=== PATIENT | male | born 2000 | race Caucasian/White ===

== ENCOUNTER 2022-07-01 21:09 | Emergency (ER) | payer SELFPAY ==
[2022-07-01 21:11] VITALS: BP 141/119; PULSE 65; RESP 18; TEMP 36.3; O2SAT 96; BMI 20.9
--- NOTE | 2022-07-01 22:18 | EKG12_ITS ---
Test Reason : FALL Blood Pressure : / mmHG Vent. Rate : 064 BPM Atrial Rate : 064 BPM P-R Int : 140 ms QRS Dur : 102 ms QT Int : 396 ms P-R-T Axes : 046 074 061 degrees QTc Int : 408 ms Normal sinus rhythm Normal ECG Confirmed by WINDY SCHMIDT, TYLER ([id number]), editor dictionary GIANNA CORTES ([id number]) on 07/02/2022 8:41:03 AM Referred By: Confirmed By:TYLER TEMPLE MD
--- NOTE | 2022-07-01 22:19 | EX.ED.DYSGE1 ---
HPI History of Present Illness Chief Complaint: Syncope Informant: patient Narrative Narrative: Patient states he was prescribed prednisone and azithromycin for a case of bronchitis about 5 days ago. He states every time he takes the medicine he feels a little lightheaded and dizzy. He took it last night before getting in the shower. When he got out of the shower and went into his room and bent over he got dizzy fell and hit his head. There is no loss of consciousness. No numbness tingling. He states he is not really having a headache. He is not as dizzy today. But he just feels mildly anxious and just different than normal. He has been eating and drinking. No nausea vomiting. No numbness tingling weakness or neurologic symptoms. His breathing issues/bronchitis is improving. It seems like taking the meds makes his symptoms worse and the symptoms get better after that. He states he has 1 dose left. PFSH PFS Home Medications Zithromax 07/01/22 [History Last Taken Unknown] prednisone 07/01/22 [History Last Taken Unknown] Allergy/AdvReac Type Severity Reaction Status Date / Time amoxicillin [Amoxicillin] Allergy Rash Verified 07/01/22 21:10 Penicillins Allergy Rash Verified 07/01/22 21:10 Social History Smoking Status: Light Smoker (<10/day) [facility] ED Constitutional Constitutional ED: Denies fever(s), subjective or sweats Eyes Eyes: Denies blurry vision, change in vision or diplopia ENT ENT ED: Reports rhinorrhea; Denies sore throat Cardiovascular Cardiovascular: Denies chest pain, palpitations or racing heartbeat Respiratory/Chest Respiratory/Chest: Reports cough; Denies dyspnea or sputum Gastrointestinal Gastrointestinal: Denies abdominal pain, diarrhea, nausea or vomiting Genitourinary Genitourinary ED: Denies dysuria, hematuria or urinary frequency Musculoskeletal Musculoskeletal: Denies myalgias Integumentary Denies Abrasions or rash Neurologic Neurologic: Reports other Details: See history of present illness ; Denies headache(s), paresthesias or weakness Psychiatric Psychiatric: Reports anxiety Endocrine Endocrinology: Reports other Details: No history of diabetes ; Denies polydipsia or polyuria Hematologic/Lymphatic Hematologic/Lymphatic: Denies easy bleeding or easy bruising Allergic/Immunologic Allergic/Immunologic ED: Denies urticaria EXAM Physical Exam Const Vital Signs: 07/01/22 21:11 Temperature 97.4 F L Temperature Source Temporal Pulse Rate 65 Respiratory Rate 18 Blood Pressure 141/119 H Blood Pressure Mean 126 Pulse Ox 96 Oxygen Delivery Method Room Air Positive well nourished and well developed Constitutional Narrative: Patient sitting quietly in the bed. General Appearance ED: well developed and NAD HEENT Reports moist mucous membranes HEENT Narrative: I find no trauma on his scalp. No abrasions contusions swelling or tender areas. Eyes PERRL and EOMs intact bilaterally Eyes Narrative: No vertigo or nystagmus with head motion. Neck no lymphadenopathy Chest Wall inspection of chest normal Resp normal respiratory effort and clear to auscultation bilaterally Auscultation: Negative for rhonchi or wheezes Cardio regular rate, regular rhythm and no murmurs GI normal to inspection, nondistended, normoactive bowel sounds, non-tender and non-distended Palpation: soft Back/Spine no CVA tenderness Extremity normal to inspection Neuro oriented x3 and no sensory deficits noted Neuro Narrative: Normal gait balance and coordination. Normal speech. Sensorium / Orientation: alert; Negative for orientation impaired, lethargic or stuporous Motor Exam: strength 5/5 throughout Psych mental status grossly normal MDM MDM MDM Narrative Medical decision making narrative: Patient's EKG shows no acute process and has a normal QTC. Glucose was mildly elevated at 143 but this is not diabetes and is not likely the primary cause of his symptoms. This will need to be rechecked when he is off prednisone. Patient has normal neurologic exam. He is not dizzy right now. His symptoms are certainly able to be caused by the azithromycin and prednisone. These are known side effects. I think these would symptoms will resolve as he is off the medications. Patient's initial blood pressure was also elevated but had a very close diastolic systolic differential. This will be repeated. It still needs to be followed up but can be followed up with primary physician along with recheck of blood sugar. Lab Data Labs: Laboratory Results - last 24 hr 07/01/22 22:29 POC Glucose 143 H EKG Initial EKG: Comments: EKG done for lightheadedness and syncope on medications. EKG read by me shows a normal sinus rhythm with a rate of 64. No ectopy. No acute ST elevation or depression. DE interval, QRS duration and QTc are all normal. Discharge Plan Triage Chief Complaint: Syncope Other Complaint: Dizziness Head Injury ED Provider: Osito Oliver Dx/Rx/DC Orders Clinical Impression: Syncope, Borderline hyperglycemia, Medication side effect Prescriptions: No Action Zithromax prednisone Primary Care Provider: Care Physician,No Primary Referrals: Cathy Cee MD [Med Staff - Booster Operator] - 3-5 Days if not improving Care Physician,No Primary [Primary Care Provider] - Disposition Disposition: Home, Self Care
[2022-07-01 22:51] LABS: Bedside Glucose 143 mg/dL (74-106)
[2022-07-01 23:02] VITALS: BP 94/60
== END 2022-07-01 23:06 | disposition home or self-care (01) ==
PROVIDERS: Emergency Provider Emergency Medicine; Visit Provider Emergency Medicine
DX: S09.90XA Unspecified injury of head, initial encounter (principal); R55 Syncope and collapse; F17.200 Nicotine dependence, unspecified, uncomplicated; R73.9 Hyperglycemia, unspecified; J40 Bronchitis, not specified as acute or chronic; Z79.52 Long term (current) use of systemic steroids; X58.XXXA Exposure to other specified factors, initial encounter
CPT/HCPCS: 82962; 93005; 99282

== ENCOUNTER 2023-06-03 16:33 | Emergency (ER) | payer OTHER, SELFPAY ==
[2023-06-03 16:33] VITALS: BP 135/73; PULSE 94; RESP 18; TEMP 36.1; O2SAT 97; BMI 22.7
--- NOTE | 2023-06-03 17:16 | EDS_ITS ---
<Statement entered by Delfina Do MD - 06/03/23 20:09> I have personally performed a face to face assessment of the patient and have reviewed the EFREN Note. Patient presents secondary to dental pain. He states that he noted increasing dental pain when his wisdom teeth started coming in. He has not seen a dentist in some time but does now have insurance that will cover dental visits. Patient sitting upright in bed no acute distress. He tolerates secretions well and speaks with a strong voice. No facial edema or erythema noted. Intraoral examination reveals dental decay to the gumline on both right and left mandibular surfaces as well as maxillary surfaces. Mild gum irritation and edema noted. No evidence of trismus. No submental fullness. Posterior pharynx is unremarkable. Patient will be treated with antibiotics. He is given a dental referral list but I also encouraged him to check with his insurance company to see who in the area is covered. Return instructions given. HPI History of Present Illness Chief Complaint: Dental Narrative Narrative: 23-year-old male has poor dentition. He states over the last month his wisdom teeth started coming in at an angle and are pushing and breaking all of his other teeth. He is having increased pain in the left lower molars. No fever chills or difficulty swallowing or breathing. [facility] Medical History (Updated 06/03/23 @ 17:12 by MERVAT Hernandez) No acute medical problems Home Medications Zithromax 07/01/22 [History Last Taken Unknown] prednisone 07/01/22 [History Last Taken Unknown] clindamycin HCl 150 mg capsule 450 mg (3 x 150 mg) PO TID 7 days #63 caps 06/03/23 [Rx Last Taken Unknown] Allergy/AdvReac Type Severity Reaction Status Date / Time amoxicillin [Amoxicillin] Allergy Rash Verified 06/03/23 16:40 Penicillins Allergy Rash Verified 06/03/23 16:40 Social History Smoking Status: Light Smoker (<10/day) ROS ROS ED ROS Narrative Constitutional: Negative for fever, chills, malaise. ENT: Negative for sore throat. Respiratory: Negative for shortness of breath. GI: Negative for nausea, vomiting. Neuro: Negative for headache. EXAM Physical Exam Narrative Exam Narrative: CONST: Patient sitting in no acute distress. EYES: Normal inspection. ENT: Severe tooth decay and multiple teeth are rotted down to the gumline. [place] teeth have erupted at any level and are pushing on his other molars, tender over left lower molars. No periapical abscess, sublingual space is soft, no trismus or tongue elevation, most mucous membranes and normal posterior o ropharynx NECK: Normal inspection. Trachea midline, no masses or tenderness, no meningismus. RESP: No respiratory distress, CTAB. CVS: Regular rate and rhythm, no murmur, no gallop. SKIN: Color normal, no rash, warm, dry, intact. EXTREMITIES: Normal appearance, no pedal edema. NEURO: Oriented x4. PSYCH: Normal affect. Const Vital Signs: 06/03/23 16:33 Temperature 97 F L Temperature Source Temporal Pulse Rate 94 Respiratory Rate 18 Blood Pressure 135/73 H Blood Pressure Mean 93 Pulse Ox 97 Oxygen Delivery Method Room Air MDM MDM MDM Narrative Medical decision making narrative: Patient has very poor dentition with multiple missing/eroded teeth and is having increased pain in the left lower molars. He appears well and nontoxic. Vital signs stable. Has diffuse decay and left lower molar tenderness but no evidence of periapical abscess or Maria C's angina. Airway patent. He is penicillin allergic so I prescribed clindamycin with first dose given here. I provided a dental referral sheet and he was discharged in stable condition. Discharge Plan Triage Chief Complaint: Dental ED Midlevel Provider: Luisana Uriarte ED Provider: Delfina Do Dx/Rx/DC Orders Clinical Impression: Dental caries Instructions: Dental Abscess, Understanding Tooth Decay Prescriptions: New clindamycin HCl 150 mg capsule 450 mg PO TID 7 Days Qty: 63 0RF No Action Zithromax Hold Instructions: Pt has been DC'd prednisone Hold Instructions: Pt has been DC'd Primary Care Provider: Care Physician,No Primary Referrals: Care Physician,No Primary [Primary Care Provider] - Activity Restrictions/Additional Instructions: Follow-up with a dentist and take Tylenol or ibuprofen as needed for pain Disposition Disposition: Home, Self Care
[2023-06-03] MEDS: Clindamycin HCl 150 MG Capsule 450 MG PO (17:40)
[2023-06-03 17:44] VITALS: BP 118/70; PULSE 67; RESP 18; O2SAT 97
== END 2023-06-03 17:45 | disposition home or self-care (01) ==
PROVIDERS: Emergency Provider Emergency Medicine; Visit Provider Emergency Medicine
DX: K02.9 Dental caries, unspecified (principal); F17.200 Nicotine dependence, unspecified, uncomplicated
CPT/HCPCS: 99282

== ENCOUNTER 2023-12-08 21:13 | Emergency (ER) | payer OTHER, SELFPAY ==
[2023-12-08 21:13] VITALS: BP 120/89; PULSE 109; RESP 19; TEMP 36.8; O2SAT 97; BMI 20.6
[2023-12-08 21:17] VITALS: BP 120/87; PULSE 101; RESP 18; TEMP 36.7; O2SAT 97
--- NOTE | 2023-12-08 21:26 | EX.ED.DYSGE1 ---
HPI History of Present Illness Chief Complaint: General Illness Detail of Chief Complaint: Upper respiratory symptoms with productive cough and wheezing Informant: patient Onset/Context/Timing Onset: Days (3 days ago) Context: Sudden Onset Timing: Continuous and Waxes and wanes Quality: Upper respiratory symptoms with productive cough and wheezing Location: Upper respiratory Current Severity: Mild Maximum Severity: Moderate Worsened by: Exertion, coughing and smoking Relieved by: Nothing Associated Symptoms Associated Symptoms: No complaint of subjective or documented fever. Narrative Narrative: Patient is a 23-year-old male with history of asthma. He is a smoker. 6 months ago he smoking 1 pack/day. He is now down to 3 cigarettes a day. He denies fever, chills night sweats. He does report global headache. Denies double vision, blurred vision loss of vision or photophobia. Eyes ayala ears decreased hearing. He denies sore throat. He does have a cough which is productive of colored sputum, green. He also reports wheezing. He denies pain in his chest. He denies nausea, vomiting or diarrhea. Denies abdominal pain. He denies joint swelling. Does complain of aches in his arms and legs. He does endorse a rash. He denies leg pain, swelling discoloration. Prior similar symptoms: Yes Recent Illness/Hospitalization: No PFSH PFS Medical History No acute medical problems Home Medications Zithromax 07/01/22 [History Last Taken Unknown] prednisone 07/01/22 [History Last Taken Unknown] clindamycin HCl 150 mg capsule 450 mg (3 x 150 mg) PO TID 7 days #63 caps 06/03/23 [Rx Last Taken Unknown] prednisone 20 mg tablet 40 mg (2 x 20 mg) PO DAILY #8 TABLETS 12/08/23 [Rx Last Taken Unknown] Allergy/AdvReac Type Severity Reaction Status Date / Time amoxicillin [Amoxicillin] Allergy Rash Verified 12/08/23 21:14 Penicillins Allergy Rash Verified 12/08/23 21:14 Social History (Updated 12/08/23 @ 21:[address] Lm Ireland MD) household members: none Smoking Status: Current every day smoker tobacco type: cigarettes substance use type: does not use ROS ROS ED Constitutional Constitutional ED: Denies chills, fever(s), subjective or sweats Eyes Eyes: Denies blurry vision, change in vision or diplopia ENT ENT ED: Reports rhinorrhea; Denies ear pain or sore throat Cardiovascular Cardiovascular: Denies chest pain, orthopnea, palpitations or paroxysmal nocturnal dyspnea Respiratory/Chest Respiratory/Chest: Reports cough, dyspnea, sputum and other Details: Positive wheezing. ; Denies dyspnea on exertion, orthopnea or paroxysmal nocturnal dyspnea Gastrointestinal Gastrointestinal: Denies diarrhea or vomiting Genitourinary Genitourinary ED: Denies dysuria, hematuria or urinary frequency Musculoskeletal Musculoskeletal: Denies arthralgias, back pain or myalgias Integumentary Denies rash Neurologic Neurologic: Reports headache(s); Denies paresthesias or weakness Hematologic/Lymphatic Hematologic/Lymphatic: Reports systems reviewed and no addt'l complaints, except as documented EXAM Physical Exam Const Vital Signs: 12/08/23 21:13 12/08/23 21:17 Temperature 98.2 F 98.1 F Temperature Source Temporal Oral Pulse Rate 109 H 101 H Respiratory Rate 19 H 18 Blood Pressure 120/89 H 120/87 H Blood Pressure Mean 99 98 Pulse Ox 97 97 Oxygen Delivery Method Room Air Room Air Positive well nourished and well developed Constitutional Narrative: Patient is tachycardic. He is not febrile or hypoxic. General Appearance ED: well developed and NAD; Negative for pallor HEENT Reports dry mucous membranes HEENT Narrative: Head is atraumatic no cephalic. Ears normal. Nares patent with clear drainage. Posterior pharynx is normal. Mouth ED: Yes dry mucous membranes Mouth: dry mucous membranes Eyes PERRL and EOMs intact bilaterally General Eye ED: Negative for pale conjunctiva or scleral icterus Neck no lymphadenopathy and no JVD Resp normal respiratory effort and No clear to auscultation bilaterally Auscultation: wheezes expiratory wheezes ([place] throughout greater on the left side.) Cardio regular rhythm, S1 normal heart sound, S2 normal heart sound and no murmurs Rate: tachycardic GI normal to inspection, nondistended, normoactive bowel sounds, non-tender, non-distended and no masses; Negative for hepatosplenomegaly Auscultation: hypoactive bowel sounds Back/Spine no CVA tenderness Extremity normal to inspection General Extremety ED: Negative for edema, tenderness or other findings General Extremity: Negative for edema or other findings Neuro oriented x3 and CN's II-XII intact bilaterally Sensorium / Orientation: alert Psych mental status grossly normal Skin no wounds and skin turgor normal Skin Narrative: Fine maculopapular rash torso. General Skin Exam: elasticity normal; Negative for jaundice or pallor MDM MDM MDM Narrative Medical decision making narrative: Suspect this is a upper respiratory infection due to viral disease. Since he does have colored sputum is tachycardic and wheezing will obtain chest x-ray to assess for pneumonia. Patient will receive 4 puffs from metered-dose inhaler and dose of prednisone. History & Record Review Additional record(s) reviewed:: Prior ED visit ( Review of prior records indicates that he was seen May 2023 for dental caries. In June 2022 seen for hyperglycemia. And in 2013 he was seen for a fractured middle phalanx.) and Prior labs Radiography Chest X-Ray - ED: 2 View and Read by ED Physician (Independent reviewed interpreted by me at 2156 as negative. Cardiac silhouette size normal. There is slight hyperaeration. There is no infiltrate or effusion. [place] is normal. Osseous trucks unremarkable) Treatment and Re-Evaluation :: Patient feels better after 6 puffs with albuterol metered-dose inhaler. He was prescribed prednisone and the inhaler was dispensed to him. Discharge Plan Triage Chief Complaint: General Illness ED Provider: Lm Ireland Dx/Rx/DC Orders Clinical Impression: Sinus tachycardia, Acute purulent bronchitis, Acute bronchospasm, Tobacco use Prescriptions: New prednisone 20 mg tablet 40 mg PO DAILY Qty: 8 0RF No Action Zithromax Hold Instructions: Pt has been DC'd prednisone Hold Instructions: Pt has been DC'd clindamycin HCl 150 mg capsule 450 mg PO TID 7 Days Qty: 63 0RF Primary Care Provider: Care Physician,No Primary Referrals: Care Physician,No Primary [Primary Care Provider] - Doctor,Your [Non-Staff] - 1 Week if not improving Activity Restrictions/Additional Instructions: 1. Is your best interest to quit smoking 2. 2 puffs of inhaler every 2-4 hours while awake for the next 3 days then every 4-6 hours as needed for wheezing 3. Take prednisone until gone. Disposition Disposition: Home, Self Care
[2023-12-08] MEDS: predniSONE 20 MG Tablet 60 MG PO (21:30)
[2023-12-08] MEDS: Albuterol Sulfate 8 gm Inhaler (60 puffs) 6 PUFF INHALATION (21:40)
--- NOTE | 2023-12-08 21:44 | RAD_ITS ---
INDICATION: Productive cough, wheezing EXAMINATION/TECHNIQUE: X-RAY - XR Chest 2 Views COMPARISON: None. FINDINGS: LINES/DEVICES: None. LUNGS: No consolidation, edema or effusion. No pneumothorax. MEDIASTINUM AND CARDIOVASCULAR STRUCTURES: Cardiac silhouette not enlarged. Central airways and mediastinal contour are unremarkable. BONES AND SOFT TISSUES: Unremarkable. RAD/Chest PA and Lateral IMPRESSION: No radiographic evidence of acute cardiopulmonary disease. Electronically Signed: Cl Álvarez MD at 21:58 EDT ,
[2023-12-08 22:08] VITALS: BP 114/96; PULSE 105; RESP 16; TEMP 36.9; O2SAT 97
== END 2023-12-08 22:09 | disposition home or self-care (01) ==
PROVIDERS: Emergency Provider Emergency Medicine; Visit Provider Emergency Medicine
DX: J20.9 Acute bronchitis, unspecified (principal); R00.0 Tachycardia, unspecified; F17.210 Nicotine dependence, cigarettes, uncomplicated
CPT/HCPCS: 71046; 99282

== ENCOUNTER 2025-05-03 18:51 | Emergency (ER) | payer OTHER, SELFPAY ==
[2025-05-03] VITALS (37 sets, daily range): BP systolic 77–123; BP diastolic 40–93; PULSE 32–79; RESP 5–30; TEMP 36.6; O2SAT 89–100; BMI 21.8
--- NOTE | 2025-05-03 19:13 | ED.RN ---
185: PT. REPORTED I SMOKED SOMETHING IN AN TORRIE TRAY. I DON'T KNOW WHAT IT WAS.
--- NOTE | 2025-05-03 19:20 | EX.ED.DYSGE1 ---
HPI History of Present Illness Chief Complaint: Unresponsive Narrative Narrative: 25-year-old male who denies significant past medical history presents with decreased mental status/unresponsiveness. Per EMS he was found in a parking lot. He states that he was walking home from a friend's house. He admits to smoking marijuana. He states that as he was walking home the last thing he remembers was waking up and police officers were around him. He presents to the emergency department with decreased mental status, stating he is fatigued and does not feel well. [facility] Medical History No acute medical problems Medical History no medical history Home Medications ?Medication ?Instructions ?Recorded ?Last Taken ?Type Zithromax 07/01/22 Unknown History Held on 06/03/23. Instructions: Pt has been DC'd prednisone 07/01/22 Unknown History Held on 06/03/23. Instructions: Pt has been DC'd clindamycin HCl 150 mg capsule 450 mg (3 x 150 mg) PO TID 7 days 06/03/23 Unknown Rx #63 caps prednisone 20 mg tablet 40 mg (2 x 20 mg) PO DAILY #8 12/08/23 Unknown Rx TABLETS Allergy/AdvReac Type Severity Reaction Status Date / Time amoxicillin (Amoxicillin) Allergy Rash Verified 12/08/23 21:14 Penicillins Allergy Rash Verified 12/08/23 21:14 Social History household members: none Smoking Status: Current every day smoker tobacco type: cigarettes substance use type: does not use ROS ROS ED ROS Narrative Review of systems is positive for nausea. Reported syncopal episode/unresponsive episode. He was awake, alert, and talking initially for EMS and on his arrival to the ED. EXAM Physical Exam Narrative Exam Narrative: Afebrile. Vital signs noted. Cardiovascular examination reveals bradycardia. Lungs are clear to auscultation bilaterally. Abdomen is soft and nontender without guarding or rebound. Intermittent drowsiness. Moves all extremities. Const Vital Signs: 05/03/25 18:54 05/03/25 18:56 05/03/25 18:58 Temperature 98 F Temperature Source Oral Pulse Rate 45 L 54 L Respiratory Rate 17 12 Respiratory Pattern Normal Blood Pressure 82/51 L Blood Pressure Mean 61 Pulse Ox 93 97 Oxygen Delivery Method Room Air 05/03/25 18:58 05/03/25 19:00 05/03/25 19:07 Temperature Temperature Source Pulse Rate 53 L 45 L 47 L Respiratory Rate 16 12 11 L Respiratory Pattern Blood Pressure 80/40 L 77/40 L 87/58 L Blood Pressure Mean 52 52 67 Pulse Ox 93 94 96 Oxygen Delivery Method Room Air Room Air Room Air 05/03/25 19:10 05/03/25 19:15 05/03/25 19:30 Temperature Temperature Source Pulse Rate 78 79 51 L Respiratory Rate 20 H 23 H 26 H Respiratory Pattern Blood Pressure 100/74 91/79 104/68 Blood Pressure Mean 83 84 80 Pulse Ox 100 100 100 Oxygen Delivery Method Room Air Room Air 05/03/25 19:49 05/03/25 19:50 05/03/25 20:00 Temperature Temperature Source Pulse Rate 46 L 42 L 36 L Respiratory Rate 16 18 Respiratory Pattern Blood Pressure 99/67 Blood Pressure Mean 76 Pulse Ox 100 100 100 Oxygen Delivery Method Room Air 05/03/25 20:15 05/03/25 20:20 05/03/25 20:22 Temperature Temperature Source Pulse Rate 33 L 36 L 35 L Respiratory Rate 18 19 H Respiratory Pattern Blood Pressure 99/66 99/66 Blood Pressure Mean 76 77 Pulse Ox 99 96 98 Oxygen Delivery Method Room Air 05/03/25 20:26 05/03/25 20:28 05/03/25 20:30 Temperature Temperature Source Pulse Rate 38 L 32 L 39 L Respiratory Rate 18 5 L 25 H Respiratory Pattern Blood Pressure 98/69 98/69 103/76 Blood Pressure Mean 78 78 85 Pulse Ox 96 92 97 Oxygen Delivery Method Room Air Room Air 05/03/25 20:33 05/03/25 20:41 05/03/25 20:45 Temperature Temperature Source Pulse Rate 61 38 L 42 L Respiratory Rate 21 H 30 H 22 H Respiratory Pattern Blood Pressure 103/76 112/84 H Blood Pressure Mean 85 94 Pulse Ox 100 98 95 Oxygen Delivery Method Room Air Room Air Room Air 05/03/25 21:00 05/03/25 21:15 05/03/25 21:30 Temperature Temperature Source Pulse Rate 39 L Respiratory Rate 25 H Respiratory Pattern Blood Pressure 100/73 93/66 91/60 Blood Pressure Mean 83 76 70 Pulse Ox 93 92 Oxygen Delivery Method Room Air 05/03/25 21:31 05/03/25 21:43 05/03/25 21:45 Temperature Temperature Source Pulse Rate 38 L 37 L Respiratory Rate 14 16 Respiratory Pattern Blood Pressure 91/60 89/69 L Blood Pressure Mean 70 76 Pulse Ox 89 96 95 Oxygen Delivery Method Room Air 05/03/25 22:02 05/03/25 22:15 05/03/25 22:17 Temperature Temperature Source Pulse Rate 53 L 35 L 36 L Respiratory Rate 18 10 L Respiratory Pattern Blood Pressure 85/50 L 85/50 L Blood Pressure Mean 63 61 Pulse Ox 94 Oxygen Delivery Method Room Air 05/03/25 22:29 05/03/25 22:30 05/03/25 22:45 Temperature Temperature Source Pulse Rate 46 L 33 L Respiratory Rate 15 14 Respiratory Pattern Blood Pressure 116/87 H 123/93 H 116/81 H Blood Pressure Mean 95 105 92 Pulse Ox 100 100 Oxygen Delivery Method Room Air Room Air 05/03/25 23:06 Temperature Temperature Source Pulse Rate 35 L Respiratory Rate 10 L Respiratory Pattern Blood Pressure 105/67 Blood Pressure Mean 79 Pulse Ox 94 Oxygen Delivery Method Room Air MDM MDM MDM Narrative Medical decision making narrative: Patient placed on a monitor and storage bin tender. Differential diagnosis includes but not limited to unresponsive episode secondary to drug overdose, especially opiates. While he was in the emergency department and was seen in the hallway on the cot awake, alert, and fidgeting with his head, RNs report decreased responsiveness, drop in pulse ox as well as blood pressure. He was administered 2 mg of Narcan. Upon my initial examination formally, he is now awake, alert, and mildly agitated. He had told the RN that he was nauseated. When I asked him in order to offer him Zofran, he declined. He states he is cold and wants a warm blanket. He was told that he needs to be observed until he is more awake and clinically sober. Patient has had intermittent episodes of bradycardia, and decreased responsiveness. He has been given a total of 4 mg of naloxone. At times he is easily awakened, and when he is sleeping he is bradycardic in the 30s and 40s. However when he awakens, his heart rate will go up into the 50s or 60s. Additionally, he was found to be elevating 2 small bags of powder. I think he may have more of a coingestion. At this point in time, we will draw a CBC and BMP as well as a alcohol level and urine for drugs of abuse. Patient will be signed out to the oncoming physician Dr. Jerad Cueva to contribute to new observation and when he is more awake and clinically sober as long as his heart rate is not extremely bradycardic, I feel he can be discharged. An EKG had been obtained and interpreted by myself independently as bradycardia 39 bpm with supraventricular complexes, but no acute ST changes. Currently, patient is in stable condition. History & Record Review Discussion w/independent historian: Patient Additional record(s) reviewed:: Prior ED visit (Previous tachycardia) Discharge Plan Triage Chief Complaint: Unresponsive ED Provider: Jovany Crouch Dx/Rx/DC Orders Clinical Impression: Decreased responsiveness, Bradycardia Prescriptions: No Action Zithromax prednisone clindamycin HCl 150 mg capsule 450 mg PO TID 7 Days Qty: 63 0RF prednisone 20 mg tablet 40 mg PO DAILY Qty: 8 0RF Primary Care Provider: Care Physician,No Primary Referrals: Care Physician,No Primary [Primary Care Provider, Medical] Print Language: Luxembourgish
--- NOTE | 2025-05-03 19:52 | EKG12_ITS ---
Test Reason : ALOK Blood Pressure : */* mmHG Vent. Rate : 39 BPM Atrial Rate : 39 BPM P-R Int : 134 ms QRS Dur : 98 ms QT Int : 464 ms P-R-T Axes : 53 84 63 degrees QTcB Int : 373 ms Critical Test Result: Low HR Marked sinus bradycardia with Premature supraventricular complexes Abnormal ECG Confirmed by Bartolome Caldera ([id number]), pictures editor GIANNA CORTES ([id number]) on 05/05/2025 5:58:58 AM Referred By: Confirmed By: Bartolome Caldera
--- NOTE | 2025-05-03 21:45 | CM.ED ---
Social work Reason for referral: no PCP Referral source: case find SW identified patient's lack of PCP and possible need for resources; patient lives in [place]. SW entered patient's room, introducing self and role at [facility]. Patient was struggling to stay awake, but stated ability to accept resources of [facility] Provider Directory and Kylah Curran information. Paperwork was placed on patient's chair. Patient denied further needs at this time. Jaclyn Mckeon, ADOLESCENT COUNSELOR, SYSTEM SALES CONSULTANT
--- NOTE | 2025-05-03 22:34 | ED.RN ---
2216: THIS NURSE NOTIFIED BY NURSES, Peter MEDELLIN AND Dinora BARNHART THAT POLICE HAVE BEEN NOTIFIED AFTER PT. FOUND WITH 2 SMALL PLASTICS BAGS. ONE HAD A WHITE POWDERY SUBSTANCE AND ONE HAD A PALE GREEN POWDERY SUBSTANCE ACCORDING TO THE NURSES. SECURITY AT BEDSIDE. I WAS INFORMED SUBSTANCES HAVE BEEN REMOVED FROM THE PT. BEDSIDE.
[2025-05-03 23:27] LABS: Hematocrit 33.9 % (40-54); Hemoglobin 11.5 g/dL (13.0-16.5); Immature Granulocytes Count 0.010 X10^3/uL (0.0-0.0); Mean Corp Hgb Conc 33.9 g/dL (32-36); Mean Corpuscular Volume 86.5 fL (80-94); Mean Platelet Vol. 11.8 fl (6.2-12.0); NRBC Flagged by Analyzer 0 % (0-5); Platelet Count 292 K/mm3 (150-450); RBC Distribution Width CV 13.2 % (11.6-14.6); RBC Distribution Width SD 42.0 fl (35.1-43.9); Red Blood Count 3.92 M/mm3 (4.6-6.2); White Blood Count 9.7 K/mm3 (4.4-11.0)
[2025-05-03] MEDS: 0.9% Normal Saline (1000mL) 1,000 ML 999 ML IV (23:43)
[2025-05-03 23:54] LABS: Alcohol, Blood (Medical)-Serum < 10.1 mg/dL (<=10.0)
[2025-05-03 23:55] LABS: Anion Gap 10 (5-15); BUN 12 mg/dL (4-19); BUN/Creat Ratio 18.1 RATIO (10-20); Calcium,Total 8.8 mg/dL (7.6-11.0); Carbon Dioxide 18.8 mmol/L (21.0-32.0); Chloride 108 mmol/L (98-108); Estimated Creatinine Clearance 154.57 ml/min (50-250); Glucose 131 mg/dL (70-99); Potassium 5.0 mmol/L (3.3-5.1)
[2025-05-04] VITALS: BP 114/75; PULSE 35; RESP 15; O2SAT 100
--- NOTE | 2025-05-04 00:09 | ED.RN ---
Pt called this RN to room asking for a warm blanket. Pt still lethargic, falling asleep while this RN at bedside. This RN placed surveillance system monitor leads and blood pressure cuff back on pt. Vencie Olvera RN entered room as well. This RN noticed rolled up money in pt's right hand, asked pt to hand it over. After some coaxing pt handed over a rolled up dollar bill. This RN then observed something else in pt's left hand, asked him to hand it over, pt initially declined. After this RN stated I would notify security, pt handed over two plastic bags. One was filled with a white powder, the other fill with green powder that was opened and spilling out. Venice Olvera witnessed these events as well. Pt stated he went to the bathroom, forgot he had the bags in his pants until they fell out onto the bathroom floor. This RN took the bags to security, and explained the situation. Security called police.
[2025-05-04 00:15] VITALS: BP 112/83; PULSE 33; RESP 18; O2SAT 100
[2025-05-04 00:30] VITALS: BP 113/78; PULSE 31; RESP 15; O2SAT 100
[2025-05-04 00:45] VITALS: BP 113/87
--- NOTE | 2025-05-04 01:01 | ED.RN ---
PT. REQUESTING TO LEAVE WITH BROTHER. PT. REMOVING MONITORING EQUIPMENT AND DRINKING A CUP OF WATER IN THE BED. PROVIDER Jose ACUNA NOTIFIED.
--- NOTE | 2025-05-04 01:07 | ED.RN ---
PROVIDER Joes ACUNA NOTIFIED OF PT. ELOPEMENT PRIOR TO D/C INSTRUCTIONS
--- NOTE | 2025-05-04 01:15 | EDS_ITS ---
HPI History of Present Illness Chief Complaint: Unresponsive [facility] Medical History No acute medical problems Medical History no medical history Home Medications ?Medication ?Instructions ?Recorded ?Last Taken ?Type Zithromax 07/01/22 Unknown History Held on 06/03/23. Instructions: Pt has been DC'd prednisone 07/01/22 Unknown History Held on 06/03/23. Instructions: Pt has been DC'd clindamycin HCl 150 mg capsule 450 mg (3 x 150 mg) PO TID 7 days 06/03/23 Unknown Rx #63 caps prednisone 20 mg tablet 40 mg (2 x 20 mg) PO DAILY # 8 12/08/23 Unknown Rx TABLETS Allergy/AdvReac Type Severity Reaction Status Date / Time amoxicillin (Amoxicillin) Allergy Rash Verified 12/08/23 21:14 Penicillins Allergy Rash Verified 12/08/23 21:14 Social History household members: none Smoking Status: Current every day smoker tobacco type: cigarettes substance use type: does not use EXAM Physical Exam Const Vital Signs: 05/03/25 18:54 05/03/25 18:56 05/03/25 18:58 Temperature 98 F Temperature Source Oral Pulse Rate 45 L 54 L Respiratory Rate 17 12 Respiratory Pattern Normal Blood Pressure 82/51 L Blood Pressure Mean 61 Pulse Ox 93 97 Oxygen Delivery Method Room Air 05/03/25 18:58 05/03/25 19:00 05/03/25 19:07 Temperature Temperature Source Pulse Rate 53 L 45 L 47 L Respiratory Rate 16 12 11 L Respiratory Pattern Blood Pressure 80/40 L 77/40 L 87/58 L Blood Pressure Mean 52 52 67 Pulse Ox 93 94 96 Oxygen Delivery Method Room Air Room Air Room Air 05/03/25 19:10 05/03/25 19:15 05/03/25 19:30 Temperature Temperature Source Pulse Rate 78 79 51 L Respiratory Rate 20 H 23 H 26 H Respiratory Pattern Blood Pressure 100/74 91/79 104/68 Blood Pressure Mean 83 84 80 Pulse Ox 100 100 100 Oxygen Delivery Method Room Air Room Air 05/03/25 19:49 05/03/25 19:50 05/03/25 20:00 Temperature Temperature Source Pulse Rate 46 L 42 L 36 L Respiratory Rate 16 18 Respiratory Pattern Blood Pressure 99/67 Blood Pressure Mean 76 Pulse Ox 100 100 100 Oxygen Delivery Method Room Air 05/03/25 20:15 05/03/25 20:20 05/03/25 20:22 Temperature Temperature Source Pulse Rate 33 L 36 L 35 L Respiratory Rate 18 19 H Respiratory Pattern Blood Pressure 99/66 99/66 Blood Pressure Mean 76 77 Pulse Ox 99 96 98 Oxygen Delivery Method Room Air 05/03/25 20:26 05/03/25 20:28 05/03/25 20:30 Temperature Temperature Source Pulse Rate 38 L 32 L 39 L Respiratory Rate 18 5 L 25 H Respiratory Pattern Blood Pressure 98/69 98/69 103/76 Blood Pressure Mean 78 78 85 Pulse Ox 96 92 97 Oxygen Delivery Method Room Air Room Air 05/03/25 20:33 05/03/25 20:41 05/03/25 20:45 Temperature Temperature Source Pulse Rate 61 38 L 42 L Respiratory Rate 21 H 30 H 22 H Respiratory Pattern Blood Pressure 103/76 112/84 H Blood Pressure Mean 85 94 Pulse Ox 100 98 95 Oxygen Delivery Method Room Air Room Air Room Air 05/03/25 21:00 05/03/25 21:15 05/03/25 21:30 Temperature Temperature Source Pulse Rate 39 L Respiratory Rate 25 H Respiratory Pattern Blood Pressure 100/73 93/66 91/60 Blood Pressure Mean 83 76 70 Pulse Ox 93 92 Oxygen Delivery Method Room Air 05/03/25 21:31 05/03/25 21:43 05/03/25 21:45 Temperature Temperature Source Pulse Rate 38 L 37 L Respiratory Rate 14 16 Respiratory Pattern Blood Pressure 91/60 89/69 L Blood Pressure Mean 70 76 Pulse Ox 89 96 95 Oxygen Delivery Method Room Air 05/03/25 22:02 05/03/25 22:15 05/03/25 22:17 Temperature Temperature Source Pulse Rate 53 L 35 L 36 L Respiratory Rate 18 10 L Respiratory Pattern Blood Pressure 85/50 L 85/50 L Blood Pressure Mean 63 61 Pulse Ox 94 Oxygen Delivery Method Room Air 05/03/25 22:29 05/03/25 22:30 05/03/25 22:45 Temperature Temperature Source Pulse Rate 46 L 33 L Respiratory Rate 15 14 Respiratory Pattern Blood Pressure 116/87 H 123/93 H 116/81 H Blood Pressure Mean 95 105 92 Pulse Ox 100 100 Oxygen Delivery Method Room Air Room Air 05/03/25 23:00 05/03/25 23:06 05/03/25 23:15 Temperature Temperature Source Pulse Rate 33 L 35 L 47 L Respiratory Rate 18 10 L 21 H Respiratory Pattern Blood Pressure 105/76 105/67 123/91 H Blood Pressure Mean 86 79 102 Pulse Ox 93 94 Oxygen Delivery Method Room Air 05/03/25 23:30 05/03/25 23:45 05/04/25 00:00 Temperature Temperature Source Pulse Rate 37 L Respiratory Rate 18 Respiratory Pattern Blood Pressure 115/88 H 121/88 H 114/75 Blood Pressure Mean 97 97 88 Pulse Ox 100 Oxygen Delivery Method Room Air 05/04/25 00:00 05/04/25 00:15 05/04/25 00:30 Temperature Temperature Source Pulse Rate 35 L 33 L 31 L Respiratory Rate 15 18 15 Respiratory Pattern Blood Pressure 114/75 112/83 H 113/78 Blood Pressure Mean 88 93 90 Pulse Ox 100 100 100 Oxygen Delivery Method Room Air Room Air Room Air 05/04/25 00:45 Temperature Temperature Source Pulse Rate Respiratory Rate Respiratory Pattern Blood Pressure 113/87 H Blood Pressure Mean 96 Pulse Ox Oxygen Delivery Method MDM MDM Lab Data Labs: Laboratory Results - last 24 hr 05/03/25 05/03/25 19:05 23:27 WBC 9.7 RBC 3.92 L Hgb 11.5 L Hct 33.9 L MCV 86.5 MCH 29.3 MCHC 33.9 RDW Std Deviation 42.0 RDW Coeff of Sandeep 13.2 Plt Count 292 MPV 11.8 Immature Gran % (Auto) 0.100 Neut % (Auto) 26.3 L Lymph % (Auto) 46.2 H Irwin % (Auto) 8.4 Eos % (Auto) 18.0 H Baso % (Auto) 1.0 Absolute Neuts (auto) 2.6 Absolute Lymphs (auto) 4.48 Nucleated RBC % 0 Sodium 137 Potassium 5.0 Chloride 108 Carbon Dioxide 18.8 L Anion Gap 10 BUN 12 Creatinine 0.64 L Estim Creat Clear Calc 154.57 Est GFR (MDRD) Non-Af 136 BUN/Creatinine Ratio 18.1 Glucose 131 H Calcium 8.8 Ethyl Alcohol < 10.1 Discharge Plan Triage Chief Complaint: Unresponsive ED Provider: Jovany Crouch Dx/Rx/DC Orders Clinical Impression: Decreased responsiveness, Bradycardia Prescriptions: No Action Zithromax prednisone clindamycin HCl 150 mg capsule 450 mg PO TID 7 Days Qty: 63 0RF prednisone 20 mg tablet 40 mg PO DAILY Qty: 8 0RF Primary Care Provider: Care Physician,No Primary Referrals: Care Physician,No Primary [Primary Care Provider, Medical] Print Language: Maori Disposition Disposition: Home, Self Care Discharge Date/Time: 05/04/25 01:08
== END 2025-05-04 01:08 | disposition home or self-care (01) ==
PROVIDERS: Emergency Provider Emergency Medicine; Visit Provider Emergency Medicine
DX: R41.82 Altered mental status, unspecified (principal); R00.1 Bradycardia, unspecified; F17.210 Nicotine dependence, cigarettes, uncomplicated
CPT/HCPCS: 80048; 82077; 85025; 93005; 96361; 96374; 96376; 99285; A4216

== ENCOUNTER 2025-06-18 14:31 | Observation (INO) | payer OTHER, SELFPAY ==
[2025-06-18 14:32] VITALS: BP 133/91; PULSE 78; RESP 16; TEMP 36.4; O2SAT 99
[2025-06-18 14:52] VITALS: BMI 20.9
--- NOTE | 2025-06-18 15:05 | EX.ED.SAOD ---
HPI History of Present Illness Chief Complaint: Substance Abuse Informant: patient Narrative Narrative: 25-year-old male presenting to the emergency room with a chief complaint of opiate withdrawal. Patient states that for the past 6 years he has been a daily user of fentanyl. He snorts it. He does not use any IV drugs. He states for about 2 months last year he was clean after self detoxing with some brief days of Suboxone he got at another hospital. He did not do an inpatient stay. He states that he last used this morning around 0700 hrs. He states that he is having nausea and some vomiting as well as shakes. He notes chills. No diarrhea. He he notes that he will occasionally use methamphetamines but not typically. He is currently staying with family in [place]. [facility] Medical History No acute medical problems Home Medications ?Medication ?Instructions ?Recorded ?Last Taken ?Type NK 06/18/25 Unknown History Allergy/AdvReac Type Severity Reaction Status Date / Time amoxicillin (Amoxicillin) Allergy Rash Verified 06/18/25 14:34 Penicillins Allergy Rash Verified 06/18/25 14:34 Social History (Updated 06/18/25 @ 15:[address] Ryan Barakat DO) household members: none Smoking Status: Current every day smoker tobacco type: cigarettes substance use type: opiates and methamphetamine ROS ROS ED Constitutional Constitutional ED: Reports chills and sweats; Denies fever(s) or weight loss Eyes Eyes: Denies change in vision or diplopia ENT ENT ED: Reports rhinorrhea; Denies ear pain or sore throat Cardiovascular Cardiovascular: Denies chest pain, orthopnea, palpitations or racing heartbeat Respiratory/Chest Respiratory/Chest: Denies cough, dyspnea or orthopnea Gastrointestinal Gastrointestinal: Reports nausea and vomiting; Denies abdominal pain or diarrhea Genitourinary Genitourinary ED: Denies dysuria, hematuria or urinary frequency Musculoskeletal Musculoskeletal: Denies arthralgias or myalgias Integumentary Denies abscess or rash Neurologic Neurologic: Denies headache(s) or weakness Psychiatric Psychiatric: Denies anxiety, depression, suicidal ideation or suicidal thoughts Endocrine Endocrinology: Denies polydipsia, polyphagia or polyuria Allergic/Immunologic Allergic/Immunologic ED: Denies mouth swelling, tongue swelling or urticaria EXAM Physical Exam Const Vital Signs: 06/18/25 14:32 Temperature 97.6 F L Temperature Source Temporal Pulse Rate 78 Respiratory Rate 16 Blood Pressure 133/91 H Blood Pressure Mean 105 Pulse Ox 99 Oxygen Delivery Method Room Air Positive well nourished and well developed General Appearance ED: well developed and NAD HEENT Reports normocephalic, head/scalp atraumatic and moist mucous membranes Eyes PERRL and EOMs intact bilaterally Neck no lymphadenopathy, supple and no JVD Resp normal respiratory effort and clear to auscultation bilaterally Cardio regular rate, regular rhythm and no murmurs GI normal to inspection, nondistended, normoactive bowel sounds and non-tender Palpation: soft Back/Spine no CVA tenderness and normal ROM Extremity normal to inspection General Extremety ED: Negative for edema General Extremity: Negative for edema Neuro oriented x3 and CN's II-XII intact bilaterally Sensorium / Orientation: alert Motor Exam: strength 5/5 throughout Psych mental status grossly normal Psych Narrative: Patient is very fidgety Mood & Affect: Negative for depressed or tearful Skin no rashes or lesions noted and no wounds Skin Narrative: Patient has piloerection of his skin MDM MDM MDM Narrative Medical decision making narrative: Differential diagnosis includes but not limited to opiate withdrawal substance use disorder HIV alcohol use disorder liver dysfunction kidney dysfunction electrolyte abnormalities bone marrow suppression ED addiction labs will be obtained. Patient declines an HIV test. These labs are reviewed. Patient has been accepted to the medical floor. History & Record Review Discussion w/independent historian: Patient Additional record(s) reviewed:: Prior ED visit Lab Data Attestation: I reviewed the patient's lab results. Labs: Laboratory Results - last 24 hr 06/18/25 14:43 WBC 8.2 RBC 5.29 Hgb 15.7 Hct 46.0 MCV 87.0 MCH 29.7 MCHC 34.1 RDW Std Deviation 40.3 RDW Coeff of Sandeep 12.7 Plt Count 324 MPV 11.3 Immature Gran % (Auto) 0.100 Neut % (Auto) 74.1 H Lymph % (Auto) 18.0 L Hitchcock % (Auto) 4.6 Eos % (Auto) 2.1 Baso % (Auto) 1.1 H Absolute Neuts (auto) 6.1 Absolute Lymphs (auto) 1.48 Nucleated RBC % 0 Sodium 138 Potassium 3.6 Chloride 101 Carbon Dioxide 23.4 Anion Gap 13 BUN 10 Creatinine 0.64 L Estim Creat Clear Calc 148.44 Est GFR (MDRD) Non-Af 135 BUN/Creatinine Ratio 15.1 Glucose 120 H Calcium 9.7 Total Bilirubin 0.60 AST 17 ALT 12 Alkaline Phosphatase 65 Total Protein 7.9 Albumin 4.9 Globulin 3.0 Albumin/Globulin Ratio 1.6 Urine Opiates Screen PRESUMPTIVE POSITIVE U Buprenorphine Qual NEGATIVE Ur Oxycodone Screen NEGATIVE Urine Methadone Screen NEGATIVE Urine Fentanyl Screen PRESUMPTIVE POSITIVE Ur Barbiturates Screen NEGATIVE Ur Phencyclidine Scrn NEGATIVE Ur Amphetamines Screen NEGATIVE U Benzodiazepines Scrn PRESUMPTIVE POSITIVE Urine Cocaine Screen NEGATIVE U Cannabinoids Screen PRESUMPTIVE POSITIVE Ethyl Alcohol < 10.1 Management Discussion w/another healthcare provider: Hospitalist (Dr. Fontanez) Discharge Plan Dx/Rx/DC Orders Clinical Impression: Opiate withdrawal, Substance use disorder Disposition Disposition: Acute Care [facility]
[2025-06-18 15:15] LABS: Hematocrit 46.0 % (40-54); Hemoglobin 15.7 g/dL (13.0-16.5); Immature Granulocytes Count 0.010 X10^3/uL (0.0-0.0); Mean Corp Hgb Conc 34.1 g/dL (32-36); Mean Corpuscular Volume 87.0 fL (80-94); Mean Platelet Vol. 11.3 fl (6.2-12.0); NRBC Flagged by Analyzer 0 % (0-5); Platelet Count 324 K/mm3 (150-450); RBC Distribution Width CV 12.7 % (11.6-14.6); RBC Distribution Width SD 40.3 fl (35.1-43.9); Red Blood Count 5.29 M/mm3 (4.6-6.2); White Blood Count 8.2 K/mm3 (4.4-11.0)
--- NOTE | 2025-06-18 15:29 | CM.ED ---
Social Work Date of referral: 06/18/25 Reason for referral: Primary Care Physician (PCP) not on file. Referred by: Social Work Identification Patient provided consent to social work visit. Patient confirmed he does not have a PCP. Distribution Technician provided patient a folder with resources for PCP as well as addiction/recovery which patient accepted and expressed appreciation for. Delfina Crow, HOST COORDINATOR, VIDEOGRAPHER
[2025-06-18 15:31] LABS: Alcohol, Blood (Medical)-Serum < 10.1 mg/dL (<=10.0)
[2025-06-18 15:34] LABS: AST(SGOT) 17 U/L (<=37); Alanine Aminotransfer ALT/SGPT 12 U/L (<=46); Albumin, Serum 4.9 g/dL (3.5-5.0); Alkaline Phosphatase 65 U/L (40-129); Anion Gap 13 (5-15); BUN 10 mg/dL (4-19); BUN/Creat Ratio 15.1 RATIO (10-20); Calcium,Total 9.7 mg/dL (7.6-11.0); Carbon Dioxide 23.4 mmol/L (21.0-32.0); Chloride 101 mmol/L (98-108); Estimated Creatinine Clearance 148.44 ml/min (50-250); Globulin 3.0 g/dL (2.2-4.2); Glucose 120 mg/dL (70-99); Potassium 3.6 mmol/L (3.3-5.1)
[2025-06-18 15:39] LABS: Barbiturate Urine NEGATIVE (< 200 ng/mL); Benzodiazepine Urine PRESUMPTIVE POSITIVE (< 200 ng/mL); PCP Urine NEGATIVE (< 25 ng/mL); THC Urine PRESUMPTIVE POSITIVE (< 50 ng/mL)
--- OUTSIDE RECORDS SUMMARY | 2025-06-18 15:46 | XMS RPT_ITS | CCD ---
Author Organization [facility] Inform ion Partnership [facility] Care Team Providers Care Senior Qa Tester Name Role Phone ESTHELA BAILEY Attending Unavailable ESTHELA TAM Primary Care Unavailable Unavailable Primary Care Provider UnavailARABELLA Bob Attending Unavailable Don LICEA Attending Unavailable AN SANTANA Attending Unavailable ALFONSO VINCENT Attending Unavailable Care Physician, No Primary Primary Care Annia n Unavailable Miko SCHMIDT, Jovany Attending Physician Jovany Crouch MD Emergency Department Physician Jovany Crouch Attending Unavailable Care Physician, No Primary Primary Care Unava ilable Allergies Allergy Classification Reported Allergen(s) Allergy Type Date of Onset Reaction(s) Facility (14 sources) Amoxicillin; Translations: [AMOXICILLIN] Drug Allergy 3 [facility] Repository (10 sources) Contrast media; Translations: [RED DYE] Propensity to adverse reactions to drug (disorder) 5 [facility] Repository (8 sources) AMOXICILLIN-POT CLAVULANATE; Translations: [AMOXICILLIN-POT CLAVULANATE] Propensity to adverse reactions to drug (disorder) 5 [facility] Repository (3 sources) Penicillins Allergy to substance 3 [facility] (8 sources) Penicillins Propensity to adverse reactions 2 [facility] (1 source) Penicillins Drug allergy (disorder) 4 [facility] Repository Medications Current Medications Medication Drug Class(es) Dates Sig (Normalized) Sig (Original) Azithromycin (3 sources) Macrolide Antimicrobial Start: 07-01-2022 Start: 07-01-2022 Zithromax Acti ve July 01, 2022 1:00am dexamethasone 1 mg oral tablet (8 sources) Corticosteroid Start: 04-04-2024 End: 04-08-2024 take 1 tablet by mouth once daily dexAMETHasone (Decadron) 1 MG tablet Take 1 tablet (1 mg) by mouth daily for 4 days. 4 tablet 04/04/2024 Active ondansetron 4 mg disintegrating oral tablet (10 sources) Serotonin-3 Receptor Antagonist Start: 05-06-2024 End: 05-14-2024 take 1 tablet by mouth every eight hours as needed for nausea and vomiting ondansetron ODT (Zofran-ODT) 4 MG disintegrating tablet Take 1 tablet (4 mg) by mouth every 8 hours as needed for nausea or vomiting for up to 7 days. 20 tablet 05/07/2024 05/14/2024 Active Start: 05-06-2024 End: 05-06-2024 take 8 mg by mouth once 8 mg, Oral, Once, On Cary04/12 at 1350, For 1 dose microencapsulated potassium chloride 20 meq extended release oral tablet (8 sources) Start: 05-06-2024 End: 05-12-2024 take 1 tablet by mouth once daily potassium chloride CR (Klor-Con M20) 20 MEQ ER tablet Take 1 tablet (20 mEq) by mouth daily for 5 days. Do not crush or chew. 5 tablet 05/07/2024 05/12/2024 Active predniSONE 20 mg oral tablet (5 sources) Start: 12-08-2023 take 2 tablets by mouth once daily Start: 12-08-2023 take 40 mg by mouth once daily Prednisone Active 40 MG PO DAILY 8 December 08, 2023 12:00am Start: 07-01-2022 Start: 07-01-2022 prednisone Act morenita July 01, 2022 1:00am Completed/Discontinued Medications Medication Drug Class(es) Dates Sig (Normalized) Sig (Original) buprenorphine 2 mg / naloxone 0.5 mg sublingual film (12 sources) Partial Opioid Agonist, Opioid Antagonist Start: 05-08-2024 End: 05-08-2024 8 Film, SubLINGual, Once, On 05/08/24 at 1630, For 1 dose Start: 05-07-2024 End: 05-07-2024 1 Film, SubLINGual, Once, On 05/07/24 at 1440, For 1 dose Start: 05-06-2024 End: 05-06-2024 4 Film, SubLINGual, Once, On [place] 05/06/24 at 1540, For 1 dose clindamycin 150 mg oral capsule (7 sources) Lincosamide Antibacterial Start: 04-04-2024 End: 04-04-2024 take 300 mg by mouth once 300 mg, Oral, Once, On 04/04/24 at 2005, For 1 dose, Suspected Indication (Select all that apply): Head and Neck Infection Start: 04-04-2024 End: 04-11-2024 clindamycin (Cleocin) 300 MG capsule Take 1 capsule (300 mg) by mouth in the morning and 1 capsule (300 mg) at noon and 1 capsule (300 mg) in the evening and 1 capsule (300 mg) before bedtime. Do all this for 7 days. 28 capsule 04/04/2024 04/11/2024 Active Start: 06-03-2023 take 3 capsules by m outh three times daily Start: 06-03-2023 take 450 mg by mouth three times daily Clindamycin Hcl Active 450 MG PO THREE TIMES A DAY 63 June 03, 2023 12:00am cloNIDine hydrochloride 0.1 mg oral tablet (2 sources) Central alpha-2 Adrenergic Agonist Start: 05-06-2024 End: 05-06-2024 take 0.2 mg by mouth once 0.2 mg, Oral, Once, On [place] 05/06/24 at 1620, For 1 dose hydrOXYzine pamoate 25 mg oral capsule (2 sources) Antihistamine Start: 05-06-2024 End: 05-06-2024 take 25 mg by mouth once 25 mg, Oral, Once, On [place] 05/06/24 at 1620, For 1 dose ibuprofen 600 mg oral tablet (2 sources) Nonsteroidal Anti-inflammatory Drug Start: 04-04-2024 End: 04-04-2024 take 600 mg by mouth once 600 mg, Oral, Once, On 04/04/24 at 2005, For 1 dose naloxone opiate overdose kit 1 kit (2 sources) Start: 05-06-2024 End: 05-06-2024 1 kit, Nasal, Once, On [place] 05/06/24 at 1500, For 1 dose Problems Problem Classification Problem Date Documented Da te Episodic/Chronic Acute bronchitis (3 sources) Acute bronchitis, unspecified; Translations: [Acute purulent bronchitis] Onset: 11-13-2022 04-29-2024 Episodic Asthma (1 source) Mild intermittent asthma with (acute) exacerbation; Translations: [Mild intermittent asthma with exacerbation] Onset: 06-23-2022 Chronic Cardiac dysrhythmias (3 sources) Sinus tachycardia; Translations: [Tachycardia, unspecified] 12-08-2023 Episodic Complications of surgical procedures or medical care (3 sources) Drug therapy finding; Translations: [Unspecified adverse effect of drug or medicament, initial encounter] 07-09-2022 Episodic Diabetes mellitus without complication (3 sources) Hyperglycemia; Translations: [Hyperglycemia, unspecified] 07-09-2022 Episodic Disorders of teeth and jaw (3 sources) Dental caries; Translations: [Dental caries, unspecified] 06-03-2023 Episodic Fluid and electrolyte disorders (2 sources) Hypokalemia; Translations: [Hypokalemia] 05-06-2024 Episodic Fracture of upper limb (3 sources) Closed fracture finger middle phalanx; Translations: [Displaced fracture of middle phalanx of unspecified finger, initial encounter for closed fracture] 09-04-2013 Episodic Other aftercare (4 sources) Long-term current use of drug therapy; Translations: [Encounter for therapeutic drug level monitoring] 05-07-2024 Episodic Other aftercare (2 sources) Encounter for therapeutic drug level monitoring; Translations: [Encounter for therapeutic drug level monitoring] Onset: 05-08-2024 Episodic Other aftercare (2 sources) Other fci (current) drug therapy; Translations: [Other intermediate designer (current) drug therapy] Onset: 05-08-2024 Episodic Other nervous system disorders (1 source) Disturbance of consciousness; Translations: [Other symptoms and signs involving cognitive functions and awareness] 05-03-2025 Episodic Other skin disorders (2 sources) Facial swelling ; Translations: [Localized swelling, mass and lump, head] 04-04-2024 Episodic Other skin disorders (2 sources) Localized swelling, mass and lump, head; Translations: [Localized swelling, mass and lump, head] Onset: 04-04-2024 Episodic Other upper respiratory disease (2 sources) Acute bronchospasm; Translations: [Acute bronchospasm] 12-08-2023 Episodic Residual codes; unclassified (2 sources) Tobacco use and exposure - finding; Translations: [Tobacco use] 12-08-2023 Episodic Residual codes; unclassified (1 source) Altered mental status, unspecified; Translations: [Altered mental status, unspecified] Onset: 05-09-2025 Episodic Substance-related disorders (8 sources) Opioid dependence; Translations: [Opioid dependence, uncomplicated] Onset: 05-06-2024 05-06-2024 Chronic Syncope (3 sources) Syncope; Translations: [Syncope and collapse] 07-09-2022 Episodic Results Test Name Value Interpretation Reference Range Facility Electrocardiogram reportOrde red By: Bartolome Caldera on 05-04-2025 EKG study [facility] Cardiovascular Services [address] [place] [address] 12 Lead EKG 05/03/251954 MR#: [id number] Acct: [id number] Name: GALEN HOGUE Rep #:[id number] : 2000 25 From: Bartolome haile MD Attending Dr: Status: DEP E R Ordering Dr: Jovany Crouch MD Date: Location: ED Sex: M C Admitted: Test Reason : ALOK Blood Pressure : */* mmHG Vent. Rate : 39 BPM Atrial Rate : 39 BPM P-R Int : 134 ms QRS Dur : 98 ms QT Int : 464 ms P-R-T Axes : 53 84 63 degrees QTcB Int : 373 ms Critical Test Result: Low HR Marked sinus bradycardia with Premature supraventricular complexes Abnormal ECG Confirmed by Bartolome Caldera ([id number]), fan mail editor GIANNA CORTES ([id number]) on :58:58 AM Referred By: UG Confirmed By: Bartolome Caldera 05/05/25 0559 Date _ Bartolome Caldera MD CC: Dr. Jovany Crouch MD; No Primary Care Physician ~ Signed [facility] Other Phone: 12 Lead EKGon 05-03-2025 12 Lead EKG [facility] Cardiovascular Services [address] [place] [address] 12 Lead EKG 05/03/251954 MR#: [id number] Acct: [id number] Name: GALEN HOGUE Rep #: [id number] : 2000 25 From: Bartolome Caldera MD Attending Dr: Status: DEP ER Ordering Dr: Jovany Crouch MD Date: 05/03/25 Location: ED Sex: M C Admitted: Test Reason : ALOK Blood Pressure : */* mmHG Vent. Rate : 39 BPM Atrial Rate : 39 BPM P-R Int : 134 ms QRS Dur : 98 ms QT Int : 464 ms P-R-T Axes : 53 84 63 degrees QTcB Int : 373 ms Critical Test Result: Low HR Marked sinus bradycardia with Premature supraventricular complexes Abnormal ECG Confirmed by Bartolome Caldera ([id number]), fan mail editor GIANNA CORTES ([id number]) on 05/05/2025 5:58:58 AM Referred By: UG Confirmed By: Bartolome Caldera 05/05/25 0559 Date Bartolome Caldear MD CC: Dr. Jovany Crouch MD; No Primary Care Physician Signed Normal [facility] Absolute lymphocyte countOrd ered By: Jovany Crouch on 05-03-2025 Lymphocytes Auto (Unsp spec) [#/Vol] 4.48 10*3/uL 0.83-4.51 [facility] Absolute neutrophil countOrd ered By: Jovany Crouch on 05-03-2025 Neutrophils (Bld) [#/Vol] 2.6 10*3/uL 2.0-7.7 [facility] Alcohol, Blood (Medical)-Ser umon 05-03-2025 SERUM ETOH < 10.1 Normal <=10.0 [facility] Comment on above: Result Comment: This test is for medical purposes only. The legal definition of intoxication varies according to local law. Performed By: #### L 501.9100, L500.2500 #### [facility] [address] [place], [address] Anion gap in Serum or Plasma Ordered By: Jovany Crouch on 05-03-2025 Anion gap [Moles/Vol] 10 mmol/L 5-15 [facility] Automated lymphocyte count a s percentage of total leukocytesOrdered By: Jovany Crouch on 05-03-2025 Lymphocytes/100 WBC Auto (Unsp spec) 46.2 % High 19- [facility] BUN/creatinine ratioOrdered By: Jovany Crouch on 05-03-2025 Urea nitrogen/Creatinine [Mass ratio] 18.1 mg/mg 05-30 [facility] Basic Metabolic Profile (BMP )on 05-03-2025 BUN/CRE 18.1 RATIO Normal 05-30 [facility] Comment on above: Performed By: #### L 501.9100, L500.2500 #### [facility] [address] [place], [address] Calcium [Mass/Vol] 8.8 mg/dL Normal 7.6-11.0 [facility] Comment on above: Performed By: #### L 501.9100, L500.2500 #### [facility] [address] [place], [address] Chloride [Moles/Vol] 108 mmol/L Normal 98-108 [facility] Comment on above: Performed By: #### L 501.9100, L500.2500 #### [facility] [address] [place], [address] CO2 [Moles/Vol] 18.8 mmol/L Low 21.0-32.0 [facility] Comment on above: Performed By: #### L 501.9100, L500.2500 #### [facility] [address] [place], [address] Creatinine [Mass/Vol] 0.64 mg/dL Low 0.70-1.20 [facility] Comment on above: Performed By: #### L 501.9100, L500.2500 #### [facility] [address] [place], [address] ECRCL 154.57 ml/min Normal 50-250 [facility] Comment on above: Performed By: #### L 501.9100, L500.2500 #### [facility] [address] [place], [address] GAP 10 Normal 5-15 [facility] Comment on above: Performed By: #### L 501.9100, L500.2500 #### [facility] [address] [place], [address] GFR/1.73 sq M.predicted among non-blacks MDRD (S/P/Bld) [Vol rate/Area] 136 mL/min/{1.73_m2} Normal >60 [facility] Comment on above: Result Comment: mL/m in/1.73m2 CKD-EPI Creatinine Equation (2020) Performed By: #### L 501.9100, L500.2500 #### [facility] [address] [place], [address] Glucose [Mass/Vol] 131 mg/dL High 70-99 [facility] Comment on above: Performed By: #### L 501.9100, L500.2500 #### [facility] [address] [place], [address] Potassium [Moles/Vol] 5.0 mmol/L Normal 3.3-5.1 [facility] Comment on above: Result Comment: Hemo lysis present, Results??could be affected. ?? Performed By: #### L 501.9100, L500.2500 #### [facility] [address] [place], [address] Sodium [Moles/Vol] 137 mmol/L Normal 133-145 [facility] Comment on above: Performed By: #### L 501.9100, L500.2500 #### [facility] [address] [place], [address] Urea nitrogen [Mass/Vol] 12 mg/dL Normal 4-19 [facility] Comment on above: Performed By: #### L 501.9100, L500.2500 #### [facility] [address] [place], [address] Basophil percentageOrdered B y: Jovany Crouch on 05-03-2025 Basophils/100 WBC (Bld) 1.0 % 0-1 [facility] CBC W/Diff, Automatedon 04-12 Absolute Lymph 4.48 X10 3/uL Normal 0.83-4.51 [facility] Comment on above: Performed By: #### L 100.0100 #### [facility] [address] [place], [address] Absolute Neut 2.6 X10 3/uL Normal 2.0-7.7 [facility] Comment on above: Performed By: #### L 100.0100 #### [facility] [address] [place], [address] Basophils/100 WBC (Bld) 1.0 % Normal 0-1 [facility] Comment on above: Performed By: #### L 100.0100 #### [facility] [address] [place], [address] Eosinophils/100 WBC (Bld) 18.0 % High 0-5 [facility] Comment on above: Performed By: #### L 100.0100 #### [facility] [address] [place], [address] Erythrocyte distribution width (RBC) [Ratio] 13.2 % Normal 11.6-14.6 [facility] Comment on above: Performed By: #### L 100.0100 #### [facility] [address] [place], [address] Hematocrit (Bld) [Volume fraction] 33.9 % Low 40-54 [facility] Comment on above: Performed By: #### L 100.0100 #### [facility] [address] [place], [address] Hemoglobin (Bld) [Mass/Vol] 11.5 g/dL Low 13.0-16.5 [facility] Comment on above: Performed By: #### L 100.0100 #### [facility] [address] [place], [address] IG% 0.100 Normal 0.0-0.9 [facility] Comment on above: Result Comment: IG% - Immature Granulocytes (promyelocytes, myelocytes and metamyelocytes) > 1% indicates that a LEFT SHIFT is Present. Performed By: #### L 100.0100 #### [facility] [address] [place], [address] Lymphocytes/100 WBC (Bld) 46.2 % High 19-41 [facility] Comment on above: Performed By: #### L 100.0100 #### [facility] [address] [place], [address] MCH (RBC) [Entitic mass] 29.3 pg Normal 27.0-32.0 [facility] Comment on above: Performed By: #### L 100.0100 #### [facility] [address] [place], [address] MCHC (RBC) [Mass/Vol] 33.9 g/dL Normal 32-36 [facility] Comment on above: Performed By: #### L 100.0100 #### [facility] [address] [place], [address] MCV (RBC) [Entitic vol] 86.5 fL Normal 80-94 [facility] Comment on above: Performed By: #### L 100.0100 #### [facility] [address] [place], [address] Monocytes/100 WBC (Bld) 8.4 % Normal 0-10 [facility] Comment on above: Performed By: #### L 100.0100 #### [facility] [address] [place], [address] Neutrophils/100 WBC (Bld) 26.3 % Low 47-70 [facility] Comment on above: Performed By: #### L 100.0100 #### [facility] [address] [place], [address] Nucleated RBC (Bld) [#/Vol] 0 10*3/uL Normal 0-5 [facility] Comment on above: Performed By: #### L 100.0100 #### [facility] [address] [place], [address] Platelet mean volume (Bld) [Entitic vol] 11.8 fL Normal 6.2-12.0 [facility] Comment on above: Performed By: #### L 100.0100 #### [facility] [address] [place], [address] Platelets (Bld) [#/Vol] 292 10*3/uL Normal 150-450 [facility] Comment on above: Performed By: #### L 100.0100 #### [facility] [address] [place], [address] RBC (Bld) [#/Vol] 3.92 10*6/uL Low 4.6-6.[address] [facility] Comment on above: Performed By: #### L 100.0100 #### [facility] [address] [place], [address] RDW SD 42.0 fl Normal 35.1-43.9 [facility] Comment on above: Performed By: #### L 100.0100 #### [facility] [address] [place], [address] WBC (Bld) [#/Vol] 9.7 10*3/uL Normal 4.4-11.0 [facility] Comment on above: Performed By: #### L 100.0100 #### [facility] [address] [place], [address] Carbon dioxide, total [Moles /volume] in Central venous bloodOrdered By: Jovany Crouch on 05-03-2025 CO2 [Moles/Vol] 18.8 mmol/L Low 21.0-32.0 [facility] Chloride assayOrdered By: Nicho Crouch on 05-03-2025 Chloride [Moles/Vol] 108 mmol/L 98-108 [facility] Emergency Department Summary on 05-03-2025 Emergency Department Summary [facility] Medical Records Department [address] [place] [address] Emergency Department Summary 05/03/25 MR#: [id number] Acct: [id number] Name: GALEN HOGUE Rep #: [id number] : 2000 25 From: Jovany Crouch MD PCP: Care Physician,No Primary Status:DEP ER Location: ED ADDENDUM by Dr. Jerad Cueva DO on 05/04/25 at 0123 Patient was turned over to me by Dr. Crouch @ 2330 Brief history: 25-year-old male history as below. Patient denied fevers or back pain or chest pain to me. He did endorse using fentanyl prior to arrival. Denies suicidal ideation or homicidal ideation. Denies any other drug use such as alcohol. Physical exam: on my exam patient was resting comfortably. But easily arousable. No focal deficits. Respiratory rate is greater than 10. Abdomen soft nontender lungs are clear. Heart was slow but at a regular rate and rhythm with no murmurs gobs or rubs. No obvious track alvarez. Labs and images reviewed (if obtained): EKG with sinus bradycardia rate of 39, normal [place] interval, no sign of high degree block, normal axis, no STEMI CBC with no leukocytosis, mild anemia, no thrombocytopenia Urine tox screen ordered BMP without significant electrolyte abnormalities, no acute kidney injury Serum alcohol negative MDM/plan: Patient last received approximately 6 to 7 PM on 05/03/2025. Patient has been stable throughout his post Narcan observation with no sign of rebound overdose. The patient denied any suicidal ideations or homicidal ideations. No auditory v or isual hallucinations. He appeared clinically sober. Despite bradycardia he was hemodynamically stable otherwise. Plan was to observe the patient in the ED until he was able to ambulate, perform ADLs and his heart rate improved. Prior to completion of observation. Patient eloped from the ED with his brother. IV was removed prior to elopement. Dispo: Eloped from the emergency 05/04/25 0123 Cosigner Signature (if applicable): cc: No Primary Care Physician * Signed HPI History of Present Illness Chief Complaint: Unresponsive Narrative Narrative: 25-year-old male who denies significant past medical history presents with decreased mental status/unresponsivene ss. Per EMS he was found in a parking lot. He states that he was walking home from a friend's house. He admits to smoking marijuana. He states that as he was walking home the last thing he remembers was waking up and police officers were around him. He presents to the emergency department with decreased mental status, stating he is fatigued and does not feel well. [facility] Medical History No acute medical problems Medical History no medical history Home Medications ???Medication ???Instructions ???Recorded ???Last Taken ???Type Zithromax 07/01/22 Unknown History Held on 06/03/23. Instructions: Pt has been DC'd prednisone 07/01/22 Unknown History Held on 06/03/23. Instructions: Pt has been DC'd clindamycin HCl 150 mg capsule 450 mg (3 x 150 mg) PO TID 7 days 06/03/23 Unknown Rx #63 caps prednisone 20 mg tablet 40 mg (2 x 20 mg) PO DAILY #8 11/10 05/04 Unknown Rx TABLETS Allergy/AdvReac Type Severity Reaction Status Date / Time amoxicillin (Amoxicillin) Allergy Rash Verified 12/08/23 21:14 Penicillins Allergy Rash Verified 12/08/23 21:14 Social History household members: none Smoking Status: Current every day smoker tobacco type: cigarettes substance use type: does not use ROS ROS ED ROS Narrative Review of systems is positive for nausea. Reported syncopal episode/unresponsive episode. He was awake, alert, and talking initially for EMS and on his arrival to the ED. EXAM Physical Exam Narrative Exam Narrative: Afebrile. Vital signs noted. Cardiovascular examination reveals bradycardia. Lungs are clear to auscultation bilaterally. Abdomen is soft and nontender without guarding or rebound. Intermittent drowsiness. Moves all extremities. Const Vital Signs: 05/03/25 18:54 05/03/25 18:56 05/03/25 18:58 Temperature 98 F Temperature Source Oral Pulse Rate 45 L 54 L Respiratory Rate 17 12 Respiratory Pattern Normal Blood Pressure 82/51 L Blood Pressure Mean 61 Pulse Ox 93 97 Oxygen Delivery Method Room Air 05/03/25 18:58 05/03/25 19:00 05/03/25 19:07 Temperature Temperature Source Pulse Rate 53 L 45 L 47 L Respiratory Rate 16 12 11 L Respiratory Pattern Blood Pressure 80/40 L 77/40 L 87/58 L Blood Pressure Mean 52 52 67 Pulse Ox 93 94 96 Oxygen Delivery Method Room Air Room Air Room Air 05/03/25 19:10 05/03/25 19:15 05/03/25 19:30 Temperature Temperature S (more content not included)... Normal [facility] Eosinophil percentageOrdered By: Jovany Crouch on 05-03-2025 Eosinophils/100 WBC (Bld) 18.0 % High 0-5 [facility] Erythrocyte distribution wid th ratioOrdered By: Jovany Crouch on 05-03-2025 Erythrocyte distribution width (RBC) [Ratio] 13.2 % 11.6-14.6 [facility] Erythrocyte distribution wid th standard deviationOrdered By: Jovany Crouch on 05-03-2025 Erythrocyte distribution width (RBC) [Ratio] 42.0 fl 35.1-43.9 [facility] Glomerular filtration rate ( GFR) estimation/1.73 sq m using serum, plasma, or whole bOrdered By: Jovany Crouch on 05-03-2025 GFR/1.73 sq M.predicted among non-blacks MDRD (S/P/Bld) [Vol rate/Area] 136 mL/min/{1.73_m2} >60 [facility] Comment on above: mL/min/1.73m2 CKD-EP I Creatinine Equation (2020) Hematocrit Auto (Bld) [Volum e fraction]Ordered By: Jovany Crouch on 05-03-2025 Hematocrit (Bld) [Volume fraction] 33.9 % Low 40-54 [facility] Hemoglobin measurementOrdere d By: Jovany Crouch on 05-03-2025 Hemoglobin (Bld) [Mass/Vol] 11.5 g/dL Low 13.0-16.5 [facility] Immature granulocytes/100 WB C Auto (Bld)Ordered By: Jovany Crouch on 05-03-2025 Immature granulocytes/100 WBC (Bld) 0.100 % 0.0-0.9 [facility] Comment on above: IG% - Immature Granu locytes (promyelocytes, myelocytes and metamyelocytes) > 1% indicates that a LEFT SHIFT is Present. MCV (mean corpuscular volume ) determinationOrdered By: Jovany Crouch on 05-03-2025 MCV (RBC) [Entitic vol] 86.5 fL 80-94 [facility] Mean corpuscular hemoglobin (MCH) determinationOrdered By: Jovany Crouch on 05-03-2025 MCH (RBC) [Entitic mass] 29.3 pg 27.0-32.0 [facility] Mean corpuscular hemoglobin concentration (MCHC) determinationOrdered By: Jovany Crouch on 05-03-2025 MCHC (RBC) [Mass/Vol] 33.9 g/dL 32-36 [facility] Mean platelet volume determi nationOrdered By: Jovany Crouch on 05-03-2025 Platelet mean volume (Bld) [Entitic vol] 11.8 fL 6.2-12.0 [facility] Monocyte percentageOrdered B y: Jovany Crouch on 05-03-2025 Monocytes/100 WBC (Bld) 8.4 % 0-10 [facility] Neutrophil percentageOrdered By: Jovany Crouch on 05-03-2025 Neutrophils/100 WBC (Bld) 26.3 % Low 47-70 [facility] Nucleated red blood cell per centageOrdered By: Jovany Crouch on 05-03-2025 Nucleated RBC/100 WBC (Bld) [Ratio] 0 % 0-5 [facility] Platelet countOrdered By: Nicho Crouch on 05-03-2025 Platelets (Bld) [#/Vol] 292 10*3/uL 150-450 [facility] Potassium measurement (mass/ volume)Ordered By: Jovany Crouch on 05-03-2025 Potassium (Unsp spec) [Mass/Vol] 5.0 mmol/L 3.3-5.1 [facility] Comment on above: Hemolysis present, R esults could be affected. RBC Auto (Bld) [#/Vol]Ordere d By: Jovany Crouch on 05-03-2025 RBC (Bld) [#/Vol] 3.92 10*6/uL Low 4.6-6.[address] [facility] Serum creatinine measurement (mass/volume)Ordered By: Jovany Crouch on 05-03-2025 Creatinine [Mass/Vol] 0.64 mg/dL Low 0.70-1.20 [facility] Serum glucose measurement (m ass/volume)Ordered By: Jovany Crouch on 05-03-2025 Glucose [Mass/Vol] 131 mg/dL High 70-99 [facility] Serum or plasma calcium julian urement (mass/volume)Ordered By: Jovany Crouch on 05-03-2025 Calcium [Mass/Vol] 8.8 mg/dL 7.6-11.0 [facility] Serum or plasma ethanol julian urement (mass/volume)Ordered By: Jovany Crouch on 05-03-2025 Ethanol [Mass/Vol] mg/dL <10.1 [facility] Comment on above: This test is for med ical purposes only. The legal definition of intoxication varies according to local law. Serum or plasma urea nitroge n measurement (mass/volume)Ordered By: Jovany Crouch on 05-03-2025 Urea nitrogen [Mass/Vol] 12 mg/dL 4-19 [facility] Sodium levelOrdered By: Jovany Crouch on 05-03-2025 Sodium [Moles/Vol] 137 mmol/L 133-145 [facility] Urine Drug Screen (VISTA)on 05-03-2025 AMPHETAMINES Normal <1000 ng/mL [facility] Comment on above: Result Comment: KIZZY ENT DISCHARGED Performed By: #### L 505.5000 #### [facility] [address] [place], [address] BARBITIURATES Normal < 200 ng/mL [facility] Comment on above: Result Comment: KIZZY ENT DISCHARGED Performed By: #### L 505.5000 #### [facility] [address] [place] [address] BENZODIAZIPINE Normal < 200 ng/mL [facility] Comment on above: Result Comment: KIZZY ENT DISCHARGED Performed By: #### L 505.5000 #### [facility] [address] [place] [address] BUP Ur Drug Scr Normal < 200 ng/mL [facility] Comment on above: Result Comment: KIZZY ENT DISCHARGED Performed By: #### L 505.5000 #### [facility] [address] [place] [address] COCAINE Normal < 300 ng/mL [facility] Comment on above: Result Comment: KIZZY ENT DISCHARGED Performed By: #### L 505.5000 #### [facility] [address] [place] [address] Fentanyl Normal <5 ng/mL [facility] Comment on above: Result Comment: KIZZY ENT DISCHARGED Performed By: #### L 505.5000 #### [facility] [address] [place] [address] METHADONE Normal < 300 ng/mL [facility] Comment on above: Result Comment: KIZZY ENT DISCHARGED Performed By: #### L 505.5000 #### [facility] [address] [place] [address] OPIATES Normal < 300 ng/mL [facility] Comment on above: Result Comment: KIZZY ENT DISCHARGED Performed By: #### L 505.5000 #### [facility] [address] [place] [address] OXYCODONE Normal < 100 ng/mL [facility] Comment on above: Result Comment: KIZZY ENT DISCHARGED Performed By: #### L 505.5000 #### [facility] [address] [place] [address] PCP Normal < 25 ng/mL [facility] Comment on above: Result Comment: KIZZY ENT DISCHARGED Performed By: #### L 505.5000 #### [facility] [address] [place], [address] THC Normal < 50 ng/mL [facility] Comment on above: Result Comment: KIZZY ENT DISCHARGED Performed By: #### L 505.5000 #### [facility] [address] [place], [address] White blood cell (WBC) count Ordered By: Jovany Crouch on 05-03-2025 WBC (Bld) [#/Vol] 9.7 10*3/uL 4.4-11.0 [facility] ED Provider Noteon ED Provider Note EMERGENCY DEPARTMENT ENCOUNTER Pt Name: Galen Hogue Birthdate 2000 Date of evaluation: 05/08/2024 ED Provider: Philip Licea MD CHIEF COMPLAINT Chief Complaint Patient presents with Drug / Alcohol Assessment Patient states he is in the MAT program and has an apt with [employer] on the . Here for his dose of suboxone. Last use on fentanyl was . States he was using daily for 5 years. HISTORY OF PRESENT ILLNESS (Location/Symptom, Timing/Onset, Context/Setting, Quality, Duration, Modifying Factors, Severity) Note limiting factors. I wore appropriate PPE for the entirety of this encounter. HPI Galen Hogue is a 24 y.o. male who presents to the emergency department with chief complaint of requesting his daily dose of Suboxone. He states that he used to use fentanyl daily and last used 2 days ago. He states that his last Suboxone dose was yesterday. Nursing Notes were reviewed. Limitations to history: None Outside historians: None REVIEW OF SYSTEMS Review of Systems Pertinent positives and negatives as per HPI. PAST MEDICAL HISTORY Past Medical History: Diagnosis Date Asthma RSV (acute bronchiolitis due to respiratory syncytial virus) SURGICAL HISTORY No past surgical history on file. CURRENT MEDICATIONS Previous Medications DEXAMETHASONE (DECADRON) 1 MG TABLET Take 1 tablet (1 mg) by mouth daily for 4 days. ONDANSETRON ODT (ZOFRAN-ODT) 4 MG DISINTEGRATING TABLET Take 1 tablet (4 mg) by mouth every 8 hours as needed for nausea or vomiting for up to 7 days. POTASSIUM CHLORIDE CR (KLOR-CON M20) 20 MEQ ER TABLET Take 1 tablet (20 mEq) by mouth daily for 5 days. Do not crush or chew. ALLERGIES Amoxicillin, Augmentin [amoxicillin-pot clavulanate], Penicillins, and Red dye FAMILY HISTORY No family history on file. SOCIAL HISTORY Social History Socioeconomic History Marital status: Single Tobacco Use Smoking status: Every Day Current packs/day: 0.50 Types: Cigarettes Smokeless tobacco: Never Vaping Use Vaping status: Former Substances: Nicotine Substance and Sexual Activity Alcohol use: Yes Comment: occ/rare Drug use: Yes Types: Marijuana, Fentanyl SCREENINGS PHYSICAL EXAM ED Triage Vitals Temp Heart Rate Resp BP 05/08/24 1531 05/08/24 1531 05/08/24 1531 05/08/24 1531 36.6 ?C (97.8 ?F) 100 16 (!) 141/94 SpO2 Temp Source Heart Rate Source Patient Position 05/08/24 1531 05/08/24 1531 05/08/24 1534 05/08/24 1534 100 % Tympanic Radial Sitting BP Location FiO2 (%) -- -- Physical Exam Vitals and nursing note reviewed. Constitutional: General: He is not in acute distress (Patient very well-appearing, resting comfortably.). Appearance: He is well-developed. HENT: Head: Normocephalic and atraumatic. Eyes: Conjunctiva/sclera: Conjunctivae normal. Cardiovascular: Rate and Rhythm: Normal rate and regular rhythm. Heart sounds: No murmur heard. Pulmonary: Effort: Pulmonary effort is normal. No respiratory distress. Breath sounds: Normal breath sounds. Abdominal: Palpations: Abdomen is soft. Tenderness: There is no abdominal tenderness. Musculoskeletal: General: No swelling. Cervical back: Neck supple. Skin: General: Skin is warm and dry. Capillary Refill: Capillary refill takes less than 2 seconds. Neurological: Mental Status: He is alert. Psychiatric: Mood and Affect: Mood normal. DIAGNOSTIC RESULTS Procedures/EKG: Interpretation per the Radiologist below, if available at the time of this note: No orders to display ED BEDSIDE ULTRASOUND: Performed by ED Physician - none LABS: Labs Reviewed - No data to display All other labs were within normal range or not returned as of this dictation. EMERGENCY DEPARTMENT COURSE and DIFFERENTIAL DIAGNOSIS/MDM: Vitals: Vitals: 05/08/24 1531 05/08/24 1534 BP: (!) 141/94 Pulse: 100 100 Resp: 16 Temp: 36.6 ?C (97.8 ?F) TempSrc: Tympanic SpO2: 100% Weight: 56.7 kg (125 lb) Height: 1.676 m (5' 6) The patient presented with a chief complaint of requesting his Suboxone dose. Differential diagnoses including but not limited to: Presentation concerning for opiate use disorder I reviewed external PDMP demonstrating no controlled substance prescriptions Patient given 16 mg of Suboxone. He states that he does not have an appointment with a maintenance therapy provider until the 14th of next month. Social determinants of health affecting encounter: Drug abuse The patient will be discharged The patient is in agreement with this plan. Diagnoses as of 05/08/24 1701 Encounter for monitoring Suboxone maintenance therapy Medications buprenorphine-naloxon e (Suboxone) 2-0.5 MG per sublingual film 8 Film (8 Film SubLINGual Given 05/08/24 1650) REVAL: CRITICAL CARE TIME None CONSULTS: None PROCEDURES: Unless otherwise noted below, none Procedures FINAL IMPRESSION 1. Encounter (more content not included)... Normal [facility] ED Nursing Noteon 05-07-2024 ED Nursing Note Tere GIL is available STATE-WIDE. Narcan/Naloxone is available WITHOUT prescription at most [place] [facility], including [facility], [employer], [facility], [employer], and others. It has a cost, but there is a free program through [facility] (and 47 other [facility]). A full list of pharmacies is available at the [place] [employer] website, but calling your local pharmacy is likely to be successful. You can buy it for $50-100 (insurance may cover it) and have it ready for another person. What is Tere GIL? Tere LORI is a community-based drug overdose prevention and education project. Participants receive training on: Recognizing the signs and symptoms of overdose Distinguishing between different types of overdose Performing rescue breathing Calling emergency medical services Administering intranasal Naloxone Tere LORI is named in memory of Sheri Lozano, who struggled with addiction for years before dying of a witnessed opioid overdose on May 13, 2009. Tere GIL is an initiative of the [facility] Opiate Task Force and is funded in part by the [facility] Alcohol, Drug Addiction and Mental Health (ADM) Services [facility] Alcohol, Drug Addiction & Mental Health Services [place] [id number] www[facility] WALK-IN HOURS: Tuesdays (every hour) from 3pm - 6pm THIS IS A FREE SERVICE TO ALL PARTICIPANTS Deaths Avoided With Naloxone A community-based drug overdose prevention and education project Emergency first aid for a suspected opioid overdose: If a person is exhibiting symptoms of an opioid overdose, these following life-saving measures should be taken immediately: Check to see if they can respond Give them a light shake, yell their name. Any response? If you don't get a response, try a STERNUM RUB (rub your knuckles in the middle of their chest where the ribs meet for 10 seconds). Call You do not need to mention drugs when you call - provide basic information: Give the address and location. Say I have a person who has stopped breathing and is unresponsive. Perform Rescue Breathing Make sure nothing is in their mouth. Tilt head back, lift chin & pinch nose. Start by giving two breaths making sure the chest rises. If the chest does not rise, tilt the head back more and make sure you are plugging their nose. Give Naloxone Assemble the nasal spray Naloxone. [place] half (1 ml) up one nostril, half up the other. Continue rescue breathing, one breath every 5 seconds, while waiting for the Naloxone to take effect. Give a second dose of Naloxone if there is no response in 2-5 minutes. After Naloxone Continue to monitor their respirations and perform rescue breathing if respirations are below 10 breaths a minute. Stay with them until help arrives. The Naloxone may wear off and the victim could start to overdose again. What is Naloxone? Naloxone (also known as Narcan) is a medication that can reverse an overdose that is caused by an opioid drug. When administered during an overdose, Naloxone blocks the effects of opioids on the brain and restores breathing within two to eight minutes. Naloxone has been used safely by emergency medical corps officer for more than 40 years and has only one function: to reverse the effects of opioids on the brain and respiratory system in order to prevent . Naloxone has no potential for abuse. If Naloxone is given to a person who is not experiencing an opioid overdose, it is harmless. If naloxone is administered to a person who is dependent on opioids, it will produce withdrawal symptoms. Withdrawal, although uncomfortable, is not life- threatening. Naloxone does not reverse overdoses that are caused by non-opioid drugs, such as cocaine, benzodiazepines (e.g. Xanax, Klonopin and Valium), methamphetamines, or alcohol. What are some common opioids? Opioids include both heroin and prescription pain medications. Some common opioid pain medications include: hydrocodone (Lorcet and Vicodin), oxycodone (Percocet), long acting opioids (Oxycontin, MS Contin, Methadone), and patches (Fentanyl). Other brand name opioid pain medications include Opana ER, Avinza and Temitope. How do I know if someone is overdosing? A person who is experiencing an overdose may have the following symptoms: breathing is slow and shallow (less than 10 breaths per minute) or has stopped; vomiting; face is pale and clammy; blue or grayish lips and fingernails; slow, erratic, or no pulse; choking or loud snoring noises; will not respond to shaking or sternum rub; skin may turn lopez, blue, or ashen. An overdose is a medical emergency! Call immediately and begin first aid. What are the risk factors for an opioid overdose? Mixing Drugs Many overdoses occur when people mix heroin or prescription opioids with (more content not included)... [facility] ED Provider Noteon ED Provider Note EMERGENCY DEPARTMENT ENCOUNTER Pt Name: Galen Hogue Birthdate 2000 Date of evaluation: 05/07/2024 ED Provider: An Santana DO CHIEF COMPLAINT Chief Complaint Patient presents with Addiction Problem Pt is here for addiction care partner. HISTORY OF PRESENT ILLNESS (Location/Symptom, Timing/Onset, Context/Setting, Quality, Duration, Modifying Factors, Severity) Note limiting factors. I wore appropriate PPE for the entirety of this encounter. HPI 24-year-old male presents emergency department today seeking Suboxone treatment and addiction care partner for his fentanyl abuse issue. States that they last used fentanyl yesterday and was dosed with Suboxone at [place] a few hours later and was told to come here for continued follow-up. Nursing Notes were reviewed. Limitations to history: None Outside historians: None REVIEW OF SYSTEMS Review of Systems Gastrointestinal: Abdominal cramping Psychiatric/Behaviora l: The patient is nervous/anxious. Pertinent positives and negatives as per HPI. PAST MEDICAL HISTORY Past Medical History: Diagnosis Date Asthma RSV (acute bronchiolitis due to respiratory syncytial virus) SURGICAL HISTORY No past surgical history on file. CURRENT MEDICATIONS Previous Medications DEXAMETHASONE (DECADRON) 1 MG TABLET Take 1 tablet (1 mg) by mouth daily for 4 days. ONDANSETRON ODT (ZOFRAN-ODT) 4 MG DISINTEGRATING TABLET Take 1 tablet (4 mg) by mouth every 8 hours as needed for nausea or vomiting for up to 7 days. POTASSIUM CHLORIDE CR (KLOR-CON M20) 20 MEQ ER TABLET Take 1 tablet (20 mEq) by mouth daily for 5 days. Do not crush or chew. ALLERGIES Amoxicillin, Augmentin [amoxicillin-pot clavulanate], Penicillins, and Red dye FAMILY HISTORY No family history on file. SOCIAL HISTORY Social History Socioeconomic History Marital status: Single Tobacco Use Smoking status: Every Day Current packs/day: 0.50 Types: Cigarettes Smokeless tobacco: Never Vaping Use Vaping status: Former Substances: Nicotine Substance and Sexual Activity Alcohol use: Yes Comment: occ/rare Drug use: Yes Types: Marijuana, Fentanyl SCREENINGS Clinical Opiate Withdrawal Scale Resting Pulse Rate: Measured After Patient is Sitting or Lying for One Minute: Pulse rate 81-100 GI Upset: Over Last Half Hour: Nausea or loose stool Sweating: Over Past Half Hour Not Accounted for by Room Temperature or Patient Activity: Subjective report of chills or flushing Tremor: Observation of Outstretched Hands: Slight tremor observable Restlessness: Observation During Assessment: Able to sit still Yawning: Observation During Assessment: No yawning Pupil Size: Pupils pinned or normal size for room light Anxiety and Irritability: Patient reports increasing irritability or anxiousness Bone or Joint Aches: If Patient was Having Pain Previously, Only the Additional Component Attributed to Opiate Withdrawal is Scored: Mild diffuse discomfort Gooseflesh Skin: Skin is smooth Runny Nose or Tearing: Not Accounted for by Cold Symptoms or Allergies: Nasal stuffiness or unusually moist eyes Clinical Opiate Withdrawal Scale Total Score: 9 PHYSICAL EXAM ED Triage Vitals Temp Heart Rate Resp BP 05/07/24 1249 05/07/24 1249 05/07/24 1249 05/07/24 1249 37.7 ?C (99.9 ?F) 76 20 125/73 SpO2 Temp Source Heart Rate Source Patient Position 05/07/24 1249 05/07/24 1249 05/07/24 1249 05/07/24 1334 100 % Temporal Monitor Sitting BP Location FiO2 (%) -- -- Physical Exam Vitals and nursing note reviewed. Constitutional: General: He is not in acute distress. Appearance: He is well-developed. HENT: Head: Normocephalic and atraumatic. Eyes: Conjunctiva/sclera: Conjunctivae normal. Cardiovascular: Rate and Rhythm: Normal rate and regular rhythm. Heart sounds: No murmur heard. Pulmonary: Effort: Pulmonary effort is normal. No respiratory distress. Breath sounds: Normal breath sounds. Musculoskeletal: General: No swelling. Cervical back: Neck supple. Skin: General: Skin is warm and dry. Neurological: Mental Status: He is alert. Psychiatric: Mood and Affect: Mood normal. DIAGNOSTIC RESULTS Procedures/EKG: RADIOLOGY (Per Emergency Physician): Interpretation per the Radiologist below, if available at the time of this note: No orders to display ED BEDSIDE ULTRASOUND: Performed by ED Physician - none LABS: Labs Reviewed - No data to display All other labs were within normal range or not returned as of this dictation. EMERGENCY DEPARTMENT COURSE and DIFFERENTIAL DIAGNOSIS/MDM: Vitals: Vitals: 05/07/24 1249 05/07/24 1252 05/07/24 1334 BP: 125/73 116/81 Pulse: 76 103 103 Resp: 20 20 Temp: 37.7 ?C (99.9 ?F) 37.7 ?C (99.8 ?F) TempSrc: Temporal Temporal SpO2: 100% 96% ED Course as of 05/07/24 1447 FriMay 07, 2024 1315 24-year-old male presents emergency department today seeking (more content not included)... Normal [facility] COMPREHENSIVE METABOLIC PANE Jl 05-06-2024 Albumin [Mass/Vol] 4.9 g/dL Normal 3.5-5.0 [facility] Comment on above: Performed By: #### L AB17, LAB46 ####Registered Radiation Therapist: DEBORAH PINEDA ([id number])[facility] [place] (SWRLAB)[address] [place] [address] [place] ALP [Catalytic activity/Vol] 64 U/L Normal 38-[address] [facility] Comment on above: Performed By: #### Monica AB17, LAB46 ####Registered Radiation Therapist: DEBORAH PINEDA ([id number])[facility] [place] [address] (SWRL[address] [place] [address] [place] ALT [Catalytic activity/Vol] 11 U/L Normal 0-[address] [facility] Comment on above: Performed By: #### Monica JON17, LAB46 ####Registered Radiation Therapist: DEBORAH PINEDA ([id number])[facility] [address] (SWRL[address] [place] [address] [place] Anion gap [Moles/Vol] 11 mmol/L Normal 3-13 [facility] Comment on above: Performed By: #### Monica HERCULES, LAB46 ####Registered Radiation Therapist: DEBORAH PINEDA ([id number])[facility] [address] (SWRL[address] [place] [address] [place] AST [Catalytic activity/Vol] 19 U/L Normal 15-46 [facility] Comment on above: Performed By: #### Monica HERCULES, LAB46 ####Registered Radiation Therapist: DEBORAH PINEDA ([id number])[facility] [address] (SW[address] [place] [address] [place] Bilirubin [Mass/Vol] 1.0 mg/dL Normal 0.2-1.3 [facility] Comment on above: Performed By: #### L AB17, LAB46 ####Registered Radiation Therapist: DEBORAH PINEDA ([id number])[facility] [address] (SWRL[address] [place] [address] [place] Calcium [Mass/Vol] 10.2 mg/dL Normal 8.4-10.[address] [facility] Comment on above: Performed By: #### L AB17, LAB46 ####Registered Radiation Therapist: DEBORAH PINEDA ([id number])[facility] [address] (SWRL[address] [place] [address] [place] Chloride [Moles/Vol] 99 mmol/L Normal 98-107 [facility] Comment on above: Performed By: #### L AB17, LAB46 ####Registered Radiation Therapist: DEBORAH PINEDA ([id number])[facility] [place] (SWRL[address] [place] [address] [place] CO2 [Moles/Vol] 26 mmol/L Normal 22-30 [facility] Comment on above: Performed By: #### Monica AB17, LAB46 ####Registered Radiation Therapist: DEBORAH PINEDA ([id number])[facility] [place] (SWRLAB)[address] [place] [address] [place] Creatinine [Mass/Vol] 0.69 mg/dL Normal 0.66-1.25 [facility] Comment on above: Performed By: #### Monica JON17, LAB46 ####Registered Radiation Therapist: DEBORAH PINEDA ([id number])[facility] [place] (SWRLAB)[address] [place] [address] [place] GLOMERULAR FILTRATION RATE ML/MIN/1.73 SQ M.PREDICTED >90.0 Normal >60.[address] [facility] Comment on above: Result Comment: Calc ulation based on the Chronic Kidney Disease Epidemiology Collaboration (CKD-EPI) equation refit without adjustment for race Performed By: #### L AB17, LAB46 ####Registered Radiation Therapist: DEBORAH PINEDA ([id number])[facility] [address] (SWRLAB)[address] [place] [address] [place] Glucose [Mass/Vol] 120 mg/dL High 70-[address] [facility] Comment on above: Performed By: #### L AB17, LAB46 ####Registered Radiation Therapist: DEBORAH PINEDA ([id number])[facility] [place] (SWRL[address] [place] [address] [place] Potassium [Moles/Vol] 3.1 mmol/L Low 3.5-5.1 [facility] Comment on above: Performed By: #### L AB17, LAB46 ####Registered Radiation Therapist: DEBORAH PINEDA ([id number])[facility] MORELANDTMAN (SWRLAB)[address] Protein [Mass/Vol] 7.8 g/dL Normal 6.3-8.[address] [facility] Comment on above: Performed By: #### L [id number], [id number] ####Registered Radiation Therapist: DEBORAH PINEDA ([id number])[facility] CHESTER RITTMAN (SWRLAB)[address] Sodium [Moles/Vol] 137 mmol/L Normal 135-[address] [facility] Comment on above: Performed By: #### L [id number], [id number] ####Registered Radiation Therapist: DEBORAH PINEDA ([id number])[facility] CHESTER RITTMAN (SWRLAB)[address] [place] [address] Urea nitrogen [Mass/Vol] 12 mg/dL Normal 9-[address] [facility] Comment on above: Performed By: #### L [id number], LAB46 ####Registered Radiation Therapist: DEBORAH PINEDA ([id number])[facility] MORELANDTMAN (SWRLAB)[address] [place] [address] Comprehensive metabolic 1998 panelon 05-06-2024 Albumin [Mass/Vol] 4.9 g/dL 3.5 - 5.0 g/dL [facility] ALP [Catalytic activity/Vol] 64 U/L 38 - 126 U/L [facility] ALT [Catalytic activity/Vol] 11 U/L 0 - 49 U/L [facility] Anion gap [Moles/Vol] 11 mmol/L 3 - 13 mmol/L [facility] AST [Catalytic activity/Vol] 19 U/L 15 - 46 U/L [facility] Bilirubin [Mass/Vol] 1.0 mg/dL 0.2 - 1 .3 mg/dL [facility] Calcium [Mass/Vol] 10.2 mg/dL 8.4 - 10. 4 mg/dL [facility] Chloride [Moles/Vol] 99 mmol/L 98 - 10 7 mmol/L [facility] CO2 [Moles/Vol] 26 mmol/L 22 - 30 mmol/L [facility] Creatinine [Mass/Vol] 0.69 mg/dL 0.66 - 1.25 mg/dL [facility] GFR/1.73 sq M.predicted (S/P/Bld) [Vol rate/Area] - PINF [facility] Comment on above: Calculation based on the Chronic Kidney Disease Epidemiology Collaboration (CKD-EPI) equation refit without adjustment for race Glucose [Mass/Vol] 120 mg/dL High 70 - 100 mg/dL [facility] Interpretation and review of laboratory results Abnormal [facility] Potassium [Moles/Vol] 3.1 mmol/L Low 3.5 - 5.1 mmol/L [facility] Protein [Mass/Vol] 7.8 g/dL 6.3 - 8.2 g/dL [facility] Sodium [Moles/Vol] 137 mmol/L 135 - 145 mmol/L [facility] Urea nitrogen [Mass/Vol] 12 mg/dL 9 - 20 mg/d L [facility] ED Nursing Noteon 05-06-2024 ED Nursing Note IV removed from [facility] Senait Merritt RN 05/06/242119 Normal [facility] ED Nursing Note Patient rang call light, states he got a hold of his mother for transport home. Physician informed. Sylvia Vincent RN 05/06/242106 Normal [facility] ED Nursing Note [facility] [phone] [facility] [place] [address] For questions about Naloxone, call , option 2 What is Naloxone? Naloxone (also known as Narcan or Kloxxado) is a medication that can reverse an overdose caused by an opioid drug (some examples: heroin, fentanyl, types of pain medications). Naloxone has safely been used by medical corps officer for more than 40 years. Naloxone?s purpose: to temporarily reverse the effects of opioids, restore breathing, and prevent overdose . Naloxone has no risk for abuse or dependency. If you are unsure of the cause of the overdose, give the Naloxone anyway. It will not cause harm. Note: non-opioid drugs (some examples: cocaine, methamphetamines, or medications not received directly through your pharmacist) may contain opioids (example: fentanyl). In the event of any overdose one should administer naloxone not knowing the purity of the drug. What are some common opioids? Opioids include both heroin and prescription pain medications. Some common opioid pain medications include: hydrocodone (Lorcet and Vicodin), oxycodone (Percocet), long acting opioids (Oxycontin, MS Contin, Methadone), and patches (Fentanyl). Other brand name opioid pain medications include Opana ER, Avinza and Temitope. How do I know if someone is overdosing? A person who is experiencing an overdose may have the following symptoms: breathing is slow and shallow (less than 10 breaths per minute) or has stopped; vomiting; face is pale and clammy; blue or grayish lips and fingernails; slow, erratic, or no pulse; choking or loud snoring noises; will not respond to shaking or sternum rub; skin may turn lopez, blue, or ashen. An overdose is a medical emergency! Call --1 immediately and begin first aid. What are the risk factors for an opioid overdose? Mixing Drugs Many overdoses occur when people mix heroin or prescription opioids with alcohol, benzodiazepines, or antidepressants. Alcohol and benzodiazepines (such as Xanax, Klonopin and Valium) are particularly dangerous because, like opioids, these substances impact an individual's ability to breathe. Lowered Tolerance Tolerance is your body's ability to process a drug. Tolerance changes over time so that you may need more of a drug to feel its effects. However, tolerance can decrease rapidly when someone has taken a break from using a substance whether intentionally (in treatment) or unintentionally (in prison or the hospital). Taking opioids after a period of not using can increase the risk of a fatal overdose. Health Problems Your physical health impacts your body's ability to manage opioids. Since opioids can impair your ability to breathe, if you have asthma or other breathing problems you are at higher risk for an overdose. Individuals with liver or kidney disease or dysfunction, heart disease or HIV/AIDS are also at an increased risk of an overdose. Previous Overdose A person who has experienced a nonfatal overdose in the past, has an increased risk of a fatal overdose in the future. What is Project LORI Project LORI (Deaths Avoided with Naloxone) is an overdose education and Naloxone distribution program. Participants learn how to: Recognize the signs and symptoms of an opioid overdose. Make an emergency call. Perform rescue breathing. Administer Naloxone (Narcan?/Kloxxado?) to someone experiencing an opioid overdose. If a person is exhibiting symptoms of an opioid overdose, these following life-saving measures should be taken immediately: Check to see if they can respond Give them a light shake, yell their name. Any response? If you don't get a response, try a STERNUM RUB (rub your knuckles in the middle of their chest where the ribs meet for 10 seconds). Call You do not need to mention drugs when you call - provide basic information: Give the address and location. Say I have a person who has stopped breathing and is unresponsive. Perform Rescue Breathing Make sure nothing is in their mouth. Tilt head back, lift chin & pinch nose. Start by giving two breaths making sure the chest rises. If the chest does not rise, tilt the head back more and make sure you are plugging their nose. Give Naloxone Assemble the nasal spray Naloxone. [place] half (1 ml) up one nostril, half up the other. Continue rescue breathing, one breath every 5 seconds, while waiting for the Naloxone to take effect. Give a second dose of Naloxone if there is no response in 2-5 minutes. After Naloxone Continue to monitor their respirations and perform rescue breathing if respirations are below 10 breaths a minute. Stay with them until help arrives. The Naloxone may wear off and the victim could start to overdose again. Naloxone Dispensing through [facility] (Mail order or in-person) Mail Order: Click the link a (more content not included)... Normal [facility] ED Nursing Note Pt ambulatory to aundrea agrawal 2 with c/o withdrawal symptoms from fentayl. Pt reports that he snorts fentanyl daily with last use a couple of hours ago. Pt states but I dont think it was the real stuff though. Pt c/o feeling hot and cold as well as feeling of heart racing. Pt reports history of abuse for [address] [facility] ED Nursing Note Pt calling extension service specialist in charge light to states feeling of increased symptoms. Pt is pale and mildly diaphoretic with slight tremors noted. Pt states feel like my heart is racing more and I just feel worse. Monitoring maintained. Physician aware and awaiting further orders. Rachael Glass RN 05/06/[address] [facility] ED Nursing Note Pt resting in cot with lights dimmed and watching tv. Pt reports continued chills and sweats and just dont feel great. Rachael Glass RN 05/06/[address] [facility] ED Nursing Note Pt reports feeling o f worsening symptoms. Physician aware Rachael Glass RN 05/06/[address] [facility] ED Provider Noteon ED Provider Note [facility] ED EMERGENCY DEPARTMENT ENCOUNTER Pt Name: Galen Hogue Birthdate 2000 Date of evaluation: 05/06/2024 Provider: Alfonso Vincent MD CHIEF COMPLAINT Chief Complaint Patient presents with Withdrawal HISTORY OF PRESENT ILLNESS (Location/Symptom, Timing/Onset,Context/ Setting, Quality, Duration, Modifying Factors, Severity) Note limiting factors. Galen Hogue is a 24 y.o. male who presents to the emergency department with concerns for withdrawal from fentanyl. Been using for about 5 years. Used a few hours ago. Use daily. Also use with his brother. He is here wanting medication assisted treatment. He reports abdominal cramping feels jittery achy. No chest pain short of breath fevers chills some nausea. They snorted do not inject HPI Historian is the patient Nurse's notes for past medical history, surgical history, social history were reviewed. Medications and allergies reviewed. PAST MEDICAL HISTORY Past Medical History: Diagnosis Date Asthma RSV (acute bronchiolitis due to respiratory syncytial virus) SURGICALHISTORY History reviewed. No pertinent surgical history. CURRENT MEDICATIONS Discharge Medication List as of 05/06/2024 9:15 PM CONTINUE these medications which have NOT CHANGED Details dexAMETHasone (Decadron) 1 MG tablet Take 1 tablet (1 mg) by mouth daily for 4 days., Starting 04/04/2024, Until [place] 04/08/2024, Normal Amoxicillin, Augmentin [amoxicillin-pot clavulanate], Penicillins, and Red dye FAMILY HISTORY No family history on file. SOCIAL HISTORY Social History Socioeconomic History Marital status: Single Tobacco Use Smoking status: Every Day Current packs/day: 0.50 Types: Cigarettes Smokeless tobacco: Never Vaping Use Vaping status: Former Substances: Nicotine Substance and Sexual Activity Alcohol use: Yes Comment: occ/rare Drug use: Yes Types: Marijuana, Fentanyl SCREENINGS PHYSICAL EXAM (up to 7 for level 4, 8 or more for level 5) @EDTRIAGEVSS@ Appropriate PPE including n 95, gown, gloves, goggles where worn when appropriate with this patient. Physical Exam Vital signs reviewed general: Alert and oriented ?3 appears anxious head: Atraumatic eyes: Equal round reactive to light and accommodating, pupils are equal, round and reactive to light and accommodation oropharynx: Clear and well hydrated neck: Supple heart: Regular rate and rhythm, no murmurs lungs: Clear to auscultation bilaterally abdomen: Soft nontender, positive bowel sounds, no peritoneal findings. Extremities: Moving all fours, no tenderness. Normal capillary refill. Skin: No rash or lesions -to the exposed skin neurologically: Alert and oriented ?3, no focal deficit DIAGNOSTIC RESULTS RADIOLOGY: Interpretation per the Radiologist below, if availableat the time of this note: No orders to display ED BEDSIDE ULTRASOUND: Performed by ED Physician - none LABS: Labs Reviewed COMPREHENSIVE METABOLIC PANEL - Abnormal Result Value SODIUM 137 POTASSIUM 3.1 (*) CHLORIDE 99 CARBON DIOXIDE 26 ANION GAP 11 UREA NITROGEN 12 CREATININE 0.69 GLUCOSE 120 (*) CALCIUM 10.2 AST (SGOT) 19 ALT 11 ALKALINE PHOSPHATASE 64 ALBUMIN 4.9 BILIRUBIN, TOTAL 1.0 TOTAL PROTEIN 7.8 eGFR >90.0 ETHANOL - Normal ETHANOL IN SER/PLAS <0.010 Narrative: NOTE: This result is for medical treatment only. Analysis performed using non-forensic procedures. UNCONFIRMED DRUG SCREEN AMPHETAMINES Positive BARBITURATES Negative BENZODIAZEPINES Negative COCAINE Negative METHADONE Negative OPIATES Positive OXYCODONE/OXYMORPHONE Negative PCP Negative Narrative: The expected value for the drugs listed above is Negative. The following drugs or drug groups have been screened for by Immunoassay at the following thresholds: Amphetamine class(1000 ng/mL) Barbiturates(200 ng/mL Benzodiazepines(200 ng/mL) Cocaine(300 ng/mL) Methadone(300 ng/mL) Opiates(300 ng/mL) Oxycodone(100 ng/mL) PCP(25 ng/mL) POSITIVE results are NOT confirmed by a more specific alternative method unless requested. If confirmation is needed, request confirmation under separate order. NOTE: These results are for medical treatment only. Analysis performed using non-forensic procedures. All other labs were within normal range or not returned as of thisdictation. EMERGENCYDEPARTMENT COURSE and DIFFERENTIAL DIAGNOSIS/MDM: Vitals: Vitals: 05/06/24 1649 05/06/24 1726 05/06/24 1838 05/06/24 2035 BP: 116/79 114/71 BP Location: Right arm Right arm Patient Position: Lying Lying Pulse: 85 69 65 69 Resp: 16 16 Temp: TempSrc: SpO2: 100% 100% Weight: Height: Medical Decision Making Problems Addressed: Hypokalemia: complicated acute illness or injury Opioid use disorder, moderate, dependence (HCC): complicated acute illness or injury Amount and/or Complexity of Data Reviewed Labs: ordered. Risk Pres (more content not included)... Normal [facility] ETHANOLon 05-06-2024 ETHANOL IN SER/PLAS <0.010 Normal 0.000-0.010 [facility] Comment on above: Result Comment: RADHA Parra COMMENTS: NOTE: This result is for medical treatment only. Analysis performed using non-forensic procedures. Performed By: #### L AB17, LAB46 ####Registered Radiation Therapist: DEBORAH PINEDA ([id number])[facility] ([facility])[address] [place] [address] Ethanol (Bld) [Mass/Vol]on 0 05-06-2024 Ethanol [Mass/Vol] g/dL 0.000 - 0 .010 g/dL [facility] Interpretation and review of laboratory results Normal [facility] Laboratory - Drug toxicology Ordered By: April Li on 05-06-2024 Amphetamines Ql (U) Positive Negative [facility] Barbiturates screen method Nom (U) Negative Negative [facility] Benzodiazepines screen method Nom (U) Negative Negative [facility] Cocaine Ql (U) Negative Negative [facility] Methadone Ql (U) Negative Negative [facility] Opiates Screen Ql (U) Positive Negative [facility] No Panel InformationOrdered By: April Li on 05-06-2024 OXYCODONE/OXYMORPHONE Negative Negative [facility] PCP Negative Negative [facility] The expected value for the drugs listed above is Negative. The following drugs or drug groups have been screened for by Immunoassay at the following thresholds: Amphetamine class(1000 ng/mL) Barbiturates(200 ng/mL Benzodiazepines(200 ng/mL) Cocaine(300 ng/mL) Methadone(300 ng/mL) Opiates(300 ng/mL) Oxycodone(100 ng/mL) PCP(25 ng/mL) POSITIVE results are NOT confirmed by a more specific alternative method unless requested. If confirmation is needed, request confirmation under separate order. NOTE: These results are for medical treatment only. Analysis performed using non-forensic procedures. [facility] No Panel Informationon 05-06 [facility] Nursing Noteon 05-06-2024 Nursing Note Patient presents to the [facility] ED for opioid withdrawal and seeking help to get clean from drugs. Stated he uses on average 1 gram of fentanyl via snorting with last use being a couple of hours ago. Patient thinks that when he last used fentanyl a couple of hours ago it was not the real stuff. Uses meth occasionally. Smokes 1/2-1 ppd of tobacco. No treatment history. Has never been on MAT before. Has never overdosed. Initial COWS 9. Was given Zofran ODT and Suboxone 8 mg. COWS 3. Given an additional Suboxone 8 mg. Started to feel worse. COWS 9. Given Clonidine 0.2 mg and Hydroxyzine 25 mg. Main withdrawal symptoms include hot/cold feeling, pain in back and legs, vomiting, and runny nose. Denies having a history of any chronic physical health problems. No daily meds. Denies having a history of any chronic mental health problems. No daily meds. Denies SI or HI. Dropped out of high school in the 10th or 11th grade. States he uses to maintain at this point and is tired of it. Wants to get off of fentanyl. Has been using for 5 years. Supports include family. Withdrawal is a trigger for him to use. Not . No children. Mom is able to transport patient to appointments. Resides with family. Not employed. No financial or legal concerns. No health insurance at the moment. Thought he had [employer] Medicaid at one point. Plan is to induct patient with Suboxone today and have him follow up with the [facility] tomorrow (05/07/24) for Day 2 MAT since he has never been on Suboxone before. Patient provided with a list of treatment resources as well as Project Lori information and Narcan to Go. Normal [facility] UNCONFIRMED DRUG SCREENon Amphetamines Ql (U) Positive Normal Negative [facility] Comment on above: Performed By: #### L [id number] ####Registered Radiation Therapist: DEBORAH PINEDA ([id number])[facility] ([facility])[address] [place] [address] BARBITURATES Negative Normal Negative [facility] Comment on above: Performed By: #### L [id number] ####Registered Radiation Therapist: DEBORAH PINEDA ([id number])[facility] ([facility])[address] [place] [address] Benzodiazepines Ql (U) Negative Normal Negative [facility] Comment on above: Performed By: #### L [id number] ####Registered Radiation Therapist: DBEORAH PINEDA ([id number])[facility] ([facility])[address] [place] [address] Cocaine Ql (U) Negative Normal Negative [facility] Comment on above: Performed By: #### L [id number] ####Registered Radiation Therapist: DEBORAH PINEDA ([id number])[facility] ([facility])[address] [place] [address] Methadone Ql (U) Negative Normal Negative [facility] Comment on above: Performed By: #### L [id number] ####Registered Radiation Therapist: DEBORAH PINEDA ([id number])[facility] ([facility])[address] [place] [address] Opiates Ql (U) Positive Normal Negative [facility] Comment on above: Performed By: #### L [id number] ####Registered Radiation Therapist: DEBORAH PINEDA ([id number])[facility] ([facility])[address] [place] [address] OXYCODONE/OXYMORPHONE Negative Normal Negative [facility] Comment on above: Performed By: #### L [id number] ####Registered Radiation Therapist: DEBORAH PINEDA ([id number])[facility] ([facility])[address] [place] [address] PCP Negative Normal Negative [facility] Comment on above: Result Comment: ORDE R COMMENTS: The expected value for the drugs listed above is Negative. The following drugs or drug groups have been screened for by Immunoassay at the following thresholds: Amphetamine class(1000 ng/mL) Barbiturates(200 ng/mL Benzodiazepines(200 ng/mL) Cocaine(300 ng/mL) Methadone(300 ng/mL) Opiates(300 ng/mL) Oxycodone(100 ng/mL) PCP(25 ng/mL) POSITIVE results are NOT confirmed by a more specific alternative method unless requested. If confirmation is needed, request confirmation under separate order. NOTE: These results are for medical treatment only. Analysis performed using non-forensic procedures. Performed By: #### L [id number] ####Registered Radiation Therapist: DEBORAH PINEDA ([id number])[facility])[address] [place] [address] ED Nursing Noteon 04-04-2024 ED Nursing Note Reviewed discharge instructions and patient verbalized understanding. No further questions. Patient ambulated out of ED with strong steady gait. Respirations even and non labored. No acute distress. A&O x4. Maggy Pierre RN 04/04/242018 Normal [facility] ED Nursing Note Patient ambulatory t o ED2 without difficulty. mother at bedside. Patient states that he has swelling in the Upper jaw, possibly from wisdom teeth growing in sideways. Swelling visible on exam, today has been the first time with swelling present. No pain at this present time. IBU taken this morning. He is not chewing on that side. He is drinking milkshake upon arrival. Ice pack applied. Patient appears to be in no acute distress. Skin is warm, dry, and pink. A&O x3. Respirations even and non labored. Bed in locked and low position. Call light within reach. Patient has no further needs. Normal [facility] ED Provider Noteon ED Provider Note EMERGENCY DEPARTMENT ENCOUNTER Pt Name: Galen Hogue Birthdate 2000 Date of evaluation: 04/04/2024 CHIEF COMPLAINT Chief Complaint Patient presents with Oral Swelling HISTORY OF PRESENT ILLNESS HPI Galen Hogue is a 23 y.o. male who presents to the emergency department with right-sided facial swelling thinks it is from wisdom tooth. Denies any tooth pain per se. Tender to palpation on the external face. No fever. REVIEW OF SYSTEMS Review of Systems There is no problem list on file for this patient. CURRENT MEDICATIONS Discharge Medication List as of 04/04/2024 8:07 PM ALLERGIES Amoxicillin, Penicillins, and Red dye SOCIAL HISTORY Social History Tobacco Use Smoking status: Every Day Current packs/day: 0.50 Types: Cigarettes Smokeless tobacco: Never Vaping Use Vaping status: Former Substances: Nicotine Substance Use Topics Alcohol use: Yes Comment: occ/rare Drug use: Yes Types: Marijuana Social Determinants of Health Tobacco Use: High Risk (04/04/2024) Patient History Smoking Tobacco Use: Every Day Smokeless Tobacco Use: Never Passive Exposure: Not on file Alcohol Use: Not At Risk (04/04/2024) AUDIT-C Frequency of Alcohol Consumption: Monthly or less Average Number of Drinks: 3 or 4 Frequency of Binge Drinking: Less than monthly Financial Resource Strain: Not on file Food Insecurity: Not on file Transportation Needs: Not on file Physical Activity: Not on file Stress: Not on file Social Connections: Not on file Intimate Partner Violence: Not on file Depression: Not on file Housing Stability: Not on file Utilities: Not on file Health Literacy: Not on file PHYSICAL EXAM Vitals: 04/04/24 1949 04/04/241950 BP: 122/73 BP Location: Right arm Patient Position: Sitting Pulse: 96 Resp: 16 Temp: 36.7 ?C (98 ?F) TempSrc: Oral SpO2: 100% Weight: 65.8 kg (145 lb) Height: 1.676 m (5' 6) Physical Exam Vitals and nursing note reviewed. Constitutional: Appearance: He is not toxic-appearing. HENT: Head: No raccoon eyes. Jaw: Trismus present. Mouth/Throat: Lips: Rock. Dentition: Gingival swelling and dental caries present. No dental tenderness. Tongue: No lesions. Tongue deviates from midline. Palate: No mass and lesions. Pharynx: Oropharynx is clear. Uvula midline. Comments: No definite drainable abscess Eyes: Extraocular Movements: Extraocular movements intact. Conjunctiva/sclera: Conjunctivae normal. Pupils: Pupils are equal, round, and reactive to light. Neurological: Mental Status: He is alert. SCREENINGS Medical decision making DIAGNOSTIC RESULTS Procedures/EKG: Physician EKG interpretation can be found in [facility] if done RADIOLOGY : Interpretation per the Radiologist below, if available at the time of this note: No orders to display LABS: Labs Reviewed - No data to display Medications ordered: Medications clindamycin (Cleocin) capsule 300 mg (300 mg Oral Given 04/04/242015) ibuprofen tablet 600 mg (600 mg Oral Given 04/04/242015) Diagnoses as of 04/04/242030 Swelling of right side of face * No order type specified * Our workup consisted of ordering/reviewing: No orders of the defined types were placed in this encounter. MDM: 23 y.o. presented with facial swelling. The differential diagnosis considered: Likely underlying dental abscess. Facial cellulitis is possibility angioedema is possibility. Diagnostic tests considered but not performed: CT maxillofacial as it will not change ED disposition at time of discharge patient with stable dental complaint: No Hemodynamic instability, no Suspected Bacteremia. The patient was given a list of dentists available in the area. The patient was instructed to follow-up with one these dentists as soon as possible to get definitive dental care. The patient was also counseled about the importance of good oral hygiene, and the risks associated with poor dental care including an increased chance of deep space infections including Chapo's angina ,mediastinitis, intracranial infection, airway compromise. Prescription medications considered but not prescribed: oxycodone po. Will trial alternative to opiates. Not severe paom REVAL: CRITICAL CARE TIME PROCEDURES: Procedures FINAL IMPRESSION 1. Swelling of right side of face DISPOSITION/PLAN DISPOSITION Discharge 04/04/2024 08:04:05 PM PATIENT REFERRED TO: [facility] [address] [address] In 3 days I prescribed: Discharge Medication List as of 04/04/2024 8:07 PM START taking these medications Details clindamycin (Cleocin) 300 MG capsule Take 1 capsule (300 mg) by mouth in the morning and 1 capsule (300 mg) at noon and 1 capsule (300 mg) in the evening and 1 capsule (300 mg) before bedtime. Do all this for 7 days., Starting 04/04/2024, Until 04/11/2024, Normal dexAMETHasone (Decadron) (more content not included)... [facility] HEALTHon 06-23-2022 [facility] HNO ID: [id number] Author: RT Mel(Fidel) Service: Radiology Author Type: Technologist Type: [facility] Filed: 06/23/2022 1:10 AM Note Text: Radiology Service Progress Note PATIENT NAME: Galen Hogue DATE OF SERVICE: June 23, 2022 TIME: 1:10 AM PATIENT IDENTITY VERIFICATION COMPLETED USING TWO (2) IDENTIFIERS: Name and Date of confirmed by patient verbally and Name and Date of confirmed by identification band. FALL SCREENING: Has the patient had 2 falls in the last year or 1 fall with injury or currently using an Ambulatory Assistive Device (Walker, Cane, Wheelchair, Crutches, etc.)? Emergency Room Patient: Screened in ED PATIENT GENDER DATA: Male PATIENT RELEVANT IMPLANT DATA REVIEWED: Not Applicable RADIOLOGY DEPARTMENT: General X-ray: Exam(s) Completed: Chest X-Ray PERIPHERAL IV DATA: Not applicable SIGNED BY: RT Mel(R) June 23, 2022 1:10 AM [facility] HNO ID: [id number] Author: LUIS Leal) Service: Radiology Author Type: Technologist Type: [facility] Filed: 06/23/2022 12:44 AM Note Text: Attempted to get patient for chest xray. Patient was not in waiting room at this time. Will try again. [facility] ED NOTEon 06-23-2022 ED NOTE HNO ID: [id number] Author: Celena Whalen RN Service: ? Author Type: Registered Nurse Type: ED Notes Filed: 06/23/2022 12:44 AM Note Text: Pt presents to ED c/o chest congestion that has been going on for 2 weeks. Pt reports he is having coughing attacks like he does with asthma attacks. He reports he was seen at [facility] [facility] 2 weeks ago and they prescribed him an antibiotic, steroids, and an inhaler which he did not corn picker the pharmacy so was using his grandmothers left over medication. [facility] ED PROV NOTEon 06-23-2022 ED PROV NOTE HNO ID: [id number] Author: Esthela Bailey MD Service: ? Author Type: Physician Type: ED Provider Notes Filed: 06/23/2022 2:58 AM Note Text: ED Provider Note Patient Name: Galen Hogue : 2000 SERVICE DATE: 06/23/22 History Patient presents with: Cough Patient is a 22-year-old male coming in with cough. Patient has had symptoms over 2 weeks. He is a smoker and does have a history of asthma. He went to see a doctor a couple weeks ago and they gave a prescription for antibiotic steroid inhaler but when he went to the pharmacy it was not there. Patient denies any fevers but states he has shortness of breath. Feels like his asthma. Patient has had URI symptoms. Took a COVID test yesterday that was negative. PAST MEDICAL HISTORY Diagnosis Date PMH - PAST MEDICAL HISTORY OF double aortic arch PMH - PAST MEDICAL HISTORY OF asthma PAST SURGICAL HISTORY Procedure Laterality Date CIRCUMCISION,CLAMP FAMILY HISTORY Problem Relation Age of Onset other (RSV [Other]) Other Asthma Other Social History Tobacco Use Smoking status: Every Day Packs/day: 0.50 Types: Cigarettes Passive exposure: Yes Smokeless tobacco: Never Substance and Sexual Activity Alcohol use: Yes Comment: occasionally Drug use: Yes Types: Marijuana Comment: daily, at night Sexual activity: Yes ALLERGIES Allergen Reactions Amoxicillin Augmentin [Amoxicil* Rash, Vomiting Red Dye Rash Review of Systems Constitutional: Negative for fever. Respiratory: Positive for cough. Cardiovascular: Negative for chest pain. Gastrointestinal: Negative for abdominal pain and vomiting. All other systems reviewed and are negative. Physical Exam Vitals [06/23/22 0032] BP Pulse Temp Temp src Resp SpO2 Weight Height 134/85 (!) 105 36.8 ?C (98.3 ?F) Oral 20 99 % 59.9 kg (132 lb) -- Physical Exam Vitals reviewed. Constitutional: General: He is not in acute distress. Appearance: He is not ill-appearing. HENT: Head: Normocephalic and atraumatic. Right Ear: Tympanic membrane normal. Left Ear: Tympanic membrane normal. Mouth/Throat: Mouth: Mucous membranes are moist. Cardiovascular: Rate and Rhythm: Normal rate and regular rhythm. Pulmonary: Comments: Wheezing inspiratory and expiratory no increased work of breathing Abdominal: General: There is no distension. Palpations: Abdomen is soft. Tenderness: There is no abdominal tenderness. Musculoskeletal: General: No swelling or tenderness. Cervical back: Neck supple. Skin: General: Skin is warm. Neurological: General: No focal deficit present. Mental Status: He is alert. Sensory: No sensory deficit. Motor: No weakness. Psychiatric: Mood and Affect: Mood normal. Diagnostic Testing ED Labs Ordered and Reviewed - No data to display XR CHEST 2V FRONTAL/LAT Final Result IMPRESSION: No acute cardiopulmonary findings. Mineral Mixer: ANNA Transcribe Date/Time: Jun 23 2022 1:14A Dictated by : JOHN GROVES MD This examination was interpreted and the report reviewed and electronically signed by: JOHN GROVES MD on Jun 23 2022 1:16AM EST Procedures ED Course / Clinical Impression Clinical Impressions as of 06/23/22 0258 Bronchitis with bronchospasm Mild intermittent asthma with exacerbation MDM / Disposition / Plan Patient had a chest x-ray that showed no acute cardiopulmonary findings. He was given a DuoNeb treatment feeling much better on repeat lung exam lungs were clear with an occasional expiratory wheeze. He is feeling well at this point will be prescribed Zithromax as well as prednisone he is also good to be prescribed an inhaler. He is advised to follow with primary care return with any worsening symptoms or concerns. Most likely this is bronchitis he did not want COVID flu RSV testing at this time The patient was DISCHARGED: Counseled patient and family regarding radiology results AND need for follow-up. Discharged home with verbal and written instructions. They were instructed to return as needed for persistent or worsening symptoms or any new concerns. Condition at time of disposition: stable SIGNATURE: MD Esthela Gates MD 06/23/[address] [facility] XR CHEST 2V FRONTAL/LATon XR CHEST 2V FRONTAL/LAT * * *Final Repor t* * * DATE OF EXAM: Jun 23 2022 1:11AM MDX [id number] - XR CHEST 2V FRONTAL/LAT / PROCEDURE REASON: Cough, new onset * * * * Physician Interpretation * * * * EXAMINATION: XR CHEST 2V FRONTAL/LAT Exam Date/Time: 06/23/2022 1:11 AM CLINICAL HISTORY: Cough, new onset Comparison: None available. RESULT: The cardiomediastinal silhouette is not enlarged. No discernible focal consolidation, pleural effusion, or pneumothorax. IMPRESSION: No acute cardiopulmonary findings. Mineral Mixer: ANNA Transcribe Date/Time: Jun 23 2022 1:14A Dictated by : JOHN GROVES MD This examination was interpreted and the report reviewed and electronically signed by: JOHN GROVES MD on Jun 23 2022 1:16AM EST [id number] N [facility] 12-07-2018 CN Office Visit (UCWSTR ) GALEN HOGUE ([id number]) 2 M Date Time Provider Department 12/07/18 1:00 PM PIETRO CHILDS ([facility]) [facility] During your visit today, we recorded the following information about you: Temperature Pulse Respiration Blood pressure 98.1 degrees 62/minute 16/minute 104/64 Weight 68.5 kg Pietro Childs APRN.CNP 12/07/2018 1:35 PM Signed Subjective HPI HPI Galen Whitfieldjonatan is a 18 year old male who presents today for CC of tooth, ear pain. This started 2 days ago. Has tried otc medications. Symptoms are worsened by chewing. Risk factors recent broken tooth. .Patient presents with: Dental Problem: broken tooth right top, right ear pain x 1 day PAST MEDICAL HISTORY Diagnosis Date - PMH - PAST MEDICAL HISTORY OF double aortic arch - PMH - PAST MEDICAL HISTORY OF asthma PAST SURGICAL HISTORY Procedure Laterality Date - CIRCUMCISION,CLAMP ALLERGIES Amoxicillin; Augmentin [Amoxicillin-Pot Clavulanate]; Red Dye MEDICATIONS No prescriptions on file. FAMILY HISTORY Problem Relation Age of Onset - other (RSV [Other]) Unknown - Asthma Unknown Social History Tobacco Use - Smoking status: Passive Smoke Exposure - Never Smoker - Smokeless tobacco: Never Used - Tobacco comment: mom smokes Substance Use Topics - Alcohol use: No - Drug use: No Review of Systems Constitutional: Negative for fever. HENT: Positive for ear pain. Negative for congestion, ear discharge, nosebleeds and sore throat. Respiratory: Negative for cough, shortness of breath and wheezing. Musculoskeletal: Negative for neck pain. Objective Blood pressure 104/64, pulse 62, temperature 36.7 ?C (98.1 ?F), temperature source Tympanic, resp. rate 16, weight 68.5 kg (151 lb). Physical Exam Constitutional: He is oriented to person, place, and time and well-developed, well-nourished, and in no distress. Non-toxic appearance. He does not have a sickly appearance. No distress. HENT: Head: Normocephalic and atraumatic. Right Ear: Hearing, tympanic membrane, external ear and ear canal normal. Left Ear: Hearing, tympanic membrane, external ear and ear canal normal. Nose: Nose normal. Mouth/Throat: Uvula is midline, oropharynx is clear and moist and mucous membranes are normal. Eyes: Pupils are equal, round, and reactive to light. Conjunctivae and lids are normal. Right eye exhibits no discharge. Left eye exhibits no discharge. No scleral icterus. Neck: Trachea normal and normal range of motion. Neck supple. Cardiovascular: Normal rate, regular rhythm and normal heart sounds. Pulmonary/Chest: Effort normal and breath sounds normal. Lymphadenopathy: He has no cervical adenopathy. Neurological: He is alert and oriented to person, place, and time. Skin: No rash noted. He is not diaphoretic. ASSESSMENT/PLAN: 1. Tooth infection - ICD9: 522.4, ICD10: K04.7 Take medication as ordered See dentist kirsty Follow up if signs of infection worsen Prescription instructions reviewed with patient as applicable. Patient advised if symptoms do not improve or if symptoms worsen sooner, to contact the office for further evaluation by their primary care physician. Potential red flag symptoms discussed with the patient. Reviewed appropriate action plan to take if red flag symptoms occur. Patient agreeable to treatment plan. Pietro Childs APRN.[facility]US Childs APRN.CNP 12/07/2018 1:29 PM Signed ASSESSMENT/PLAN: 1. Tooth infection - ICD9: 522.4, ICD10: K04.7 Take medication as ordered See dentist kirsty Follow up if signs of infection worsen Referring Provider: SELF [[id number]] Allergies As of Date: 12/07/2018 Noted Allergy Reaction AMOXICILLIN 08/01/2003 AUGMENTIN (AMOXICILLIN-POT CLAVUL*04/29/2005 2 - Rash 11 - Vomiting RED DYE 04/29/2005 2 - Rash Date Reviewed: 12/07/2018 Reviewed by: Esthela Valdes Ma - Fully Assessed Reason for Visit: Dental Problem [31] Cmt: broken tooth right top, right ear pain x 1 day Primary Visit Diagnosis:Tooth infection [K04.7] Order(s):clindamycin (CLEOCIN) 300 mg capsuleTake 1 capsule by mouth three times daily for 10 days.Disp: 30 capsuleRfl: 0 Prescriptions as of 12/07/2018 Sig: CLINDAMYCIN HCL 300 MG CAPSULE Take 1 capsule by mouth three* Problem List As Of Date 12/07/2018 Noted Resolved 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 Tooth infection - ICD9: 522.4, ICD10: K04.7 Take medication as ordered See dentist kirsty Follow up if signs of infection worsen Prescriptions ordered this encounter Disp Refills Start End CLINDAMYCIN HCL 300 MG CAPSULE 30 c* 0 12/07/2018 12/17/2018 Route: ORAL Sig: Take 1 capsule by mouth three times daily for 10 days. Letter Text Encounter Status:Closed by PIETRO CHILDS CNP on 12/07/18 [facility] PROGRESSon 12-07-2018 Protein mass conc HNO ID: [id number] Author: Pietro Ellis) Service: ? Author Type: Nurse Practitioner Type: Progress Notes Filed: 12/07/2018 1:35 PM Note Text: Subjective HPI HPI Galen Hogue is a 18 year old male who presents today for CC of tooth, ear pain. This started 2 days ago. Has tried otc medications. Symptoms are worsened by chewing. Risk factors recent broken tooth. .Patient presents with: Dental Problem: broken tooth right top, right ear pain x 1 day PAST MEDICAL HISTORY Diagnosis Date - PMH - PAST MEDICAL HISTORY OF double aortic arch - PMH - PAST MEDICAL HISTORY OF asthma PAST SURGICAL HISTORY Procedure Laterality Date - CIRCUMCISION,CLAMP ALLERGIES Amoxicillin; Augmentin [Amoxicillin-Pot Clavulanate]; Red Dye MEDICATIONS No prescriptions on file. FAMILY HISTORY Problem Relation Age of Onset - other (RSV [Other]) Unknown - Asthma Unknown Social History Tobacco Use - Smoking status: Passive Smoke Exposure - Never Smoker - Smokeless tobacco: Never Used - Tobacco comment: mom smokes Substance Use Topics - Alcohol use: No - Drug use: No Review of Systems Constitutional: Negative for fever. HENT: Positive for ear pain. Negative for congestion, ear discharge, nosebleeds and sore throat. Respiratory: Negative for cough, shortness of breath and wheezing. Musculoskeletal: Negative for neck pain. Objective Blood pressure 104/64, pulse 62, temperature 36.7 ?C (98.1 ?F), temperature source Tympanic, resp. rate 16, weight 68.5 kg (151 lb). Physical Exam Constitutional: He is oriented to person, place, and time and well-developed, well-nourished, and in no distress. Non-toxic appearance. He does not have a sickly appearance. No distress. HENT: Head: Normocephalic and atraumatic. Right Ear: Hearing, tympanic membrane, external ear and ear canal normal. Left Ear: Hearing, tympanic membrane, external ear and ear canal normal. Nose: Nose normal. Mouth/Throat: Uvula is midline, oropharynx is clear and moist and mucous membranes are normal. Eyes: Pupils are equal, round, and reactive to light. Conjunctivae and lids are normal. Right eye exhibits no discharge. Left eye exhibits no discharge. No scleral icterus. Neck: Trachea normal and normal range of motion. Neck supple. Cardiovascular: Normal rate, regular rhythm and normal heart sounds. Pulmonary/Chest: Effort normal and breath sounds normal. Lymphadenopathy: He has no cervical adenopathy. Neurological: He is alert and oriented to person, place, and time. Skin: No rash noted. He is not diaphoretic. ASSESSMENT/PLAN: 1. Tooth infection - ICD9: 522.4, ICD10: K04.7 Take medication as ordered See dentist kirsty Follow up if signs of infection worsen Prescription instructions reviewed with patient as applicable. Patient advised if symptoms do not improve or if symptoms worsen sooner, to contact the office for further evaluation by their primary care physician. Potential red flag symptoms discussed with the patient. Reviewed appropriate action plan to take if red flag symptoms occur. Patient agreeable to treatment plan. Pietro Childs APRN.CNP Normal [facility] CNOVon 08-20-2018 CNOV Office Visit (UCWSTR ) WENDYGALEN BOO ([id number]) 2 M Date Time Provider Department 08/20/18 6:15 PM PIETRO CHILDS ([facility]) WSTR During your visit today, we recorded the following information about you: Temperature Pulse Respiration Weight 98.1 degrees 69/minute 18/minute 70.8 kg Pietro Childs APRN.CNP 08/20/2018 6:35 PM Signed Subjective HPI Galenreena Hogue is a 18 year old male who presents today for CC of vomiting. This started today. Has tried nothing for relief. Symptoms are worsened by nothing. Risk factors multiple sick exposures at home with similar symptoms. After initial episodes has eaten multiple times and felt ok. Needs school note today .Patient presents with: school note PAST MEDICAL HISTORY Diagnosis Date - PMH - PAST MEDICAL HISTORY OF double aortic arch - PMH - PAST MEDICAL HISTORY OF asthma PAST SURGICAL HISTORY Procedure Laterality Date - CIRCUMCISION,CLAMP ALLERGIES Amoxicillin; Augmentin [Amoxicillin-Pot Clavulanate]; Red Dye MEDICATIONS No prescriptions on file. FAMILY HISTORY Problem Relation Age of Onset - other (RSV [Other]) Unknown - Asthma Unknown Social History Substance Use Topics - Smoking status: Passive Smoke Exposure - Never Smoker - Smokeless tobacco: Never Used Comment: mom smokes - Alcohol use No Review of Systems Constitutional: Negative for fever. Respiratory: Negative for cough, shortness of breath and wheezing. Cardiovascular: Negative for chest pain. Gastrointestinal: Positive for vomiting. Negative for abdominal pain, diarrhea and nausea. Objective Pulse 69, temperature 36.7 ?C (98.1 ?F), temperature source Left Tympanic, resp. rate 18, weight 70.8 kg (156 lb), SpO2 99 %. Physical Exam Constitutional: He is oriented to person, place, and time and well-developed, well-nourished, and in no distress. Non-toxic appearance. He does not have a sickly appearance. No distress. HENT: Head: Normocephalic and atraumatic. Cardiovascular: Normal rate, regular rhythm, S1 normal, S2 normal and normal heart sounds. Pulmonary/Chest: Effort normal and breath sounds normal. Abdominal: Soft. Normal appearance and bowel sounds are normal. There is no hepatosplenomegaly, splenomegaly or hepatomegaly. There is no tenderness. Neurological: He is alert and oriented to person, place, and time. Gait normal. Skin: He is not diaphoretic. ASSESSMENT/PLAN: 1. Viral gastroenteritis - ICD9: 008.8, ICD10: A08.4 -Discussed gentle rehydration -BRAT Diet (Bananas, Rice, Apple Sauce, [place]) -If no better in 7-10 days follow up back in clinic or with primary care provider -Follow up in the ER with signs of dehydration, increasing abdominal pain, high fever, or blood in vomit or stool. Prescription instructions reviewed with patient as applicable. Parent advised if symptoms do not improve or if symptoms worsen sooner, to contact the office for further evaluation by their primary care physician. Potential red flag symptoms discussed with the patient. Reviewed appropriate action plan to take if red flag symptoms occur. Parent agreeable to treatment plan. Pietro Childs APRN.VENUS Childs APRN.VENUS 08/20/2018 6:19 PM Signed GASTROENTERITIS Your exam shows you have gastroenteritis, a common illness. Symptoms can include nausea, vomiting, stomach cramps, diarrhea, and a slight fever. Viral gastroenteritis, usually the most common form clears up in 2-3 days with bed rest and a clear liquid diet. If you are not vomiting, you can start on small sips of water every 20-30 minutes; gradually increase this to 1-2 cups every hour as tolerated. You can then try sodas, Gatorade, broth, and jello if your cramps and nausea are better. Try crackers and dry toast as your symptoms improve. Stay away from milk and dairy products, alcohol, and drugs that upset your stomach for the next week. Call your doctor or the emergency department if you have: persistent vomiting, bloody stools, dehydration, fainting, high fever, increased pain or pain in the abdomen on the right side. Viral gastroenteritis is hard to tell from food poisoning. If other members of your family also become ill, check with your doctor or the health department. -Discussed gentle rehydration -BRAT Diet (Bananas, Rice, Apple Sauce, [place]) -If no better in 7-10 days follow up back in clinic or with primary care provider -Follow up in the ER with signs of dehydration, increasing abdominal pain, high fever, or blood in vomit or stool. 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 Symptoms can include nausea, vomiting, stomach cramps, diarrhea, and a slight fever. Viral gastroenteritis, usually the most common form clears up in 2-3 days with bed rest and a clear liquid diet. If you are not vomiting, you can start on small sips of water every 20-30 minutes; gradually increase this to 1-2 cups every hour as tolerated. You can then try sodas, Gatorade, broth, and jello if your cramps and nausea are better. Try crackers and dry toast as your symptoms improve. Stay away from milk and dairy products, alcohol, and drugs that upset your stomach for the next week. Call your doctor or the emergency department if you have: persistent vomiting, bloody stools, dehydration, fainting, high fever, increased pain or pain in the abdomen on the right side. Viral gastroenteritis is hard to tell from food poisoning. If other members of your family also become ill, check with your doctor or the health department. -Discussed gentle rehydration -BRAT Diet (Bananas, Rice, Apple Sauce, [place]) -If no better in 7-10 days follow up back in clinic or with primary care provider -Follow up in the ER with signs of dehydration, increasing abdominal pain, high fever, or blood in vomit or stool. Letter Text [place] [facility] Pietro Childs CNP [address], [place] [address] 08/20/2018 Galen Hogue F# [id number] [address] [facility] [id number] TO WHOM IT MAY CONCERN: This is to confirm that Galen Hogue had an appointment and was seen at the [facility] in the Department of Urgent Care by Pietro Childs CNP on 08/20/2018. Sincerely yours, Pietro Childs CNP Encounter Status:Closed by PIETRO CHILDS CNP on 08/20/18 Normal [facility] PROGRESSon 08-20-2018 Protein mass conc HNO ID: [id number] Author: Pietro Ellis) Service: (none) Author Type: Nurse Practitioner Type: Progress Notes Filed: 08/20/2018 6:35 PM Note Text: Subjective HPI Galen Hogue is a 18 year old male who presents today for CC of vomiting. This started today. Has tried nothing for relief. Symptoms are worsened by nothing. Risk factors multiple sick exposures at home with similar symptoms. After initial episodes has eaten multiple times and felt ok. Needs school note today .Patient presents with: school note PAST MEDICAL HISTORY Diagnosis Date - PMH - PAST MEDICAL HISTORY OF double aortic arch - PMH - PAST MEDICAL HISTORY OF asthma PAST SURGICAL HISTORY Procedure Laterality Date - CIRCUMCISION,CLAMP ALLERGIES Amoxicillin; Augmentin [Amoxicillin-Pot Clavulanate]; Red Dye MEDICATIONS No prescriptions on file. FAMILY HISTORY Problem Relation Age of Onset - other (RSV [Other]) Unknown - Asthma Unknown Social History Substance Use Topics - Smoking status: Passive Smoke Exposure - Never Smoker - Smokeless tobacco: Never Used Comment: mom smokes - Alcohol use No Review of Systems Constitutional: Negative for fever. Respiratory: Negative for cough, shortness of breath and wheezing. Cardiovascular: Negative for chest pain. Gastrointestinal: Positive for vomiting. Negative for abdominal pain, diarrhea and nausea. Objective Pulse 69, temperature 36.7 ?C (98.1 ?F), temperature source Left Tympanic, resp. rate 18, weight 70.8 kg (156 lb), SpO2 99 %. Physical Exam Constitutional: He is oriented to person, place, and time and well-developed, well-nourished, and in no distress. Non-toxic appearance. He does not have a sickly appearance. No distress. HENT: Head: Normocephalic and atraumatic. Cardiovascular: Normal rate, regular rhythm, S1 normal, S2 normal and normal heart sounds. Pulmonary/Chest: Effort normal and breath sounds normal. Abdominal: Soft. Normal appearance and bowel sounds are normal. There is no hepatosplenomegaly, splenomegaly or hepatomegaly. There is no tenderness. Neurological: He is alert and oriented to person, place, and time. Gait normal. Skin: He is not diaphoretic. ASSESSMENT/PLAN: 1. Viral gastroenteritis - ICD9: 008.8, ICD10: A08.4 -Discussed gentle rehydration -BRAT Diet (Bananas, Rice, Apple Sauce, [place]) -If no better in 7-10 days follow up back in clinic or with primary care provider -Follow up in the ER with signs of dehydration, increasing abdominal pain, high fever, or blood in vomit or stool. Prescription instructions reviewed with patient as applicable. Parent advised if symptoms do not improve or if symptoms worsen sooner, to contact the office for further evaluation by their primary care physician. Potential red flag symptoms discussed with the patient. Reviewed appropriate action plan to take if red flag symptoms occur. Parent agreeable to treatment plan. Pietro Childs APRN.PHYSICAL PLANT MANAGER Normal [facility] Vital Signs Date Time Vital Sign Value Performing Clinician Facility 05-04-2025 00:45-0400 Diastolic blood pressure 87 mm[Hg] No Primary Care Physician [facility] 05-04-2025 00:45-0400 Systolic blood pressure 113 mm[Hg] No Primary Care Physician [facility] 05-04-2025 00:30-0400 Heart rate 31 /min No Primary Care Physician [facility] 05-04-2025 00:30-0400 Respiratory rate 15 /min No Primary Care Physician [facility] 05-04-2025 00:30-0400 SaO2% (BldA) [Mass fraction] 100 % No Primary Care Physician [facility] 05-03-2025 18:54-0400 Body height 167.64 cm No Primary Care Physician [facility] 05-03-2025 18:54-0400 Body mass index (BMI) [Ratio] 21.8 kg/m2 No Primary Care Physician [facility] 05-03-2025 18:54-0400 Body temperature 98 [degF] No Primary Care Physician [facility] 05-03-2025 18:54-0400 Body weight 61.4 kg No Primary Care Physician [facility] 05-08-2024 17:08-0400 Diastolic blood pressure 91 mm[Hg] KEVIN Licea MD Work Phone: [facility] 05-08-2024 17:08-0400 Heart rate 91 /min KEVIN Licea MD Work Phone: [facility] 05-08-2024 17:08-0400 Respiratory rate 16 /min KEVIN Licea MD Work Phone: [facility] 05-08-2024 17:08-0400 SaO2% (BldA) [Mass fraction] 100 % KEVIN Licea MD Work Phone: [facility] 05-08-2024 17:08-0400 Systolic blood pressure 121 mm[Hg] KEVIN Licea MD Work Phone: [facility] 05-08-2024 15:31-0400 Body height 167.6 cm KEVIN Licea MD Work Phone: [facility] 05-08-2024 15:31-0400 Body mass index (BMI) [Ratio] 20.18 kg/m2 KEVIN Licea MD Work Phone: [facility] 05-08-2024 15:31-0400 Body temperature 97.81 [degF] KEVIN Licea MD Work Phone: [facility] 05-08-2024 15:31-0400 Body weight 56.7 kg KEVIN Licea MD Work Phone: [facility] 05-07-2024 13:34-0400 Heart rate 103 /min Bartolome Anderson MD Work Phone: [facility] 05-07-2024 12:52-0400 Body temperature 99.81 [degF] Bartolome Anderson MD Work Phone: [facility] 05-07-2024 12:52-0400 Diastolic blood pressure 81 mm[Hg] Bartolome Anderson MD Work Phone: [facility] 05-07-2024 12:52-0400 Respiratory rate 20 /min Bartolome Anderson MD Work Phone: [facility] 05-07-2024 12:52-0400 SaO2% (BldA) [Mass fraction] 96 % Bartolome Anderson MD Work Phone: [facility] 05-07-2024 12:52-0400 Systolic blood pressure 116 mm[Hg] Bartolome Anderson MD Work Phone: [facility] 05-06-2024 20:35-0400 Diastolic blood pressure 71 mm[Hg] Alfonso Vincent MD Work Phone: [facility] 05-06-2024 20:35-0400 Heart rate 69 /min Alfonso Vincent MD Work Phone: [facility] 05-06-2024 20:35-0400 Respiratory rate 16 /min Alfonso Vincent MD Work Phone: [facility] 05-06-2024 20:35-0400 SaO2% (BldA) [Mass fraction] 100 % Alfonso Vincent MD Work Phone: [facility] 05-06-2024 20:35-0400 Systolic blood pressure 114 mm[Hg] Alfonso Vincent MD Work Phone: [facility] 05-06-2024 13:37-0400 Body height 167.6 cm Alfonso Vincent MD Work Phone: [facility] 05-06-2024 13:37-0400 Body mass index (BMI) [Ratio] 20.98 kg/m2 Alfonso Vincent MD Work Phone: [facility] 05-06-2024 13:37-0400 Body temperature 98.4 [degF] Alfonso Vincent MD Work Phone: [facility] 05-06-2024 13:37-0400 Body weight 58.97 kg Alfonso Vincent MD Work Phone: [facility] 04-04-2024 19:51-0400 Body temperature 98.01 [degF] Arabella Kennedy MD Work Phone: [facility] 04-04-2024 19:49-0400 Body height 167.6 cm Arabella Kennedy MD Work Phone: [facility] 04-04-2024 19:49-0400 Body mass index (BMI) [Ratio] 23.4 kg/m2 Arabella Kennedy MD Work Phone: [facility] 04-04-2024 19:49-0400 Body weight 65.77 kg Arabella Kennedy MD Work Phone: [facility] 04-04-2024 19:49-0400 Diastolic blood pressure 73 mm[Hg] Arabella Kennedy MD Work Phone: [facility] 04-04-2024 19:49-0400 Heart rate 96 /min Arabella Kennedy MD Work Phone: [facility] 04-04-2024 19:49-0400 Respiratory rate 16 /min Arabella Kennedy MD Work Phone: [facility] 04-04-2024 19:49-0400 SaO2% (BldA) [Mass fraction] 100 % Arabella Kennedy MD Work Phone: [facility] 04-04-2024 19:49-0400 Systolic blood pressure 122 mm[Hg] Arabella Kennedy MD Work Phone: [facility] 12-08-2023 22:08-0400 Body temperature 98.5 [degF] [facility] 12-08-2023 22:08-0400 Diastolic blood pressure 96 mm[Hg] [facility] 12-08-2023 22:08-0400 Heart rate 105 /min [facility] 12-08-2023 22:08-0400 Respiratory rate 16 /min [facility] 12-08-2023 22:08-0400 SaO2% (BldA) [Mass fraction] 97 % [facility] 12-08-2023 22:08-0400 Systolic blood pressure 114 mm[Hg] [facility] 12-08-2023 21:13-0400 Body height 167.64 cm [facility] 12-08-2023 21:13-0400 Body mass index (BMI) [Ratio] 20.6 kg/m2 [facility] 12-08-2023 21:13-0400 Body weight 58.01 kg [facility] 06-03-2023 17:44-0400 Diastolic blood pressure 70 mm[Hg] [facility] 06-03-2023 17:44-0400 Heart rate 67 /min [facility] 06-03-2023 17:44-0400 Respiratory rate 18 /min [facility] 06-03-2023 17:44-0400 SaO2% (BldA) [Mass fraction] 97 % [facility] 06-03-2023 17:44-0400 Systolic blood pressure 118 mm[Hg] [facility] 06-03-2023 16:33-0400 Body height 167.64 cm [facility] 06-03-2023 16:33-0400 Body mass index (BMI) [Ratio] 22.7 kg/m2 [facility] 06-03-2023 16:33-0400 Body temperature 97 [degF] [facility] 06-03-2023 16:33-0400 Body weight 63.95 kg [facility] Encounters Encounter Date Encounter Type Care Provider Facility Start: 05-03-2025 End: 05-04-2025 Emergency department patient visit Dr. Jovany Crouch MD -Emergency Department Work Phone: Start: 05-08-2024 End: 05-08-2024 Emergency department patient visit Don Licea MD Work Phone: [facility] Comment on above: Encounter for monito ring Suboxone maintenance therapy (Primary Dx) Start: 05-07-2024 End: 05-07-2024 Emergency department patient visit Bartolome Anderson MD Work Phone: [facility] ED Comment on above: Encounter for monito ring Suboxone maintenance therapy (Primary Dx); Fentanyl use disorder, mild (CMS/HCC) (HCC) Start: 05-06-2024 End: 05-06-2024 Emergency department patient visit Alfonso Vincent MD Work Phone: [facility] ED Comment on above: Opioid use disorder, moderate, dependence (HCC) (Primary Dx); Hypokalemia Start: 04-04-2024 End: 04-04-2024 Emergency department patient visit Arabella Kennedy MD Work Phone: [facility] ED Comment on above: Swelling of right si de of face (Primary Dx) Start: 12-08-2023 End: 12-08-2023 Emergency department patient visit [facility]Emergency Department Work Phone: Start: 06-03-2023 End: 06-03-2023 Emergency department patient visit [facility] Work Phone: Start: 06-23-2022 End: 06-23-2022 Emergency department patient visit ESTHELA Peterson BAILEY Facility:[facility] Start: 12-07-2018 End: 12-09-2018 Patient encounter procedure [facility] Start: 08-20-2018 End: 08-21-2018 Patient encounter procedure [facility] Procedures Date Procedure Procedure Detail Performing Clinician Start: 05-03-2025 Estimated creatinine clearance No Primary Care Physician Start: 05-06-2024 UNCONFIRMED DRUG SCREEN Alfonso Vincent MD Work Phone: Start: 05-06-2024 Comprehensive metabo lic panel Alfonso Vincent MD Work Phone: Start: 05-06-2024 Drug test def 1-7 classes Alfonso Vincent MD Work Phone: Start: 12-08-2023 Plain chest X-ray Plan of Treatment Date Care Activity Detail Author Start: 2061 RSV Immunization aged 60 or older (1 - 1-dose 60+ series) RSV Immunization aged 60 or older (1 - 1-dose 60+ series) [facility] Start: 2051 Zoster Vaccines (1 of 2) Zoster Vaccines (1 of 2) [facility] Start: 05-04-2025 [facility] Start: 05-23-2024 DTaP/Tdap/Td Vaccines (6 - Td or Tdap) DTaP/Tdap/Td Vaccines (6 - Td or Tdap) [facility] Start: 04-11-2024 COVID-19 Vaccine ( season) COVID-19 Vaccine ( season) [facility] Start: 04-11-2024 Influenza vaccination Influenza Vaccine (#1) [facility] Start: 12-08-2023 End: 12-08-2023 [facility] Start: 06-03-2023 [facility] Start: 04-11-2023 COVID-19 Vaccine ( season) COVID-19 Vaccine ( season) [facility] Start: 2020 Hepatitis A Vaccines (1 of 2 - Risk 2-dose series) Hepatitis A Vaccines (1 of 2 - Risk 2-dose series) [facility] Start: 2019 Hepatitis C screening Hepatitis C Screening [facility] Start: 2016 HPV Vaccines (1 - Male 3-dose series) HPV Vaccines (1 - Male 3-dose series) [facility] Start: 2013 Depression Screening Depression Screening [facility] Start: 2007 Pneumococcal Vaccine: Pediatrics (0 to 5 Years) and At-Risk Patients (6 to 64 Years) (1 of 2 - PCV) Pneumococcal Vaccine: Pediatrics (0 to 5 Years) and At-Risk Patients (6 to 64 Years) (1 of 2 - PCV) [facility] Start: 2001 HIV screening HIV Screening [facility] Start: 2001 Lipid panel Lipid Panel [facility] Patient Education Dental Abscess Understanding Tooth Decay [facility] Work Phone: Patient referral [facility] Work Phone: Immunizations Immunization Date Immunization Notes Care Provider Maegan jason 05-24-2004 influenza virus vacc ine, unspecified formulation Arabella Kennedy MD Work Phone: [facility] Payers Date Payer Category Payer Self-pay 2025 Unknown [id number] 2013 Medicaid [id number] Medicaid [id number] Unknown [id number] Unknown [id number] Social History Date Type Detail Facility Start: 06-03-2023 End: 12-08-2023 Tobacco smoking status CTIS Unknown if ever smoked [facility] Start: 2000 Sex Assigned At Male W [facility] Start: 04-04-2024 End: 05-03-2025 Tobacco smoking status CTIS Smokes tobacco daily [facility] History of tobacco use Cigarette Smoker S [facility] Start: 04-04-2024 Tobacco use and exposure Smokeless tobacco non-user [facility] Start: 04-04-2024 End: 05-06-2024 Alcoholic beverage intake Current drinker of alcohol (finding) [facility] Start: 06-09-2022 End: 05-06-2024 History of Social function [facility] Start: 06-09-2022 End: 05-06-2024 Tobacco use panel [facility] Start: 06-09-2022 Alcohol [facility] Start: 2001 Sex assigned at Not on file S [facility] How often to you hav e a drink containing alcohol? Never [facility] How many standard drinks containing alcohol do you have on a typical day? Patient does not drink [facility] Mental Status Date Assessment Result Facility 05-03-2025 Cognitive function Voice/Name [facility] Work Phone: 12-08-2023 Cognitive function Level Of Cons ciousness Awake;Alert;Appropriate;Follow s Commands [facility] Work Phone: Clinical Notes 12-08-2023 to 05-04-2025 Note Date & Type Note Facility 05-04-2025 Discharge summary [facility] 05-03-2025 Discharge summary Note Date/Time May 04, 2025 1:08am [facility] Medical Records Department [facility] [place] [address] Emergency Department Summary 05/03/25 MR#: [id number] Acct: [id number] Name: GALEN HOGUE Rep #:[id number] : 2000 25 From: Jovany Crouch MD PCP: Care Physician,No Primary Status :DEP ER Location: ED ADDENDUM by Dr. Jerad Cueva DO on 05/04/25 at 0123 Patient was turned over to [place] by Dr. Crouch @ 2330 Brief history: 25-year-old male history as below. Patient denied fevers or back pain or chest pain to me. He did endorse using fentanyl prior to arrival. Denies suicidal ideation or homicidal ideation. Denies any other drug use such as alcohol. Physical exam: on my exam patient was resting comfortably. But easily arousable. No focal deficits. Respiratory rate is greater than 10. Abdomen soft nontender lungs are clear. Heart was slow but at a regular rate and rhythm with no murmurs gobsor rubs. No obvious track alvarez. Labs and images reviewed (if obtained): EKG with sinus bradycardia rate of 39, normal [place] interval, no sign of high degree block, normal axis, no STEMI CBC with no leukocytosis, mild anemia, no thrombocytopenia Urine tox screen ordered BMP without significant electrolyte abnormalities, no acute kidney injury Serum alcohol negative MDM/plan: Patient last received approximately 6 to 7 PM on 05/03/2025. Patient has been stable throughout his post Narcan observation with no sign of rebound overdose. The patient denied any suicidal ideations or homicidal ideations. No auditory vor isual hallucinations. He appeared clinically sober. Despite bradycardia hewas hemodynamically stable otherwise. Plan was to observe the patient in the EDuntil he was able to ambulate, perform ADLs and his heart rate improved. Prior to completion of observation. Patient eloped from the ED with his brother. IV was removed prior to elopement. Dispo: Eloped from the emergency 05/04/25 0123<Electronically signed by Jerad Cueva DO> Cosigner Signature (if applicable): cc: No Primary Care Physician ~* Signed HPI History of Present Illness Chief Complaint: Unresponsive Narrative Narrative: 25-year-old male who denies significant past medical history presents with decreased mental status/unresponsiveness. Per EMS he was found in a parking lot. He states that he was walking home from a friend's house. He admits to smoking marijuana. He states that as he was walking home the last thing he remembers was waking up and police officers were around him. He presents to theemergency department with decreased mental status, stating he is fatigued and does not feel well. [facility] Medical History No acute medical problems Medical History no medical history Home Medications ?Medication ?Instructions ?Recorded ?Last Taken ?Type Zithromax 07/01/22 Unknown History Held on 06/03/23. Instructions: Pt has been DC'd prednisone 07/01/22 Unknown History Held on 06/03/23. Instructions: Pt has been DC'd clindamycin HCl 150 mg capsule 450 mg (3 x 150 mg) PO TID 7 days 06/03/23 Unknown Rx #63 caps prednisone 20 mg tablet 40 mg (2 x 20 mg) PO DAILY # 8 12/08/23 Unknown Rx TABLETS Allergy/AdvReac Type Severity Reaction Status Date / Time amoxicillin (Amoxicillin) Allergy Rash Verified 12/08/23 21:14 Penicillins Allergy Rash Verified 12/08/23 21:14 Social History household members: none Smoking Status: Current every day smoker tobacco type: cigarettes substance use type: does not use ROS ROS ED ROS Narrative Review of systems is positive for nausea. Reported syncopal episode/unresponsive episode. He was awake, alert, and talking initially for EMS and on his arrival to the ED. EXAM Physical Exam Narrative Exam Narrative: Afebrile. Vital signs noted. Cardiovascular examination reveals bradycardia. Lungs are clear to auscultation bilaterally. Abdomen is soft and nontender without guarding or rebound. Intermittent drowsiness. Moves all extremities. Const Vital Signs: 05/03/25 18:54 05/03/25 18:56 05/03/25 18:58 Temperature 98 F Temperature Source Oral Pulse Rate 45 L 54 L Respiratory Rate 17 12 Respiratory Pattern Normal Blood Pressure 82/51 L Blood Pressure Mean 61 Pulse Ox 93 97 Oxygen Delivery Method Room Air 05/03/25 18:58 05/03/25 19:00 05/03/25 19:07 Temperature Temperature Source Pulse Rate 53 L 45 L 47 L Respiratory Rate 16 12 11 L Respiratory Pattern Blood Pressure 80/40 L 77/40 L 87/58 L Blood Pressure Mean 52 52 67 Pulse Ox 93 94 96 Oxygen Delivery Method Room Air Room Air Room Air 05/03/25 19:10 05/03/25 19:15 05/03/25 19:30 Temperature Temperature Source Pulse Rate 78 79 51 L Respiratory Rate 20 H 23 H 26 H Respiratory Pattern Blood Pressure 100/74 91/79 104/68 Blood Pressure Mean 83 84 80 Pulse Ox 100 100 100 Oxygen Delivery Method Room Air Room Air 05/03/25 19:49 05/03/25 19:50 05/03/25 20:00 Temperature Temperature Source Pulse Rate 46 L 42 L 36 L Respiratory Rate 16 18 Respiratory Pattern Blood Pressure 99/67 Blood Pressure Mean 76 Pulse Ox 100 100 100 Oxygen Delivery Method Room Air 05/03/25 20:15 05/03/25 20:20 05/03/25 20:22 Temperature Temperature Source Pulse Rate 33 L 36 L 35 L Respiratory Rate 18 19 H Respiratory Pattern Blood Pressure 99/66 99/66 Blood Pressure Mean 76 77 Pulse Ox 99 96 98 Oxygen Delivery Method Room Air 05/03/25 20:26 05/03/25 20:28 05/03/25 20:30 Temperature Temperature Source Pulse Rate 38 L 32 L 39 L Respiratory Rate 18 5 L 25 H Respiratory Pattern Blood Pressure 98/69 98/69 103/76 Blood Pressure Mean 78 78 85 Pulse Ox 96 92 97 Oxygen Delivery Method Room Air Room Air 05/03/25 20:33 05/03/25 20:41 05/03/25 20:45 Temperature Temperature Source Pulse Rate 61 38 L 42 L Respiratory Rate 21 H 30 H 22 H Respiratory Pattern Blood Pressure 103/76 112/84 H Blood Pressure Mean 85 94 Pulse Ox 100 98 95 Oxygen Delivery Method Room Air Room Air Room Air 05/03/25 21:00 05/03/25 21:15 05/03/25 21:30 Temperature Temperature Source Pulse Rate 39 L Respiratory Rate 25 H Respiratory Pattern Blood Pressure 100/73 93/66 91/60 Blood Pressure Mean 83 76 70 Pulse Ox 93 92 Oxygen Delivery Method Room Air 05/03/25 21:31 05/03/25 21:43 05/03/25 21:45 Temperature Temperature Source Pulse Rate 38 L 37 L Respiratory Rate 14 16 Respiratory Pattern Blood Pressure 91/60 89/69 L Blood Pressure Mean 70 76 Pulse Ox 89 96 95 Oxygen Delivery Method Room Air 05/03/25 22:02 05/03/25 22:15 05/03/25 22:17 Temperature Temperature Source Pulse Rate 53 L 35 L 36 L Respiratory Rate 18 10 L Respiratory Pattern Blood Pressure 85/50 L 85/50 L Blood Pressure Mean 63 61 Pulse Ox 94 Oxygen Delivery Method Room Air 05/03/25 22:29 05/03/25 22:30 05/03/25 22:45 Temperature Temperature Source Pulse Rate 46 L 33 L Respiratory Rate 15 14 Respiratory Pattern Blood Pressure 116/87 H 123/93 H 116/81 H Blood Pressure Mean 95 105 92 Pulse Ox 100 100 Oxygen Delivery Method Room Air Room Air 05/03/25 23:06 Temperature Temperature Source Pulse Rate 35 L Respiratory Rate 10 L Respiratory Pattern Blood Pressure 105/67 Blood Pressure Mean 79 Pulse Ox 94 Oxygen Delivery Method Room Air MDM MDM MDM Narrative Medical decision making narrative: 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 Differential diagnosis includes but not limited to unresponsive episode secondary to drug overdose, especially opiates. While he was in the emergency department and was seen in the hallway on the cot awake, alert, and fidgeting with his head, RNs report decreased responsiveness, drop in pulse ox as well as blood pressure. He was administered 2 mg of Narcan. Upon my initial examination formally, he is now awake, alert, and mildly agitated. He had told the RN that he was nauseated. When I asked him in order tooffer him Zofran, he declined. He states he is cold and wants a warm blanket. He was told that he needs to be observed until he is more awake and clinically sober. Patient has had intermittent episodes of bradycardia, and decreased responsiveness. He has been given a total of 4 mg of naloxone. At times he is easily awakened, and when he is sleeping he is bradycardic in the 30s and 40s. However when he awakens, his heart rate will go up into the 50s or 60s. Additionally, he was found to be elevating 2 small bags of powder. I think he may have more of a coingestion. At this point in time, we will draw a CBC and BMP as well as a alcohol level and urine for drugs of abuse. Patient will be signed out to the oncoming physician Dr. Jerad Cueva to contribute to new observation and when he is more awake and clinically sober as long as his heart rate is not extremely bradycardic, I feel he can be discharged. An EKG had beenobtained and interpreted by myself independently as bradycardia 39 bpm with supraventricular complexes, but no acute ST changes. Currently, patient is in stable condition. History & Record Review Discussion w/independent historian: Patient Additional record(s) reviewed:: Prior ED visit (Previous tachycardia) Discharge Plan Triage Chief Complaint: Unresponsive ED Provider: Jovany Crouch Dx/Rx/DC Orders Clinical Impression: Decreased responsiveness, Bradycardia Prescriptions: No Action Zithromax prednisone clindamycin HCl 150 mg capsule 450 mg PO TID 7 Days Qty: 63 0RF prednisone 20 mg tablet 40 mg PO DAILY Qty: 8 0RF Primary Care Provider: Care Physician,No Primary Referrals: Care Physician,No Primary [Primary Care Provider, Medical] Print Language: Sierra Leonean What to do if you have Problems For any increased pain, shortness of breath, bleeding, nausea or vomiting, chestpain, or any unexpected problems, contact your Primary Care Provider. Call [facility] ([phone]) or report to the closest Emergency Room. Call 911 if necessary. 05/03/254 <Electronically signed by Jovany Crouch MD> Cosigner Signature (if applicable): CC: No Primary Care Physician ~ Signed [facility] Work Phone: [phone]) 596-982809-28-2024 Hospital Discharge instructions* Discharge Instructions* Don Licea MD - 05/08/2024 5:00 PM EDT Please present to [facility] tomorrow for your next Suboxone dose. documented in this [facility]09-28-2024 Emergency department Note* Don Licea MD - 05/08/2024 3:14 PM EDT EMERGENCY DEPARTMENT ENCOUNTER Pt Name: Galen Hogue Birthdate 2000 Date of evaluation: 05/08/2024 ED Provider: Philip Licea MD CHIEF COMPLAINT Chief Complaint Patient presents with Drug / Alcohol Assessment Patient states he is in the MAT program and has an apt with [facility] on the . Here forhis dose of suboxone. Last use on fentanyl was . States he was using daily for 5 years. HISTORY OF PRESENT ILLNESS (Location/Symptom, Timing/Onset, Context/Setting, Quality, Duration, Modifying Factors, Severity) Note limiting factors. I wore appropriate PPE for the entirety of this encounter. HPI Galen Hogue is a 24 y.o. male who presents to the emergency department with chief complaint of requesting his daily dose of Suboxone. He states that he used to use fentanyl daily and last used 2 days ago. He states that his last Suboxone dose was yesterday. Nursing Notes were reviewed. Limitations to history: None Outside historians: None REVIEW OF SYSTEMS Review of Systems Pertinent positives and negatives as per HPI. PAST MEDICAL HISTORY Past Medical History: Diagnosis Date Asthma RSV (acute bronchiolitis due to respiratory syncytial virus) SURGICAL HISTORY No past surgical history on file. CURRENT MEDICATIONS Previous Medications DEXAMETHASONE (DECADRON) 1 MG TABLET Take 1 tablet (1 mg) by mouth daily for 4 days. ONDANSETRON ODT (ZOFRAN-ODT) 4 MG DISINTEGRATING TABLET Take 1 tablet (4 mg) by mouth every 8 hoursas needed for nausea or vomiting for up to 7 days. POTASSIUM CHLORIDE CR (KLOR-CON M20) 20 MEQ ER TABLET Take 1 tablet (20 mEq) by mouth daily for 5 days. Do not crush or chew. ALLERGIES Amoxicillin, Augmentin [amoxicillin-pot clavulanate], Penicillins, and Red dye FAMILY HISTORY No family history on file. SOCIAL HISTORY Social History Socioeconomic History Marital status: Single Tobacco Use Smoking status: Every Day Current packs/day: 0.50 Types: Cigarettes Smokeless tobacco: Never Vaping Use Vaping status: Former Substances: Nicotine Substance and Sexual Activity Alcohol use: Yes Comment: occ/rare Drug use: Yes Types: Marijuana, Fentanyl SCREENINGS PHYSICAL EXAM ED Triage Vitals Temp Heart Rate Resp BP 05/08/24 1531 05/08/24 1531 05/08/24 1531 05/08/24 1531 36.6 C (97.8 F) 100 16 (!) 141/94 SpO2 Temp Source Heart Rate Source Patient Position 05/08/24 1531 05/08/24 1531 05/08/24 1534 05/08/24 1534 100 % Tympanic Radial Sitting BP Location FiO2 (%) -- -- Physical Exam Vitals and nursing note reviewed. Constitutional: General: He is not in acute distress (Patient very well-appearing, resting comfortably.). Appearance: He is well-developed. HENT: Head: Normocephalic and atraumatic. Eyes: Conjunctiva/sclera: Conjunctivae normal. Cardiovascular: Rate and Rhythm: Normal rate and regular rhythm. Heart sounds: No murmur heard. Pulmonary: Effort: Pulmonary effort is normal. No respiratory distress. Breath sounds: Normal breath sounds. Abdominal: Palpations: Abdomen is soft. Tenderness: There is no abdominal tenderness. Musculoskeletal: General: No swelling. Cervical back: Neck supple. Skin: General: Skin is warm and dry. Capillary Refill: Capillary refill takes less than 2 seconds. Neurological: Mental Status: He is alert. Psychiatric: Mood and Affect: Mood normal. DIAGNOSTIC RESULTS Procedures/EKG: Interpretation per the Radiologist below, if available at the time of this note: No orders to display ED BEDSIDE ULTRASOUND: Performed by ED Physician - none LABS: Labs Reviewed - No data to display All other labs were within normal range or not returned as of this dictation. EMERGENCY DEPARTMENT COURSE and DIFFERENTIAL DIAGNOSIS/MDM: Vitals: Vitals: 05/08/24 1531 05/08/24 1534 BP: (!) 141/94 Pulse: 100 100 Resp: 16 Temp: 36.6 C (97.8 F) TempSrc: Tympanic SpO2: 100% Weight: 56.7 kg (125 lb) Height: 1.676 m (5' 6) The patient presented with a chief complaint of requesting his Suboxone dose. Differential diagnoses including but not limited to: Presentation concerning for opiate use disorder I reviewed external PDMP demonstrating no controlled substance prescriptions Patient given 16 mg of Suboxone. He states that he does not have an appointment with a maintenance therapy provider until the 14th of next month. Social determinants of health affecting encounter: Drug abuse The patient will be discharged The patient is in agreement with this plan. Diagnoses as of 05/08/24 1701 Encounter for monitoring Suboxone maintenance therapy Medications buprenorphine-naloxone (Suboxone) 2-0.5 MG per sublingual film 8 Film (8 Film SubLINGual Given 05/08/24 9380) REVAL: CRITICAL CARE TIME None CONSULTS: None PROCEDURES: Unless otherwise noted below, none Procedures FINAL IMPRESSION 1. Encounter for monitoring Suboxone maintenance therapy DISPOSITION Discharge 05/08/2024 04:59:21 PM [place] [facility]: [address], [place] [id number] Schedule an appointment as soon as possible for a visit in 1 week DISCHARGE MEDICATIONS: New Prescriptions No medications on file (Comment: Please note this report has been produced using speech recognition software and may contain errors related to that system including errors in grammar, punctuation, and spelling, as well as words and phrases that may be inappropriate. If there are any questions or concerns please feel freeto contact the dictating provider for clarification.) Philip Licea MD (electronically signed) Emergency Medicine Provider Don Licea MD 05/08/24 1701 documented in this [facility]09-28-2024 Physician Emergency department Note* Don Licea MD - 05/08/2024 3:14 PM EDT EMERGENCY DEPARTMENT ENCOUNTER Pt Name: Galen Hogeu Birthdate 2000 Date of evaluation: 05/08/2024 ED Provider: Philip Licea MD CHIEF COMPLAINT Chief Complaint Patient presents with Drug / Alcohol Assessment Patient states he is in the MAT program and has an apt with [facility] on the . Here forhis dose of suboxone. Last use on fentanyl was . States he was using daily for 5 years. HISTORY OF PRESENT ILLNESS (Location/Symptom, Timing/Onset, Context/Setting, Quality, Duration, Modifying Factors, Severity) Note limiting factors. I wore appropriate PPE for the entirety of this encounter. HPI Galen Hogue is a 24 y.o. male who presents to the emergency department with chief complaint of requesting his daily dose of Suboxone. He states that he used to use fentanyl daily and last used 2 days ago. He states that his last Suboxone dose was yesterday. Nursing Notes were reviewed. Limitations to history: None Outside historians: None REVIEW OF SYSTEMS Review of Systems Pertinent positives and negatives as per HPI. PAST MEDICAL HISTORY Past Medical History: Diagnosis Date Asthma RSV (acute bronchiolitis due to respiratory syncytial virus) SURGICAL HISTORY No past surgical history on file. CURRENT MEDICATIONS Previous Medications DEXAMETHASONE (DECADRON) 1 MG TABLET Take 1 tablet (1 mg) by mouth daily for 4 days. ONDANSETRON ODT (ZOFRAN-ODT) 4 MG DISINTEGRATING TABLET Take 1 tablet (4 mg) by mouth every 8 hoursas needed for nausea or vomiting for up to 7 days. POTASSIUM CHLORIDE CR (KLOR-CON M20) 20 MEQ ER TABLET Take 1 tablet (20 mEq) by mouth daily for 5 days. Do not crush or chew. ALLERGIES Amoxicillin, Augmentin [amoxicillin-pot clavulanate], Penicillins, and Red dye FAMILY HISTORY No family history on file. SOCIAL HISTORY Social History Socioeconomic History Marital status: Single Tobacco Use Smoking status: Every Day Current packs/day: 0.50 Types: Cigarettes Smokeless tobacco: Never Vaping Use Vaping status: Former Substances: Nicotine Substance and Sexual Activity Alcohol use: Yes Comment: occ/rare Drug use: Yes Types: Marijuana, Fentanyl SCREENINGS PHYSICAL EXAM ED Triage Vitals Temp Heart Rate Resp BP 05/08/24 1531 05/08/24 1531 05/08/24 1531 05/08/24 1531 36.6 C (97.8 F) 100 16 (!) 141/94 SpO2 Temp Source Heart Rate Source Patient Position 05/08/24 1531 05/08/24 1531 05/08/24 1534 05/08/24 1534 100 % Tympanic Radial Sitting BP Location FiO2 (%) -- -- Physical Exam Vitals and nursing note reviewed. Constitutional: General: He is not in acute distress (Patient very well-appearing, resting comfortably.). Appearance: He is well-developed. HENT: Head: Normocephalic and atraumatic. Eyes: Conjunctiva/sclera: Conjunctivae normal. Cardiovascular: Rate and Rhythm: Normal rate and regular rhythm. Heart sounds: No murmur heard. Pulmonary: Effort: Pulmonary effort is normal. No respiratory distress. Breath sounds: Normal breath sounds. Abdominal: Palpations: Abdomen is soft. Tenderness: There is no abdominal tenderness. Musculoskeletal: General: No swelling. Cervical back: Neck supple. Skin: General: Skin is warm and dry. Capillary Refill: Capillary refill takes less than 2 seconds. Neurological: Mental Status: He is alert. Psychiatric: Mood and Affect: Mood normal. DIAGNOSTIC RESULTS Procedures/EKG: Interpretation per the Radiologist below, if available at the time of this note: No orders to display ED BEDSIDE ULTRASOUND: Performed by ED Physician - none LABS: Labs Reviewed - No data to display All other labs were within normal range or not returned as of this dictation. EMERGENCY DEPARTMENT COURSE and DIFFERENTIAL DIAGNOSIS/MDM: Vitals: Vitals: 05/08/24 1531 05/08/24 1534 BP: (!) 141/94 Pulse: 100 100 Resp: 16 Temp: 36.6 C (97.8 F) TempSrc: Tympanic SpO2: 100% Weight: 56.7 kg (125 lb) Height: 1.676 m (5' 6) The patient presented with a chief complaint of requesting his Suboxone dose. Differential diagnoses including but not limited to: Presentation concerning for opiate use disorder I reviewed external PDMP demonstrating no controlled substance prescriptions Patient given 16 mg of Suboxone. He states that he does not have an appointment with a maintenance therapy provider until the 14th of next month. Social determinants of health affecting encounter: Drug abuse The patient will be discharged The patient is in agreement with this plan. Diagnoses as of 05/08/24 1701 Encounter for monitoring Suboxone maintenance therapy Medications buprenorphine-naloxone (Suboxone) 2-0.5 MG per sublingual film 8 Film (8 Film SubLINGual Given 05/08/24 1650) REVAL: CRITICAL CARE TIME None CONSULTS: None PROCEDURES: Unless otherwise noted below, none Procedures FINAL IMPRESSION 1. Encounter for monitoring Suboxone maintenance therapy DISPOSITION Discharge 05/08/2024 04:59:21 PM [place]IENT [place] [facility] [place]: [address], [place] [address] Schedule an appointment as soon as possible for a visit in 1 week DISCHARGE MEDICATIONS: New Prescriptions No medications on file (Comment: Please note this report has been produced using speech recognition software and may contain errors related to that system including errors in grammar, punctuation, and spelling, as well as words and phrases that may be inappropriate. If there are any questions or concerns please feel freeto contact the dictating provider for clarification.) Philip Licea MD (electronically signed) Emergency Medicine Provider Don Licea MD 05/08/24 1701 [id number] Emergency department Note* Bartolome Mensah RN - 05/07/2024 3:29 PM EDT Project LORI is available STATE-WIDE. Narcan/Naloxone is available WITHOUT prescription at most [place] [facility], including [facility], [employer], [employer], [employer], and others. It has a cost, but there is a free program through [facility] (and 47 other [facility]). A full list of pharmacies is available at the [place] [employer] website, but calling your local pharmacy is likely to be successful. You can buy it for $50-100 (insurance may cover it) and have it ready for another person. What is Project LORI? Project LORI is a community-based drug overdose prevention and education project. Participants receive training on: Recognizing the signs and symptoms of overdose Distinguishing between different types of overdose Performing rescue breathing Calling emergency medical services Administering intranasal Naloxone Tere LORI is named in memory of Sheri Lozano, who struggled with addiction for years before dying of a witnessed opioid overdose on May 13, 2009. Tere GIL is an initiative of the [facility] Opiate Task Force and is funded in part by the [facility] Alcohol, Drug Addiction and Mental Health (ADM) Services Board [facility] Alcohol, Drug Addiction & Mental Health Services [place] [phone] [email or web address] WALK-IN HOURS: Tuesdays (every hour) from 3pm - 6pm THIS IS A FREE SERVICE TO ALL PARTICIPANTS Deaths Avoided With Naloxone A community-based drug overdose prevention and education project Emergency first aid for a suspected opioid overdose: If a person is exhibiting symptoms of an opioid overdose, these following life- saving measures should be taken immediately: Check to see if they can respond Give them a light shake, yell their name. Any response? If you don't get a response, try a STERNUM RUB (rub your knuckles in the middle of their chest where the ribs meet for 10 seconds). Call You do not need to mention drugs when you call - provide basic information: Give the address and location. Say I have a person who has stopped breathing and is unresponsive. Perform Rescue Breathing Make sure nothing is in their mouth. Tilt head back, lift chin & pinch nose. Start by giving two breaths making sure the chest rises. If the chest does not rise, tilt the head back more and make sure you are plugging their nose. Give Naloxone Assemble the nasal spray Naloxone. [place] half (1 ml) up one nostril, half up the other. Continue rescue breathing, one breath every 5 seconds, while waiting for the Naloxone to take effect. Give a second dose of Naloxone if there is no response in 2-5 minutes. After Naloxone Continue to monitor their respirations and perform rescue breathing if respirations are below 10 breaths a minute. Stay with them until help arrives. The Naloxone may wear off and the victim could start to overdoseagain. What is Naloxone? Naloxone (also known as Narcan) is a medication that can reverse an overdose that is caused by an opioid drug. When administered during an overdose, Naloxone blocks the effects of opioids on the brain and restores breathing within two to eight minutes. Naloxone has been used safely by emergency medical corps officer for more than 40 years and has only one function: to reverse the effects of opioids on the brain and respiratory system in order to prevent . Naloxone has no potential for abuse. If Naloxone is given to a person who is not experiencing an opioid overdose, it is harmless. If naloxone is administered to a person who is dependent on opioids, it will produce withdrawal symptoms. Withdrawal, although uncomfortable, is not life- threatening. Naloxone does not reverse overdoses that are caused by non-opioid drugs, such as cocaine, benzodiazepines (e.g. Xanax, Klonopin and Valium), methamphetamines, or alcohol. What are some common opioids? Opioids include both heroin and prescription pain medications. Some common opioid pain medications include: hydrocodone (Lorcet and Vicodin), oxycodone (Percocet), long acting opioids (Oxycontin, MS Contin, Methadone), and patches (Fentanyl). Other brand name opioid pain medications include Opana ER, Avinza and Temitope. How do I know if someone is overdosing? A person who is experiencing an overdose may have the following symptoms: breathing is slow and shallow (less than 10 breaths per minute) or has stopped; vomiting; face is pale and clammy; blue or grayish lips and fingernails; slow, erratic, or no pulse; choking or loud snoring noises; will not respond to shaking or sternum rub; skin may turn lopez, blue, or ashen. An overdose is a medical emergency! Call immediately and begin first aid. What are the risk factors for an opioid overdose? Mixing Drugs Many overdoses occur when people mix heroin or prescription opioids with alcohol, benzodiazepines, or antidepressants. Alcohol and benzodiazepines (such as Xanax, Klonopin and Valium) are particularly dangerous because, like opioids, these substances impact an individual's ability to breathe. Lowered Tolerance Tolerance is your body's ability to process a drug. Tolerance changes over time so that you may need more of a drug to feel its effects. However, tolerance can decrease rapidly when someone has takena break from using a substance whether intentionally (in treatment) or unintentionally (in prison or the hospital). Taking opioids after a period of not using can increase the risk of a fatal overdose. Health Problems Your physical health impacts your body's ability to manage opioids. Since opioids can impair your ability to breathe, if you have asthma or other breathing problems you are at higher risk for an overdose. Individuals with liver or kidney disease or dysfunction, heart disease or HIV/AIDS are also atan increased risk of an overdose. Previous Overdose A person who has experienced a nonfatal overdose in the past, has an increased risk of a fatal overdose in the future. Bartolome Mensah RN 05/07/24 1529 [id number] Emergency department Note* Bartolome Mensah RN - 05/07/2024 3:29 PM EDT The following are the next steps in your Substance use Treatment Plan: As per discussion, you have agreed to seek MAT services with [place] provider for outpatient addiction services & have agreed to calling today to schedule appointments. PLAN: Patient will go to [facility] provider to seek financial assistance from [employer] in [facility]. Below are additional resources that you may find beneficial in your treatment: 12-Step: Heroin Anonymous: Abdifatah Gil.: [phone], Fede Agrawal.: [phone] Narcotics Anonymous: 888-GET_HOPE (136-096-4564) [employer]Hongdianzhibo Alcohol Anonymous: akronaa.org [place] Anon: 542.955.3538: 12-step program for families & friends of people with addiction. CRISIS: Homeless Hotline: 229.449.8271 [facility] ([facility]) 03/03 line-03/03 OFFICE: [phone] [facility]: [address], [place] [address] [phone] (24 Hours) Domestic Violence help line anytime: 911.183.9022 Crisis Hotline: 03/03- 648.740.2496 ADM Addiction Helpline: 542.681.6769 (available 8:30 AM to 4:00 PM ) 2-1-1 2-1-1 helps people across [facility] find local resources when they don't know where to turn forhel. We are available 24 hours a day, 7 days a week. For help, simply dial --1 to speak to one of our trained professionals. Methadone Treatment: [place], [place] [phone] [place], [place] [phone] [facility] [place], [place] [phone] [place], [place] [phone] [facility] - [phone] ext. [phone] or [phone] [facility] - [place], [place] [phone] [facility] ([place]) [phone] DETOX TREATMENT: [facility], [place], [place] [phone] /ADM Crisis Center: anytime @ [phone] for alcohol & drug addiction help. [facility]: [phone] [place], [place]: [phone], [place], [place]: [phone] [facility] [place] [phone] Adolescent detox [place], [place] [phone] [facility] [place]: [phone] [facility], [place], [place] [phone] ext. [phone] [facility], Critical access hospital & detox & Sober living [phone] [place], [place] (pt. must be medically cleared prior to admission in ED) [facility], [place], [place] [phone] OUTPATIENT TREATMENT: [facility] @ [facility] [place] [phone]. 1st Step MAT Program @ [facility] ED: [phone] 1st Step MAT Program @ [facility] ED: [phone] Intensive Outpatient Programs- [place], [place] [phone] [place], [place] [phone] [facility] [phone] [facility] Addiction Treatment: [place], [place] [phone] or [phone]. [facility]: [phone] [facility], [place]: [phone], [place]: [phone] [place], [place]: [phone] [facility], [place]: [phone], [place]: [phone] [facility] [place]. [place]: [phone] [facility] [place], [place] BH & Sober living [phone] [place], [place] [phone] Behavioral Health Services: [facility]: [phone], [phone], [place]- [phone] [facility] Behavioral Health, [place]: [phone], [place]: [phone] [facility] Behavioral Health, [place], [place] [phone] [facility], [place], [place] [phone] [facility] [place], [place] [phone], inpt, services, dual dx. Tx. with detox. [facility] SERVICES: [place], [place] [phone] [facility], [place], [place] [phone] [facility] [phone] PSYCHIATRIC SERVICES: [facility] (180): [place], [place] [phone] [facility]or[facility] & [place]: [phone] RESIDENTIAL TREATMENT FACILITIES: [facility] House: inpt. Or outpt. - [phone] [facility], [place], [place] [phone] [facility], [place], [place] [phone] Community Assessment & Treatment Services (CATS) @ [facility] [phone] [facility] tx., [place], [place] [phone] (admission coordinated by ADM K[facility] [place] ext [phone]) [facility] Tx., [place], [place]: [phone]; Men's services inpt. & women services -Outpt. [place], [place] [phone] [facility], [place], [place] [phone] [facility]'s [place], [place] [phone] [facility], [place], [place] [phone] [facility], [place], [place] [phone] [facility] - [place], [place] [phone] [facility], [place], [place] [phone] [place], [place] [phone] [facility], Critical access hospital & detox & Sober living [phone] OTHER SERVICES: [employer] [employer] Service: [phone] [facility]: [phone] ext. [phone] Medicaid Health Coverage: [facility] JFS: [phone] Bartolome Mensah RN 05/07/24 1529 [facility] [id number] NoteThe following are the next steps in your Substance use Treatment Plan: As per discussion, you have agreed to seek MAT services with [facility] provider for outpatient addiction services & have agreed to calling today to schedule appointments. PLAN: Patient will go to [facility] MAT provider to seek financial assistance from [employer] in [facility]. Below are additional resources that you may find beneficial in your treatment: 12-Step: Heroin Anonymous: Abdifatah Calderón: [phone], Fede Walker: [phone] Narcotics Anonymous: 888-GET_HOPE (404-793-1574) [employer]Hongdianzhibo Alcohol Anonymous: vChatterronaa.org [place] Anon: [phone]: 12-step program for families & friends of people with addiction. CRISIS: Homeless Hotline: 632.911.9815 [facility] ([facility]) 03/03 line-03/03 OFFICE: [phone] [facility]: [address] [place] [address] [phone] (24 Hours) Domestic Violence help line anytime: [phone] Crisis Hotline: 03/03- 579.934.8567 ADM Addiction Helpline: 332.648.9657 (available 8:30 AM to 4:00 PM ) 2-1-1 2-1-1 helps people across [facility] find local resources when they don't know where to turn for help. We are available 24 hours a day, 7 days a week. For help, simply dial 09-11- to speak to one of our trained professionals. Methadone Treatment: [facility] - [place], [place] [phone] [place], [place] [phone] [facility] [place], [place] [phone] [place] [phone] [facility] - [phone] ext. [phone] or 224 [facility] - [place], [place] [phone] [facility]. Services ([place]) [phone] DETOX TREATMENT: [facility], [place], [place] [phone] /ADM Crisis Center: anytime @ [phone] for alcohol & drug addiction help. [facility] [place]: [phone] Day, [place], [place]: [phone], [place], [place]: [phone] [place], [place] [phone] Adolescent [place] [phone] [facility] [place]: [phone] [facility], [place], [place] [phone] ext. [phone] [facility], [place], [place] BH & detox & Sober living [phone] [facility], [place], [place] (pt. must be medically cleared prior to admission in ED) Tila MCCLELLAND [place], [place] [phone] OUTPATIENT TREATMENT: [facility] @ [place], [place] [phone]. 1st Step MAT Program @ [facility] ED: [phone] 1st Step MAT Program @ [facility] ED: [phone] Intensive Outpatient Programs- [place], [place] [phone] [place], [place] [phone] [facility] [place], [place] [phone] [facility] Addiction Treatment: [place], [place] [phone] or [phone]. [facility]: [phone] [facility] [place]: [phone], [place]: [phone] [facility] [place]: [phone] [facility] Behavioral Health, [place]: [phone], [place]: [phone] [facility] [place]. [place]: [phone] [facility] [place], [place] BH & Sober living [phone] [facility], [place], [place] [phone] Behavioral Health Services: [facility]: Mgmtx-[phone], [place]/Sbmicf-[phone], Sondra- [phone] [facility], [place]: [phone], [place]: [phone] [facility] Behavioral Health, [place], [place] [phone] [facility], [place], [place] [phone] [facility] Behavior Health, [place], [place] [phone], inrosalie services, dual dx. Tx. with detox. [facility] SERVICES: [place], [place] [phone] [facility], [place], [place] [phone] [facility] [phone] PSYCHIATRIC SERVICES: [facility] (180): [place], [place] [phone] [facility] Ester MCCLENDON & [place]ina: [phone] RESIDENTIAL TREATMENT FACILITIES: [facility] House: inpt. Or outpt. - [phone] [facility], [place], [place] [phone] [place], [place] [phone] Community Assessment & Treatment Services (CATS) @ [facility] [phone] [facility] tx., [place], [place] [phone] (admission coordinated by ADM Kvng [place] ext [phone]) [facility] Tx., [place], [place]: [phone]; Men's services inpt. & women services - Outpt. [facility], [place], [place] [phone] [facility] Health, [place], [place] [phone] [facility], [place], [place] [phone] [facility], [place], [place] [phone] [facility], [place], [place] [phone] [facility] [place], [place] [phone] [place], [place] [phone] [place], [place] [phone] [facility] & detox & So (more content not included)...[facility] [phone] Emergency department Note* Bartolome Mensah RN - 05/07/2024 3:29 PM EDT Tere LORI is available STATE-WIDE. Narcan/Naloxone is available WITHOUT prescription at most [place] [facility], including [place], [employer], [employer], [employer], and others. It has a cost, but there is a free program through [facility] (and 47 other [facility]). A full list of pharmacies is available at the [place] [employer] website, but calling your local pharmacy is likely to be successful. You can buy it for $50-100 (insurance may cover it) and have it ready for another person. What is Tere LORI? Tere GIL is a community-based drug overdose prevention and education project. Participants receive training on: Recognizing the signs and symptoms of overdose Distinguishing between different types of overdose Performing rescue breathing Calling emergency medical services Administering intranasal Naloxone Tere LORI is named in memory of Sheri Lozano, who struggled with addiction for years before dying of a witnessed opioid overdose on May 13, 2009. Tere LORI is an initiative of the [facility] Opiate Task Force and is funded in part by the [facility] Alcohol, Drug Addiction and Mental Health (ADM) Services [facility] Alcohol, Drug Addiction & Mental Health Services [facility] Public Health [address] [place] [phone] [email or web address] WALK-IN HOURS: Tuesdays (every hour) from 3pm - 6pm THIS IS A FREE SERVICE TO ALL PARTICIPANTS Deaths Avoided With Naloxone A community-based drug overdose prevention and education project Emergency first aid for a suspected opioid overdose: If a person is exhibiting symptoms of an opioid overdose, these following life- saving measures should be taken immediately: Check to see if they can respond Give them a light shake, yell their name. Any response? If you don't get a response, try a STERNUM RUB (rub your knuckles in the middle of their chest where the ribs meet for 10 seconds). Call You do not need to mention drugs when you call - provide basic information: Give the address and location. Say I have a person who has stopped breathing and is unresponsive. Perform Rescue Breathing Make sure nothing is in their mouth. Tilt head back, lift chin & pinch nose. Start by giving two breaths making sure the chest rises. If the chest does not rise, tilt the head back more and make sure you are plugging their nose. Give Naloxone Assemble the nasal spray Naloxone. [place] half (1 ml) up one nostril, half up the other. Continue rescue breathing, one breath every 5 seconds, while waiting for the Naloxone to take effect. Give a second dose of Naloxone if there is no response in 2-5 minutes. After Naloxone Continue to monitor their respirations and perform rescue breathing if respirations are below 10 breaths a minute. Stay with them until help arrives. The Naloxone may wear off and the victim could start to overdoseagain. What is Naloxone? Naloxone (also known as Narcan) is a medication that can reverse an overdose that is caused by an opioid drug. When administered during an overdose, Naloxone blocks the effects of opioids on the brain and restores breathing within two to eight minutes. Naloxone has been used safely by emergency medical corps officer for more than 40 years and has only one function: to reverse the effects of opioids on the brain and respiratory system in order to prevent . Naloxone has no potential for abuse. If Naloxone is given to a person who is not experiencing an opioid overdose, it is harmless. If naloxone is administered to a person who is dependent on opioids, it will produce withdrawal symptoms. Withdrawal, although uncomfortable, is not life- threatening. Naloxone does not reverse overdoses that are caused by non-opioid drugs, such as cocaine, benzodiazepines (e.g. Xanax, Klonopin and Valium), methamphetamines, or alcohol. What are some common opioids? Opioids include both heroin and prescription pain medications. Some common opioid pain medications include: hydrocodone (Lorcet and Vicodin), oxycodone (Percocet), long acting opioids (Oxycontin, MS Contin, Methadone), and patches (Fentanyl). Other brand name opioid pain medications include Opana ER, Avinza and Temitope. How do I know if someone is overdosing? A person who is experiencing an overdose may have the following symptoms: breathing is slow and shallow (less than 10 breaths per minute) or has stopped; vomiting; face is pale and clammy; blue or grayish lips and fingernails; slow, erratic, or no pulse; choking or loud snoring noises; will not respond to shaking or sternum rub; skin may turn lopez, blue, or ashen. An overdose is a medical emergency! Call immediately and begin first aid. What are the risk factors for an opioid overdose? Mixing Drugs Many overdoses occur when people mix heroin or prescription opioids with alcohol, benzodiazepines, or antidepressants. Alcohol and benzodiazepines (such as Xanax, Klonopin and Valium) are particularly dangerous because, like opioids, these substances impact an individual's ability to breathe. Lowered Tolerance Tolerance is your body's ability to process a drug. Tolerance changes over time so that you may need more of a drug to feel its effects. However, tolerance can decrease rapidly when someone has takena break from using a substance whether intentionally (in treatment) or unintentionally (in prison or the hospital). Taking opioids after a period of not using can increase the risk of a fatal overdose. Health Problems Your physical health impacts your body's ability to manage opioids. Since opioids can impair your ability to breathe, if you have asthma or other breathing problems you are at higher risk for an overdose. Individuals with liver or kidney disease or dysfunction, heart disease or HIV/AIDS are also atan increased risk of an overdose. Previous Overdose A person who has experienced a nonfatal overdose in the past, has an increased risk of a fatal overdose in the future. Bartolome Mensah RN 05/07/24 1529 * Bartolome Mensah RN - 05/07/2024 3:29 PM EDT The following are the next steps in your Substance use Treatment Plan: As per discussion, you have agreed to seek MAT services with [facility] provider for outpatient addiction services & have agreed to calling today to schedule appointments. PLAN: Patient will go to [facility] MAT provider to seek financial assistance from [employer] in [facility]. Below are additional resources that you may find beneficial in your treatment: 12-Step: Heroin Anonymous: Gardiner S.: [phone], Fede Agrawal.: [phone] Narcotics Anonymous: 888-GET_HOPE (765-168-4956) [employer] Alcohol Anonymous: akronaa.org [facility] Anon: [phone]: 12-step program for families & friends of people with addiction. CRISIS: Homeless Hotline: 936.847.6032 [facility] ([facility]) 03/03 line-03/03 OFFICE: [phone] [facility]: [address] [facility], [place] [address] [phone] (24 Hours) Domestic Violence help line anytime: 199.533.8137 Crisis Hotline: 03/03- 771.427.9671 ADM Addiction Helpline: 326.237.6807 (available 8:30 AM to 4:00 PM ) 2-1-1 2-1-1 helps people across [facility] find local resources when they don't know where to turn forhel. We are available 24 hours a day, 7 days a week. For help, simply dial 09-11- to speak to one of our trained professionals. Methadone Treatment: [facility] [place], [place] [phone] [place], [place] [phone] [facility] [place] [phone] [place] [phone] [facility] - [phone] ext. [phone] or 224 [facility] [place], [place] [phone] [facility] Services ([place]) [phone] DETOX TREATMENT: [facility] Services, [place], [place] [phone] /ADM Crisis Center: anytime @ [phone] for alcohol & drug addiction help. [facility] [place]: [phone] [facility]: [phone], [place], [place]: [phone] [facility] [phone] Adolescent detox [place], [place] [phone] [facility] [place] [place]: [phone] [facility], [place], [place] [phone] ext. [phone] [facility] & detox & Sober living [phone] [facility], [place], [place] (pt. must be medically cleared prior to admission in ED) [facility] Tierra, [place], [place] [phone] OUTPATIENT TREATMENT: [facility] Addiction Health @ [place], [place] [phone]. 1st Step MAT Program @ [facility] ED: [phone] 1st Step MAT Program @ [facility] ED: [phone] Intensive Outpatient Programs- [place], [place] [phone] [place] [phone] [facility] [place], [place] [phone] [facility] Addiction Treatment: [place], [place] [phone] or [phone]. [facility]: [phone] [facility], [place]: [phone], [place]: [phone] [facility], [place]: [phone] [facility] Behavioral Health, [place]: [phone], [place]: [phone] [place]. [place]: [phone] [facility], [place] BH & Sober living [phone] [facility], [place], [place] [phone] Behavioral Health Services: [facility]: Dvhep-[phone], [place]/Mwdhit-[phone], [place]- [phone] [facility] Behavioral Health, [place]: [phone], [place]: [phone] [facility] Behavioral Health, [place], [place] [phone] [facility], [place], [place] [phone] [place] [phone], inpt, services, dual dx. Tx. with detox. [facility]: [place], [place] [phone] [facility], [place], [place] [phone] [facility] [phone] PSYCHIATRIC SERVICES: [facility] (180): [place], [place] [phone] [facility] MAT [place] & [place]: [phone] RESIDENTIAL TREATMENT FACILITIES: [facility] House: inpt. Or outpt. - [phone] [facility], [place], [place] [phone] [place], [place] [phone] Community Assessment & Treatment Services (CATS) @ [facility] [phone] [facility] tx., [place] [phone] (admission coordinated by ADM Kvng [place] ext [phone]) [facility] [place], [place]: [phone]; Men's services inpt. & women services -Outpt. [facility], [place], [place] [phone] [facility], [place], [place] [phone] [place] [phone] [facility], [place], [place] [phone] [facility], [place] [phone] [facility] - [place], [place] [phone] [facility] Services, [place], [place] [phone] [place], [place] [phone] [facility], Critical access hospital & detox & Sober living [phone] OTHER SERVICES: [employer] Service: [phone] [facility]: [phone] ext. [phone] Medicaid Health Coverage: [place]. JFS: [phone] Bartolome Mensah RN 05/07/24 1529 * An Santana DO - 05/07/2024 12:45 PM EDT EMERGENCY DEPARTMENT ENCOUNTER Pt Name: Galen Hogue Birthdate 2000 Date of evaluation: 05/07/2024 ED Provider: An Santana DO CHIEF COMPLAINT Chief Complaint Patient presents with Addiction Problem Pt is here for addiction care partner. HISTORY OF PRESENT ILLNESS (Location/Symptom, Timing/Onset, Context/Setting, Quality, Duration, Modifying Factors, Severity) Note limiting factors. I wore appropriate PPE for the entirety of this encounter. HPI 24-year-old male presents emergency department today seeking Suboxone treatment and addiction care partner for his fentanyl abuse issue. States that they last used fentanyl yesterday and was dosed with Suboxone at [facility] a few hours later and was told to come here for continued follow-up. Nursing Notes were reviewed. Limitations to history: None Outside historians: None REVIEW OF SYSTEMS Review of Systems Gastrointestinal: Abdominal cramping Psychiatric/Behavioral: The patient is nervous/anxious. Pertinent positives and negatives as per HPI. PAST MEDICAL HISTORY Past Medical History: Diagnosis Date Asthma RSV (acute bronchiolitis due to respiratory syncytial virus) SURGICAL HISTORY No past surgical history on file. CURRENT MEDICATIONS Previous Medications DEXAMETHASONE (DECADRON) 1 MG TABLET Take 1 tablet (1 mg) by mouth daily for 4 days. ONDANSETRON ODT (ZOFRAN-ODT) 4 MG DISINTEGRATING TABLET Take 1 tablet (4 mg) by mouth every 8 hoursas needed for nausea or vomiting for up to 7 days. POTASSIUM CHLORIDE CR (KLOR-CON M20) 20 MEQ ER TABLET Take 1 tablet (20 mEq) by mouth daily for 5 days. Do not crush or chew. ALLERGIES Amoxicillin, Augmentin [amoxicillin-pot clavulanate], Penicillins, and Red dye FAMILY HISTORY No family history on file. SOCIAL HISTORY Social History Socioeconomic History Marital status: Single Tobacco Use Smoking status: Every Day Current packs/day: 0.50 Types: Cigarettes Smokeless tobacco: Never Vaping Use Vaping status: Former Substances: Nicotine Substance and Sexual Activity Alcohol use: Yes Comment: occ/rare Drug use: Yes Types: Marijuana, Fentanyl SCREENINGS Clinical Opiate Withdrawal Scale Resting Pulse Rate: Measured After Patient is Sitting or Lying for One Minute: Pulse rate 81-100 GI Upset: Over Last Half Hour: Nausea or loose stool Sweating: Over Past Half Hour Not Accounted for by Room Temperature or Patient Activity: Subjectivereport of chills or flushing Tremor: Observation of Outstretched Hands: Slight tremor observable Restlessness: Observation During Assessment: Able to sit still Yawning: Observation During Assessment: No yawning Pupil Size: Pupils pinned or normal size for room light Anxiety and Irritability: Patient reports increasing irritability or anxiousness Bone or Joint Aches: If Patient was Having Pain Previously, Only the Additional Component Attributed to Opiate Withdrawal is Scored: Mild diffuse discomfort Gooseflesh Skin: Skin is smooth Runny Nose or Tearing: Not Accounted for by Cold Symptoms or Allergies: Nasal stuffiness or unusually moist eyes Clinical Opiate Withdrawal Scale Total Score: 9 PHYSICAL EXAM ED Triage Vitals Temp Heart Rate Resp BP 05/07/24 1249 05/07/24 1249 05/07/24 1249 05/07/24 1249 37.7 C (99.9 F) 76 20 125/73 SpO2 Temp Source Heart Rate Source Patient Position 05/07/24 1249 05/07/24 1249 05/07/24 1249 05/07/24 1334 100 % Temporal Monitor Sitting BP Location FiO2 (%) -- -- Physical Exam Vitals and nursing note reviewed. Constitutional: General: He is not in acute distress. Appearance: He is well-developed. HENT: Head: Normocephalic and atraumatic. Eyes: Conjunctiva/sclera: Conjunctivae normal. Cardiovascular: Rate and Rhythm: Normal rate and regular rhythm. Heart sounds: No murmur heard. Pulmonary: Effort: Pulmonary effort is normal. No respiratory distress. Breath sounds: Normal breath sounds. Musculoskeletal: General: No swelling. Cervical back: Neck supple. Skin: General: Skin is warm and dry. Neurological: Mental Status: He is alert. Psychiatric: Mood and Affect: Mood normal. DIAGNOSTIC RESULTS Procedures/EKG: RADIOLOGY (Per Emergency Physician): Interpretation per the Radiologist below, if available at the time of this note: No orders to display ED BEDSIDE ULTRASOUND: Performed by ED Physician - none LABS: Labs Reviewed - No data to display All other labs were within normal range or not returned as of this dictation. EMERGENCY DEPARTMENT COURSE and DIFFERENTIAL DIAGNOSIS/MDM: Vitals: Vitals: 05/07/24 1249 05/07/24 1252 05/07/24 1334 BP: 125/73 116/81 Pulse: 76 103 103 Resp: 20 20 Temp: 37.7 C (99.9 F) 37.7 C (99.8 F) TempSrc: Temporal Temporal SpO2: 100% 96% ED Course as of 05/07/24 1447 FriMay 07, 2024 1315 24-year-old male presents emergency department today seeking Suboxone treatment and addiction care partner for his fentanyl abuse issue. States that they last used fentanyl yesterday and wasdosed with Suboxone at [facility] a few hours later and was told to come here for continued follow-up. [BM] 1315 On exam mildly tachycardic at 103, lungs clear to auscultation. Vital signs otherwise stable. Will give dose of Suboxone here have evaluated by addiction care partner. [BM] 1344 With COWS score of 14 will start with 16 mg Suboxone. [BM] ED Course User Index [BM] An Santana, Diagnoses as of 05/07/24 1447 Encounter for monitoring Suboxone maintenance therapy Fentanyl use disorder, mild (CMS/HCC) (HCC) Required another 8 mg of Suboxone here in the ED prompted to return to the ED tomorrow after obtaining repeat dosing until able to set up outpatient follow- up. Given referral to addiction medicine. Medications buprenorphine-naloxone (Suboxone) 8-2 MG per sublingual film 1 Film (has no administration in time range) buprenorphine-naloxone (Suboxone) 8-2 MG per sublingual film 2 Film (2 Film SubLINGual Given 05/07/24 1359) REVAL: CRITICAL CARE TIME FINAL IMPRESSION 1. Encounter for monitoring Suboxone maintenance therapy 2. Fentanyl use disorder, mild (CMS/HCC) (HCC) DISPOSITION Discharge 05/07/2024 02:39:17 PM PATIENT REFERRED TO: [facility] ED [address] [facility] [address] As needed, If symptoms worsen [facility] [address] [facility] [address] DISCHARGE MEDICATIONS: New Prescriptions No medications on file (Comment: Please note this report has been produced using speech recognition software and may contain errors related to that system including errors in grammar, punctuation, and spelling, as well as words and phrases that may be inappropriate. If there are any questions or concerns please feel freeto contact the dictating provider for clarification.) An Santana DO (electronically signed) Emergency Medicine Provider An Santana DO 05/07/24 1447 documented in this [facility]09-27-2024 Hospital Discharge instructions* Discharge Instructions* An Santana DO - 05/07/2024 2:40 PM EDT Please return to the ED during business hours for repeat dose of Suboxone tomorrow until you are able to get set up with outpatient treatment. documented in this [facility]09-27-2024 Physician Emergency department Note* An Santana DO - 05/07/2024 12:45 PM EDT EMERGENCY DEPARTMENT ENCOUNTER Pt Name: Galen Hogue Birthdate 2000 Date of evaluation: 05/07/2024 ED Provider: An Santana DO CHIEF COMPLAINT Chief Complaint Patient presents with Addiction Problem Pt is here for addiction care partner. HISTORY OF PRESENT ILLNESS (Location/Symptom, Timing/Onset, Context/Setting, Quality, Duration, Modifying Factors, Severity) Note limiting factors. I wore appropriate PPE for the entirety of this encounter. HPI 24-year-old male presents emergency department today seeking Suboxone treatment and addiction care partner for his fentanyl abuse issue. States that they last used fentanyl yesterday and was dosed with Suboxone at [facility] a few hours later and was told to come here for continued follow-up. Nursing Notes were reviewed. Limitations to history: None Outside historians: None REVIEW OF SYSTEMS Review of Systems Gastrointestinal: Abdominal cramping Psychiatric/Behavioral: The patient is nervous/anxious. Pertinent positives and negatives as per HPI. PAST MEDICAL HISTORY Past Medical History: Diagnosis Date Asthma RSV (acute bronchiolitis due to respiratory syncytial virus) SURGICAL HISTORY No past surgical history on file. CURRENT MEDICATIONS Previous Medications DEXAMETHASONE (DECADRON) 1 MG TABLET Take 1 tablet (1 mg) by mouth daily for 4 days. ONDANSETRON ODT (ZOFRAN-ODT) 4 MG DISINTEGRATING TABLET Take 1 tablet (4 mg) by mouth every 8 hoursas needed for nausea or vomiting for up to 7 days. POTASSIUM CHLORIDE CR (KLOR-CON M20) 20 MEQ ER TABLET Take 1 tablet (20 mEq) by mouth daily for 5 days. Do not crush or chew. ALLERGIES Amoxicillin, Augmentin [amoxicillin-pot clavulanate], Penicillins, and Red dye FAMILY HISTORY No family history on file. SOCIAL HISTORY Social History Socioeconomic History Marital status: Single Tobacco Use Smoking status: Every Day Current packs/day: 0.50 Types: Cigarettes Smokeless tobacco: Never Vaping Use Vaping status: Former Substances: Nicotine Substance and Sexual Activity Alcohol use: Yes Comment: occ/rare Drug use: Yes Types: Marijuana, Fentanyl SCREENINGS Clinical Opiate Withdrawal Scale Resting Pulse Rate: Measured After Patient is Sitting or Lying for One Minute: Pulse rate 81-100 GI Upset: Over Last Half Hour: Nausea or loose stool Sweating: Over Past Half Hour Not Accounted for by Room Temperature or Patient Activity: Subjectivereport of chills or flushing Tremor: Observation of Outstretched Hands: Slight tremor observable Restlessness: Observation During Assessment: Able to sit still Yawning: Observation During Assessment: No yawning Pupil Size: Pupils pinned or normal size for room light Anxiety and Irritability: Patient reports increasing irritability or anxiousness Bone or Joint Aches: If Patient was Having Pain Previously, Only the Additional Component Attributed to Opiate Withdrawal is Scored: Mild diffuse discomfort Gooseflesh Skin: Skin is smooth Runny Nose or Tearing: Not Accounted for by Cold Symptoms or Allergies: Nasal stuffiness or unusually moist eyes Clinical Opiate Withdrawal Scale Total Score: 9 PHYSICAL EXAM ED Triage Vitals Temp Heart Rate Resp BP 05/07/24 1249 05/07/24 1249 05/07/24 1249 05/07/24 1249 37.7 C (99.9 F) 76 20 125/73 SpO2 Temp Source Heart Rate Source Patient Position 05/07/24 1249 05/07/24 1249 05/07/24 1249 05/07/24 1334 100 % Temporal Monitor Sitting BP Location FiO2 (%) -- -- Physical Exam Vitals and nursing note reviewed. Constitutional: General: He is not in acute distress. Appearance: He is well-developed. HENT: Head: Normocephalic and atraumatic. Eyes: Conjunctiva/sclera: Conjunctivae normal. Cardiovascular: Rate and Rhythm: Normal rate and regular rhythm. Heart sounds: No murmur heard. Pulmonary: Effort: Pulmonary effort is normal. No respiratory distress. Breath sounds: Normal breath sounds. Musculoskeletal: General: No swelling. Cervical back: Neck supple. Skin: General: Skin is warm and dry. Neurological: Mental Status: He is alert. Psychiatric: Mood and Affect: Mood normal. DIAGNOSTIC RESULTS Procedures/EKG: RADIOLOGY (Per Emergency Physician): Interpretation per the Radiologist below, if available at the time of this note: No orders to display ED BEDSIDE ULTRASOUND: Performed by ED Physician - none LABS: Labs Reviewed - No data to display All other labs were within normal range or not returned as of this dictation. EMERGENCY DEPARTMENT COURSE and DIFFERENTIAL DIAGNOSIS/MDM: Vitals: Vitals: 05/07/24 1249 05/07/24 1252 05/07/24 1334 BP: 125/73 116/81 Pulse: 76 103 103 Resp: 20 20 Temp: 37.7 C (99.9 F) 37.7 C (99.8 F) TempSrc: Temporal Temporal SpO2: 100% 96% ED Course as of 05/07/24 1447 FriMay 07, 2024 1315 24-year-old male presents emergency department today seeking Suboxone treatment and addiction care partner for his fentanyl abuse issue. States that they last used fentanyl yesterday and wasdosed with Suboxone at [facility] a few hours later and was told to come here for continued follow-up. [BM] 1315 On exam mildly tachycardic at 103, lungs clear to auscultation. Vital signs otherwise stable. Will give dose of Suboxone here have evaluated by addiction care partner. [BM] 1344 With COWS score of 14 will start with 16 mg Suboxone. [BM] ED Course User Index [BM] An Santana DO Diagnoses as of 05/07/24 1447 Encounter for monitoring Suboxone maintenance therapy Fentanyl use disorder, mild (CMS/HCC) (HCC) Required another 8 mg of Suboxone here in the ED prompted to return to the ED tomorrow after obtaining repeat dosing until able to set up outpatient follow- up. Given referral to addiction medicine. Medications buprenorphine-naloxone (Suboxone) 8-2 MG per sublingual film 1 Film (has no administration in time range) buprenorphine-naloxone (Suboxone) 8-2 MG per sublingual film 2 Film (2 Film SubLINGual Given 05/07/24 1359) REVAL: CRITICAL CARE TIME FINAL IMPRESSION 1. Encounter for monitoring Suboxone maintenance therapy 2. Fentanyl use disorder, mild (CMS/HCC) (HCC) DISPOSITION Discharge 05/07/2024 02:39:17 PM PATIENT [facility]FERRED TO: [facility] [address] [facility] [address] [facility] [address] As needed, If symptoms worsen [facility] [address] [facility] [address] DISCHARGE MEDICATIONS: New Prescriptions No medications on file (Comment: Please note this report has been produced using speech recognition software and may contain errors related to that system including errors in grammar, punctuation, and spelling, as well as words and phrases that may be inappropriate. If there are any questions or concerns please feel freeto contact the dictating provider for clarification.) An Santana DO (electronically signed) Emergency Medicine Provider An Santana DO 05/07/24 1447 [id number] Note* Senait Merritt RN - 05/06/2024 9:20 PM EDT IV removed from right AC eSnait Merritt RN 05/06/242119 [id number] Emergency department Note* Senait Merritt RN - 05/06/2024 9:20 PM EDT IV removed from right AC Senait Merritt RN 05/06/242119 * Sylvia Vincent RN - 05/06/2024 9:06 PM EDT Patient rang call light, states he got a hold of his mother for transport home. Physician informed. Sylvia Vincent RN 05/06/242106 * Rajeev Reeder RN - 05/06/2024 2:31 PM EDT The following are the next steps in your Substance use Treatment Plan: As per discussion, you have agreed to begin services with the following provider(s) for outpatient addition services & have agreed to the following scheduled appointments PLAN: Patient will return to [facility] Emergency Department on 05/07/24 after 11:00 AM for your 2nd of MAT. The Addiction Radio Artist will meet with you again at that time. Below are additional resources that you may find beneficial in your treatment: 12-Step: Heroin Anonymous : Abdifatah Calderón: [phone], Fede Walker: [phone] Narcotics Anonymous: 888-GET_JOPLIN (554-617-5708) LaunchHeare.org Alcohol Anonymous: akronaa.org Cocaine Anonymous: [email or web address] [email or web address]/meetings/[email or web address], [facility]: [phone]: 12-step program for families & friends of people with addiction. CRISIS: Homeless Hotline: 754.323.5667 Domestic Violence help line anytime: 562.759.8488 Crisis Hotline: 03/03- 317.245.4694 [facility] Addiction Helpline: 198.669.2592 (available 8:30 AM to 4:00 PM ) 2-1-1 2-1-1 helps people across [facility] find local resources when they don't know where to turn forhelp. We are available 24 hours a day, 7 days a week. For help, simply dial 09-11- to speak to one of our trained professionals. METHADONE TREATMENT: [place], [place] [phone] [place], [place] [phone] [facility], [place] [phone] [facility], [place] [phone] [facility]- [phone] ext. [phone] [facility] ([place])- [phone] DETOX TREATMENT: [facility]: anytime @ [phone] for alcohol & drug addiction help. [facility], [place] [phone] [facility] coordination: [phone] (Medicare not accepted) [facility] [place]: [phone] ([place] Medicaid not accepted) [facility] [place]: [phone] ([place] Medicaid not accepted) [place], [place]: [phone] (Will Coordinate Transportation) [facility] [place]: [phone] [place], [place]: [phone], [facility] [place]: [phone] [place] [phone] [facility] [place] [facility] [place]: [phone] (Will Coordinate Transportation) [place], [place] [phone] ext. [phone] [place], [place] (pt. must be medically cleared prior to admission in ED) [place], [place] [phone] [facility] [place]: [phone] ([place] Medicaid not accepted) Pradejah MCCLELLAND [facility], [place], [place] [phone] (Will Coordinate Transportation) [phone] OUTPATIENT TREATMENT: [facility] Addiction Medicine @ [place], [place] [phone] [facility]: Inpatient or Outpatient- [phone] 1st Step MAT Program @ [facility] ED: [phone] 1st Step MAT Program @ [facility] ED: [phone] 1st Step MAT Program @ [facility] ED: [phone], INTENSIVE OUTPATIENT PROGRAMS @ [facility] [place], [place] [phone] [place], [place] [phone] [facility] [place], [place] [phone] [place], [place] [phone] [facility]: [phone] [facility], [place], [place] [phone] [facility], [place]: [phone], [place]: [phone] [place], [place]: [phone] [facility], [place]: [phone], [place]: [phone] [facility], [place]: [phone]; [place]: [phone] [facility] [place] (Emphasis on minorities): [email or web address].[employer], [facility], [place], [place] [phone] [facility]: [facility] [place]: [phone] [facility] [place], [place] [phone] [facility], [place] [phone] [facility] [phone] PSYCHIATRIC SERVICES: [employer] (180): [place] [phone] [place] [facility] [place]: [phone] RESIDENTIAL TREATMENT FACILITIES: [facility], [place], [place] [phone] (admission coordinated by -nAa [place] ext [phone]) [facility] [place], [place]: [phone]; Men's services inpt. & women services -Outpt. [place], [place] [phone] [facility], [place], [place] [phone] [place] [facility], [place], [place] [phone] [facility], [place], [place] [phone] [facility], [place], [place] [phone] [facility], [place], [place] [phone] [facility] [place], [place], [place] [phone] [facility], [facility], [place], [place]-PHP, [facility], Residential [phone] [employer] [facility] [employer] Operator service: [phone] [facility]: [phone] ext. [phone] Medicaid Health Coverage: [place]. JFS: [phone] Rajeev Reeder RN 05/06/24 1433 * Rajeev Reeder RN - 05/06/2024 2:11 PM EDT [facility] [phone] [address] [place] [address] For questions about Naloxone, call , option 2 What is Naloxone? Naloxone (also known as Narcan or Kloxxado) is a medication that can reverse an overdose caused by an opioid drug (some examples: heroin, fentanyl, types of pain medications). Naloxone has safely been used by medical corps officer for more than 40 years. Naloxone s purpose: to temporarily reverse the effects of opioids, restore breathing, and prevent overdose . Naloxone has no risk for abuse or dependency. If you are unsure of the cause of the overdose, give the Naloxone anyway. It will not cause harm. Note: non-opioid drugs (some examples: cocaine, methamphetamines, or medications not received directly through your pharmacist) may contain opioids (example: fentanyl). In the event of any overdose one should administer naloxone not knowing the purity of the drug. What are some common opioids? Opioids include both heroin and prescription pain medications. Some common opioid pain medications include: hydrocodone (Lorcet and Vicodin), oxycodone (Percocet), long acting opioids (Oxycontin, MS Contin, Methadone), and patches (Fentanyl). Other brand name opioid pain medications include Opana ER, Avinza and Temitope. How do I know if someone is overdosing? A person who is experiencing an overdose may have the following symptoms: breathing is slow and shallow (less than 10 breaths per minute) or has stopped; vomiting; face is pale and clammy; blue or grayish lips and fingernails; slow, erratic, or no pulse; choking or loud snoring noises; will not respond to shaking or sternum rub; skin may turn lopez, blue, or ashen. An overdose is a medical emergency! Call immediately and begin first aid. What are the risk factors for an opioid overdose? Mixing Drugs Many overdoses occur when people mix heroin or prescription opioids with alcohol, benzodiazepines, or antidepressants. Alcohol and benzodiazepines (such as Xanax, Klonopin and Valium) are particularly dangerous because, like opioids, these substances impact an individual's ability to breathe. Lowered Tolerance Tolerance is your body's ability to process a drug. Tolerance changes over time so that you may need more of a drug to feel its effects. However, tolerance can decrease rapidly when someone has takena break from using a substance whether intentionally (in treatment) or unintentionally (in prison or the hospital). Taking opioids after a period of not using can increase the risk of a fatal overdose. Health Problems Your physical health impacts your body's ability to manage opioids. Since opioids can impair your ability to breathe, if you have asthma or other breathing problems you are at higher risk for an overdose. Individuals with liver or kidney disease or dysfunction, heart disease or HIV/AIDS are also atan increased risk of an overdose. Previous Overdose A person who has experienced a nonfatal overdose in the past, has an increased risk of a fatal overdose in the future. What is Project LORI Project LORI (Deaths Avoided with Naloxone) is an overdose education and Naloxone distribution program. Participants learn how to: Recognize the signs and symptoms of an opioid overdose. Make an emergency call. Perform rescue breathing. Administer Naloxone (Narcan /Kloxxado ) to someone experiencing an opioid overdose. If a person is exhibiting symptoms of an opioid overdose, these following life- saving measures should be taken immediately: Check to see if they can respond Give them a light shake, yell their name. Any response? If you don't get a response, try a STERNUM RUB (rub your knuckles in the middle of their chest where the ribs meet for 10 seconds). Call You do not need to mention drugs when you call - provide basic information: Give the address and location. Say I have a person who has stopped breathing and is unresponsive. Perform Rescue Breathing Make sure nothing is in their mouth. Tilt head back, lift chin & pinch nose. Start by giving two breaths making sure the chest rises. If the chest does not rise, tilt the head back more and make sure you are plugging their nose. Give Naloxone Assemble the nasal spray Naloxone. Kaibeto half (1 ml) up one nostril, half up the other. Continue rescue breathing, one breath every 5 seconds, while waiting for the Naloxone to take effect. Give a second dose of Naloxone if there is no response in 2-5 minutes. After Naloxone Continue to monitor their respirations and perform rescue breathing if respirations are below 10 breaths a minute. Stay with them until help arrives. The Naloxone may wear off and the victim could start to overdoseagain. Naloxone Dispensing through [facility] (Mail order or in-person) Mail Order: Click the link at the top of the page, complete documents, and choose option for mail delivery or pick-up in [facility] lobby In-person: Call [phone], option 2 to schedule an appointment (session typically lasts 15-30 minutes). Agency and group trainings available at your location. Call [phone], option 2 to schedule an appointment. A Naloxone kit can be a life-saving addition to your Agency First Aid policy. Refills: Mail order or in-person. Additional Naloxone Dispensing locations [facility] Call to schedule an appointment [address] [place] [address] [facility] Naloxone dispensed (at office location) by appointment only [address] [facility], [address] [place] [phone] [facility] Opiate Response Team Naloxone dispensed by appointment only [facility] Opiate Response Team (ORT) will dispense, per request, at a community location [phone] [facility] ([facility]) Naloxone dispensed by appointment only [address] [place] [address] A [facility] Day Naloxone dispensed by appointment only [address] [place] [address] [facility] Naloxone dispensed at location, appointments are preferred [address] [facility], [place] [address] Additional Dispensing Resources According to the [facility] Board of Pharmacy, pharmacies are permitted to dispense Narcan without a prescription including many in [facility]. Please check with your particular pharmacy for more information. [facility] [phone] [address] [place] [address] For questions about Naloxone, call , option 2 What is Naloxone? Naloxone (also known as Narcan or Kloxxado) is a medication that can reverse an overdose caused by an opioid drug (some examples: heroin, fentanyl, types of pain medications). Naloxone has safely been used by medical corps officer for more than 40 years. Naloxone s purpose: to temporarily reverse the effects of opioids, restore breathing, and prevent overdose . Naloxone has no risk for abuse or dependency. If you are unsure of the cause of the overdose, give the Naloxone anyway. It will not cause harm. Note: non-opioid drugs (some examples: cocaine, methamphetamines, or medications not received directly through your pharmacist) may contain opioids (example: fentanyl). In the event of any overdose one should administer naloxone not knowing the purity of the drug. What are some common opioids? Opioids include both heroin and prescription pain medications. Some common opioid pain medications include: hydrocodone (Lorcet and Vicodin), oxycodone (Percocet), long acting opioids (Oxycontin, MS Contin, Methadone), and patches (Fentanyl). Other brand name opioid pain medications include Opana ER, Avinza and Temitope. How do I know if someone is overdosing? A person who is experiencing an overdose may have the following symptoms: breathing is slow and shallow (less than 10 breaths per minute) or has stopped; vomiting; face is pale and clammy; blue or grayish lips and fingernails; slow, erratic, or no pulse; choking or loud snoring noises; will not respond to shaking or sternum rub; skin may turn lopez, blue, or ashen. An overdose is a medical emergency! Call 04-11- immediately and begin first aid. What are the risk factors for an opioid overdose? Mixing Drugs Many overdoses occur when people mix heroin or prescription opioids with alcohol, benzodiazepines, or antidepressants. Alcohol and benzodiazepines (such as Xanax, Klonopin and Valium) are particularly dangerous because, like opioids, these substances impact an individual's ability to breathe. Lowered Tolerance Tolerance is your body's ability to process a drug. Tolerance changes over time so that you may need more of a drug to feel its effects. However, tolerance can decrease rapidly when someone has takena break from using a substance whether intentionally (in treatment) or unintentionally (in prison or the hospital). Taking opioids after a period of not using can increase the risk of a fatal overdose. Health Problems Your physical health impacts your body's ability to manage opioids. Since opioids can impair your ability to breathe, if you have asthma or other breathing problems you are at higher risk for an overdose. Individuals with liver or kidney disease or dysfunction, heart disease or HIV/AIDS are also atan increased risk of an overdose. Previous Overdose A person who has experienced a nonfatal overdose in the past, has an increased risk of a fatal overdose in the future. What is Project LORI Project LORI (Deaths Avoided with Naloxone) is an overdose education and Naloxone distribution program. Participants learn how to: Recognize the signs and symptoms of an opioid overdose. Make an emergency call. Perform rescue breathing. Administer Naloxone (Narcan /Kloxxado ) to someone experiencing an opioid overdose. If a person is exhibiting symptoms of an opioid overdose, these following life- saving measures should be taken immediately: Check to see if they can respond Give them a light shake, yell their name. Any response? If you don't get a response, try a STERNUM RUB (rub your knuckles in the middle of their chest where the ribs meet for 10 seconds). Call You do not need to mention drugs when you call - provide basic information: Give the address and location. Say I have a person who has stopped breathing and is unresponsive. Perform Rescue Breathing Make sure nothing is in their mouth. Tilt head back, lift chin & pinch nose. Start by giving two breaths making sure the chest rises. If the chest does not rise, tilt the head back more and make sure you are plugging their nose. Give Naloxone Assemble the nasal spray Naloxone. Kaibeto half (1 ml) up one nostril, half up the other. Continue rescue breathing, one breath every 5 seconds, while waiting for the Naloxone to take effect. Give a second dose of Naloxone if there is no response in 2-5 minutes. After Naloxone Continue to monitor their respirations and perform rescue breathing if respirations are below 10 breaths a minute. Stay with them until help arrives. The Naloxone may wear off and the victim could start to overdoseagain. Naloxone Dispensing through [facility] (Mail order or in-person) Mail Order: Click the link at the top of the page, complete documents, and choose option for mail delivery or pick-up in [facility] nPicker In-person: Call [phone], option 2 to schedule an appointment (session typically lasts 15-30 minutes). Agency and group trainings available at your location. Call [phone], option 2 to schedule an appointment. A Naloxone kit can be a life-saving addition to your Agency First Aid policy. Refills: Mail order or in-person. Additional Naloxone Dispensing locations [facility] Call to schedule an appointment [address] [place] [address] [facility] Naloxone dispensed (at office location) by appointment only [address] [facility], [address] [place] [phone] [facility] Naloxone dispensed by appointment only [facility] (ORT) will dispense, per request, at a community location [phone] [facility] Services (C.A.T.S) Naloxone dispensed by appointment only [address] [place] [address] A New Day Naloxone dispensed by appointment only [address] [place], [place] [phone] [facility] Naloxone dispensed at location, appointments are preferred [address] [place] [address] Additional Dispensing Resources According to the [place] [facility] Board of Pharmacy, pharmacies are permitted to dispense Narcan without a prescription including many in [facility]. Please check with your particular pharmacy for more information. Rajeev Reeder RN 05/06/24 1411 * Alfonso Vincent MD - 05/06/2024 1:26 PM EDT [facility] ED EMERGENCY DEPARTMENT ENCOUNTER Pt Name: Galen Hogue Birthdate 2000 Date of evaluation: 05/06/2024 Provider: Alfonso Vincent MD CHIEF COMPLAINT Chief Complaint Patient presents with Withdrawal HISTORY OF PRESENT ILLNESS (Location/Symptom, Timing/Onset,Context/Setting, Quality, Duration, Modifying Factors, Severity) Note limiting factors. Galen Hogue is a 24 y.o. male who presents to the emergency department with concerns for withdrawal from fentanyl. Been using for about 5 years. Used a few hours ago. Use daily. Also use with hisbrother. He is here wanting medication assisted treatment. He reports abdominal cramping feels jittery achy. No chest pain short of breath fevers chills some nausea. They snorted do not inject HPI Historian is the patient Nurse's notes for past medical history, surgical history, social history were reviewed. Medicationsand allergies reviewed. PAST MEDICAL HISTORY Past Medical History: Diagnosis Date Asthma RSV (acute bronchiolitis due to respiratory syncytial virus) SURGICALHISTORY History reviewed. No pertinent surgical history. CURRENT MEDICATIONS Discharge Medication List as of 05/06/2024 9:15 PM CONTINUE these medications which have NOT CHANGED Details dexAMETHasone (Decadron) 1 MG tablet Take 1 tablet (1 mg) by mouth daily for 4 days., Starting 04/04/2024, Until [place] 04/08/2024, Normal Amoxicillin, Augmentin [amoxicillin-pot clavulanate], Penicillins, and Red dye FAMILY HISTORY No family history on file. SOCIAL HISTORY Social History Socioeconomic History Marital status: Single Tobacco Use Smoking status: Every Day Current packs/day: 0.50 Types: Cigarettes Smokeless tobacco: Never Vaping Use Vaping status: Former Substances: Nicotine Substance and Sexual Activity Alcohol use: Yes Comment: occ/rare Drug use: Yes Types: Marijuana, Fentanyl SCREENINGS PHYSICAL EXAM (up to 7 for level 4, 8 or more for level 5) @EDTRIAGEVSS@ Appropriate PPE including n 95, gown, gloves, goggles where worn when appropriate with this patient. Physical Exam Vital signs reviewed general: Alert and oriented 3 appears anxious head: Atraumatic eyes: Equal round reactive to light and accommodating, pupils are equal, round and reactive to light and accommodation oropharynx: Clear and well hydrated neck: Supple heart: Regular rate and rhythm, no murmurs lungs: Clear to auscultation bilaterally abdomen: Soft nontender, positive bowel sounds, no peritoneal findings. Extremities: Moving all fours, no tenderness. Normal capillary refill. Skin: No rash or lesions -to the exposed skin neurologically: Alert and oriented 3, no focal deficit DIAGNOSTIC RESULTS RADIOLOGY: Interpretation per the Radiologist below, if availableat the time of this note: No orders to display ED BEDSIDE ULTRASOUND: Performed by ED Physician - none LABS: Labs Reviewed COMPREHENSIVE METABOLIC PANEL - Abnormal Result Value SODIUM 137 POTASSIUM 3.1 (*) CHLORIDE 99 CARBON DIOXIDE 26 ANION GAP 11 UREA NITROGEN 12 CREATININE 0.69 GLUCOSE 120 (*) CALCIUM 10.2 AST (SGOT) 19 ALT 11 ALKALINE PHOSPHATASE 64 ALBUMIN 4.9 BILIRUBIN, TOTAL 1.0 TOTAL PROTEIN 7.8 eGFR >90.0 ETHANOL - Normal ETHANOL IN SER/PLAS <0.010 Narrative: NOTE: This result is for medical treatment only. Analysis performed using non- forensic procedures. UNCONFIRMED DRUG SCREEN AMPHETAMINES Positive BARBITURATES Negative BENZODIAZEPINES Negative COCAINE Negative METHADONE Negative OPIATES Positive OXYCODONE/OXYMORPHONE Negative PCP Negative Narrative: The expected value for the drugs listed above is Negative. The following drugs or drug groups have been screened for by Immunoassay at the following thresholds: Amphetamine class(1000 ng/mL) Barbiturates(200 ng/mL Benzodiazepines(200 ng/mL) Cocaine(300 ng/mL) Methadone(300 ng/mL) Opiates(300 ng/mL) Oxycodone(100 ng/mL) PCP(25 ng/mL) POSITIVE results are NOT confirmed by a more specific alternative method unless requested. If confirmation is needed, request confirmation under separate order. NOTE: These results are for medical treatment only. Analysis performed using non-forensic procedures. All other labs were within normal range or not returned as of thisdictation. EMERGENCYDEPARTMENT COURSE and DIFFERENTIAL DIAGNOSIS/MDM: Vitals: Vitals: 05/06/24 1649 05/06/24 1726 05/06/24 1838 05/06/24 2035 BP: 116/79 114/71 BP Location: Right arm Right arm Patient Position: Lying Lying Pulse: 85 69 65 69 Resp: 16 16 Temp: TempSrc: SpO2: 100% 100% Weight: Height: Medical Decision Making Problems Addressed: Hypokalemia: complicated acute illness or injury Opioid use disorder, moderate, dependence (HCC): complicated acute illness or injury Amount and/or Complexity of Data Reviewed Labs: ordered. Risk Prescription drug management. EMERGENCY DEPARTMENT COURSE and DIFFERENTIAL DIAGNOSIS/MDM: Vitals: Vitals: 05/06/24 1649 05/06/24 1726 05/06/24 1838 05/06/24 2035 BP: 116/79 114/71 BP Location: Right arm Right arm Patient Position: Lying Lying Pulse: 85 69 65 69 Resp: 16 16 Temp: TempSrc: SpO2: 100% 100% Weight: Height: The patient presented with a chief complaint of opioid use. The differential diagnosis associated with this patient's presentation includes withdraw opioid use disorder depression. Our workup consisted of ordering/reviewing blood work for MAT screening. Patient given Zofran. Will connect to the ACCJohn who is at [facility]. Patient will be discussed with and I believe appropriate with his cow score is being 8-9 of treatment with Suboxone. I had extensive discussion with Rajeev who talked with them patient will be seen tomorrow at [facility] between and . Patient required total of 8 mg of Suboxone x 3 doses. Patient was feeling better and shortly after 9:00 was able to be discharged. Patient did require clonidine and Atarax. COWS score is now below 4. Patient is feeling better. Patient was given Narcan to go. Keep appointment follow-up with addiction care partner tomorrow between to see the ACC at [facility]. Patient did give permission discussed with the mom and sheknows they need to be seen tomorrow between and . Sodium 137 potassium 3.1. Negative alcohol. Drugs and positive for opioids and amphetamines. Patient received 8 mg still at symptoms. Patient received an additional 8 mg and I believe was actually starting to have withdrawal symptoms and therefore was given supportive measures and the third 8 mg dose. Patient is finally improved and stable appropriate to be discharged. Critical care time: I personally saw the patient and independently provided less than 20 minutes ofnon-concurrent critical care out of the total shared critical care time provided. Independent of any separately billable procedures. Diagnoses as of 05/06/242124 Opioid use disorder, moderate, dependence (HCC) Hypokalemia Diagnostics considered but not indicated based on history, physical, testing: None External records reviewed: Patient records reviewed no visits to family medicine in 2023 had ED visit for swelling to the face. Radiologic diagnostics interpreted by me: film images such as CT, Ultrasound and MRI are read by the radiologist. Plain radiographic images are visualized and preliminarily interpreted by the emergency physician with the below findings: none Discussions with other clinicians: Director Religious Education adddiction care partner Rajeev Chronic conditions impacting care: none Social determinants of health affecting care: Drug addiction Shared decision making: Patient agrees to treatment plan ED Medications managed: Medications ondansetron ODT (Zofran-ODT) disintegrating tablet 8 mg (8 mg Oral Given 05/06/24 1353) buprenorphine-naloxone (Suboxone) 2-0.5 MG per sublingual film 4 Film (4 Film SubLINGual Given 05/06/24 1515) naloxone opiate overdose kit 1 kit (1 kit Nasal Given 05/06/24 1515) buprenorphine-naloxone (Suboxone) 2-0.5 MG per sublingual film 4 Film (4 Film SubLINGual Given 05/06/24 1545) cloNIDine (Catapres) tablet 0.2 mg (0.2 mg Oral Given 05/06/24 162) hydrOXYzine pamoate (Vistaril) capsule 25 mg (25 mg Oral Given 05/06/24 162) buprenorphine-naloxone (Suboxone) 2-0.5 MG per sublingual film 4 Film (4 Film SubLINGual Given 05/06/24 203) Prescription drugs prescribed: Narcan to Sharlene kay potassium PROCEDURES: Unless otherwise noted below, none Procedures IMPRESSION 1. Opioid use disorder, moderate, dependence (HCC) 2. Hypokalemia DISPOSITION/PLAN DISPOSITION Discharge 05/06/2024 09:13:53 PM PATIENT REFERRED TO: Go to [facility] emergency department tomorrow between 11 and 1:00 to get seen by the addiction care partner for continued Suboxone treatment In 1 day DISCHARGE MEDICATIONS: Discharge Medication List as of 05/06/2024 9:15 PM START taking these medications Details ondansetron ODT (Zofran-ODT) 4 MG disintegrating tablet Take 1 tablet (4 mg) by mouth every 8 hoursas needed for nausea or vomiting for up to 7 days., Starting [place] 05/06/2024, Until [place] 05/13/2024 at 2359, Normal @[facility]([id number]:LAST:1)@ (Comment: Please notethis report has been produced using speech recognition software and may contain errors related to that system including errors in grammar, punctuation, and spelling, as well as words and phrases that may be inappropriate.If there is any questions or concerns please feel free tocontact the dictating provider for clarification). Alfonso Vincent MD (electronically signed) Attending Emergency Physician Alfonso Vincent MD 05/06/242121 Alfonso Vincent MD 05/06/242124 * Rachael Glass RN - 05/06/2024 1:26 PM EDT Pt ambulatory to room 2 with c/o withdrawal symptoms from fentayl. Pt reports that he snorts fentanyl daily with last use a couple of hours ago. Pt states but I dont think it was the real stuff though. Pt c/o feeling hot and cold as well as feeling of heart racing. Pt reports history of abuse for 5 years. * Rachael Glass RN - 05/06/2024 1:26 PM EDT Pt reports feeling of worsening symptoms. Physician aware Rachael Glass RN 05/06/24 1542 * Rachael Glass RN - 05/06/2024 1:26 PM EDT Pt calling extension service specialist in charge light to states feeling of increased symptoms. Pt is pale and mildly diaphoreticwith slight tremors noted. Pt states feel like my heart is racing more and I just feel worse. Monitoring maintained. Physician aware and awaiting further orders. Rachael Glass RN 05/06/24 1617 * Rachael Glass RN - 05/06/2024 1:26 PM EDT Pt resting in cot with lights dimmed and watching tv. Pt reports continued chills and sweats and just dont feel great. Rachael Glass RN 05/06/24 1814 documented in this [facility]09-26-2024 Hospital Discharge instructions* Discharge Instructions* Alfonso Vincent MD - 05/06/2024 9:14 PM EDT Go to [facility] tomorrow in the emergency department between and to be seen by the addiction care partner. * Attachments The following attachments cannot be sent through Care Everywhere. * Opioid Use Disorder (Sierra Leonean) documented in this [facility]09-26-2024 Emergency department Note* Sylvia Vincent RN - 05/06/2024 9:06 PM EDT Patient rang call light, states he got a hold of his mother for transport home. Physician informed. Sylvia Vincent RN 05/06/242106 [facility]Eufafj08-68-1522 Nurse Note* Rajeev Reeder RN - 05/06/2024 4:55 PM EDT Patient presents to the [facility] ED for opioid withdrawal and seeking help to get clean fromdrugs. Stated he uses on average 1 gram of fentanyl via snorting with last use being a couple of hours ago. Patient thinks that when he last used fentanyl a couple of hours ago it was not the real stuff. Uses meth occasionally. Smokes 1/2-1 ppd of tobacco. No treatment history. Has never been on MAT before. Has never overdosed. Initial COWS 9. Was given Zofran ODT and Suboxone 8 mg. COWS 3. Givenan additional Suboxone 8 mg. Started to feel worse. COWS 9. Given Clonidine 0.2 mg and Hydroxyzine 25 mg. Main withdrawal symptoms include hot/cold feeling, pain in back and legs, vomiting, and runnynose. Denies having a history of any chronic physical health problems. No daily meds. Denies havinga history of any chronic mental health problems. No daily meds. Denies SI or HI. Dropped out of high school in the 10th or 11th grade. States he uses to maintain at this point and is tired of it. Wants to get off of fentanyl. Has been using for 5 years. Supports include family. Withdrawal is a trigger for him to use. Not . No children. Mom is able to transport patient to appointments. Resides with family. Not employed. No financial or legal concerns. No health insurance at the moment. [facility] at one point. Plan is to induct patient with Suboxone today and have him follow up with the ACC at [facility] tomorrow (05/07/24) for Day 2 MAT since he has never b een on Suboxone before. Patient provided with a list of treatment resources as well as Project Dawchristalation and Narcan to Go. [facility] [id number] Nurse Note* Rajeev Reeder RN - 05/06/2024 4:55 PM EDT Patient presents to the [facility] ED for opioid withdrawal and seeking help to get clean fromdrugs. Stated he uses on average 1 gram of fentanyl via snorting with last use being a couple of hours ago. Patient thinks that when he last used fentanyl a couple of hours ago it was not the real stuff. Uses meth occasionally. Smokes 1/2-1 ppd of tobacco. No treatment history. Has never been on MAT before. Has never overdosed. Initial COWS 9. Was given Zofran ODT and Suboxone 8 mg. COWS 3. Givenan additional Suboxone 8 mg. Started to feel worse. COWS 9. Given Clonidine 0.2 mg and Hydroxyzine 25 mg. Main withdrawal symptoms include hot/cold feeling, pain in back and legs, vomiting, and runnynose. Denies having a history of any chronic physical health problems. No daily meds. Denies havinga history of any chronic mental health problems. No daily meds. Denies SI or HI. Dropped out of high school in the 10th or 11th grade. States he uses to maintain at this point and is tired of it. Wants to get off of fentanyl. Has been using for 5 years. Supports include family. Withdrawal is a trigger for him to use. Not . No children. Mom is able to transport patient to appointments. Resides with family. Not employed. No financial or legal concerns. No health insurance at the moment. [facility] he had [facility] at one point. Plan is to induct patient with Suboxone today and have him follow up with the ACC at [facility] tomorrow (05/07/24) for Day 2 MAT since he has never b een on Suboxone before. Patient provided with a list of treatment resources as well as Project Dawchristalation and Narcan to Go. documented in this encounterSCleveland Clinic Hillcrest [id number] NoteNOTE: This result is for medical treatment only. Analysis performed using non-forensic procedures. [facility] [id number] Emergency department Note* Rajeev Reeder RN - 05/06/2024 2:31 PM EDT The following are the next steps in your Substance use Treatment Plan: As per discussion, you have agreed to begin services with the following provider(s) for outpatient addition services & have agreed to the following scheduled appointments PLAN: Patient will return to [facility] Emergency Department on 05/07/24 after 11:00 AM for your 2nd of MAT. The Addiction Radio Artist will meet with you again at that time. Below are additional resources that you may find beneficial in your treatment: 12-Step: Heroin Anonymous : Abdifatah Calderón: [phone], Fede Walker: [phone] Narcotics Anonymous: 888-GET_HOPE (551-195-2822) LaunchHe[employer].org Alcohol Anonymous: akronaa.org Cocaine Anonymous: https://www.Zylun Staffinghio.org/meetings/felisha, ColtonBannergunjan: [phone]: 12-step program for families & friends of people with addiction. CRISIS: Homeless Hotline: 930.790.4637 Domestic Violence help line anytime: 792.105.1909 Crisis Hotline: 03/03- 459.202.8358 ADM Addiction Helpline: 523.291.6547 (available 8:30 AM to 4:00 PM ) 2- 2--1 helps people across [facility] find local resources when they don't know where to turn forhel. We are available 24 hours a day, 7 days a week. For help, simply dial to speak to one of our trained professionals. METHADONE TREATMENT: [facility], [place] [phone] [facility], [place] [phone] [facility], [place] [phone] [facility], [place] [phone] [facility]- [phone] ext. [phone] or 224 [facility] ([place])- [phone] DETOX TREATMENT: [facility] Crisis Center: anytime @ [phone] for alcohol & drug addiction help. [facility], [place] [phone] [facility] coordination: [phone] (Medicare not accepted) [facility] [place]: [phone] ([place] Medicaid not accepted) [facility] [place]: [phone] ([place] Medicaid not accepted) [place], [place]: [phone] (Will Coordinate Transportation) [facility] [place]: [phone] [place], [place]: [phone], [facility] [place]: [phone] [place], [place] [phone] [facility] [place] [facility] [place]vie [place]: [phone] (Will Coordinate Transportation) [facility], [place], [place] [phone] ext. [phone] [place], [place] (pt. must be medically cleared prior to admission in ED) [place], [place] [phone] [facility] [place]: [phone] ([place] Medicaid not accepted) [facility], [place], [place] [phone] (Will Coordinate Transportation) [phone] OUTPATIENT TREATMENT: [facility] Addiction Medicine @ [place], [place] [phone] [facility] Recovery House: Inpatient or Outpatient- [phone] 1st Step MAT Program @ [facility] ED: [phone] 1st Step MAT Program @ [facility] ED: [phone] 1st Step MAT Program @ [facility] ED: [phone], INTENSIVE OUTPATIENT PROGRAMS @ [place], [place] [phone] [place], [place] [phone] [place], [place] [phone] [place], [place] [phone] [facility]: [phone] [facility] [phone] [facility], [place]: [phone], [place]: [phone] [place], [place]: [phone] [facility], [place]: [phone], [place]: [phone] [facility]: [phone]; [facility]: [phone] [place] CAMERON (Emphasis on minorities): [email or web address], [place], [place] [phone] [facility]: Claudine Martínez & [place], [place]: [phone] [place] [facility] [place], [place] [phone] [facility], [place], [place] [phone] [facility] [phone] PSYCHIATRIC SERVICES: [employer] (180): [place], [place] [phone] [facility], [place]: [phone] RESIDENTIAL TREATMENT FACILITIES: [facility] [place], [place] [phone] (admission coordinated by -Ana [place] ext [phone]) [facility] [place], [place]: [phone]; Men's services inpt. & women services -Outpt. [place], [place] [phone] [facility], [place], [place] [phone] [facility] [place], [place] [phone] [facility], [place], [place] [phone] [facility] [place], [place] [phone] [facility], [place], [place] [phone] [facility] - [place], [place] [phone] [facility] [place], [place]-[facility], [facility] [phone] [facility] - Peer [employer] Operator service: [phone] [facility]: [phone] ext. [phone] Medicaid Health Coverage: [facility] JFS: [phone] Rajeev Reeder RN 05/06/24 1433 [facility] HospitalNcncob51-92-3521 NoteThe following are the next steps in your Substance use Treatment Plan: As per discussion, you have agreed to begin services with the following provider(s) for outpatient addition services & have agreed to the following scheduled appointments? PLAN: Patient will return to [facility] Emergency Department on 05/07/24 after 11:00 AM for your 2nd of MAT. The Addiction Radio Artist will meet with you again at that time. Below are additional resources that you may find beneficial in your treatment: 12-Step: Heroin Anonymous : Abdifatah Calderón: [phone], Fede Walker: [phone] Narcotics Anonymous: 888-GET_HOPE (388-120-3272) [employer].org Alcohol Anonymous: akronaa.org Cocaine Anonymous: https://www.Zylun Staffinghio.org/meetings/felisha, NarAnon: 161.893.8715: 12-step program for families & friends of people with addiction. CRISIS: Homeless Hotline: 603.199.1569 Domestic Violence help line anytime: 908.487.4696 Crisis Hotline: 03/03- 944.574.6471 ADM Addiction Helpline: 628.934.9945 (available 8:30 AM to 4:00 PM ) -- 2--1 helps people across [facility] find local resources when they don't know where to turn for help. We are available 24 hours a day, 7 days a week. For help, simply dial to speak to one of our trained professionals. METHADONE TREATMENT: [facility], [place] [phone] [place] [facility] [place], [place] [phone] [facility], [place] [phone] [facility], [place] [phone] [facility]- [phone] ext. [phone] or 224 [facility] ([place])- [phone] DETOX TREATMENT: [facility] Crisis Center: anytime @ [phone] for alcohol & drug addiction help. [facility], [place] [phone] [facility] coordination: [phone] (Medicare not accepted) [facility] [place]: [phone] ([place] Medicaid not accepted) [facility], [place]: [phone] ([place] Medicaid not accepted) [place], [place]: [phone] (Will Coordinate Transportation) [facility] [place]: [phone] [place], [place]: [phone], [place], [place]: [phone] [place], [place] [phone] [facility] [place], [place]: [phone] (Will Coordinate Transportation) [facility], [place], [place] [phone] ext. [phone] [place], [place] (pt. must be medically cleared prior to admission in ED) [place], [place] [phone] [place], [place]: [phone] ([place] Medicaid not accepted) [facility], [place], [place] [phone] (Will Coordinate Transportation) [phone] OUTPATIENT TREATMENT: [facility] Addiction Medicine @ [facility] [place] [phone] [facility] Recovery House: Inpatient or Outpatient- [phone] 1st Step MAT Program @ [facility] ED: [phone] 1st Step MAT Program @ [facility] ED: [phone] 1st Step MAT Program @ [facility] ED: [phone], INTENSIVE OUTPATIENT PROGRAMS @ [place], [place] [phone] [place], [place] [phone] [place], [place] [phone] [place], [place] [phone] [facility] Center: [phone] [facility] [place] [phone] [facility]: [phone], [place]: [phone] [place], [place]: [phone] [facility], [place]: [phone], [place]: [phone] Myrna Reinoso [place]: [phone]; [place]: [phone] [place] (Emphasis on minorities): [email or web address], [facility], [place], [place] [phone] [facility]: LCADA David Claudine [place] & [place], [place]: [phone] [place], [place] [phone] [facility], [place], [place] [phone] [facility] [phone] PSYCHIATRIC SERVICES: [facility] [employer] (180): [place], [place] [phone] [place] [facility] [place]: [phone] RESIDENTIAL TREATMENT FACILITIES: [facility], [place], [place] [phone] (admission coordinated by -Ana York ext [phone]) [facility] [place], [place]: [phone]; Men's services inpt. & women services - Outpt. [place], [place] [phone] [facility], [place], [place] [phone] [facility] [place], [place] [phone] [facility], [place], [place] [phone] [facility] [place], [place] [phone] [facility] [place], [place] [phone] [facility] - [place], [place] [phone] [place], [place]-[facility], [facility] [phone] [facility] [employer] Operator service: [phone] [facility]: [phone] ext (more content not included)...[facility]09-26-2024 Emergency department Note* Rajeev Reeder RN - 05/06/2024 2:11 PM EDT [facility] Department [phone] [facility] [place] [address] For questions about Naloxone, call , option 2 What is Naloxone? Naloxone (also known as Narcan or Kloxxado) is a medication that can reverse an overdose caused by an opioid drug (some examples: heroin, fentanyl, types of pain medications). Naloxone has safely been used by medical corps officer for more than 40 years. Naloxone s purpose: to temporarily reverse the effects of opioids, restore breathing, and prevent overdose . Naloxone has no risk for abuse or dependency. If you are unsure of the cause of the overdose, give the Naloxone anyway. It will not cause harm. Note: non-opioid drugs (some examples: cocaine, methamphetamines, or medications not received directly through your pharmacist) may contain opioids (example: fentanyl). In the event of any overdose one should administer naloxone not knowing the purity of the drug. What are some common opioids? Opioids include both heroin and prescription pain medications. Some common opioid pain medications include: hydrocodone (Lorcet and Vicodin), oxycodone (Percocet), long acting opioids (Oxycontin, MS Contin, Methadone), and patches (Fentanyl). Other brand name opioid pain medications include Opana ER, Avinza and Temitope. How do I know if someone is overdosing? A person who is experiencing an overdose may have the following symptoms: breathing is slow and shallow (less than 10 breaths per minute) or has stopped; vomiting; face is pale and clammy; blue or grayish lips and fingernails; slow, erratic, or no pulse; choking or loud snoring noises; will not respond to shaking or sternum rub; skin may turn lopez, blue, or ashen. An overdose is a medical emergency! Call 04-11- immediately and begin first aid. What are the risk factors for an opioid overdose? Mixing Drugs Many overdoses occur when people mix heroin or prescription opioids with alcohol, benzodiazepines, or antidepressants. Alcohol and benzodiazepines (such as Xanax, Klonopin and Valium) are particularly dangerous because, like opioids, these substances impact an individual's ability to breathe. Lowered Tolerance Tolerance is your body's ability to process a drug. Tolerance changes over time so that you may need more of a drug to feel its effects. However, tolerance can decrease rapidly when someone has takena break from using a substance whether intentionally (in treatment) or unintentionally (in prison or the hospital). Taking opioids after a period of not using can increase the risk of a fatal overdose. Health Problems Your physical health impacts your body's ability to manage opioids. Since opioids can impair your ability to breathe, if you have asthma or other breathing problems you are at higher risk for an overdose. Individuals with liver or kidney disease or dysfunction, heart disease or HIV/AIDS are also atan increased risk of an overdose. Previous Overdose A person who has experienced a nonfatal overdose in the past, has an increased risk of a fatal overdose in the future. What is Project LORI Project LORI (Deaths Avoided with Naloxone) is an overdose education and Naloxone distribution program. Participants learn how to: Recognize the signs and symptoms of an opioid overdose. Make an emergency call. Perform rescue breathing. Administer Naloxone (Narcan /Kloxxado ) to someone experiencing an opioid overdose. If a person is exhibiting symptoms of an opioid overdose, these following life- saving measures should be taken immediately: Check to see if they can respond Give them a light shake, yell their name. Any response? If you don't get a response, try a STERNUM RUB (rub your knuckles in the middle of their chest where the ribs meet for 10 seconds). Call You do not need to mention drugs when you call - provide basic information: Give the address and location. Say I have a person who has stopped breathing and is unresponsive. Perform Rescue Breathing Make sure nothing is in their mouth. Tilt head back, lift chin & pinch nose. Start by giving two breaths making sure the chest rises. If the chest does not rise, tilt the head back more and make sure you are plugging their nose. Give Naloxone Assemble the nasal spray Naloxone. Kaibeto half (1 ml) up one nostril, half up the other. Continue rescue breathing, one breath every 5 seconds, while waiting for the Naloxone to take effect. Give a second dose of Naloxone if there is no response in 2-5 minutes. After Naloxone Continue to monitor their respirations and perform rescue breathing if respirations are below 10 breaths a minute. Stay with them until help arrives. The Naloxone may wear off and the victim could start to overdoseagain. Naloxone Dispensing through [facility] (Mail order or in-person) Mail Order: Click the link at the top of the page, complete documents, and choose option for mail delivery or pick-up in [facility] In-person: Call [phone], option 2 to schedule an appointment (session typically lasts 15-30 minutes). Agency and group trainings available at your location. Call [phone], option 2 to schedule an appointment. A Naloxone kit can be a life-saving addition to your Agency First Aid policy. Refills: Mail order or in-person. Additional Naloxone Dispensing locations [facility] Call to schedule an appointment [address] [place], [place] [phone] [facility] Naloxone dispensed (at office location) by appointment only [address] [facility], [address] [place] [address] [facility] Opiate Response Team Naloxone dispensed by appointment only [facility] Opiate Response Team (ORT) will dispense, per request, at a community location [phone] [facility] ([facility]) Naloxone dispensed by appointment only [address] [place] [address] [facility] Naloxone dispensed by appointment only [address] [place], [place] [phone] [facility] Naloxone dispensed at location, appointments are preferred [address] [place] [phone] Additional Dispensing Resources According to the [facility] Board of Pharmacy, pharmacies are permitted to dispense Narcan without a prescription including many in [facility]. Please check with your particular pharmacy for more information. [facility] Department [phone] [address] [place] [address] For questions about Naloxone, call , option 2 What is Naloxone? Naloxone (also known as Narcan or Kloxxado) is a medication that can reverse an overdose caused by an opioid drug (some examples: heroin, fentanyl, types of pain medications). Naloxone has safely been used by medical corps officer for more than 40 years. Naloxone s purpose: to temporarily reverse the effects of opioids, restore breathing, and prevent overdose . Naloxone has no risk for abuse or dependency. If you are unsure of the cause of the overdose, give the Naloxone anyway. It will not cause harm. Note: non-opioid drugs (some examples: cocaine, methamphetamines, or medications not received directly through your pharmacist) may contain opioids (example: fentanyl). In the event of any overdose one should administer naloxone not knowing the purity of the drug. What are some common opioids? Opioids include both heroin and prescription pain medications. Some common opioid pain medications include: hydrocodone (Lorcet and Vicodin), oxycodone (Percocet), long acting opioids (Oxycontin, MS Contin, Methadone), and patches (Fentanyl). Other brand name opioid pain medications include Opana ER, Avinza and Temitope. How do I know if someone is overdosing? A person who is experiencing an overdose may have the following symptoms: breathing is slow and shallow (less than 10 breaths per minute) or has stopped; vomiting; face is pale and clammy; blue or grayish lips and fingernails; slow, erratic, or no pulse; choking or loud snoring noises; will not respond to shaking or sternum rub; skin may turn lopez, blue, or ashen. An overdose is a medical emergency! Call immediately and begin first aid. What are the risk factors for an opioid overdose? Mixing Drugs Many overdoses occur when people mix heroin or prescription opioids with alcohol, benzodiazepines, or antidepressants. Alcohol and benzodiazepines (such as Xanax, Klonopin and Valium) are particularly dangerous because, like opioids, these substances impact an individual's ability to breathe. Lowered Tolerance Tolerance is your body's ability to process a drug. Tolerance changes over time so that you may need more of a drug to feel its effects. However, tolerance can decrease rapidly when someone has takena break from using a substance whether intentionally (in treatment) or unintentionally (in prison or the hospital). Taking opioids after a period of not using can increase the risk of a fatal overdose. Health Problems Your physical health impacts your body's ability to manage opioids. Since opioids can impair your ability to breathe, if you have asthma or other breathing problems you are at higher risk for an overdose. Individuals with liver or kidney disease or dysfunction, heart disease or HIV/AIDS are also atan increased risk of an overdose. Previous Overdose A person who has experienced a nonfatal overdose in the past, has an increased risk of a fatal overdose in the future. What is Project LORI Project LORI (Deaths Avoided with Naloxone) is an overdose education and Naloxone distribution program. Participants learn how to: Recognize the signs and symptoms of an opioid overdose. Make an emergency call. Perform rescue breathing. Administer Naloxone (Narcan /Kloxxado ) to someone experiencing an opioid overdose. If a person is exhibiting symptoms of an opioid overdose, these following life- saving measures should be taken immediately: Check to see if they can respond Give them a light shake, yell their name. Any response? If you don't get a response, try a STERNUM RUB (rub your knuckles in the middle of their chest where the ribs meet for 10 seconds). Call You do not need to mention drugs when you call - provide basic information: Give the address and location. Say I have a person who has stopped breathing and is unresponsive. Perform Rescue Breathing Make sure nothing is in their mouth. Tilt head back, lift chin & pinch nose. Start by giving two breaths making sure the chest rises. If the chest does not rise, tilt the head back more and make sure you are plugging their nose. Give Naloxone Assemble the nasal spray Naloxone. Kaibeto half (1 ml) up one nostril, half up the other. Continue rescue breathing, one breath every 5 seconds, while waiting for the Naloxone to take effect. Give a second dose of Naloxone if there is no response in 2-5 minutes. After Naloxone Continue to monitor their respirations and perform rescue breathing if respirations are below 10 breaths a minute. Stay with them until help arrives. The Naloxone may wear off and the victim could start to overdoseagain. Naloxone Dispensing through [facility] (Mail order or in-person) Mail Order: Click the link at the top of the page, complete documents, and choose option for mail delivery or pick-up in [facility] In-person: Call [phone], option 2 to schedule an appointment (session typically lasts 15-30 minutes). Agency and group trainings available at your location. Call [phone], option 2 to schedule an appointment. A Naloxone kit can be a life-saving addition to your Agency First Aid policy. Refills: Mail order or in-person. Additional Naloxone Dispensing locations [facility] Call to schedule an appointment [address] [place] [address] [facility] Naloxone dispensed (at office location) by appointment only [address] [facility], [address] [place] [phone] [facility] Opiate Response Team Naloxone dispensed by appointment only [facility] Opiate Response Team (ORT) will dispense, per request, at a community location [phone] [facility] ([facility]) Naloxone dispensed by appointment only [address] [place] [address] [facility] Naloxone dispensed by appointment only [address] [place] [address] [facility] Naloxone dispensed at location, appointments are preferred [address] [place], [place] [phone] Additional Dispensing Resources According to the [facility] Board of Pharmacy, pharmacies are permitted to dispense Narcan without a prescription including many in [facility]. Please check with your particular pharmacy for more information. Rajeev Reeder RN 05/06/24 1418 [id number] Emergency department Note* Rachael Glass RN - 05/06/2024 1:26 PM EDT Pt reports feeling of worsening symptoms. Physician aware Rachael Glass RN 05/06/24 5726 [id number] Emergency department Note* Rachael Glass RN - 05/06/2024 1:26 PM EDT Pt calling extension service specialist in charge light to states feeling of increased symptoms. Pt is pale and mildly diaphoreticwith slight tremors noted. Pt states feel like my heart is racing more and I just feel worse. Monitoring maintained. Physician aware and awaiting further orders. Rachael Glass RN 05/06/24 2947 [id number] Emergency department Note* Rachael Glass RN - 05/06/2024 1:26 PM EDT Pt resting in cot with lights dimmed and watching tv. Pt reports continued chills and sweats and just dont feel great. Rachael Glass RN 05/06/241813 [id number] Triage note* Rachael Glass RN - 05/06/2024 1:26 PM EDT Pt ambulatory to room 2 with c/o withdrawal symptoms from fentayl. Pt reports that he snorts fentanyl daily with last use a couple of hours ago. Pt states but I dont think it was the real stuff though. Pt c/o feeling hot and cold as well as feeling of heart racing. Pt reports history of abuse for 5 years. [id number] Physician Emergency department Note* Alfonso Vincent MD - 05/06/2024 1:26 PM EDT [facility] ED EMERGENCY DEPARTMENT ENCOUNTER Pt Name: Galen Hogue Birthdate 2000 Date of evaluation: 05/06/2024 Provider: Alfonso Vincent MD CHIEF COMPLAINT Chief Complaint Patient presents with Withdrawal HISTORY OF PRESENT ILLNESS (Location/Symptom, Timing/Onset,Context/Setting, Quality, Duration, Modifying Factors, Severity) Note limiting factors. Galen Hogue is a 24 y.o. male who presents to the emergency department with concerns for withdrawal from fentanyl. Been using for about 5 years. Used a few hours ago. Use daily. Also use with hisbrother. He is here wanting medication assisted treatment. He reports abdominal cramping feels jittery achy. No chest pain short of breath fevers chills some nausea. They snorted do not inject HPI Historian is the patient Nurse's notes for past medical history, surgical history, social history were reviewed. Medicationsand allergies reviewed. PAST MEDICAL HISTORY Past Medical History: Diagnosis Date Asthma RSV (acute bronchiolitis due to respiratory syncytial virus) SURGICALHISTORY History reviewed. No pertinent surgical history. CURRENT MEDICATIONS Discharge Medication List as of 05/06/2024 9:15 PM CONTINUE these medications which have NOT CHANGED Details dexAMETHasone (Decadron) 1 MG tablet Take 1 tablet (1 mg) by mouth daily for 4 days., Starting 04/04/2024, Until [place] 04/08/2024, Normal Amoxicillin, Augmentin [amoxicillin-pot clavulanate], Penicillins, and Red dye FAMILY HISTORY No family history on file. SOCIAL HISTORY Social History Socioeconomic History Marital status: Single Tobacco Use Smoking status: Every Day Current packs/day: 0.50 Types: Cigarettes Smokeless tobacco: Never Vaping Use Vaping status: Former Substances: Nicotine Substance and Sexual Activity Alcohol use: Yes Comment: occ/rare Drug use: Yes Types: Marijuana, Fentanyl SCREENINGS PHYSICAL EXAM (up to 7 for level 4, 8 or more for level 5) @EDTRIAGEVSS@ Appropriate PPE including n 95, gown, gloves, goggles where worn when appropriate with this patient. Physical Exam Vital signs reviewed general: Alert and oriented 3 appears anxious head: Atraumatic eyes: Equal round reactive to light and accommodating, pupils are equal, round and reactive to light and accommodation oropharynx: Clear and well hydrated neck: Supple heart: Regular rate and rhythm, no murmurs lungs: Clear to auscultation bilaterally abdomen: Soft nontender, positive bowel sounds, no peritoneal findings. Extremities: Moving all fours, no tenderness. Normal capillary refill. Skin: No rash or lesions -to the exposed skin neurologically: Alert and oriented 3, no focal deficit DIAGNOSTIC RESULTS RADIOLOGY: Interpretation per the Radiologist below, if availableat the time of this note: No orders to display ED BEDSIDE ULTRASOUND: Performed by ED Physician - none LABS: Labs Reviewed COMPREHENSIVE METABOLIC PANEL - Abnormal Result Value SODIUM 137 POTASSIUM 3.1 (*) CHLORIDE 99 CARBON DIOXIDE 26 ANION GAP 11 UREA NITROGEN 12 CREATININE 0.69 GLUCOSE 120 (*) CALCIUM 10.2 AST (SGOT) 19 ALT 11 ALKALINE PHOSPHATASE 64 ALBUMIN 4.9 BILIRUBIN, TOTAL 1.0 TOTAL PROTEIN 7.8 eGFR >90.0 ETHANOL - Normal ETHANOL IN SER/PLAS <0.010 Narrative: NOTE: This result is for medical treatment only. Analysis performed using non- forensic procedures. UNCONFIRMED DRUG SCREEN AMPHETAMINES Positive BARBITURATES Negative BENZODIAZEPINES Negative COCAINE Negative METHADONE Negative OPIATES Positive OXYCODONE/OXYMORPHONE Negative PCP Negative Narrative: The expected value for the drugs listed above is Negative. The following drugs or drug groups have been screened for by Immunoassay at the following thresholds: Amphetamine class(1000 ng/mL) Barbiturates(200 ng/mL Benzodiazepines(200 ng/mL) Cocaine(300 ng/mL) Methadone(300 ng/mL) Opiates(300 ng/mL) Oxycodone(100 ng/mL) PCP(25 ng/mL) POSITIVE results are NOT confirmed by a more specific alternative method unless requested. If confirmation is needed, request confirmation under separate order. NOTE: These results are for medical treatment only. Analysis performed using non-forensic procedures. All other labs were within normal range or not returned as of thisdictation. EMERGENCYDEPARTMENT COURSE and DIFFERENTIAL DIAGNOSIS/MDM: Vitals: Vitals: 05/06/24 1649 05/06/24 1726 05/06/24 18305/06/242034 BP: 116/79 114/71 BP Location: Right arm Right arm Patient Position: Lying Lying Pulse: 85 69 65 69 Resp: 16 16 Temp: TempSrc: SpO2: 100% 100% Weight: Height: Medical Decision Making Problems Addressed: Hypokalemia: complicated acute illness or injury Opioid use disorder, moderate, dependence (HCC): complicated acute illness or injury Amount and/or Complexity of Data Reviewed Labs: ordered. Risk Prescription drug management. EMERGENCY DEPARTMENT COURSE and DIFFERENTIAL DIAGNOSIS/MDM: Vitals: Vitals: 05/06/24 1649 05/06/24 1726 05/06/24 18305/06/242034 BP: 116/79 114/71 BP Location: Right arm Right arm Patient Position: Lying Lying Pulse: 85 69 65 69 Resp: 16 16 Temp: TempSrc: SpO2: 100% 100% Weight: Height: The patient presented with a chief complaint of opioid use. The differential diagnosis associated with this patient's presentation includes withdraw opioid use disorder depression. Our workup consisted of ordering/reviewing blood work for MAT screening. Patient given Zofran. Will connect to the ACCJohn who is at [facility]. Patient will be discussed with and I believe appropriate with his cow score is being 8-9 of treatment with Suboxone. I had extensive discussion with Rajeev who talked with them patient will be seen tomorrow at [facility] between 11 and . Patient required total of 8 mg of Suboxone x 3 doses. Patient was feeling better and shortly after 9:00 was able to be discharged. Patient did require clonidine and Atarax. COWS score is now below 4. Patient is feeling better. Patient was given Narcan to go. Keep appointment follow-up with addiction care partner tomorrow between nd to see the [facility] at [facility]. Patient did give permission discussed with the mom and sheknows they need to be seen tomorrow between and . Sodium 137 potassium 3.1. Negative alcohol. Drugs and positive for opioids and amphetamines. Patient received 8 mg still at symptoms. Patient received an additional 8 mg and I believe was actually starting to have withdrawal symptoms and therefore was given supportive measures and the third 8 mg dose. Patient is finally improved and stable appropriate to be discharged. Critical care time: I personally saw the patient and independently provided less than 20 minutes ofnon-concurrent critical care out of the total shared critical care time provided. Independent of any separately billable procedures. Diagnoses as of 05/06/242124 Opioid use disorder, moderate, dependence (HCC) Hypokalemia Diagnostics considered but not indicated based on history, physical, testing: None External records reviewed: Patient records reviewed no visits to family medicine in 2023 had ED visit for swelling to the face. Radiologic diagnostics interpreted by me: film images such as CT, Ultrasound and MRI are read by the radiologist. Plain radiographic images are visualized and preliminarily interpreted by the emergency physician with the below findings: none Discussions with other clinicians: Director Religious Education adddiction care partner Rajeev Chronic conditions impacting care: none Social determinants of health affecting care: Drug addiction Shared decision making: Patient agrees to treatment plan ED Medications managed: Medications ondansetron ODT (Zofran-ODT) disintegrating tablet 8 mg (8 mg Oral Given 05/06/24 1353) buprenorphine-naloxone (Suboxone) 2-0.5 MG per sublingual film 4 Film (4 Film SubLINGual Given 05/06/24 1515) naloxone opiate overdose kit 1 kit (1 kit Nasal Given 05/06/24 1515) buprenorphine-naloxone (Suboxone) 2-0.5 MG per sublingual film 4 Film (4 Film SubLINGual Given 05/06/24 1545) cloNIDine (Catapres) tablet 0.2 mg (0.2 mg Oral Given 05/06/24 1621) hydrOXYzine pamoate (Vistaril) capsule 25 mg (25 mg Oral Given 05/06/24 162) buprenorphine-naloxone (Suboxone) 2-0.5 MG per sublingual film 4 Film (4 Film SubLINGual Given 05/06/242035) Prescription drugs prescribed: Narcan to goSharlene potassium PROCEDURES: Unless otherwise noted below, none Procedures IMPRESSION 1. Opioid use disorder, moderate, dependence (HCC) 2. Hypokalemia DISPOSITION/PLAN DISPOSITION Discharge 05/06/2024 09:13:53 PM PATIENT REFERRED TO: Go to [facility] emergency department tomorrow between 11 and 1:00 to get seen by the addiction care partner for continued Suboxone treatment In 1 day DISCHARGE MEDICATIONS: Discharge Medication List as of 05/06/2024 9:15 PM START taking these medications Details ondansetron ODT (Zofran-ODT) 4 MG disintegrating tablet Take 1 tablet (4 mg) by mouth every 8 hoursas needed for nausea or vomiting for up to 7 days., Starting [place] 05/06/2024, Until [place] 05/13/2024 at 2359, Normal @[facility]([id number]:LAST:1)@ (Comment: Please notethis report has been produced using speech recognition software and may contain errors related to that system including errors in grammar, punctuation, and spelling, as well as words and phrases that may be inappropriate.If there is any questions or concerns please feel free tocontact the dictating provider for clarification). Alfonso Vincent MD (electronically signed) Attending Emergency Physician Alfonso Vincent MD 05/06/242121 Alfonso Vincent MD 05/06/242124 [id number] Emergency department Note* Maggy Pierre RN - 04/04/2024 8:19 PM EDT Reviewed discharge instructions and patient verbalized understanding. No further questions. Patientambulated out of ED with strong steady gait. Respirations even and non labored. No acute distress. A&O x4. Maggy Pierre RN 04/04/242018 [id number] Emergency department Note* Maggy Pierre RN - 04/04/2024 8:19 PM EDT Reviewed discharge instructions and patient verbalized understanding. No further questions. Patientambulated out of ED with strong steady gait. Respirations even and non labored. No acute distress. A&O x4. Maggy Pierre RN 04/04/242018 * Arabella Kennedy MD - 04/04/2024 7:44 PM EDT EMERGENCY DEPARTMENT ENCOUNTER Pt Name: Galen Hogue Birthdate 2000 Date of evaluation: 04/04/2024 CHIEF COMPLAINT Chief Complaint Patient presents with Oral Swelling HISTORY OF PRESENT ILLNESS HPI Galen Hogue is a 23 y.o. male who presents to the emergency department with right-sided facial swelling thinks it is from wisdom tooth. Denies any tooth pain per se. Tender to palpation on the external face. No fever. REVIEW OF SYSTEMS Review of Systems There is no problem list on file for this patient. CURRENT MEDICATIONS Discharge Medication List as of 04/04/2024 8:07 PM ALLERGIES Amoxicillin, Penicillins, and Red dye SOCIAL HISTORY Social History Tobacco Use Smoking status: Every Day Current packs/day: 0.50 Types: Cigarettes Smokeless tobacco: Never Vaping Use Vaping status: Former Substances: Nicotine Substance Use Topics Alcohol use: Yes Comment: occ/rare Drug use: Yes Types: Marijuana Social Determinants of Health Tobacco Use: High Risk (04/04/2024) Patient History Smoking Tobacco Use: Every Day Smokeless Tobacco Use: Never Passive Exposure: Not on file Alcohol Use: Not At Risk (04/04/2024) AUDIT-C Frequency of Alcohol Consumption: Monthly or less Average Number of Drinks: 3 or 4 Frequency of Binge Drinking: Less than monthly Financial Resource Strain: Not on file Food Insecurity: Not on file Transportation Needs: Not on file Physical Activity: Not on file Stress: Not on file Social Connections: Not on file Intimate Partner Violence: Not on file Depression: Not on file Housing Stability: Not on file Utilities: Not on file Health Literacy: Not on file PHYSICAL EXAM Vitals: 04/04/24 1949 04/04/241950 BP: 122/73 BP Location: Right arm Patient Position: Sitting Pulse: 96 Resp: 16 Temp: 36.7 C (98 F) TempSrc: Oral SpO2: 100% Weight: 65.8 kg (145 lb) Height: 1.676 m (5' 6) Physical Exam Vitals and nursing note reviewed. Constitutional: Appearance: He is not toxic-appearing. HENT: Head: No raccoon eyes. Jaw: Trismus present. Mouth/Throat: Lips: Rock. Dentition: Gingival swelling and dental caries present. No dental tenderness. Tongue: No lesions. Tongue deviates from midline. Palate: No mass and lesions. Pharynx: Oropharynx is clear. Uvula midline. Comments: No definite drainable abscess Eyes: Extraocular Movements: Extraocular movements intact. Conjunctiva/sclera: Conjunctivae normal. Pupils: Pupils are equal, round, and reactive to light. Neurological: Mental Status: He is alert. SCREENINGS Medical decision making DIAGNOSTIC RESULTS Procedures/EKG: Physician EKG interpretation can be found in Epiphany if done RADIOLOGY : Interpretation per the Radiologist below, if available at the time of this note: No orders to display LABS: Labs Reviewed - No data to display Medications ordered: Medications clindamycin (Cleocin) capsule 300 mg (300 mg Oral Given 04/04/242015) ibuprofen tablet 600 mg (600 mg Oral Given 04/04/242015) Diagnoses as of 04/04/242030 Swelling of right side of face * No order type specified * Our workup consisted of ordering/reviewing: No orders of the defined types were placed in this encounter. MDM: 23 y.o. presented with facial swelling. The differential diagnosis considered: Likely underlying dental abscess. Facial cellulitis is possibility angioedema is possibility. Diagnostic tests considered but not performed: CT maxillofacial as it will not change ED disposition at time of discharge patient with stable dental complaint: No Hemodynamic instability, no Suspected Bacteremia. The patient was given a list of dentists available in the area. The patient was instructed to follow-up with one these dentists as soon as possible to get definitive dental care. The patient was also counseled about the importance of good oral hygiene, and the risks associated with poor dental care including an increased chance of deep space infections including Chapo's angina ,mediastinitis, intracranial infection, airway compromise. Prescription medications considered but not prescribed: oxycodone po. Will trial alternative to opiates. Not severe paom REVAL: CRITICAL CARE TIME PROCEDURES: Procedures FINAL IMPRESSION 1. Swelling of right side of face DISPOSITION/PLAN DISPOSITION Discharge 04/04/2024 08:04:05 PM PATIENT REFERRED TO: [facility] [address] [place] [address] In 3 days I prescribed: Discharge Medication List as of 04/04/2024 8:07 PM START taking these medications Details clindamycin (Cleocin) 300 MG capsule Take 1 capsule (300 mg) by mouth in the morning and 1 capsule (300 mg) at noon and 1 capsule (300 mg) in the evening and 1 capsule (300 mg) before bedtime. Do allthis for 7 days., Starting 04/04/2024, Until 04/11/2024, Normal dexAMETHasone (Decadron) 1 MG tablet Take 1 tablet (1 mg) by mouth daily for 4 days., Starting 04/04/2024, Until [place] 04/08/2024, Normal (Comment: this report has been produced using speech recognition software and may contain errors related to that system including errors in grammar, punctuation, and spelling, as well as words and phrases that may be inappropriate) Arabella Kennedy MD (electronically signed) Arabella Kennedy MD 04/04/242031 * Maggy Pierre RN - 04/04/2024 7:44 PM EDT Patient ambulatory to ED2 without difficulty. mother at bedside. Patient states that he has swelling in the Upper jaw, possibly from wisdom teeth growing in sideways. Swelling visible on exam, today has been the first time with swelling present. No pain at this present time. IBU taken this morning.He is not chewing on that side. He is drinking milkshake upon arrival. Ice pack applied. Patient appears to be in no acute distress. Skin is warm, dry, and pink. A&O x3. Respirations even and nonlabored. Bed in locked and low position. Call light within reach. Patient has no further needs. documented in this [address]25-2024 Hospital Discharge instructions* Discharge Instructions* Arabella Kennedy MD - 04/04/2024 8:07 PM EDT Take extra strength Tylenol every 6 hours as needed for pain * Attachments The following attachments cannot be sent through Care Everywhere. * Tooth Abscess Discharge Instructions ([place]) documented in this [place] [address]-25-2024 Emergency department Triage note* Maggy Pierre RN - 04/04/2024 7:44 PM EDT Patient ambulatory to ED2 without difficulty. mother at bedside. Patient states that he has swelling in the Upper jaw, possibly from wisdom teeth growing in sideways. Swelling visible on exam, today has been the first time with swelling present. No pain at this present time. IBU taken this morning.He is not chewing on that side. He is drinking milkshake upon arrival. Ice pack applied. Patient appears to be in no acute distress. Skin is warm, dry, and pink. A&O x3. Respirations even and nonlabored. Bed in locked and low position. Call light within reach. Patient has no further needs. [id number] Physician Emergency department Note* Arabella Kennedy MD - 04/04/2024 7:44 PM EDT EMERGENCY DEPARTMENT ENCOUNTER Pt Name: Galen Hogue Birthdate 2000 Date of evaluation: 04/04/2024 CHIEF COMPLAINT Chief Complaint Patient presents with Oral Swelling HISTORY OF PRESENT ILLNESS HPI Galen Hogue is a 23 y.o. male who presents to the emergency department with right-sided facial swelling thinks it is from wisdom tooth. Denies any tooth pain per se. Tender to palpation on the external face. No fever. REVIEW OF SYSTEMS Review of Systems There is no problem list on file for this patient. CURRENT MEDICATIONS Discharge Medication List as of 04/04/2024 8:07 PM ALLERGIES Amoxicillin, Penicillins, and Red dye SOCIAL HISTORY Social History Tobacco Use Smoking status: Every Day Current packs/day: 0.50 Types: Cigarettes Smokeless tobacco: Never Vaping Use Vaping status: Former Substances: Nicotine Substance Use Topics Alcohol use: Yes Comment: occ/rare Drug use: Yes Types: Marijuana Social Determinants of Health Tobacco Use: High Risk (04/04/2024) Patient History Smoking Tobacco Use: Every Day Smokeless Tobacco Use: Never Passive Exposure: Not on file Alcohol Use: Not At Risk (04/04/2024) AUDIT-C Frequency of Alcohol Consumption: Monthly or less Average Number of Drinks: 3 or 4 Frequency of Binge Drinking: Less than monthly Financial Resource Strain: Not on file Food Insecurity: Not on file Transportation Needs: Not on file Physical Activity: Not on file Stress: Not on file Social Connections: Not on file Intimate Partner Violence: Not on file Depression: Not on file Housing Stability: Not on file Utilities: Not on file Health Literacy: Not on file PHYSICAL EXAM Vitals: 04/04/24 19404/04/241950 BP: 122/73 BP Location: Right arm Patient Position: Sitting Pulse: 96 Resp: 16 Temp: 36.7 C (98 F) TempSrc: Oral SpO2: 100% Weight: 65.8 kg (145 lb) Height: 1.676 m (5' 6) Physical Exam Vitals and nursing note reviewed. Constitutional: Appearance: He is not toxic-appearing. HENT: Head: No raccoon eyes. Jaw: Trismus present. Mouth/Throat: Lips: Rock. Dentition: Gingival swelling and dental caries present. No dental tenderness. Tongue: No lesions. Tongue deviates from midline. Palate: No mass and lesions. Pharynx: Oropharynx is clear. Uvula midline. Comments: No definite drainable abscess Eyes: Extraocular Movements: Extraocular movements intact. Conjunctiva/sclera: Conjunctivae normal. Pupils: Pupils are equal, round, and reactive to light. Neurological: Mental Status: He is alert. SCREENINGS Medical decision making DIAGNOSTIC RESULTS Procedures/EKG: Physician EKG interpretation can be found in Ep[facility]any if done RADIOLOGY : Interpretation per the Radiologist below, if available at the time of this note: No orders to display LABS: Labs Reviewed - No data to display Medications ordered: Medications clindamycin (Cleocin) capsule 300 mg (300 mg Oral Given 04/04/242015) ibuprofen tablet 600 mg (600 mg Oral Given 04/04/242015) Diagnoses as of 04/04/242030 Swelling of right side of face * No order type specified * Our workup consisted of ordering/reviewing: No orders of the defined types were placed in this encounter. MDM: 23 y.o. presented with facial swelling. The differential diagnosis considered: Likely underlying dental abscess. Facial cellulitis is possibility angioedema is possibility. Diagnostic tests considered but not performed: CT maxillofacial as it will not change ED disposition at time of discharge patient with stable dental complaint: No Hemodynamic instability, no Suspected Bacteremia. The patient was given a list of dentists available in the area. The patient was instructed to follow-up with one these dentists as soon as possible to get definitive dental care. The patient was also counseled about the importance of good oral hygiene, and the risks associated with poor dental care including an increased chance of deep space infections including Chapo's angina ,mediastinitis, intracranial infection, airway compromise. Prescription medications considered but not prescribed: oxycodone po. Will trial alternative to opiates. Not severe paom REVAL: CRITICAL CARE TIME PROCEDURES: Procedures FINAL IMPRESSION 1. Swelling of right side of face DISPOSITION/PLAN DISPOSITION Discharge 04/04/2024 08:04:05 PM PATIENT REFERRED TO: [place] [address] In 3 days I prescribed: Discharge Medication List as of 04/04/2024 8:07 PM START taking these medications Details clindamycin (Cleocin) 300 MG capsule Take 1 capsule (300 mg) by mouth in the morning and 1 capsule (300 mg) at noon and 1 capsule (300 mg) in the evening and 1 capsule (300 mg) before bedtime. Do allthis for 7 days., Starting 04/04/2024, Until 04/11/2024, Normal dexAMETHasone (Decadron) 1 MG tablet Take 1 tablet (1 mg) by mouth daily for 4 days., Starting 04/04/2024, Until [place] 04/08/2024, Normal (Comment: this report has been produced using speech recognition software and may contain errors related to that system including errors in grammar, punctuation, and spelling, as well as words and phrases that may be inappropriate) Arabella Kennedy MD (electronically signed) Arabella Kennedy MD 04/04/242031 [id number] Discharge summary Author Lm Ireland [facility] December 08, 2023 9:59pm Note Date/Time December 08, 2023 9:2 7pm [facility] Medical Records Department [address] [place] [address] Emergency Department Summary 12/08/23 MR#: [id number] Acct: [id number] Name: GALEN HOGUE Rep #:[id number] : 2000 23 From: Lm Ireland MD PCP: Care Physician,No Primary Status :REG ER Location: ED HPI History of Present Illness Chief Complaint: General Illness Detail of Chief Complaint: Upper respiratory symptoms with productive cough and wheezing Informant: patient Onset/Context/Timing Onset: Days (3 days ago) Context: Sudden Onset Timing: Continuous and Waxes and wanes Quality: Upper respiratory symptoms with productive cough and wheezing Location: Upper respiratory Current Severity: Mild Maximum Severity: Moderate Worsened by: Exertion, coughing and smoking Relieved by: Nothing Associated Symptoms Associated Symptoms: No complaint of subjective or documented fever. Narrative Narrative: Patient is a 23-year-old male with history of asthma. He is a smoker. 6 monthsago he smoking 1 pack/day. He is now down to 3 cigarettes a day. He denies fever, chills night sweats. He does report global headache. Denies double vision, blurred vision loss of vision or photophobia. Eyes ayala ears decreased hearing. He denies sore throat. He does have a cough which is productive of colored sputum, green. He also reports wheezing. He denies pain in his chest. He denies nausea, vomiting or diarrhea. Denies abdominal pain. He denies joint swelling. Does complain of aches in his arms and legs. He doesendorse a rash. He denies leg pain, swelling discoloration. Prior similar symptoms: Yes Recent Illness/Hospitalization: No PFSH PFSH Medical History No acute medical problems Home Medications Zithromax 07/01/22 [History Last Taken Unknown] prednisone 07/01/22 [History Last Taken Unknown] clindamycin HCl 150 mg capsule 450 mg (3 x 150 mg) PO TID 7 days #63 caps 06/03/23 [Rx Last Taken Unknown] prednisone 20 mg tablet 40 mg (2 x 20 mg) PO DAILY #8 TABLETS 12/08/23 [Rx Last Taken Unknown] Allergy/AdvReac Type Severity Reaction Status Date / Time amoxicillin [Amoxicillin] Allergy Rash Verified 12/08/23 21:14 Penicillins Allergy Rash Verified 12/08/23 21:14 Social History (Updated 12/08/23 @ 21:[address] Lm Ireland MD) household members: none Smoking Status: Current every day smoker tobacco type: cigarettes substance use type: does not use ROS ROS ED Constitutional Constitutional ED: Denies chills, fever(s), subjective or sweats Eyes Eyes: Denies blurry vision, change in vision or diplopia ENT ENT ED: Reports rhinorrhea; Denies ear pain or sore throat Cardiovascular Cardiovascular: Denies chest pain, orthopnea, palpitations or paroxysmal nocturnal dyspnea Respiratory/Chest Respiratory/Chest: Reports cough, dyspnea, sputum and other Details: Positive wheezing. ; Denies dyspnea on exertion, orthopnea or paroxysmal nocturnal dyspnea Gastrointestinal Gastrointestinal: Denies diarrhea or vomiting Genitourinary Genitourinary ED: Denies dysuria, hematuria or urinary frequency Musculoskeletal Musculoskeletal: Denies arthralgias, back pain or myalgias Integumentary Denies rash Neurologic Neurologic: Reports headache(s); Denies paresthesias or weakness Hematologic/Lymphatic Hematologic/Lymphatic: Reports systems reviewed and no addt'l complaints, except as documented EXAM Physical Exam Const Vital Signs: 12/08/23 21:13 12/08/23 21:17 Temperature 98.2 F 98.1 F Temperature Source Temporal Oral Pulse Rate 109 H 101 H Respiratory Rate 19 H 18 Blood Pressure 120/89 H 120/87 H Blood Pressure Mean 99 98 Pulse Ox 97 97 Oxygen Delivery Method Room Air Room Air Positive well nourished and well developed Constitutional Narrative: Patient is tachycardic. He is not febrile or hypoxic. General Appearance ED: well developed and NAD; Negative for pallor HEENT Reports dry mucous membranes HEENT Narrative: Head is atraumatic no cephalic. Ears normal. Nares patent with clear drainage. Posterior pharynx is normal. Mouth ED: Yes dry mucous membranes Mouth: dry mucous membranes Eyes PERRL and EOMs intact bilaterally General Eye ED: Negative for pale conjunctiva or scleral icterus Neck no lymphadenopathy and no JVD Resp normal respiratory effort and No clear to auscultation bilaterally Auscultation: wheezes expiratory wheezes ([place] throughout greater on the left side.) Cardio regular rhythm, S1 normal heart sound, S2 normal heart sound and no murmurs Rate: tachycardic GI normal to inspection, nondistended, normoactive bowel sounds, non-tender, non-distended and no masses; Negative for hepatosplenomegaly Auscultation: hypoactive bowel sounds Back/Spine no CVA tenderness Extremity normal to inspection General Extremety ED: Negative for edema, tenderness or other findings General Extremity: Negative for edema or other findings Neuro oriented x3 and CN's II-XII intact bilaterally Sensorium / Orientation: alert Psych mental status grossly normal Skin no wounds and skin turgor normal Skin Narrative: Fine maculopapular rash torso. General Skin Exam: elasticity normal; Negative for jaundice or pallor MDM MDM MDM Narrative Medical decision making narrative: Suspect this is a upper respiratory infection due to viral disease. Since he does have colored sputum is tachycardic and wheezing will obtain chest x-ray to assess for pneumonia. Patient will receive 4 puffs from metered-dose inhaler and dose of prednisone. History & Record Review Additional record(s) reviewed:: Prior ED visit ( Review of prior records indicates that he was seen May 2023 for dental caries. In June 2022 seen for hyperglycemia. And in 2013 he was seen for a fractured middle phalanx.) and Prior labs Radiography Chest X-Ray - ED: 2 View and Read by ED Physician (Independent reviewed interpreted by me at 2156 as negative. Cardiac silhouette size normal. There is slight hyperaeration. There is no infiltrate or effusion. Hilum is normal. Osseous trucks unremarkable) Treatment and Re-Evaluation :: Patient feels better after 6 puffs with albuterol metered-dose inhaler. He was prescribed prednisone and the inhaler was dispensed to him. Discharge Plan Triage Chief Complaint: General Illness ED Provider: Lm Ireland Dx/Rx/DC Orders Clinical Impression: Sinus tachycardia, Acute purulent bronchitis, Acute bronchospasm, Tobacco use Prescriptions: New prednisone 20 mg tablet 40 mg PO DAILY Qty: 8 0RF No Action Zithromax Hold Instructions: Pt has been DC'd prednisone Hold Instructions: Pt has been DC'd clindamycin HCl 150 mg capsule 450 mg PO TID 7 Days Qty: 63 0RF Primary Care Provider: Care Physician,No Primary Referrals: Care Physician,No Primary [Primary Care Provider] - Doctor,Your [Non-Staff] - 1 Week if not improving Activity Restrictions/Additional Instructions: 1. Is your best interest to quit smoking 2. 2 puffs of inhaler every 2-4 hours while awake for the next 3 days then every 4-6 hours as needed for wheezing 3. Take prednisone until gone. Disposition Disposition: Home, Self Care What to do if you have Problems For any increased pain, shortness of breath, bleeding, nausea or vomiting, chestpain, or any unexpected problems, contact your Primary Care Provider. Call [facility] ([phone]) or report to the closest Emergency Room. Call 911 if necessary. 12/08/232158 <Electronically signed by Lm Ireland MD> Cosigner Signature (if applicable): CC: No Primary Care Physician ~ Signed [facility] Work Phone: [phone] Hospital Discharge instructions Additional Instructions 1. Is your best interest to quit smoking 2. 2 puffs of inhaler every 2-4 hours while awake for the next 3 days then every 4-6 hours as needed for wheezing 3. Take prednisone until gone.[facility] Work Phone: Evaluation noteNo assessment information available [facility] Work Phone: Evaluation note* Diagnosis Swelling of right side of face- Primary documented in this encounter [facility]* Diagnosis Opioid use disorder, moderate, dependence (HCC)- Primary Hypokalemia Hypopotassemia [facility] Diagnosis Encounter for monitoring Suboxone maintenance therapy- Primary Fentanyl use disorder, mild ([facility]/HCC) (HCC) documented in this encounter [facility]* Diagnosis Encounter for monitoring Suboxone maintenance therapy- [facility] Dis[facility] instructions Additional Instructions Follow-up with a dentist and take Tylenol or ibuprofen [facility] Work Phone: Reason for referral (narrative)* Consultation (Routine) - Pending Review Specialty Diagnoses / Procedures Referred By Karolina rojas Referred To Contact Addiction Medicine / Addiction Support Services Diagnoses Fentanyl use disorder, mild (CMS/HCC) (HCC) Procedures [place] OFFICE/OUTPATIENT [facility] 60 MINUTES An Santana DO [address] [place] [address] [facility] [address] [place] [address] Referral ID Status Reason Start Date Expiration Date Visits Requested Visits Authorized [id number] Pending Review Specialty Services Required 05/07/2024 05/07/2025 1 1 [facility] for referral (narrative)No reason for referral information availableWTr[facility] Center Work Phone: Summary Purpose Family History No Family History Records FoundNo Family History Records FoundNo Family History Records FoundNo Family History Records Found Advance Directives No Advanced Directives Records Found Advance Directive Response Recorded Date/ Time Living Will No June 03 4:41pm Power of Knuckle Bender No June 03, 2023 4:41pm Advance Directive Response Recorded Date/ Time Living Will No December 08, 2023 9:22pm Power of Knuckle Bender No December 07 9:22pm Advance Directive Response Recorded Date/ Time Do you have a Healthcare Power of Knuckle Bender? No May 03, 2025 6:58pm Chief Complaint and Reason for Visit Chief Complaint DENTAL PAIN Chief Complaint general illness Chief Complaint Admit Date UNRESPONSIVE May 03, 2025 6:51pm Additional Source Comments (unrecognized sect ion and content) No Status Records FoundNo Status Records FoundNo Status Records FoundNo Status Records Found INFORMATION SOURCE (unrecogn ized section and content) DATE CREATED AUTHOR 12/15/2018 [facility] DATE CREATED AUTHOR AUTHOR'S ORGANIZ ATION 06/23/2022 [facility] DATE CREATED AUTHOR AUTHOR'S ORGANIZ ATION 05/09/2024 [facility] DATE CREATED AUTHOR AUTHOR'S ORGANIZ ATION 05/15/2025 [facility] Care Teams (unrecognized sec tion and content) Team Status: Active Member Role Status Dates Dr. Sergio Hill DO Family Provider Active No Primary Care Physician Primary Care Provider Active Team Status: Inactive Member Role Status Dates No Primary Care Physician Primary Care Provider Active Dr. Delfina Do MD Emergency Provider Active Team Status: Inactive Member Role Status Dates No Primary Care Physician Primary Care Provider Active Dr. Lm Ireland MD Emergency Provider Active Team Status: Active Member Role/Relationship Status Dates No Primary Care Physician Primary care physician Activ e Team Status: Inactive Member Role/Relationship Status Dates No Primary Care Physician Primary care physician Activ e Start: May 03, 2025 End: May 04, 2025 Jovany Crouch MD Attending physician Active Sta rt: May 03, 2025 End: May 04, 2025 Jovany Crouch MD Emergency Department Physician Active Start: May 03, 2025 End: May 04, 2025 Goals (unrecognized section and content) Goals may be documented in a n alternate sectionGoals may be documented in an alternate sectionGoals may be documented in an alternate section Reason for Visit (unrecogniz ed section and content) Reason Comments Oral Swelling Reason Comments Withdrawal Reason Comments Addiction Problem Pt is here for addic tion care partner. Reason Comments Drug / Alcohol Assessment Patient states he is in the MAT program and has an apt with alternative paths on the . Here for his dose of suboxone. Last use on fentanyl was . States he was using daily for 5 years. Scheduled Active and Recently Administ ered Medications (unrecognized section and content) Medication Order 04/02/2024 04/03/2024 04/04/2024 clindamycin (Cleocin) capsule 300 mg (COMPLETED) 300 mg, Oral, Once, On 04/04/24 at 2005, For 1 dose, Suspected Indication (Select all that apply): Head and Neck Infection 2015 (Given - Provid er: Maggy Pierre RN) ibuprofen tablet 600 mg (COMPLETED) 600 mg, Oral, Once, On [place] 04/04/24 at 2005, For 1 dose 2016 (Given - Provid er: Maggy Pierre RN) Scheduled Medication Order 05/04/2024 05/05/2024 05/06/2024 buprenorphine-naloxone (Suboxone) 2-0.5 MG per sublingual film 4 Film (COMPLETED) 4 Film, SubLINGual, Once, On [place] 05/06/24 at 1500, For 1 dose 151 (Given - Provid er: John Serrano RN) buprenorphine-naloxone (Suboxone) 2-0.5 MG per sublingual film 4 Film (COMPLETED) 4 Film, SubLINGual, Once, On [place] 05/06/24 at 1540, For 1 dose 1544 (Given - Provid er: Rachael Glass RN) buprenorphine-naloxone (Suboxone) 2-0.5 MG per sublingual film 4 Film (COMPLETED) 4 Film, SubLINGual, Once, On [place] 05/06/24 at 1935, For 1 dose 2035 (Given - Provid er: Senait Merritt RN) cloNIDine (Catapres) tablet 0.2 mg (COMPLETED) 0.2 mg, Oral, Once, On [place] 05/06/24 at 1620, For 1 dose 162 (Given - Provid er: Rachael Glass RN) hydrOXYzine pamoate (Vistaril) capsule 25 mg (COMPLETED) 25 mg, Oral, Once, On [place] 05/06/24 at 1620, For 1 dose 162 (Given - Provid er: Rachael Glass RN) naloxone opiate overdose kit 1 kit (COMPLETED) 1 kit, Nasal, Once, On [place] 05/06/24 at 1500, For 1 dose 151 (Given - Provid er: John Serrano RN) ondansetron ODT (Zofran-ODT) disintegrating tablet 8 mg (COMPLETED) 8 mg, Oral, Once, On [place] 05/06/24 at 1350, For 1 dose 135 (Given - Provid er: Rachael Glass RN) Scheduled Medication Order 05/05/2024 05/06/2024 05/07/2024 buprenorphine-naloxone (Suboxone) 8-2 MG per sublingual film 1 Film (COMPLETED) 1 Film, SubLINGual, Once, On Fri05/07/24 at 1440, For 1 dose 1452 (Given - Provid er: Bartolome Mensah RN - Comment: addiction program) buprenorphine-naloxone (Suboxone) 8-2 MG per sublingual film 2 Film (COMPLETED) 2 Film, SubLINGual, Once, On Fri05/07/24 at 1345, For 1 dose 1359 (Given - Provid er: Bartolome Mensah RN - Comment: addiction program) Scheduled Medication Order 05/06/2024 05/07/2024 05/08/2024 buprenorphine-naloxone (Suboxone) 2-0.5 MG per sublingual film 8 Film (COMPLETED) 8 Film, SubLINGual, Once, On Fri05/08/24 at 1630, For 1 dose 1650 (Given - Provid er: Loan Kim RN) FOR RECORDS PERTAINING TO PATIENTS WHO ARE OR HAVE BEEN ENROLLED IN A CHEMICAL DEPENDENCY/SUBSTANCEABUSE PROGRAM, SOME INFORMATION MAY BE OMITTED. This clinical summary was aggregated from multiple sources. Caution should be exercised in using it in the provision of clinical care. This summary normalizes information from multiple sources, and as a consequence, information in this document may materially change the coding, format and clinical context of patient data. In addition, data may be omitted in some cases. CLINICAL DECISIONS SHOULD BE BASED ON THE PRIMARY CLINICAL RECORDS. [employer] provides no warranty or guarantee of the accuracy or completeness of information in this document.
--- NOTE | 2025-06-18 15:48 | HP.PCM.HOS_ITS ---
HPI - General General Date of Service: 06/18/25 Chief Complaint: Opiate withdrawal HPI Narrative GALEN ROOT, is a 25 M who presents seeking treatment for opiate withdrawal. This is a 25-year-old male with history of fentanyl use. Snorts fentanyl and uses a lot. Last use was this morning and since then he has been having nausea vomiting, restless legs, rhinitis. He has never been through the opiate withdrawal program here previously. [ ] [facility] Medical History No acute medical problems Home Medications ?Medication ?Instructions ?Recorded ?Last Taken ?Type NK 06/18/25 Unknown History Allergy/AdvReac Type Severity Reaction Status Date / Time amoxicillin (Amoxicillin) Allergy Rash Verified 06/18/25 14:34 Penicillins Allergy Rash Verified 06/18/25 14:34 Family History no significant family his no significant family history Social History (Updated 06/18/25 @ 15:[address] Gabriele Fontanez DO) household members: none Smoking Status: Current every day smoker tobacco type: cigarettes alcohol intake: never substance use type: marijuana, opiates and methamphetamine ROS ROS Narrative All review of systems were negative except as mentioned above in the history of present illness and the other review of systems. Vital Signs Vital Signs Vital Signs: 06/18/25 14:32 Temperature 36.4 C L Temperature Source Temporal Pulse Rate 78 Respiratory Rate 16 Blood Pressure 133/91 H Blood Pressure Mean 105 Pulse Ox 99 Oxygen Delivery Method Room Air Weight Weight: 58.967 kg Body Mass Index (BMI) 20.9 Physical Exam Const alert Constitutional Narrative: Legs are constantly moving. He is afebrile. Nontoxic. HEENT normocephalic and head/scalp atraumatic Resp normal respiratory effort, no retractions, no use of accessory muscles and clear to auscultation bilaterally Cardio regular rate, regular rhythm, S1 normal heart sound and S2 normal heart sound GI normal to inspection, nondistended, normoactive bowel sounds, soft to palpation, non-tender and non-distended Extremity normal to inspection and full ROM Neuro Sensorium / Orientation: awake and alert Psych Mood & Affect: anxious Results Lab / Micro Data 06/18/25 14:43 06/18/25 14:43 Labs: Laboratory Results - last 24 hr 06/18/25 14:43: WBC 8.2, RBC 5.29, Hgb 15.7, Hct 46.0, MCV 87.0, MCH 29.7, MCHC 34.1, RDW Std Deviation 40.3, RDW Coeff of Sandeep 12.7, Plt Count 324, MPV 11.3, Immature Gran % (Auto) 0.100, Neut % (Auto) 74.1 H, Lymph % (Auto) 18.0 L, [place] % (Auto) 4.6, Eos % (Auto) 2.1, Baso % (Auto) 1.1 H, Absolute Neuts (auto) 6.1, Absolute Lymphs (auto) 1.48, Nucleated RBC % 0, Sodium 138, Potassium 3.6, Chloride 101, Carbon Dioxide 23.4, Anion Gap 13, BUN 10, Creatinine 0.64 L, Estim Creat Clear Calc 148.44, Est GFR (MDRD) Non-Af 135, BUN/Creatinine Ratio 15.1, Glucose 120 H, Calcium 9.7, Total Bilirubin 0.60, AST 17, ALT 12, Alkaline Phosphatase 65, Total Protein 7.9, Albumin 4.9, Globulin 3.0, Albumin/Globulin Ratio 1.6, Urine Opiates Screen PRESUMPTIVE POSITIVE, U Buprenorphine Qual NEGATIVE, Ur Oxycodone Screen NEGATIVE, Urine Methadone Screen NEGATIVE, Urine Fentanyl Screen PRESUMPTIVE POSITIVE, Ur Barbiturates Screen NEGATIVE, Ur Phencyclidine Scrn NEGATIVE, Ur Amphetamines Screen NEGATIVE, U Benzodiazepines Scrn PRESUMPTIVE POSITIVE, Urine Cocaine Screen NEGATIVE, U Cannabinoids Screen PRESUMPTIVE POSITIVE, Ethyl Alcohol < 10.1 Assessment & Plan Assessment/Plan (1) Opiate withdrawal: PLAN: Clearly actively going through withdrawal symptoms despite his last use of being earlier today. Use buprenorphine taper. Patient made aware that this does not have naloxone in it so that should not precipitate any withdrawal. Though it was mentioned to him that it would help mitigate some of his withdrawal symptoms but not completely eradicate them. He will have additional agents to help with his withdrawal while he is here. He will be seen by addiction medicine on the to help facilitate an outpatient program when he is ready for discharge. Anticipated discharge, barring any kind of setbacks, would be for the after he completes his 3-day treatments of buprenorphine. PLAN: Plan Tobacco abuse: Smokes a pack cigarettes per day nicotine patch VTE prophylaxis: Low risk Disposition: Patient completed 3-day course of buprenorphine taper that should be medically ready for discharge on the . Charges/Coding Visit Charges Inpatient E&M: 70498 Init Hosp L2
[2025-06-18 15:49] VITALS: BP 135/76; PULSE 64; RESP 16; TEMP 36.6; O2SAT 99
--- OUTSIDE RECORDS SUMMARY | 2025-06-18 15:53 | XMS RPT_ITS | CCD ---
Author Organization [facility] Inform ion Partnership [facility] Care Team Providers Care Personal Financial Representative Name Role Phone ESTHELA BAILEY Attending Unavailable [...] sources) Amoxicillin; Translations: [AMOXICILLIN] Drug Allergy 3 [facility] Repository (10 sources) Contrast media; Translations: [RED DYE] Propensity to adverse reactions to drug (disorder) 5 [facility] Repository (8 sources) AMOXICILLIN-POT CLAVULANATE; Translations: [AMOXICILLIN-POT CLAVULANATE] Propensity to adverse reactions to drug (disorder) 5 [facility] Repository (3 sources) Penicillins Allergy to substance 3 [facility] (8 sources) Penicillins Propensity to adverse reactions 2 [facility] (1 source) Penicillins Drug allergy (disorder) 4 [facility] Repository Medications Current Medications Medication Drug Class(es) [...] 05-08-2024 Episodic Other aftercare (2 sources) Other skilled nursing (current) drug therapy; Translations: [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 Jovany Crouch MD; No Primary Care Physician ~ Signed [facility] Other Phone: 12 Lead EKGon 05-03-2025 12 Lead EKG [facility] Cardiovascular Services [address] [place] [address] 12 Lead EKG 05/03/251954 MR#: [id number] Acct: [id number] Name: GALEN HOGUE Rep #: [id number] : 2000 25 From: Bartolome Caldera MD [...] Abnormal ECG Confirmed by Bartolome Caldera ([id number]), state editor GIANNA CORTES ([id number]) on 05/05/2025 5:58:58 AM Referred By: UG Confirmed By: Bartolome Caldera 05/05/25 0559 Date Bartolome Caldera MD CC: Dr. Jovany Crouch MD; No Primary Care Physician Signed Normal [facility] Absolute lymphocyte countOrd ered By: Jovany Crouch on 05-03-2025 Lymphocytes Auto (Unsp spec) [#/Vol] 4.48 10*3/uL 0.83-4.51 [facility] Absolute neutrophil countOrd ered By: Jovany Crouch on 05-03-2025 Neutrophils (Bld) [#/Vol] 2.6 10*3/uL 2.0-7.7 [facility] Alcohol, Blood (Medical)-Ser umon 05-03-2025 SERUM ETOH < 10.1 Normal <=10.0 [facility] Comment on above: Result Comment: This test is for medical purposes only. The legal definition of intoxication varies according to local law. Performed By: #### L 501.9100, L500.2500 #### [facility] [address] [place], [address] Anion gap in Serum or Plasma Ordered By: Jovany Crouch on 05-03-2025 Anion gap [Moles/Vol] 10 mmol/L 5-15 [facility] Automated lymphocyte count a s percentage of total leukocytesOrdered By: Jovany Crouch on 05-03-2025 Lymphocytes/100 WBC Auto (Unsp spec) 46.2 % High 19- [facility] BUN/creatinine ratioOrdered By: Jovany Crouch on 05-03-2025 Urea nitrogen/Creatinine [Mass ratio] 18.1 mg/mg 05-30 [facility] Basic Metabolic Profile (BMP )on 05-03-2025 BUN/CRE 18.1 RATIO Normal 05-30 [facility] Comment on above: Performed By: #### L 501.9100, L500.2500 #### [facility] [address] [place], [address] Calcium [Mass/Vol] 8.8 mg/dL Normal 7.6-11.0 [facility] Comment on above: Performed By: #### L 501.9100, L500.2500 #### [facility] [address] [place], [address] Chloride [Moles/Vol] 108 mmol/L Normal 98-108 [facility] Comment on above: Performed By: #### L 501.9100, L500.2500 #### [facility] [address] [place], [address] CO2 [Moles/Vol] 18.8 mmol/L Low 21.0-32.0 [facility] Comment on above: Performed By: #### L 501.9100, L500.2500 #### [facility] [address] [place], [address] Creatinine [Mass/Vol] 0.64 mg/dL Low 0.70-1.20 [facility] Comment on above: Performed By: #### L 501.9100, L500.2500 #### [facility] [address] [place], [address] ECRCL 154.57 ml/min Normal 50-250 [facility] Comment on above: Performed By: #### L 501.9100, L500.2500 #### [facility] [address] [place], [address] GAP 10 Normal 5-15 [facility] Comment on above: Performed By: #### L 501.9100, L500.2500 #### [facility] [address] [place], [address] GFR/1.73 sq M.predicted among non-blacks MDRD (S/P/Bld) [Vol rate/Area] 136 mL/min/{1.73_m2} Normal >60 [facility] Comment on above: Result Comment: mL/m in/1.73m2 CKD-EPI Creatinine Equation (2020) Performed By: #### L 501.9100, L500.2500 #### [facility] [address] [place], [address] Glucose [Mass/Vol] 131 mg/dL High 70-99 [facility] Comment on above: Performed By: #### L 501.9100, L500.2500 #### [facility] [address] [place], [address] Potassium [Moles/Vol] 5.0 mmol/L Normal 3.3-5.1 [facility] Comment on above: Result Comment: Hemo lysis present, Results??could be affected. ?? Performed By: #### L 501.9100, L500.2500 #### [facility] [address] [place], [address] Sodium [Moles/Vol] 137 mmol/L Normal 133-145 [facility] Comment on above: Performed By: #### L 501.9100, L500.2500 #### [facility] [address] [place], [address] Urea nitrogen [Mass/Vol] 12 mg/dL Normal 4-19 [facility] Comment on above: Performed By: #### L 501.9100, L500.2500 #### [facility] [address] [place], [address] Basophil percentageOrdered B y: Jovany Crouch on 05-03-2025 Basophils/100 WBC (Bld) 1.0 % 0-1 [facility] CBC W/Diff, Automatedon 04-12 Absolute Lymph 4.48 X10 3/uL Normal 0.83-4.51 [facility] Comment on above: Performed By: #### L 100.0100 #### [facility] [address] [place], [address] Absolute Neut 2.6 X10 3/uL Normal 2.0-7.7 [facility] Comment on above: Performed By: #### L 100.0100 #### [facility] [address] [place], [address] Basophils/100 WBC (Bld) 1.0 % Normal 0-1 [facility] Comment on above: Performed By: #### L 100.0100 #### [facility] [address] [place], [address] Eosinophils/100 WBC (Bld) 18.0 % High 0-5 [facility] Comment on above: Performed By: #### L 100.0100 #### [facility] [address] [place], [address] Erythrocyte distribution width (RBC) [Ratio] 13.2 % Normal 11.6-14.6 [facility] Comment on above: Performed By: #### L 100.0100 #### [facility] [address] [place], [address] Hematocrit (Bld) [Volume fraction] 33.9 % Low 40-54 [facility] Comment on above: Performed By: #### L 100.0100 #### [facility] [address] [place], [address] Hemoglobin (Bld) [Mass/Vol] 11.5 g/dL Low 13.0-16.5 [facility] Comment on above: Performed By: #### L 100.0100 #### [facility] [address] [place], [address] IG% 0.100 Normal 0.0-0.9 [facility] Comment on above: Result Comment: IG% - Immature Granulocytes (promyelocytes, myelocytes and metamyelocytes) > 1% indicates that a LEFT SHIFT is Present. Performed By: #### L 100.0100 #### [facility] [address] [place], [address] Lymphocytes/100 WBC (Bld) 46.2 % High 19-41 [facility] Comment on above: Performed By: #### L 100.0100 #### [facility] [address] [place], [address] MCH (RBC) [Entitic mass] 29.3 pg Normal 27.0-32.0 [facility] Comment on above: Performed By: #### L 100.0100 #### [facility] [address] [place], [address] MCHC (RBC) [Mass/Vol] 33.9 g/dL Normal 32-36 [facility] Comment on above: Performed By: #### L 100.0100 #### [facility] [address] [place], [address] MCV (RBC) [Entitic vol] 86.5 fL Normal 80-94 [facility] Comment on above: Performed By: #### L 100.0100 #### [facility] [address] [place], [address] Monocytes/100 WBC (Bld) 8.4 % Normal 0-10 [facility] Comment on above: Performed By: #### L 100.0100 #### [facility] [address] [place], [address] Neutrophils/100 WBC (Bld) 26.3 % Low 47-70 [facility] Comment on above: Performed By: #### L 100.0100 #### [facility] [address] [place], [address] Nucleated RBC (Bld) [#/Vol] 0 10*3/uL Normal 0-5 [facility] Comment on above: Performed By: #### L 100.0100 #### [facility] [address] [place], [address] Platelet mean volume (Bld) [Entitic vol] 11.8 fL Normal 6.2-12.0 [facility] Comment on above: Performed By: #### L 100.0100 #### [facility] [address] [place], [address] Platelets (Bld) [#/Vol] 292 10*3/uL Normal 150-450 [facility] Comment on above: Performed By: #### L 100.0100 #### [facility] [address] [place], [address] RBC (Bld) [#/Vol] 3.92 10*6/uL Low 4.6-6.2 [facility] Comment on above: Performed By: #### L 100.0100 #### [facility] [address] [place], [address] RDW SD 42.0 fl Normal 35.1-43.9 [facility] Comment on above: Performed By: #### L 100.0100 #### [facility] [address] [place], [address] WBC (Bld) [#/Vol] 9.7 10*3/uL Normal 4.4-11.0 [facility] Comment on above: Performed By: #### L 100.0100 #### [facility] [address] [place], [address] Carbon dioxide, total [Moles /volume] in Central venous bloodOrdered By: Jovany Crouch on 05-03-2025 CO2 [Moles/Vol] 18.8 mmol/L Low 21.0-32.0 [facility] Chloride assayOrdered By: Nicho Crouch on 05-03-2025 Chloride [Moles/Vol] 108 mmol/L 98-108 [facility] Emergency Department Summary on 05-03-2025 Emergency Department Summary [facility] Medical Records Department [address] [place] [address] Emergency Department Summary 05/03/25 MR#: [id number] Acct: [id number] Name: GALEN HOGUE Rep #: [id number] : 2000 25 From: Jovany Crouch MD [...] with sinus bradycardia rate of 39, normal ME interval, no sign of high degree block, [...] is fatigued and does not feel well. [facility] Medical History No acute medical problems Medical [...] Temperature S (more content not included)... Normal [facility] Eosinophil percentageOrdered By: Jovany Crouch on 05-03-2025 Eosinophils/100 WBC (Bld) 18.0 % High 0-5 [facility] Erythrocyte distribution wid th ratioOrdered By: Jovany Crouch on 05-03-2025 Erythrocyte distribution width (RBC) [Ratio] 13.2 % 11.6-14.6 [facility] Erythrocyte distribution wid th standard deviationOrdered By: Jovany Crouch on 05-03-2025 Erythrocyte distribution width (RBC) [Ratio] 42.0 fl 35.1-43.9 [facility] Glomerular filtration rate ( GFR) estimation/1.73 sq m using serum, plasma, or whole bOrdered By: Jovany Crouch on 05-03-2025 GFR/1.73 sq M.predicted among non-blacks MDRD (S/P/Bld) [Vol rate/Area] 136 mL/min/{1.73_m2} >60 [facility] Comment on above: mL/min/1.73m2 CKD-EP I Creatinine Equation (2020) Hematocrit Auto (Bld) [Volum e fraction]Ordered By: Jovany Crouch on 05-03-2025 Hematocrit (Bld) [Volume fraction] 33.9 % Low 40-54 [facility] Hemoglobin measurementOrdere d By: Jovany Crouch on 05-03-2025 Hemoglobin (Bld) [Mass/Vol] 11.5 g/dL Low 13.0-16.5 [facility] Immature granulocytes/100 WB C Auto (Bld)Ordered By: Jovany Crouch on 05-03-2025 Immature granulocytes/100 WBC (Bld) 0.100 % 0.0-0.9 [facility] Comment on above: IG% - Immature Granu locytes (promyelocytes, myelocytes and metamyelocytes) > 1% indicates that a LEFT SHIFT is Present. MCV (mean corpuscular volume ) determinationOrdered By: Jovany Crouch on 05-03-2025 MCV (RBC) [Entitic vol] 86.5 fL 80-94 [facility] Mean corpuscular hemoglobin (MCH) determinationOrdered By: Jovany Crouch on 05-03-2025 MCH (RBC) [Entitic mass] 29.3 pg 27.0-32.0 [facility] Mean corpuscular hemoglobin concentration (MCHC) determinationOrdered By: Jovany Crouch on 05-03-2025 MCHC (RBC) [Mass/Vol] 33.9 g/dL 32-36 [facility] Mean platelet volume determi nationOrdered By: Jovany Crouch on 05-03-2025 Platelet mean volume (Bld) [Entitic vol] 11.8 fL 6.2-12.0 [facility] Monocyte percentageOrdered B y: Jovany Crouch on 05-03-2025 Monocytes/100 WBC (Bld) 8.4 % 0-10 [facility] Neutrophil percentageOrdered By: Jovany Crouch on 05-03-2025 Neutrophils/100 WBC (Bld) 26.3 % Low 47-70 [facility] Nucleated red blood cell per centageOrdered By: Jovany Crouch on 05-03-2025 Nucleated RBC/100 WBC (Bld) [Ratio] 0 % 0-5 [facility] Platelet countOrdered By: Nicho Crouch on 05-03-2025 Platelets (Bld) [#/Vol] 292 10*3/uL 150-450 [facility] Potassium measurement (mass/ volume)Ordered By: Jovany Crouch on 05-03-2025 Potassium (Unsp spec) [Mass/Vol] 5.0 mmol/L 3.3-5.1 [facility] Comment on above: Hemolysis present, R esults could be affected. RBC Auto (Bld) [#/Vol]Ordere d By: Jovany Crouch on 05-03-2025 RBC (Bld) [#/Vol] 3.92 10*6/uL Low 4.6-6.2 [facility] Serum creatinine measurement (mass/volume)Ordered By: Jovany Crouch on 05-03-2025 Creatinine [Mass/Vol] 0.64 mg/dL Low 0.70-1.20 [facility] Serum glucose measurement (m ass/volume)Ordered By: Jovany Crouch on 05-03-2025 Glucose [Mass/Vol] 131 mg/dL High 70-99 [facility] Serum or plasma calcium julian urement (mass/volume)Ordered By: Jovany Crouch on 05-03-2025 Calcium [Mass/Vol] 8.8 mg/dL 7.6-11.0 [facility] Serum or plasma ethanol julian urement (mass/volume)Ordered By: Jovany Crouch on 05-03-2025 Ethanol [Mass/Vol] mg/dL <10.1 [facility] Comment on above: This test is for med ical purposes only. The legal definition of intoxication varies according to local law. Serum or plasma urea nitroge n measurement (mass/volume)Ordered By: Jovany Crouch on 05-03-2025 Urea nitrogen [Mass/Vol] 12 mg/dL 4-19 [facility] Sodium levelOrdered By: Jovany Crouch on 05-03-2025 Sodium [Moles/Vol] 137 mmol/L 133-145 [facility] Urine Drug Screen (VISTA)on 05-03-2025 AMPHETAMINES Normal <1000 ng/mL [facility] Comment on above: Result Comment: KIZZY ENT DISCHARGED Performed By: #### L 505.5000 #### [facility] [address] [place], [address] BARBITIURATES Normal < 200 ng/mL [facility] Comment on above: Result Comment: KIZZY ENT DISCHARGED Performed By: #### L 505.5000 #### [facility] [address] [place] [address] BENZODIAZIPINE Normal < 200 ng/mL [facility] Comment on above: Result Comment: KIZZY ENT DISCHARGED Performed By: #### L 505.5000 #### [facility] [address] [place] [address] BUP Ur Drug Scr Normal < 200 ng/mL [facility] Comment on above: Result Comment: KIZZY ENT DISCHARGED Performed By: #### L 505.5000 #### [facility] [address] [place] [address] COCAINE Normal < 300 ng/mL [facility] Comment on above: Result Comment: KIZZY ENT DISCHARGED Performed By: #### L 505.5000 #### [facility] [address] [place] [address] Fentanyl Normal <5 ng/mL [facility] Comment on above: Result Comment: KIZZY ENT DISCHARGED Performed By: #### L 505.5000 #### [facility] [address] [place] [address] METHADONE Normal < 300 ng/mL [facility] Comment on above: Result Comment: KIZZY ENT DISCHARGED Performed By: #### L 505.5000 #### [facility] [address] [place] [address] OPIATES Normal < 300 ng/mL [facility] Comment on above: Result Comment: KIZZY ENT DISCHARGED Performed By: #### L 505.5000 #### [facility] [address] [place] [address] OXYCODONE Normal < 100 ng/mL [facility] Comment on above: Result Comment: KIZZY ENT DISCHARGED Performed By: #### L 505.5000 #### [facility] [address] [place] [address] PCP Normal < 25 ng/mL [facility] Comment on above: Result Comment: KIZZY ENT DISCHARGED Performed By: #### L 505.5000 #### [facility] [address] [place], [address] THC Normal < 50 ng/mL [facility] Comment on above: Result Comment: KIZZY ENT DISCHARGED Performed By: #### L 505.5000 #### [facility] [address] [place], [address] White blood cell (WBC) count Ordered By: Jovany Crouch on 05-03-2025 WBC (Bld) [#/Vol] 9.7 10*3/uL 4.4-11.0 [facility] ED Provider Noteon ED Provider Note [...] (more content not included)... Normal [facility] ED Nursing Noteon 05-07-2024 ED Nursing Note Tere GIL is available STATE-WIDE. Narcan/Naloxone is available WITHOUT prescription at most [place] [facility], including [employer], [employer], [employer], [employer], and others. It has a cost, but there is a free program through [facility] (and 47 other [facility]). A full list of pharmacies is available at the [place] [employer] website, but calling your [...] Tere GIL is an initiative of the [facility] Opiate Task Force and is funded in part by the [facility] Alcohol, Drug Addiction and Mental Health (ADM) Services [facility] Alcohol, Drug Addiction & Mental Health Services [place] [address] [email or web address] WALK-IN HOURS: Tuesdays (every hour) from 3pm [...] Give Naloxone Assemble the nasal spray Naloxone. 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 ED Provider Noteon ED Provider Note EMERGENCY DEPARTMENT ENCOUNTER Pt Name: Galen Hogue Birthdate 2000 Date of evaluation: 05/07/2024 ED Provider: An Santana DO CHIEF COMPLAINT Chief Complaint Patient presents with Addiction Problem Pt is here for addiction critical care nurse practitioner. HISTORY OF PRESENT ILLNESS (Location/Symptom, Timing/Onset, Context/Setting, Quality, Duration, Modifying Factors, Severity) Note limiting factors. I wore appropriate PPE for the entirety of this encounter. HPI 24-year-old male presents emergency department today seeking Suboxone treatment and addiction critical care nurse practitioner for his fentanyl abuse issue. States that they last used fentanyl yesterday and was dosed with Suboxone at [place] a few hours later and was told [...] today seeking (more content not included)... Normal [facility] COMPREHENSIVE METABOLIC PANE Jl 05-06-2024 Albumin [Mass/Vol] 4.9 g/dL Normal 3.5-5.0 [facility] Comment on above: Performed By: #### L AB17, LAB46 ####Stamp Analyst: DEBORAH PINEDA ([id number])[facility] [place] [address] (SWRLAB)[address] [place] [address] [place] ALP [Catalytic activity/Vol] 64 U/L Normal 38-[address] [facility] Comment on above: Performed By: #### Monica AB17, LAB46 ####Stamp Analyst: DEBORAH PINEDA ([id number])[facility] [place] [address] ([address] [place] [address] [place] ALT [Catalytic activity/Vol] 11 U/L Normal 0-[address] [facility] Comment on above: Performed By: #### Monica JON17, LAB46 ####Stamp Analyst: DEBORAH PINEDA ([id number])[facility] [address] [address] ([address] [place] [address] [place] Anion gap [Moles/Vol] 11 mmol/L Normal 3-13 [facility] Comment on above: Performed By: #### Monica HERCULES, LAB46 ####Stamp Analyst: DEBORAH PINEDA ([id number])[facility] [address] ([address] [place] [address] [place] AST [Catalytic activity/Vol] 19 U/L Normal 15-46 [facility] Comment on above: Performed By: #### Monica HERCULES, LAB46 ####Stamp Analyst: DEBORAH PINEDA ([id number])[facility] [address] [address] ([address] [place] [address] [place] Bilirubin [Mass/Vol] 1.0 mg/dL Normal 0.2-1.3 [facility] Comment on above: Performed By: #### L AB17, LAB46 ####Stamp Analyst: DEBORAH PINEDA ([id number])[facility] [place] [address] ([address] [place] [address] [place] Calcium [Mass/Vol] 10.2 mg/dL Normal 8.4-10.[address] [facility] Comment on above: Performed By: #### L AB17, LAB46 ####Stamp Analyst: DEBORAH PINEDA ([id number])[facility] [address] [address] ([address] [place] [address] [place] Chloride [Moles/Vol] 99 mmol/L Normal 98-107 [facility] Comment on above: Performed By: #### L AB17, LAB46 ####Stamp Analyst: DEBORAH PINEDA ([id number])[facility] [address] [address] ([address] [place] [address] [place] CO2 [Moles/Vol] 26 mmol/L Normal 22-30 [facility] Comment on above: Performed By: #### Monica AB17, LAB46 ####Stamp Analyst: DEBORAH PINEDA ([id number])[facility] [place] (SWRLAB)[address] [place] [address] [place] Creatinine [Mass/Vol] 0.69 mg/dL Normal 0.66-1.25 [facility] Comment on above: Performed By: #### Monica JON17, LAB46 ####Stamp Analyst: DEBORAH PINEDA ([id number])[facility] [place] (SWRL[place])[address] [place] [address] [place] GLOMERULAR FILTRATION RATE ML/MIN/1.73 SQ M.PREDICTED >90.0 Normal >60.[address] [facility] Comment on above: Result Comment: Calc ulation based on the Chronic Kidney Disease Epidemiology Collaboration (CKD-EPI) equation refit without adjustment for race Performed By: #### L AB17, LAB46 ####Stamp Analyst: DEBORAH PINEDA ([id number])[facility] [place] [address] ([address] [place] [address] [place] Glucose [Mass/Vol] 120 mg/dL High 70-[address] [facility] Comment on above: Performed By: #### L AB17, LAB46 ####Stamp Analyst: DEBORAH PINEDA ([id number])[facility] [place] [address] ([address] [place] [address] [place] Potassium [Moles/Vol] 3.1 mmol/L Low 3.5-5.1 [facility] Comment on above: Performed By: #### L AB17, LAB46 ####Stamp Analyst: DEBORAH PINEDA ([id number])[facility] [address] (SWRLAB)[address] Protein [Mass/Vol] 7.8 g/dL Normal 6.3-8.[address] [facility] Comment on above: Performed By: #### L AB17, LAB46 ####Stamp Analyst: DEBORAH PINEDA ([id number])[facility] [place] (SWRL[place])[address] Sodium [Moles/Vol] 137 mmol/L Normal 135-[address] [facility] Comment on above: Performed By: #### L AB17, LAB46 ####Stamp Analyst: DEBORAH PINEDA ([id number])[facility] [place] (SWRLAB)[address] [place] [address] Urea nitrogen [Mass/Vol] 12 mg/dL Normal 9-[address] [facility] Comment on above: Performed By: #### L [id number], LAB46 ####Stamp Analyst: DEBORAH PINEDA ([id number])[facility] HOSPITALSissy MORELANDTMAN (SWRLAB)[address] [place] [address] Comprehensive metabolic 1998 panelon 05-06-2024 Albumin [Mass/Vol] 4.9 g/dL 3.5 - 5.0 g/dL [facility] ALP [Catalytic activity/Vol] 64 U/L 38 - 126 U/L [facility] ALT [Catalytic activity/Vol] 11 U/L 0 - 49 U/L [facility] Anion gap [Moles/Vol] 11 mmol/L 3 - 13 mmol/L [facility] AST [Catalytic activity/Vol] 19 U/L 15 - 46 U/L [facility] Bilirubin [Mass/Vol] 1.0 mg/dL 0.2 - 1 .3 mg/dL [facility] Calcium [Mass/Vol] 10.2 mg/dL 8.4 - 10. 4 mg/dL [facility] Chloride [Moles/Vol] 99 mmol/L 98 - 10 7 mmol/L [facility] CO2 [Moles/Vol] 26 mmol/L 22 - 30 mmol/L [facility] Creatinine [Mass/Vol] 0.69 mg/dL 0.66 - 1.25 mg/dL [facility] GFR/1.73 sq M.predicted (S/P/Bld) [Vol rate/Area] - PINF [facility] Comment on above: Calculation based on the Chronic Kidney Disease Epidemiology Collaboration (CKD-EPI) equation refit without adjustment for race Glucose [Mass/Vol] 120 mg/dL High 70 - 100 mg/dL [facility] Interpretation and review of laboratory results Abnormal [facility] Potassium [Moles/Vol] 3.1 mmol/L Low 3.5 - 5.1 mmol/L [facility] Protein [Mass/Vol] 7.8 g/dL 6.3 - 8.2 g/dL [facility] Sodium [Moles/Vol] 137 mmol/L 135 - 145 mmol/L [facility] Urea nitrogen [Mass/Vol] 12 mg/dL 9 - 20 mg/d L [facility] ED Nursing Noteon 05-06-2024 ED Nursing Note IV removed from [facility] Senait Merritt RN 05/06/242119 Normal [facility] ED Nursing Note Patient rang call light, states he got a hold of his mother for transport home. Physician informed. Sylvia Vincent RN 05/06/242106 Normal [facility] ED Nursing Note [facility] [phone] [facility] [place] [address] For questions about Naloxone, call , option 2 What is Naloxone? Naloxone (also known as Narcan or Kloxxado) is a medication that can reverse an overdose caused by an opioid drug (some examples: heroin, fentanyl, types of pain medications). Naloxone has safely been used by medical transcription radiology for more than 40 years. Naloxone?s purpose: [...] whether intentionally (in treatment) or unintentionally (in fdc or the hospital). Taking opioids after a [...] Give Naloxone Assemble the nasal spray Naloxone. Ebro half (1 ml) up one nostril, half [...] start to overdose again. Naloxone Dispensing through [facility] (Mail order or in-person) Mail Order: Click the link a (more content not included)... Normal [facility] ED Nursing Note Pt ambulatory to [...] abuse for [address] 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 Pt is pale and mildly diaphoretic with slight tremors noted. Pt states feel like my heart is racing more and I just feel worse. Monitoring maintained. Physician aware and awaiting further orders. Rachael Glass RN 05/06/[address] [facility] ED Nursing Note Pt resting in cot with lights dimmed and watching tv. Pt reports continued chills and sweats and just dont feel great. Rachael Glass RN 05/06/[address] [facility] ED Nursing Note Pt reports feeling o f worsening symptoms. Physician aware Rachael Glass RN 05/06/[address] [facility] ED Provider Noteon ED Provider Note [facility] ED EMERGENCY DEPARTMENT ENCOUNTER Pt [...] (more content not included)... Normal [facility] ETHANOLon 05-06-2024 ETHANOL IN SER/PLAS <0.010 Normal 0.000-0.010 [facility] Comment on above: Result Comment: RADHA Parra COMMENTS: NOTE: This result is for medical treatment only. Analysis performed using non-forensic procedures. Performed By: #### L [id number], LAB46 ####Stamp Analyst: DEBORAH PINEDA ([id number])[facility] ([facility])[address] [place] [address] Ethanol (Bld) [Mass/Vol]on 0 05-06-2024 Ethanol [Mass/Vol] g/dL 0.000 - 0 .010 g/dL [facility] Interpretation and review of laboratory results Normal [facility] Laboratory - Drug toxicology Ordered By: April Li on 05-06-2024 Amphetamines Ql (U) Positive Negative [facility] Barbiturates screen method Nom (U) Negative Negative [facility] Benzodiazepines screen method Nom (U) Negative Negative [facility] Cocaine Ql (U) Negative Negative [facility] Methadone Ql (U) Negative Negative [facility] Opiates Screen Ql (U) Positive Negative [facility] No Panel InformationOrdered By: April Li on 05-06-2024 OXYCODONE/OXYMORPHONE Negative Negative [facility] PCP Negative Negative [facility] The expected value for the drugs [...] treatment only. Analysis performed using non-forensic procedures. [facility] No Panel Informationon 05-06 [facility] Nursing Noteon 05-06-2024 Nursing Note Patient presents to the [facility] ED for opioid withdrawal and seeking help [...] him follow up with the [facility] at [facility] tomorrow (05/07/24) for Day 2 MAT since he has never been on Suboxone before. Patient provided with a list of treatment resources as well as [employer] information and Narcan to Go. Normal [facility] UNCONFIRMED DRUG SCREENon Amphetamines Ql (U) Positive Normal Negative [facility] Comment on above: Performed By: #### L [id number] ####Stamp Analyst: DEBORAH PINEDA ([id number])[facility] ([facility])[address] [place] [address] BARBITURATES Negative Normal Negative [facility] Comment on above: Performed By: #### L [id number] ####Stamp Analyst: DEBORAH PINEDA ([id number])[facility] ([facility])[address] [place] [address] Benzodiazepines Ql (U) Negative Normal Negative [facility] Comment on above: Performed By: #### L [id number] ####Stamp Analyst: DEBORAH PINEDA ([id number])[facility] ([facility])[address] [place] [address] Cocaine Ql (U) Negative Normal Negative [facility] Comment on above: Performed By: #### L [id number] ####Stamp Analyst: DEBORAH PINEDA ([id number])[facility] ([facility])[address] [place] [address] Methadone Ql (U) Negative Normal Negative [facility] Comment on above: Performed By: #### L [id number] ####Stamp Analyst: DEBORAH PINEDA ([id number])[facility] ([facility])[address] [place] [address] Opiates Ql (U) Positive Normal Negative [facility] Comment on above: Performed By: #### L [id number] ####Stamp Analyst: DEBORAH PINEDA ([id number])[facility] ([facility])[address] [place] [address] OXYCODONE/OXYMORPHONE Negative Normal Negative [facility] Comment on above: Performed By: #### L [id number] ####Stamp Analyst: DEBORAH PINEDA ([id number])[facility] ([facility])[address] [place] [address] PCP Negative Normal Negative [facility] Comment on above: Result Comment: ORDE [...] using non-forensic procedures. Performed By: #### L [id number] ####Stamp Analyst: DEBORAH PINEDA ([id number])[facility] [place] [address] ED Nursing Noteon 04-04-2024 ED Nursing Note Reviewed discharge instructions and patient verbalized understanding. No further questions. Patient ambulated out of ED with strong steady gait. Respirations even and non labored. No acute distress. A&O x4. Maggy Pierre RN 04/04/24[address] [facility] ED Nursing Note Patient ambulatory t [...] has no further needs. Normal [facility] ED Provider Noteon ED Provider Note [...] raccoon eyes. Jaw: Trismus present. Mouth/Throat: Lips: Conner. Dentition: Gingival swelling and dental caries present. [...] Discharge 04/04/2024 08:04:05 PM PATIENT REFERRED TO: [facility] [address] [place] [address] In 3 days I prescribed: Discharge Medication [...] Normal dexAMETHasone (Decadron) (more content not included)... [facility] HEALTHon 06-23-2022 [facility] HNO ID: [id number] Author: RT Mel(Fidel) Service: Radiology Author Type: Technologist Type: [facility] Filed: 06/23/2022 1:10 AM Note Text: Radiology [...] RT Mel(R) June 23, 2022 1:10 AM [facility] HNO ID: [id number] Author: LUIS Leal) Service: Radiology Author Type: Technologist Type: [facility] Filed: 06/23/2022 12:44 AM Note Text: Attempted to get patient for chest xray. Patient was not in waiting room at this time. Will try again. [facility] ED NOTEon 06-23-2022 ED NOTE HNO ID: [id number] Author: Celena Whalen RN Service: ? Author Type: Registered Nurse Type: ED Notes Filed: 06/23/2022 12:44 AM Note Text: Pt presents to ED c/o chest congestion that has been going on for 2 weeks. Pt reports he is having coughing attacks like he does with asthma attacks. He reports he was seen at [place] [facility] 2 weeks ago and they prescribed him an antibiotic, steroids, and an inhaler which he did not picking tech the pharmacy so was using his grandmothers left over medication. [facility] ED PROV NOTEon 06-23-2022 ED PROV NOTE HNO ID: [id number] Author: Esthela Bailey MD Service: ? Author [...] Final Result IMPRESSION: No acute cardiopulmonary findings. Machinist: ANNA Transcribe Date/Time: Jun 23 2022 1:14A [...] SIGNATURE: MD Esthela Gates MD 06/23/22 0258 [facility] XR CHEST 2V FRONTAL/LATon XR CHEST 2V [...] or pneumothorax. IMPRESSION: No acute cardiopulmonary findings. Machinist: ANNA Transcribe Date/Time: Jun 23 2022 1:14A Dictated by : JOHN GROVES MD This examination was interpreted and the report reviewed and electronically signed by: JOHN GROVES MD on Jun 23 2022 1:16AM EST [id number] N [facility] 12-07-2018 CN Office Visit (UCWSTR ) GALEN HOGUE ([id number]) 2 M Date Time Provider Department 12/07/18 1:00 PM PIETRO CHILDS ([facility]) [facility] During your visit today, we recorded [...] Status:Closed by PIETRO CHILDS CNP on 12/07/18 [facility] PROGRESSon 12-07-2018 Protein mass conc HNO ID: [id number] Author: Pietro Ellis) Service: ? Author Type: [...] to treatment plan. Pietro Childs APRN.CNP Normal [facility] CNOVon 08-20-2018 CNOV Office Visit (UCWSTR ) WENDYGALEN BOO ([id number]) 2 M Date Time Provider Department 08/20/18 [...] rehydration -BRAT Diet (Bananas, Rice, Apple Sauce, [place]) -If no better in 7-10 days follow [...] rehydration -BRAT Diet (Bananas, Rice, Apple Sauce, [place]) -If no better in 7-10 days follow [...] rehydration -BRAT Diet (Bananas, Rice, Apple Sauce, [place]) -If no better in 7-10 days follow up back in clinic or with primary care provider -Follow up in the ER with signs of dehydration, increasing abdominal pain, high fever, or blood in vomit or stool. Letter Text [facility] Department of Urgent Care Pietro Childs CNP [address] [place], [place] [address] 08/20/2018 Galen Hogue F# [id number] [address] [facility] [address] TO WHOM IT MAY CONCERN: This is to confirm that Galen Hogue had an appointment and was seen at the [facility] in the Department of Urgent Care by Pietro Childs CNP on 08/20/2018. Sincerely yours, Pietro Childs CNP Encounter Status:Closed by PIETRO CHILDS CNP on 08/20/18 Normal [facility] PROGRESSon 08-20-2018 Protein mass conc HNO ID: [id number] Author: Pietro Ellis) Service: (none) Author Type: [...] rehydration -BRAT Diet (Bananas, Rice, Apple Sauce, [place]) -If no better in 7-10 days follow [...] Parent agreeable to treatment plan. Pietro Childs APRN.BOAT OUTFITTING SUPERVISOR Normal [facility] Vital Signs Date Time Vital Sign Value Performing Clinician Facility 05-04-2025 00:45-0400 Diastolic blood pressure 87 mm[Hg] No Primary Care Physician [facility] 05-04-2025 00:45-0400 Systolic blood pressure 113 mm[Hg] No Primary Care Physician [facility] 05-04-2025 00:30-0400 Heart rate 31 /min No Primary Care Physician [facility] 05-04-2025 00:30-0400 Respiratory rate 15 /min No Primary Care Physician [facility] 05-04-2025 00:30-0400 SaO2% (BldA) [Mass fraction] 100 % No Primary Care Physician [facility] 05-03-2025 18:54-0400 Body height 167.64 cm No Primary Care Physician [facility] 05-03-2025 18:54-0400 Body mass index (BMI) [Ratio] 21.8 kg/m2 No Primary Care Physician [facility] 05-03-2025 18:54-0400 Body temperature 98 [degF] No Primary Care Physician [facility] 05-03-2025 18:54-0400 Body weight 61.4 kg No Primary Care Physician [facility] 05-08-2024 17:08-0400 Diastolic blood pressure 91 mm[Hg] KEVIN Licea MD Work Phone: [facility] 05-08-2024 17:08-0400 Heart rate 91 /min KEVIN Licea MD Work Phone: [facility] 05-08-2024 17:08-0400 Respiratory rate 16 /min KEVIN Licea MD Work Phone: [facility] 05-08-2024 17:08-0400 SaO2% (BldA) [Mass fraction] 100 % KEVIN Licea MD Work Phone: [facility] 05-08-2024 17:08-0400 Systolic blood pressure 121 mm[Hg] KEVIN Licea MD Work Phone: [facility] 05-08-2024 15:31-0400 Body height 167.6 cm KEVIN Licea MD Work Phone: [facility] 05-08-2024 15:31-0400 Body mass index (BMI) [Ratio] 20.18 kg/m2 KEVIN Licea MD Work Phone: [facility] 05-08-2024 15:31-0400 Body temperature 97.81 [degF] KEVIN Licea MD Work Phone: [facility] 05-08-2024 15:31-0400 Body weight 56.7 kg KEVIN Licea MD Work Phone: [facility] 05-07-2024 13:34-0400 Heart rate 103 /min Bartolome Anderson MD Work Phone: [facility] 05-07-2024 12:52-0400 Body temperature 99.81 [degF] Bartolome Anderson MD Work Phone: [facility] 05-07-2024 12:52-0400 Diastolic blood pressure 81 mm[Hg] Bartolome Anderson MD Work Phone: [facility] 05-07-2024 12:52-0400 Respiratory rate 20 /min Bartolome Anderson MD Work Phone: [facility] 05-07-2024 12:52-0400 SaO2% (BldA) [Mass fraction] 96 % Bartolome Anderson MD Work Phone: [facility] 05-07-2024 12:52-0400 Systolic blood pressure 116 mm[Hg] Bartolome Anderson MD Work Phone: [facility] 05-06-2024 20:35-0400 Diastolic blood pressure 71 mm[Hg] Alfonso Vincent MD Work Phone: [facility] 05-06-2024 20:35-0400 Heart rate 69 /min Alfonso Vincent MD Work Phone: [facility] 05-06-2024 20:35-0400 Respiratory rate 16 /min Alfonso Vincent MD Work Phone: [facility] 05-06-2024 20:35-0400 SaO2% (BldA) [Mass fraction] 100 % Alfonso Vincent MD Work Phone: [facility] 05-06-2024 20:35-0400 Systolic blood pressure 114 mm[Hg] Alfonso Vincent MD Work Phone: [facility] 05-06-2024 13:37-0400 Body height 167.6 cm Alfonso Vincent MD Work Phone: [facility] 05-06-2024 13:37-0400 Body mass index (BMI) [Ratio] 20.98 kg/m2 Alfonso Vincent MD Work Phone: [facility] 05-06-2024 13:37-0400 Body temperature 98.4 [degF] Alfonso Vincent MD Work Phone: [facility] 05-06-2024 13:37-0400 Body weight 58.97 kg Alfonso Vincent MD Work Phone: [facility] 04-04-2024 19:51-0400 Body temperature 98.01 [degF] Arabella Kennedy MD Work Phone: [facility] 04-04-2024 19:49-0400 Body height 167.6 cm Arabella Kennedy MD Work Phone: [facility] 04-04-2024 19:49-0400 Body mass index (BMI) [Ratio] 23.4 kg/m2 Arabella Kennedy MD Work Phone: [facility] 04-04-2024 19:49-0400 Body weight 65.77 kg Arabella Kennedy MD Work Phone: [facility] 04-04-2024 19:49-0400 Diastolic blood pressure 73 mm[Hg] Arabella Kennedy MD Work Phone: [facility] 04-04-2024 19:49-0400 Heart rate 96 /min Arabella Kennedy MD Work Phone: [facility] 04-04-2024 19:49-0400 Respiratory rate 16 /min Arabella Kennedy MD Work Phone: [facility] 04-04-2024 19:49-0400 SaO2% (BldA) [Mass fraction] 100 % Arabella Kennedy MD Work Phone: [facility] 04-04-2024 19:49-0400 Systolic blood pressure 122 mm[Hg] Arabella Kennedy MD Work Phone: [facility] 12-08-2023 22:08-0400 Body temperature 98.5 [degF] [facility] 12-08-2023 22:08-0400 Diastolic blood pressure 96 mm[Hg] [facility] 12-08-2023 22:08-0400 Heart rate 105 /min [facility] 12-08-2023 22:08-0400 Respiratory rate 16 /min [facility] 12-08-2023 22:08-0400 SaO2% (BldA) [Mass fraction] 97 % [facility] 12-08-2023 22:08-0400 Systolic blood pressure 114 mm[Hg] [facility] 12-08-2023 21:13-0400 Body height 167.64 cm [facility] 12-08-2023 21:13-0400 Body mass index (BMI) [Ratio] 20.6 kg/m2 [facility] 12-08-2023 21:13-0400 Body weight 58.01 kg [facility] 06-03-2023 17:44-0400 Diastolic blood pressure 70 mm[Hg] [facility] 06-03-2023 17:44-0400 Heart rate 67 /min [facility] 06-03-2023 17:44-0400 Respiratory rate 18 /min [facility] 06-03-2023 17:44-0400 SaO2% (BldA) [Mass fraction] 97 % [facility] 06-03-2023 17:44-0400 Systolic blood pressure 118 mm[Hg] [facility] 06-03-2023 16:33-0400 Body height 167.64 cm [facility] 06-03-2023 16:33-0400 Body mass index (BMI) [Ratio] 22.7 kg/m2 [facility] 06-03-2023 16:33-0400 Body temperature 97 [degF] [facility] 06-03-2023 16:33-0400 Body weight 63.95 kg [facility] Encounters Encounter Date Encounter Type Care Provider Facility Start: 05-03-2025 End: 05-04-2025 Emergency department patient visit Dr. Jovany Crouch MD -Emergency Department Work Phone: Start: 05-08-2024 End: 05-08-2024 Emergency department patient visit Don Licea MD Work Phone: [facility] ED Comment on above: Encounter for monito ring Suboxone maintenance therapy (Primary Dx) Start: 05-07-2024 End: 05-07-2024 Emergency department patient visit Bartolome Anderson MD Work Phone: [facility] ED Comment on above: Encounter for monito ring Suboxone maintenance therapy (Primary Dx); Fentanyl use disorder, mild (CMS/HCC) (HCC) Start: 05-06-2024 End: 05-06-2024 Emergency department patient visit Alfonso Vincent MD Work Phone: [facility] ED Comment on above: Opioid use disorder, moderate, dependence (HCC) (Primary Dx); Hypokalemia Start: 04-04-2024 End: 04-04-2024 Emergency department patient visit Arabella Kennedy MD Work Phone: [facility] ED Comment on above: Swelling of right si de of face (Primary Dx) Start: 12-08-2023 End: 12-08-2023 Emergency department patient visit [facility]-Emergency Department Work Phone: Start: 06-03-2023 End: 06-03-2023 Emergency department patient visit [facility]-Emergency Department Work Phone: Start: 06-23-2022 End: 06-23-2022 Emergency department patient visit ESTHELA Peterson BAILEY Facility:[facility] Start: 12-07-2018 End: 12-09-2018 Patient encounter procedure [facility] Start: 08-20-2018 End: 08-21-2018 Patient encounter procedure [facility] Procedures Date Procedure Procedure Detail Performing [...] or older (1 - 1-dose 60+ series) [facility] Start: 2051 Zoster Vaccines (1 of 2) Zoster Vaccines (1 of 2) [facility] Start: 05-04-2025 [facility] Start: 05-23-2024 DTaP/Tdap/Td Vaccines (6 - Td or Tdap) DTaP/Tdap/Td Vaccines (6 - Td or Tdap) [facility] Start: 04-11-2024 COVID-19 Vaccine ( season) COVID-19 Vaccine ( season) [facility] Start: 04-11-2024 Influenza vaccination Influenza Vaccine (#1) [facility] Start: 12-08-2023 End: 12-08-2023 [facility] Start: 06-03-2023 [facility] Start: 04-11-2023 COVID-19 Vaccine ( season) COVID-19 Vaccine ( season) [facility] Start: 2020 Hepatitis A Vaccines (1 of 2 - Risk 2-dose series) Hepatitis A Vaccines (1 of 2 - Risk 2-dose series) [facility] Start: 2019 Hepatitis C screening Hepatitis C Screening [facility] Start: 2016 HPV Vaccines (1 - Male 3-dose series) HPV Vaccines (1 - Male 3-dose series) [facility] Start: 2013 Depression Screening Depression Screening [facility] Start: 2007 Pneumococcal Vaccine: Pediatrics (0 to 5 Years) and At-Risk Patients (6 to 64 Years) (1 of 2 - PCV) Pneumococcal Vaccine: Pediatrics (0 to 5 Years) and At-Risk Patients (6 to 64 Years) (1 of 2 - PCV) [facility] Start: 2001 HIV screening HIV Screening [facility] Start: 2001 Lipid panel Lipid Panel [facility] Patient Education Dental Abscess Understanding Tooth Decay [facility] Work Phone: Patient referral [facility] Work Phone: Immunizations Immunization Date Immunization Notes Care Provider Maegan jason 05-24-2004 influenza virus vacc ine, unspecified formulation Arabella Kennedy MD Work Phone: [facility] Payers Date Payer Category Payer Self-pay 2025 Unknown [id number] 2013 Medicaid [id number] Medicaid [id number] Unknown [id number] Unknown [id number] Social History Date Type Detail Facility Start: 06-03-2023 End: 12-08-2023 Tobacco smoking status MSIS Unknown if ever smoked [facility] Start: 2001 Sex Assigned At Male W [facility] Start: 04-04-2024 End: 05-03-2025 Tobacco smoking status MSIS Smokes tobacco daily [facility] History of tobacco use Cigarette Smoker S [facility] Start: 04-04-2024 Tobacco use and exposure Smokeless tobacco non-user [facility] Start: 04-04-2024 End: 05-06-2024 Alcoholic beverage intake Current drinker of alcohol (finding) [facility] Start: 06-09-2022 End: 05-06-2024 History of Social function [facility] Start: 06-09-2022 End: 05-06-2024 Tobacco use panel [facility] Start: 06-09-2022 Alcohol [facility] Start: 2001 Sex assigned at Not on file S [facility] How often to you hav e a drink containing alcohol? Never [facility] How many standard drinks containing alcohol do you have on a typical day? Patient does not drink [facility] Mental Status Date Assessment Result Facility 05-03-2025 Cognitive function Voice/Name [facility] Work Phone: 12-08-2023 Cognitive function Level Of Cons ciousness Awake;Alert;Appropriate;Follow s Commands [facility] Work Phone: Clinical Notes 12-08-2023 to 05-04-2025 Note Date & Type Note Facility 05-04-2025 Discharge summary [facility] 05-03-2025 Discharge summary Note Date/Time May 04, 2025 1:08am [facility] Medical Records Department [facility] [place] [address] Emergency Department Summary 05/03/25 MR#: [id number] Acct: [id number] Name: GALEN HOGUE Rep #:[id number] : 2000 25 From: Jovany Crouch MD PCP: Care Physician,No Primary Status :DEP ER Location: ED ADDENDUM by Dr. Jerad Cueva DO on 05/04/25 at 0123 Patient was turned over to vt by Dr. Crouch @ 2330 Brief history: [...] with sinus bradycardia rate of 39, normal ME interval, no sign of high degree block, [...] is fatigued and does not feel well. 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 Differential diagnosis includes but not limited to [...] Primary [Primary Care Provider, Medical] Print Language: Ghanaian What to do if you have Problems For any increased pain, shortness of breath, bleeding, nausea or vomiting, chestpain, or any unexpected problems, contact your Primary Care Provider. Call [facility] ([phone]) or report to the closest Emergency Room. Call 911 if necessary. 05/03/254 <Electronically signed by Jovany Crouch MD> Cosigner Signature (if applicable): CC: No Primary Care Physician ~ Signed [facility] Work Phone: [phone]) 683-566409-28-2024 Hospital Discharge instructions* Discharge Instructions* Don Licea MD - 05/08/2024 5:00 PM EDT Please present to [place] tomorrow for your next Suboxone dose. documented in this [facility]09-28-2024 Emergency department Note* Don Licea MD - [...] 8 Film (8 Film SubLINGual Given 05/08/24 5380) REVAL: CRITICAL CARE TIME None CONSULTS: None PROCEDURES: Unless otherwise noted below, none Procedures FINAL IMPRESSION 1. Encounter for monitoring Suboxone maintenance therapy DISPOSITION Discharge 05/08/2024 04:59:21 PM PATIENT REFERRED TO: [facility] Address: [address], [place] [id number] Schedule an appointment as soon as possible [...] Licea MD 05/08/24 1701 documented in this [facility]-28-2024 Physician Emergency department Note* Don Lieca MD - 05/08/2024 3:14 PM EDT EMERGENCY [...] Discharge 05/08/2024 04:59:21 PM PATIENT REFERRED TO: [facility] Address: [address], [place] [address] Schedule an appointment as soon as possible [...] Medicine Provider Don Licea MD 05/08/24 1701 [facility] Emergency department Note* aBrtolome Mensah RN - 05/07/2024 3:29 PM EDT Project LORI is available STATE-WIDE. Narcan/Naloxone is available WITHOUT prescription at most [place] Pharmacies, including [employer], [employer], [employer], [employer]Next, and others. It has a cost, but there is a free program through [facility] (and 47 other [facility]). A full list of pharmacies is available at the [place] Board of Pharmacy website, but calling your [...] Tere GIL is an initiative of the [facility] Opiate Task Force and is funded in part by the [facility] Alcohol, Drug Addiction and Mental Health (ADM) Services Board [facility] Alcohol, Drug Addiction & Mental Health Services [place] [address] [email or web address] WALK-IN HOURS: Tuesdays (every hour) from 3pm [...] Give Naloxone Assemble the nasal spray Naloxone. Ebro half (1 ml) up one nostril, half [...] has been used safely by emergency medical transcription radiology for more than 40 years and has [...] whether intentionally (in treatment) or unintentionally (in fdc or the hospital). Taking opioids after a [...] the future. Bartolome Mensah RN 05/07/24 1529 [facility]-9840 Emergency department Note* Bartolome Mensah RN - 05/07/2024 3:29 PM EDT The following are the next steps in your Substance use Treatment Plan: As per discussion, you have agreed to seek MAT services with [place] provider for outpatient addiction services & have agreed to calling today to schedule appointments. PLAN: Patient will go to [facility] provider to seek financial assistance from AdolfoValutao Board in [facility]. Below are additional resources that you may find beneficial in your treatment: 12-Step: Heroin Anonymous: Abdifatah Gil.: [phone], Fede Agrawal.: [phone] Narcotics Anonymous: 888-GET_HOPE (039-497-7602) YouFolio[employer]Eloxx Alcohol Anonymous: akronaa.org [place] Anon: 201.633.8264: 12-step program for families & friends of people with addiction. CRISIS: Homeless Hotline: 389.819.5776 [facility] HOMELESS SHELTERS [facility] ([facility]eterans) 03/03 line-03/03 OFFICE: [phone] [facility]: [address] [facility], [place] [address] [phone] (24 Hours) Domestic Violence help line anytime: 124.900.6632 Crisis Hotline: 03/03- 859.259.1207 ADM Addiction Helpline: 691.587.1602 (available 8:30 AM to 4:00 PM ) 2-1-1 2-1-1 helps people across [facility] find local resources when they don't know where to turn forhel. We are available 24 hours a day, 7 days a week. For help, simply dial --1 to speak to one of our trained professionals. Methadone Treatment: [place], [place] [phone] [place], [place] [phone] [facility] [place] [phone] [place] [phone] [facility] - [phone] ext. [phone] or [phone] [facility] [place], [place] [phone] [facility] ([place]ance) [phone] DETOX TREATMENT: [facility], [place], [place] [phone] /ADM Crisis Center: anytime @ [phone] for alcohol & drug addiction help. [facility]: [phone] [place], [place]: [phone], [place], [place]: [phone] [facility] [place] [phone] Adolescent detox [place] [phone] [facility] [place]: [phone] [facility], [place], [place] [phone] ext. [phone] [facility], Critical access hospital & detox & Sober living [phone] [place], [place] (pt. must be medically cleared prior to admission in ED) Praxis LANDMARK [facility], [place], [place] [phone] OUTPATIENT TREATMENT: [facility] Health @ [facility] [place] [phone]. 1st Step MAT Program @ [facility] ED: [phone] 1st Step MAT Program @ [facility] ED: [phone] Intensive Outpatient Programs- [place], [place] [phone] [place], [place] [phone] [facility], [place], [place] [phone] [facility] Addiction Treatment: [place], [place] [phone] or [phone]. [facility]: [phone] [facility], [place]: [phone], [place]: [phone] [place]: [phone] [facility], [place]: [phone], [place]: [phone] [place] [place]. [place]: [phone] [facility] [place], [place] BH & Sober living [phone] [place], [place] [phone] Behavioral Health Services: [facility]: [phone]-[phone], [phone], [place]- [phone] [facility] Behavioral Health, [place]: [phone], [place]: [phone] [facility] Health, [place], [place] [phone] [facility], [place], [place] [phone] [facility] Behavior [place], [place] [phone], inpt, services, dual dx. Tx. with detox. [facility] SERVICES: [place], [place] [phone] [facility], [place], [place] [phone] [facility] [phone] [facility] SERVICES: One Eighty (180): [place], [place] [phone] [facility] MATHopeLexa & [place]: [phone] RESIDENTIAL TREATMENT FACILITIES: [facility] House: inpt. Or outpt. - [phone] [facility], [place], [place] [phone] [facility], [place], [place] [phone] Community Assessment & Treatment Services (CATS) @ [facility] [phone] [facility] tx[facility] [place], [place] [phone] (admission coordinated by ADM Kvng York ext [phone]) [facility] Tx., [place], [place]: [phone]; Men's services inpt. & women services -Outpt. [place], [place] [phone] [facility], [place], [place] [phone] [facility]'s [place], [place] [phone] [facility], [place], [place] [phone] [facility], [place], [place] [phone] [facility] - [place], [place] [phone] [facility], [place], [place] [phone] [place], [place] [phone] [facility], Critical access hospital & detox & Sober living [phone] OTHER SERVICES: [employer] - Peer [employer] Turner Service: [phone] [facility]: [phone] ext. [phone] Medicaid Health Coverage: [facility] JFS: [phone] Bartolome Mensah RN 05/07/24 1529 [facility] HospitalGacmvl01-14-8683 NoteThe following are the next steps in your Substance use Treatment Plan: As per discussion, you have agreed to seek MAT services with [facility] provider for outpatient addiction services & have agreed to calling today to schedule appointments. PLAN: Patient will go to [facility] MAT provider to seek financial assistance from AdolfoValutao Board in [facility]. Below are additional resources that you may find beneficial in your treatment: 12-Step: Heroin Anonymous: Abdifatah Calderón: [phone], Fede Walker: [phone] Narcotics Anonymous: 888-GET_HOPE (943-894-1348) YouFolio[employer]Eloxx Alcohol Anonymous: PlanetTranronaa.org [place] Anon: [phone]: 12-step program for families & friends of people with addiction. CRISIS: Homeless Hotline: 808.249.9384 [facility] HOMELESS SHELTERS [facility] ([facility]) 03/03 line-03/03 OFFICE: [phone] [facility]: [address] [place] [address] [phone] (24 Hours) Domestic Violence help line anytime: 411.682.5824 Crisis Hotline: 03/03- 598.675.3678 ADM Addiction Helpline: 641.964.2474 (available 8:30 AM to 4:00 PM ) 2-1-1 2-1-1 helps people across [facility] find local resources when they don't know where to turn for help. We are available 24 hours a day, 7 days a week. For help, simply dial 09-11- to speak to one of our trained professionals. Methadone Treatment: [facility] [place] [phone] [place], [place] [phone] [facility] [place] [phone] [place] [phone] [facility] - [phone] ext. [phone] or [phone] [facility] [place], [place] [phone] [facility]. Services ([place]) [phone] DETOX TREATMENT: [facility], [place], [place] [phone] /ADM Crisis Center: anytime @ [phone] for alcohol & drug addiction help. [facility] [place]: [phone] Day, [place], [place]: [phone], [place], [place]: [phone] [place], [place] [phone] Adolescent detox [place] [phone] [facility] [place]: [phone] [facility], [place], [place] [phone] ext. [phone] [facility], [place], [place] BH & detox & Sober living [phone] [facility], [place], [place] (pt. must be medically cleared prior to admission in ED) Tila [place], [place] [phone] OUTPATIENT TREATMENT: [facility] @ [place], [place] [phone]. 1st Step MAT Program @ [facility] ED: [phone] 1st Step MAT Program @ [facility] ED: [phone] Intensive Outpatient Programs- [place], [place] [phone] [place], [place] [phone] [facility] [place], [place] [phone] [facility] Addiction Treatment: [place], [place] [phone] or [phone]. [facility]: [phone] [facility] [place]: [phone], [place]: [phone] [facility] [place]: [phone] [facility] Behavioral Health, [place]: [phone], [place]: [phone] [facility] [place]. [place]: [phone] [place], [place] BH & Sober living [phone] [facility], [place], [place] [phone] Behavioral Health Services: [facility]: Gzzfj-[phone], Tyrone/Xsypig-[phone], Sondra- [phone] [facility], [place]: [phone], [place]: [phone] [facility] Health, [place] [phone] [facility], [place], [place] [phone] [facility] Behavior Health, [place], [place] [phone], inrosalie services, dual dx. Tx. with detox. [facility] SERVICES: [place], [place] [phone] [facility], [place], [place] [phone] [facility] [phone] [facility] SERVICES: One Eighty (180): [place], [place] [phone] [facility] Ester MCCLENDON & [place]: [phone] RESIDENTIAL TREATMENT FACILITIES: [facility] House: inpt. Or outpt. - [phone] [facility], [place], [place] [phone] [place], [place] [phone] Community Assessment & Treatment Services (CATS) @ [facility] [phone] [facility] tx., [place] [phone] (admission coordinated by ADM Kvng York ext [phone]) [facility] Tx., [place], [place]: [phone]; Men's services inpt. & women services - Outpt. [facility], [place], [place] [phone] [facility] Health, [place], [place] [phone] [facility], [place], [place] [phone] [facility], [place], [place] [phone] [facility], [place], [place] [phone] [facility] - [place], [place] [phone] [place], [place] [phone] [place], [place] [phone] [facility] & detox & So (more content not included)...[facility] [id number] Emergency department Note* Bartolome Mensah RN - 05/07/2024 3:29 PM EDT Tere LORI is available STATE-WIDE. Narcan/Naloxone is available WITHOUT prescription at most [place] Pharmacies, including [employer], [employer], [employer], Give[employer], and others. It has a cost, but there is a free program through [facility] (and [facility] other [facility]). A full list of pharmacies is available at the [place] Board of Pharmacy website, but calling your [...] Tere LORI is an initiative of the [facility] Opiate Task Force and is funded in part by the [facility] Alcohol, Drug Addiction and Mental Health (ADM) Services [facility] Alcohol, Drug Addiction & Mental Health Services [facility] Public Health [address] [place] [phone] [email or web address] WALK-IN HOURS: Tuesdays (every hour) from 3pm [...] Give Naloxone Assemble the nasal spray Naloxone. Ebro half (1 ml) up one nostril, half [...] has been used safely by emergency medical transcription radiology for more than 40 years and has [...] whether intentionally (in treatment) or unintentionally (in fdc or the hospital). Taking opioids after a [...] have agreed to seek MAT services with [facility] provider for outpatient addiction services & have agreed to calling today to schedule appointments. PLAN: Patient will go to [facility] MAT provider to seek financial assistance from AdolfoValutao Board in [facility]. Below are additional resources that you may find beneficial in your treatment: 12-Step: Heroin Anonymous: Gardiner S.: 152.291.4607, Fede Agrawal.: [phone] Narcotics Anonymous: 888-GET_HOPE (592-079-8935) YouFolio.org Alcohol Anonymous: akronaa.org [facility] Anon: [phone]: 12-step program for families & friends of people with addiction. CRISIS: Homeless Hotline: 591.181.6462 [facility] HOMELESS SHELTERS [facility] ([facility]) 03/03 line-03/03 OFFICE: [phone] [facility]: [address] [facility], [place] [address] [phone] (24 Hours) Domestic Violence help line anytime: 177.445.2258 Crisis Hotline: 03/03- 125.598.2940 ADM Addiction Helpline: 147.413.4773 (available 8:30 AM to 4:00 PM ) 2-1-1 2-1-1 helps people across [facility] find local resources when they don't know where to turn forhel. We are available 24 hours a day, 7 days a week. For help, simply dial 09-11- to speak to one of our trained professionals. Methadone Treatment: [facility] [place] [phone] [place], [place] [phone] [facility] [place] [phone] [place] [phone] [facility] - [phone] ext. [phone] or [phone] [facility] [place] [phone] [facility] Services ([place]) [phone] DETOX TREATMENT: [facility] Services, [place], [place] [phone] /ADM Crisis Center: anytime @ [phone] for alcohol & drug addiction help. [facility] [place]: [phone] [facility] Hospital[facility], [place]: [phone], [place], [place]: [phone] [facility], [place] [phone] Adolescent detox [place] [phone] [facility] [place] - [place], [place]: [phone] [facility], [place], [place] [phone] ext. [phone] [facility], Critical access hospital & detox & Sober living [phone] [facility], [place], [place] (pt. must be medically cleared prior to admission in ED) [facility] LANDMARK [place], [place], [place] [phone] OUTPATIENT TREATMENT: [facility] Addiction Health @ [place], [place] [phone]. 1st Step MAT Program @ [facility] ED: [phone] 1st Step MAT Program @ [facility] ED: [phone] Intensive Outpatient Programs- [place], [place] [phone] [place], [place] [phone] [facility] [place], [place] [phone] [facility] Addiction Treatment: [place] [phone] or [phone]. [facility]: [phone] [facility], [place]: [phone], [place]: [phone] [facility], [place]: [phone] [facility] Behavioral Health, [place]: [phone], [place]: [phone] [place] May[place]a [place]. [place]: [phone] [facility], [place] BH & Sober living [phone] [facility], [place] [phone] Behavioral Health Services: [facility]: Oilvl-[phone], [place]/Neqqso-[phone], [place]- [phone] [facility] Behavioral Health, [place]: [phone], [place]: [phone] [facility]al Health, [place] [phone] [facility], [place], [place] [phone] [place], [place] [phone], inpt, services, dual dx. Tx. with detox. [facility] SERVICES: [place] Guide [place], [place] [phone] [facility], [place], [place] [phone] [facility] [phone] [facility] SERVICES: One Eighty (180): [place], [place] [phone] [facility] MAT [place] & [place]: [phone] RESIDENTIAL TREATMENT FACILITIES: [facility] House: inpt. Or outpt. - [phone] [facility], [place], [place] [phone] [place], [place] [phone] Community Assessment & Treatment Services (CATS) @ [facility] [phone] [facility] tx., [place] [phone] (admission coordinated by ADM Kvng York ext 303) [facility] [place], [place]: [phone]; Men's services inpt. & women services -Outpt. [facility], [place], [place] [phone] [facility], [place], [place] [phone] [place], [place] [phone] [facility], [place], [place] [phone] [facility], [place], [place] [phone] [facility] - [place], [place] [phone] [facility] Recovery Services, [place], [place] [phone] [place] [phone] [facility], Critical access hospital & detox & Sober living [phone] OTHER SERVICES: [employer] Turner Service: [phone] [employer]: [phone] ext. [phone] Medicaid Health Coverage: Going. JFS: [phone] Bartolome Mensah RN 05/07/24 1529 * An Santana DO - 05/07/2024 12:45 PM EDT EMERGENCY DEPARTMENT ENCOUNTER Pt Name: Galen Hogue Birthdate 2000 Date of evaluation: 05/07/2024 ED Provider: An Santana DO CHIEF COMPLAINT Chief Complaint Patient presents with Addiction Problem Pt is here for addiction critical care nurse practitioner. HISTORY OF PRESENT ILLNESS (Location/Symptom, Timing/Onset, Context/Setting, Quality, Duration, Modifying Factors, Severity) Note limiting factors. I wore appropriate PPE for the entirety of this encounter. HPI 24-year-old male presents emergency department today seeking Suboxone treatment and addiction critical care nurse practitioner for his fentanyl abuse issue. States that they last used fentanyl yesterday and was dosed with Suboxone at [place] a few hours later and was told [...] department today seeking Suboxone treatment and addiction critical care nurse practitioner for his fentanyl abuse issue. States that they last used fentanyl yesterday and wasdosed with Suboxone at [place] a few hours later and was told to come here for continued follow-up. [BM] 1315 On exam mildly tachycardic at 103, lungs clear to auscultation. Vital signs otherwise stable. Will give dose of Suboxone here have evaluated by addiction critical care nurse practitioner. [BM] 1344 With COWS score of 14 [...] Discharge 05/07/2024 02:39:17 PM PATIENT REFERRED TO: [facility] ED [address] [facility] [address] As needed, If symptoms worsen [facility] [address] [facility] [address] DISCHARGE MEDICATIONS: New Prescriptions No medications [...] Santana DO 05/07/24 1447 documented in this [facility]-27-2024 Hospital Discharge instructions* Discharge Instructions* An Santana DO - 05/07/2024 2:40 PM EDT Please return to the ED during business hours for repeat dose of Suboxone tomorrow until you are able to get set up with outpatient treatment. documented in this [facility]09-27-2024 Physician Emergency department Note* An Santana DO - 05/07/2024 12:45 PM EDT EMERGENCY DEPARTMENT ENCOUNTER Pt Name: Galen Hogue Birthdate 2000 Date of evaluation: 05/07/2024 ED Provider: An Santnaa DO CHIEF COMPLAINT Chief Complaint Patient presents with Addiction Problem Pt is here for addiction critical care nurse practitioner. HISTORY OF PRESENT ILLNESS (Location/Symptom, Timing/Onset, Context/Setting, Quality, Duration, Modifying Factors, Severity) Note limiting factors. I wore appropriate PPE for the entirety of this encounter. HPI 24-year-old male presents emergency department today seeking Suboxone treatment and addiction critical care nurse practitioner for his fentanyl abuse issue. States that they last used fentanyl yesterday and was dosed with Suboxone at [place] a few hours later and was told [...] department today seeking Suboxone treatment and addiction critical care nurse practitioner for his fentanyl abuse issue. States that they last used fentanyl yesterday and wasdosed with Suboxone at [place] a few hours later and was told to come here for continued follow-up. [BM] 1315 On exam mildly tachycardic at 103, lungs clear to auscultation. Vital signs otherwise stable. Will give dose of Suboxone here have evaluated by addiction critical care nurse practitioner. [BM] 1344 With COWS score of 14 [...] Discharge 05/07/2024 02:39:17 PM PATIENT REFERRED TO: [facility] [address] [facility] [address] As needed, If symptoms worsen [facility] Addiction [facility] [address] [facility] [address] DISCHARGE MEDICATIONS: New Prescriptions No medications [...] Medicine Provider An Santana DO 05/07/24 1447 [facility] Emergency department Note* Senait Merritt RN - 05/06/2024 9:20 PM EDT IV removed from right AC Senait Merritt RN 05/06/242119 [facility]Dbsqid90-64-1013 Emergency department Note* Senait Merritt RN - [...] scheduled appointments PLAN: Patient will return to [facility] Emergency Department on 05/07/24 after 11:00 AM for your 2nd of MAT. The Addiction Business Development Officer will meet with you again at that time. Below are additional resources that you may find beneficial in your treatment: 12-Step: Heroin Anonymous : Abdifatah Calderón: [phone], Fede Walker: [phone] Narcotics Anonymous: 888-GET_REHOBOTH (911-465-2126) [facility] Alcohol Anonymous: akronaa.org Cocaine Anonymous: https://www.Checkhio.org/meetings/akronmeetings, [facility]: [phone]: 12-step program for families & friends of people with addiction. CRISIS: Homeless Hotline: 116.991.4567 Domestic Violence help line anytime: 204.197.8977 Crisis Hotline: 03/03- 503.101.1328 ADM Addiction Helpline: 362.936.2835 (available 8:30 AM to 4:00 PM ) 2-1-1 2-1-1 helps people across [facility] find local resources when they don't know where to turn forhelp. We are available 24 hours a day, 7 days a week. For help, simply dial 09-11- to speak to one of our trained professionals. METHADONE TREATMENT: [place], [place] [phone] [place], [place] [phone] [facility], [place] [phone] [facility], [place] [phone] [facility]- [phone] ext. [phone] or [phone] [facility] Services ([place])- [phone] DETOX TREATMENT: [facility] Crisis Center: anytime @ [phone] for alcohol & drug addiction help. [facility], [place] [phone] [facility] coordination: [phone] (Medicare not accepted) [facility] [place]: [phone] ([place] Medicaid not accepted) [facility] [place]: [phone] ([place] Medicaid not accepted) [place]: [phone] (Will Coordinate Transportation) [facility] [place]: [phone] [place], [place]: [phone], [facility] [place]: [phone] [place], [place] [phone] [facility] [place] [facility] [place]: [phone] (Will Coordinate Transportation) [place], [place] [phone] ext. [phone] [place], [place] (pt. must be medically cleared prior to admission in ED) [place], [place] [phone] [facility] [place]: [phone] ([place] Medicaid not accepted) Pradejah MCCLELLAND [facility], [place] [phone] (Will Coordinate Transportation) [phone] OUTPATIENT TREATMENT: [facility] @ Yobany Vega [place], [place] [phone] [facility]: Inpatient or Outpatient- [phone] 1st Step MAT Program @ [facility] ED: [phone] 1st Step MAT Program @ [facility] ED: [phone] 1st Step MAT Program @ [facility] ED: [phone], INTENSIVE OUTPATIENT PROGRAMS @ [facility] [place], [place] [phone] [place], [place] [phone] [facility] Sondra [place], [place] [phone] [place], [place] [phone] [facility]: [phone] [facility], [place], [place] [phone] [facility], [place]: [phone], [place]: [phone] [place], [place]: [phone] [facility], [place]: [phone], [place]: [phone] [facility], [place]: [phone]; [place]: [phone] [facility] (Emphasis on minorities): [email or web address]://[email or web address], [facility], [place], [place] [phone] [facility] SERVICES: [facility] [place]: [phone] [facility] [place], [place] [phone] [facility] [place] [phone] [facility] [phone] [facility] SERVICES: One Eighty (180): [place] [phone] [place] Alvarez & [place]: [phone] RESIDENTIAL TREATMENT FACILITIES: [facility], [place], [place] [phone] (admission coordinated by -Ana York ext [phone]) [facility] [place], [place]: [phone]; Men's services inpt. & women services -Outpt. [place], [place] [phone] [facility], [place], [place] [phone] [address], [place], [place] [phone] [facility], [place], [place] [phone] [facility], [place], [place] [phone] [facility], [place], [place] [phone] [facility] - [place], [place], [place] [phone] [facility], [facility], [place], [place]-PHP, [facility], Residential [phone] [employer] [facility] - Peer Metal Turner service: [phone] [employer]: [phone] ext. [phone] Medicaid Health Coverage: Going. JFS: [phone] Rajeev Reeder RN 05/06/24 1433 * Rajeev Reeder RN - 05/06/2024 2:11 PM EDT [facility] [phone] [address] [place] [address] For questions about Naloxone, call , option 2 What is Naloxone? Naloxone (also known as Narcan or Kloxxado) is a medication that can reverse an overdose caused by an opioid drug (some examples: heroin, fentanyl, types of pain medications). Naloxone has safely been used by medical transcription radiology for more than 40 years. Naloxone s [...] whether intentionally (in treatment) or unintentionally (in fdc or the hospital). Taking opioids after a [...] Give Naloxone Assemble the nasal spray Naloxone. Ebro half (1 ml) up one nostril, half [...] could start to overdoseagain. Naloxone Dispensing through [facility] (Mail order or in-person) Mail Order: Click the link at the top of the page, complete documents, and choose option for mail delivery or pick-up in [facility] lobby In-person: Call [phone], option 2 to schedule an appointment (session typically lasts 15-30 minutes). Agency and group trainings available at your location. Call [phone], option 2 to schedule an appointment. A Naloxone kit can be a life-saving addition to your Agency First Aid policy. Refills: Mail order or in-person. Additional Naloxone Dispensing locations [facility] Call to schedule an appointment [address] [place] [address] [facility] Naloxone dispensed (at office location) by appointment only [address] [facility], [address] [place] [phone] [facility] - [facility] Opiate Response Team Naloxone dispensed by appointment only [facility] Opiate Response Team (ORT) will dispense, per request, at a community location [phone] [facility] Treatment Services (C.A.T.S) Naloxone dispensed by appointment only [address] [place] [address] A New Day Naloxone dispensed by appointment only [address] [place] [address] [facility] Naloxone dispensed at location, appointments are preferred [address], [place] [address] Additional Dispensing Resources According to the [facility] Board of Pharmacy, pharmacies are permitted to dispense Narcan without a prescription including many in [facility]. Please check with your particular pharmacy for more information. [facility] [phone] [address] [place] [address] For questions about Naloxone, call , option 2 What is Naloxone? Naloxone (also known as Narcan or Kloxxado) is a medication that can reverse an overdose caused by an opioid drug (some examples: heroin, fentanyl, types of pain medications). Naloxone has safely been used by medical transcription radiology for more than 40 years. Naloxone s [...] whether intentionally (in treatment) or unintentionally (in fdc or the hospital). Taking opioids after a [...] Give Naloxone Assemble the nasal spray Naloxone. Ebro half (1 ml) up one nostril, half [...] could start to overdoseagain. Naloxone Dispensing through [facility] (Mail order or in-person) Mail Order: Click the link at the top of the page, complete documents, and choose option for mail delivery or pick-up in [facility] [employer] In-person: Call [phone], option 2 to schedule an appointment (session typically lasts 15-30 minutes). Agency and group trainings available at your location. Call [phone], option 2 to schedule an appointment. A Naloxone kit can be a life-saving addition to your Agency First Aid policy. Refills: Mail order or in-person. Additional Naloxone Dispensing locations [facility] Call to schedule an appointment [address] [place] [address] [facility] Naloxone dispensed (at office location) by appointment only [address] [facility], [address] [place] [phone] [facility] Opiate Response Team Naloxone dispensed by appointment only [facility] Opiate Response Team (ORT) will dispense, per request, at a community location [phone] [facility] (C.A.T.S) Naloxone dispensed by appointment only [address] [place] [address] A New Day Naloxone dispensed by appointment only [address] [place], [place] [phone] [facility] Naloxone dispensed at location, appointments are preferred [address] [place] [address] Additional Dispensing Resources According to the [facility] Board of Pharmacy, pharmacies are permitted to dispense Narcan without a prescription including many in [facility]. Please check with your particular pharmacy for more information. Rajeev Reeder RN 05/06/24 1411 * Alfonso Vincent MD - 05/06/2024 1:26 PM EDT [facility] ED EMERGENCY DEPARTMENT ENCOUNTER Pt [...] connect to the ACCJohn who is at [place]. Patient will be discussed with and I believe appropriate with his cow score is being 8-9 of treatment with Suboxone. I had extensive discussion with Rajeev who talked with them patient will be seen tomorrow at [place] between and . Patient required total of 8 mg of Suboxone x 3 doses. Patient was feeling better and shortly after 9:00 was able to be discharged. Patient did require clonidine and Atarax. COWS score is now below 4. Patient is feeling better. Patient was given Narcan to go. Keep appointment follow-up with addiction critical care nurse practitioner tomorrow between to see the ACC at [facility]. Patient did give permission discussed with the [...] below findings: none Discussions with other clinicians: Voting Machine Repairer adddiction critical care nurse practitioner Rajeev Chronic conditions impacting care: none Social [...] 09:13:53 PM PATIENT REFERRED TO: Go to [facility] emergency department tomorrow between 11 and 1:00 to get seen by the addiction critical care nurse practitioner for continued Suboxone treatment In 1 day DISCHARGE MEDICATIONS: Discharge Medication List as of 05/06/2024 9:15 PM START taking these medications Details ondansetron ODT (Zofran-ODT) 4 MG disintegrating tablet Take 1 tablet (4 mg) by mouth every 8 hoursas needed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
[2025-06-18 16:04] VITALS: BMI 20.8
[2025-06-18 16:34] VITALS: BP 126/86; PULSE 67; RESP 16; TEMP 36.7; O2SAT 100
[2025-06-18] MEDS: Nicotine (PBKC) 14 MG Patch TD (17:30)
[2025-06-18] MEDS: hydrOXYzine PAM 25 MG Capsule 50 MG PO (17:30)
[2025-06-18 20:33] VITALS: BP 118/80; PULSE 66; RESP 15; TEMP 36.9; O2SAT 99
[2025-06-19] MEDS: hydrOXYzine PAM 25 MG Capsule 50 MG PO ×3 (01:03→21:01)
[2025-06-19 05:00] VITALS: BP 116/72; PULSE 72; RESP 15; TEMP 37.2; O2SAT 100
[2025-06-19] MEDS: Nicotine (PBKC) 14 MG Patch TD (08:24)
[2025-06-19 08:45] VITALS: BP 122/74; PULSE 67; RESP 16; TEMP 36.6; O2SAT 99
--- NOTE | 2025-06-19 10:55 | PN_ITS ---
Subjective Subjective Patient seen and examined with his nurse by his bedside. He complained of withdrawal symptoms like abdominal cramps and increased sweating and shakes. Review of systems otherwise negative. Objective Data Objective Data Vital Signs: Vital Signs Temp Pulse Resp BP Pulse Ox O2 Del Method 97.9 F 67 16 122/74 H 99 Room Air 06/19/25 08:45 06/19/25 08:45 06/19/25 08:45 06/19/25 08:45 06/19/25 08:45 06/19/25 08:45 Oxygen Delivery Method Room Air Weight: 129 lb Body Mass Index (BMI) 20.8 Intake & Output: Intake and Output for Last 24 Hours 06/17/25 06/18/25 06/19/25 23:59 23:59 23:59 Intake Total 500 / 500 Balance 500 / 500 Lab / Micro Data 06/18/25 14:43 06/18/25 14:43 Labs: Laboratory Results - last 24 hr 06/18/25 14:43: WBC 8.2, RBC 5.29, Hgb 15.7, Hct 46.0, MCV 87.0, MCH 29.7, MCHC 34.1, RDW Std Deviation 40.3, RDW Coeff of Sandeep 12.7, Plt Count 324, MPV 11.3, Immature Gran % (Auto) 0.100, Neut % (Auto) 74.1 H, Lymph % (Auto) 18.0 L, Clayton % (Auto) 4.6, Eos % (Auto) 2.1, Baso % (Auto) 1.1 H, Absolute Neuts (auto) 6.1, Absolute Lymphs (auto) 1.48, Nucleated RBC % 0, Sodium 138, Potassium 3.6, Chloride 101, Carbon Dioxide 23.4, Anion Gap 13, BUN 10, Creatinine 0.64 L, Estim Creat Clear Calc 148.44, Est GFR (MDRD) Non-Af 135, BUN/Creatinine Ratio 15.1, Glucose 120 H, Calcium 9.7, Total Bilirubin 0.60, AST 17, ALT 12, Alkaline Phosphatase 65, Total Protein 7.9, Albumin 4.9, Globulin 3.0, Albumin/Globulin Ratio 1.6, Urine Opiates Screen PRESUMPTIVE POSITIVE, U Buprenorphine Qual NEGATIVE, Ur Oxycodone Screen NEGATIVE, Urine Methadone Screen NEGATIVE, Urine Fentanyl Screen PRESUMPTIVE POSITIVE, Ur Barbiturates Screen NEGATIVE, Ur Phencyclidine Scrn NEGATIVE, Ur Amphetamines Screen NEGATIVE, U Benzodiazepines Scrn PRESUMPTIVE POSITIVE, Urine Cocaine Screen NEGATIVE, U Cannabinoids Screen PRESUMPTIVE POSITIVE, Ethyl Alcohol < 10.1 Physical Exam Const alert, oriented x3 and no apparent distress General Appearance: cooperative HEENT normocephalic, head/scalp atraumatic, moist oral mucous membranes and oropharynx normal Eyes EOMs intact bilaterally Neck supple and no JVD Lymph Lymphatic: no lymphedema noted Resp normal respiratory effort, normal air movement and clear to auscultation bilaterally Cardio regular rate, regular rhythm, S1 normal heart sound, S2 normal heart sound and no murmurs GI normal to inspection, nondistended, normoactive bowel sounds, soft to palpation, non-tender and non-distended Extremity normal capillary refill, no clubbing, cyanosis or edema and no calf tenderness General Extremity: no tenderness to palpation of joints or extremities Skin General Skin Exam: no breakdown Neuro no focal motor deficits and no sensory deficits noted Motor Exam: strength 5/5 throughout and general weakness Psych thought process normal, cooperative and affect normal Appearance: appropriate Assessment & Plan Assessment/Plan (1) Substance use disorder: (2) Opiate withdrawal: PLAN: Plan #Acute opioid withdrawal * On opioid withdrawal protocol with buprenorphine. * Monitor CINA score. Adjunctive meds for symptomatic relief. * Addiction medicine coordinator to see patient's tomorrow to help facilitate discharge. * #Nicotine dependence: Smokes a pack a day. Nicotine patch as needed DVT prophylaxis: Low risk. Encourage ambulation. Charges/Coding Visit Charges Inpatient E&M: 58844 Subs Hosp L2
[2025-06-19 14:45] VITALS: BP 124/77; PULSE 80; RESP 16; TEMP 36.9; O2SAT 99
[2025-06-19 20:53] VITALS: BP 122/86; PULSE 64; RESP 15; TEMP 36.9; O2SAT 99
[2025-06-20 05:00] VITALS: BP 126/81; PULSE 62; RESP 15; TEMP 37.2; O2SAT 98
[2025-06-20 08:24] VITALS: BP 123/84; PULSE 59; RESP 14; TEMP 36.4; O2SAT 99
[2025-06-20] MEDS: hydrOXYzine PAM 25 MG Capsule 50 MG PO (08:30)
[2025-06-20] MEDS: Nicotine (PBKC) 14 MG Patch TD (08:30)
--- NOTE | 2025-06-20 11:52 | ADDICTION ---
Met with the patient to complete RAMP assessments. The patient was open and forthcoming in discussing their substance use history and recovery goals. They expressed interest in pursuing outpatient treatment and are receptive to outpatient programs that offer Sublocade as part of their services. The patient demonstrated insight into their recovery process, acknowledging the importance of learning about addiction, understanding associated behaviors, and developing new coping strategies to support long-term success. They stated a willingness to consider inpatient treatment if relapse continues following discharge. At this time, the patient did not identify any transportation needs post-discharge.
[2025-06-20 12:00] VITALS: BP 115/76; PULSE 59; RESP 12; TEMP 36.6; O2SAT 100
--- NOTE | 2025-06-20 12:25 | PN_ITS ---
Subjective Subjective Patient seen and examined with his nurse by his bedside. He still complain of some withdrawal symptoms such as abdominal cramps and nausea and shakes but says they are improving. Review of systems otherwise negative. He has remained hemodynamically stable. Objective Data Objective Data Vital Signs: Vital Signs Temp Pulse Resp BP Pulse Ox O2 Del Method 97.8 F 59 L 12 115/76 100 Room Air 06/20/25 12:00 06/20/25 12:00 06/20/25 12:00 06/20/25 12:00 06/20/25 12:00 06/20/25 12:00 Oxygen Delivery Method Room Air Weight: 129 lb Body Mass Index (BMI) 20.8 Intake & Output: Intake and Output for Last 24 Hours 06/18/25 06/19/25 06/20/25 23:59 23:59 23:59 Intake Total 500 / 500 Balance 500 / 500 Lab / Micro Data 06/18/25 14:43 06/18/25 14:43 Physical Exam Const alert, oriented x3 and no apparent distress General Appearance: cooperative HEENT normocephalic, head/scalp atraumatic, moist oral mucous membranes and oropharynx normal Eyes EOMs intact bilaterally Neck supple and no JVD Lymph Lymphatic: no lymphedema noted Resp normal respiratory effort, normal air movement, no retractions, no use of accessory muscles and clear to auscultation bilaterally Cardio regular rate, regular rhythm, S1 normal heart sound, S2 normal heart sound and no murmurs GI normal to inspection, nondistended, normoactive bowel sounds, soft to palpation, non-tender and non-distended Extremity normal to inspection, full ROM, normal capillary refill, no clubbing, cyanosis or edema and no calf tenderness General Extremity: no tenderness to palpation of joints or extremities Skin General Skin Exam: no breakdown Neuro no focal motor deficits and no sensory deficits noted Sensorium / Orientation: awake and alert Motor Exam: strength 5/5 throughout and general weakness Psych thought process normal, cooperative and affect normal Appearance: appropriate Assessment & Plan Assessment/Plan (1) Substance use disorder: (2) Opiate withdrawal: PLAN: Plan #Acute opioid withdrawal * On opioid withdrawal protocol with buprenorphine. * Monitor CINA score. Adjunctive meds for symptomatic relief. * Addiction medicine coordinator to see patient's tomorrow to help facilitate discharge. * #Nicotine dependence: Smokes a pack a day. Nicotine patch as needed DVT prophylaxis: Low risk. Encourage ambulation. Charges/Coding Visit Charges Inpatient E&M: 53363 Subs Hosp L2
--- NOTE | 2025-06-20 16:06 | CHAPLAIN ---
Type of Pastoral Visit _x__ Initial Visit ___ Follow-up Visit ___ On-call Visit ___ General Patient Visit ___ Spiritual Assessment ___ Family Conference ___ Bereavement ___ Rapid Response ___ Code Blue ___ Other (describe below) Pastoral Care Referral From _x__ Patient ___ Family ___ Nurse ___ Physician ___ Injection Mold Tooling Technician ___ Blocker Heated Metal Forms ___ Other (describe below) Sacrament/Intervention _x__ Active listening ___ Anointing ___ Baptist ___ Bereavement ___ Communion _x__ Doris exploration ___ _x__ Life review _x__ Prayer ___ Reconciliation ___ Sacrament of Sick _x__ Supportive presence ___ Wedding ___ Other (describe below) Pastoral Comments patient is welcoming and invites this bulk intake worker to sit and talk with him; pt acknowledges his struggles with drugs, the time of being clean that he had previously, his family members with addictions, and the circumstances that caused him to be here this time for detox; pt is currently living with an aunt that he states is supportive, an addiction counselor, and a episcopal person; pt has 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
[2025-06-20 21:16] VITALS: BP 103/90; PULSE 63; RESP 16; TEMP 36.7; O2SAT 97
[2025-06-21 04:36] VITALS: BP 123/80; PULSE 66; RESP 16; TEMP 36.7; O2SAT 98
[2025-06-21 08:00] VITALS: BP 117/81; PULSE 59; RESP 15; TEMP 36.6; O2SAT 100
[2025-06-21] MEDS: Nicotine (PBKC) 14 MG Patch TD (09:21)
--- NOTE | 2025-06-21 12:47 | DCINST_ITS ---
Discharge Instructions DC O2, CPAP, BIPAP needs Home O2 Discharge instructions: No Dressing / Incision Discharge Activity: Return to Normal Activity Weight Bearing Status: Weight bearing as tolerated Dressing / Incision Call your doctor if you observe: Fever of 101 or Higher, Shortness of breath, Dizziness, Swelling in the ankles and Chest pain Follow Up Care Test Results: Test results from this visit will be discussed in further detail at your follow- up appointment, if applicable. Discharge Plan Admission Admit Date/Time: 06/18/25 15:38 Primary Reason for Your Visit: acute opioid withdrawal Attending Provider: Kalani Wilder Primary Care Provider: Care Physician,No Primary Consulting Providers: Gabriele Fontanez Instructions Patient Instructions: ED Opioid Withdrawal Discharge Orders/Prescriptions Prescriptions: No Action NK Referrals / Follow Up: Cas Lopez MD [Med Staff - Active Staff, Internal Medicine] - Within 1 Month Referral Note: see to establish PCP care Care Physician,No Primary [Primary Care Provider, Medical] - Within 1 Week Disposition Disposition (needs filled in before D/C Order can be placed): Home, Self Care
--- NOTE | 2025-06-21 12:47 | DS.PCM_ITS ---
Providers Date of Admission: 06/18/25 Primary Care Physician: Kristie Primary Care Phys Reason For Visit: OPIATE WITHDRAWAL Diagnosis Discharge Diagnosis (1) Substance use disorder: Status: Acute Code(s): F19.90 - Other psychoactive substance use, unspecified, uncomplicated (2) Opiate withdrawal: Status: Acute Code(s): F11.93 - Opioid use, unspecified with withdrawal Plan #Acute opioid withdrawal * On opioid withdrawal protocol with buprenorphine. * Monitor CINA score. Adjunctive meds for symptomatic relief. * Addiction medicine coordinator to see patient's tomorrow to help facilitate discharge. * #Nicotine dependence: Smokes a pack a day. Nicotine patch as needed DVT prophylaxis: Low risk. Encourage ambulation. Medications at Discharge Home Medications NK 06/18/25 Weight / BMI Weight Weight: 129 lb Body Mass Index (BMI) 20.8 ABG / Lab / Microbiology Data 06/18/25 14:43 06/18/25 14:43 D/C Instructions Weight Bearing Status: Weight bearing as tolerated Call your doctor if you observe: Fever of 101 or Higher, Shortness of breath, Dizziness, Swelling in the ankles and Chest pain DC O2, CPAP, BIPAP Needs Home O2 Discharge instructions: No Discharge Plan Admission Admit Date/Time: 06/18/25 15:38 Primary Reason for Your Visit: acute opioid withdrawal Attending Provider: Kalani Wilder Primary Care Provider: Care Physician,No Primary Consulting Providers: Gabriele Fontanez Instructions Patient Instructions: ED Opioid Withdrawal Discharge Orders/Prescriptions Prescriptions: No Action NK Referrals / Follow Up: Cas Lopez MD [Med Staff - Active Staff, Internal Medicine] - Within 1 Month Referral Note: see to establish PCP care Care Physician,No Primary [Primary Care Provider, Medical] - Within 1 Week Disposition Disposition (needs filled in before D/C Order can be placed): Home, Self Care
--- NOTE | 2025-06-21 12:47 | PCM.DC.SUM ---
Providers Date of Admission: 06/18/25 Date of Discharge: 06/21/25 Primary Care Physician: Kristie Primary Care Phys Reason For Visit: OPIATE WITHDRAWAL Diagnosis Discharge Diagnosis (1) Substance use disorder: Status: Acute Code(s): F19.90 - Other psychoactive substance use, unspecified, uncomplicated (2) Opiate withdrawal: Status: Acute Code(s): F11.93 - Opioid use, unspecified with withdrawal Plan #Acute opioid withdrawal On opioid withdrawal protocol with buprenorphine. Monitor CINA score. Adjunctive meds for symptomatic relief. Addiction medicine coordinator to see patient's tomorrow to help facilitate discharge. #Nicotine dependence: Smokes a pack a day. Nicotine patch as needed DVT prophylaxis: Low risk. Encourage ambulation. Medications at Discharge Home Medications NK 06/18/25 Hospital Course Operations None Procedures None Summary of Care Provided Minutes Spent on Discharge: 38 Hospital Course: Patient is a 25-year-old with a past medical history as outlined was admitted to the ED on 06/18/2025 for acute opioid withdrawal. He used fentanyl and says he usually snorted it. He could not quantify the exact amount and said he used a lot. His last use was on the morning of admission. He had associated nausea and vomiting and restless legs. Review of systems otherwise negative. He was admitted to be managed for acute opioid withdrawal. Urine tox was positive for benzodiazepines and cannabinoids as well as fentanyl and opioids. He was placed on opioid withdrawal protocol with buprenorphine. He tolerated the 3-day detox process and did well. He remained stable and was discharged home on 06/21/2025. He is follow-up with his primary care doctor within 1 to 2 weeks. Patient seen and examined prior to discharge. He had no active complaints and felt well. He felt ready to be discharged. Review of systems otherwise negative. Home meds reviewed and reconciled. He was referred to [facility] to establish PCP care. Physical Exam Const alert, oriented x3 and no apparent distress General Appearance: cooperative HEENT normocephalic, head/scalp atraumatic, moist oral mucous membranes and oropharynx normal Mouth: oral and palatal mucosa normal Eyes EOMs intact bilaterally and conjunctivae normal Neck supple and no JVD Lymph Lymphatic: no lymphedema noted Resp normal respiratory effort, normal air movement, no retractions, no use of accessory muscles and clear to auscultation bilaterally Cardio regular rate, regular rhythm, S1 normal heart sound, S2 normal heart sound and no murmurs GI normal to inspection, nondistended, normoactive bowel sounds, soft to palpation, non-tender and non-distended Extremity normal to inspection, full ROM, normal capillary refill, no clubbing, cyanosis or edema and no calf tenderness General Extremity: no tenderness to palpation of joints or extremities Skin no rashes or lesions noted General Skin Exam: no breakdown Neuro oriented x3, moves all extremities, no focal motor deficits and no sensory deficits noted Sensorium / Orientation: awake and alert Motor Exam: strength 5/5 throughout and general weakness Psych thought process normal, cooperative and affect normal Appearance: appropriate Weight / BMI Weight Weight: 129 lb Body Mass Index (BMI) 20.8 ABG / Lab / Microbiology Data 06/18/25 14:43 06/18/25 14:43 D/C Instructions Discharge Activity: Return to Normal Activity Weight Bearing Status: Weight bearing as tolerated Call your doctor if you observe: Fever of 101 or Higher, Shortness of breath, Dizziness, Swelling in the ankles and Chest pain DC O2, CPAP, BIPAP Needs Home O2 Discharge instructions: No DC home with Oxygen: No Meaningful Use Info Meaningful Use Meaningful Use Diagnoses (Choose all that apply): None applicable Discharge Plan Admission Admit Date/Time: 06/18/25 15:38 Primary Reason for Your Visit: acute opioid withdrawal Attending Provider: Kalani Wilder Primary Care Provider: Care Physician,No Primary Consulting Providers: Gabriele Fontanez Instructions Patient Instructions: ED Opioid Withdrawal Discharge Orders/Prescriptions Prescriptions: No Action NK Referrals / Follow Up: Cas Lopez MD [Med Staff - Active Staff, Internal Medicine] - Within 1 Month Referral Note: see to establish PCP care Care Physician,No Primary [Primary Care Provider, Medical] - Within 1 Week Disposition Disposition (needs filled in before D/C Order can be placed): Home, Self Care Charges/Coding Visit Charges Inpatient E&M: 21729 Disch Hosp >30min
[2025-06-21 14:35] VITALS: BP 120/86; PULSE 89; RESP 14; TEMP 36.8; O2SAT 99
== END 2025-06-21 15:02 | disposition home or self-care (01) ==
LOC: ED 15:44 → MS3 16:03
PROVIDERS: Emergency Provider Emergency Medicine; Visit Provider Student in an Organized Health Care Education/Training Program
DX: F11.13 Opioid abuse with withdrawal (principal); F17.210 Nicotine dependence, cigarettes, uncomplicated
CPT/HCPCS: 36415; 80053; 80307; 82077; 85025; 99221; 99283; G0378